=== PATIENT | male | born 2000 | race Two or more races ===

== ENCOUNTER 2023-12-29 04:23 | Emergency (ER) | payer MEDICAID, SELFPAY ==
[2023-12-29 04:23] VITALS: PULSE 98; RESP 16; O2SAT 99
[2023-12-29 04:46] VITALS: BP 151/90; PULSE 72; RESP 18; TEMP 36.9; O2SAT 97
--- NOTE | 2023-12-29 05:13 | EKG_ITS ---
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
--- NOTE | 2023-12-29 05:14 | PD.EDRME ---
Rapid Medical Screening Exam RME Arrival date/time: 12/29/23 04:23 23 year old male present to ED for c/o of arm pain today. I have greeted and performed a focused initial assessment of this patient. A comprehensive ED assessment and evaluation of the patient, analysis of all test results, and completion of the medical decision making process will be conducted by additional ED providers. Chief Complaint: General Adult/Misc Complain Vital signs: Vital Signs Temperature 98.5 F 12/29/23 04:46 Pulse Rate 72 12/29/23 04:46 Respiratory Rate 18 12/29/23 04:46 Blood Pressure 151/90 H 12/29/23 04:46 Pulse Oximetry (%) 97 12/29/23 04:46 Oxygen Delivery Method Room Air 12/29/23 04:46
[2023-12-29 06:17] LABS: Basophils # (Auto) 0.1 Thou/mm3 (0.0-0.2); Basophils % (Auto) 1 % (0-2.5); Eosinophils # (Auto) 0.5 Thou/mm3 (0.0-0.5); Eosinophils % (Auto) 5 % (0-10); Hematocrit 46.7 % (41.0-53.0); Hemoglobin 15.8 g/dL (13.5-16.0); Immature Granulocytes % (Auto) 0 % (0-0); Immature Granulocytes Auto 0.04 Thou/mm3 (0.00-0.00); Lymphocytes # (Auto) 2.3 Thou/mm3 (1.0-4.8); Lymphocytes % (Auto) 24 % (10-50); Mean Corpuscular HGB Conc 33.8 g/dl (31.0-37.0); Mean Corpuscular Volume 95 fL (80-100); Monocytes # (Auto) 0.9 Thou/mm3 (0.0-0.8); Monocytes % (Auto) 9 % (0-12); Neutrophils % (Auto) 61 % (37-80); Nucleated Red Blood Cell % 0 /100 WBC (0); Platelet Count 194 Thou/mm3 (140-440); RDW Standard Deviation 43.8 fL (35.1-43.9); Red Blood Count 4.93 Miln/mm3 (4.50-5.90); White Blood Count 9.8 Thou/mm3 (3.8-10.6)
[2023-12-29 06:32] LABS: Alanine Aminotransferase 34 U/L (10-49); Albumin, Serum 4.7 gm/dL (3.5-5.0); Alkaline Phosphatase 67 U/L (46-116); Anion Gap 5 (7-16); Aspartate Amino Transferase 22 U/L (0-34); BUN/Creatinine Ratio 11 Ratio (12-20); Bilirubin,Total 0.4 mg/dL (0.3-1.2); Blood Urea Nitrogen 10 mg/dL (9-23); Calcium 10.5 mg/dL (8.3-10.6); Calcium (Corrected) 10.5 mg/dL (8.5-10.1); Carbon Dioxide 28.4 mMol/L (20.0-31.0); Chloride 106 mMol/L (98-107); Creatinine (Component) 0.9 mg/dL (0.6-1.3); Globulin 2.4 gm/dL (2.3-3.5); Glucose 93 mg/dL (74-106); Osmolality,Calculated 276 (275-295); Potassium 4.6 mMol/L (3.4-5.1); Sodium 139 mMol/L (136-145); Total Protein 7.1 gm/dL (5.7-8.2); Troponin I < 0.002 ng/mL (0.0-0.045); eGFR > 60 See Note
--- NOTE | 2023-12-29 06:41 | EDNOTE_ITS ---
ED General RME/HPI General Chief complaint: General Adult/Misc Complain Stated complaint: Muscle Spasms Time Seen by Provider: 12/29/23 06:14 Arrival date/time: 12/29/23 04:23 23-year-old male presents to the emergency department complaint of bilateral arm pain patient reports muscle spasms Limitations: no limitations RME / HPI RME / HPI narrative: 12/29/23 04:23 23 year old male present to ED for c/o of arm pain today. I have greeted and performed a focused initial assessment of this patient. A comprehensive ED assessment and evaluation of the patient, analysis of all test results, and completion of the medical decision making process will be conducted by additional ED providers. Related Data Previous Rx's ?Medication ?Instructions ?Recorded lorazepam 0.5 mg tablet (Ativan) 0.5 mg PO BID PRN anxiety #20 tabs 06/13/19 melatonin 5 mg capsule 5 mg PO QHSPRN PRN for sleep #30 07/16/19 caps amoxicillin 875 mg-potassium 1 tab PO BID #20 tabs 08/01/19 clavulanate 125 mg tablet (Augmentin) albuterol sulfate 90 mcg/actuation 2 puff inhalation QID PRN 12/21/19 aerosol inhaler shortness of breath or wheezing #18 grams ibuprofen 800 mg tablet 800 mg PO TID PRN pain #60 tabs 05/06/20 albuterol sulfate 90 mcg/actuation 2 puff inhalation Q6H PRN 10/10/23 aerosol inhaler (Ventolin HFA) shortness of breath or wheezing #8.5 grams fluticasone propionate 50 2 spray intranasal QDAY #16 grams 11/11/23 mcg/actuation nasal spray,suspension (Flonase Allergy Relief) loratadine 10 mg tablet 10 mg PO QDAY #20 tabs 11/11/23 hydroxyzine HCl 50 mg tablet 50 mg PO Q6H PRN anxiety #20 tabs 12/07/23 cyclobenzaprine 10 mg tablet 10 mg PO TID PRN muscle spasm 10 12/29/23 days #30 tab-caps ibuprofen 800 mg tablet 800 mg PO TID PRN pain #30 tabs 12/29/23 Allergies Allergy/AdvReac Type Severity Reaction Status Date / Time dog dander Allergy Verified 10/15/23 17:37 CATS Allergy Mild SNEEZE Uncoded 10/15/23 17:37 Review of Systems Review of Systems Systems Reviewed: All systems reviewed, normal except as documented Constitutional Constitutional: Reports system reviewed and no additional complaints, except as documented, Denies fever(s) and Denies headache(s) Eyes Eyes: Reports system reviewed and no additional complaints, except as documented and Denies blurry vision ENT Ears, Nose, Mouth, and Throat: Reports system reviewed and no additional complaints, except as documented, Denies headache(s), Denies nasal congestion and Denies nasal discharge Cardiovascular Cardiovascular: Reports system reviewed and no additional complaints, except as documented, Denies chest pain and Denies dyspnea Respiratory Respiratory: Reports system reviewed and no additional complaints, except as documented, Denies chest congestion, Denies cough and Denies dyspnea Gastrointestinal Gastrointestinal: Reports system reviewed and no additional complaints, except as documented and Denies abdominal pain Musculoskeletal Musculoskeletal: Reports system reviewed and no additional complaints, except as documented and Reports muscle cramps Integumentary/Breasts Skin/Breast: Reports system reviewed and no additional complaints, except as documented and Denies rash Neurologic Neurologic: Reports system reviewed and no additional complaints, except as documented, Reports as per HPI and Denies headache(s) Past Medical History Past Medical History NEUROLOGIC: Negative Neurological Disorders CARDIAC: Negative Cardiac Disorders RESPIRATORY: Negative Respiratory Disorders ED Exam General Limitations: Present no limitations General appearance: Present alert and in no apparent distress Head Head exam: Present atraumatic Eye Eye exam: Present normal appearance, PERRL and EOMI; Absent conjunctival injection ENT ENT exam: Present normal exam, normal oropharynx and mucous membranes moist Neck Neck exam: Present normal inspection, full ROM and trachea midline Chest Chest inspection: Present normal inspection and symmetric chest wall rise Respiratory Respiratory exam: Present normal lung sounds bilaterally; Absent respiratory distress Cardiovascular Cardiovascular exam: Present regular rate, normal rhythm and normal heart sounds Abdominal Exam Abdominal exam: Present soft and normal bowel sounds Extremities Exam Extremities exam: Present normal inspection and full ROM; Absent joint swelling Back Exam Back exam: Present normal inspection and full ROM Neurological Exam Neurological exam: Present alert, oriented X3 and CN II-XII intact Psychiatric Psychiatric exam: Present normal affect and normal mood Skin Skin exam: Present warm, dry, intact and normal color Course Quality Measures none Orders Category Date Time Status EKG (ED ONLY) *Do not use* NOW Care 12/29/23 05:13 Completed EKG (ED Only) Stat Exams 12/29/23 05:13 Draft CBC Stat Lab 12/29/23 06:01 Completed CMP [Comprehensive Metabolic Panel] Stat Lab 12/29/23 06:01 Completed Drug Screen,Urine Stat Lab 12/29/23 05:14 Ordered Mag [Magnesium] Stat Lab 12/29/23 06:01 Completed Troponin I Stat Lab 12/29/23 06:01 Completed Vital Signs Vital signs: Vital Signs Temperature 98.5 F 12/29/23 04:46 Pulse Rate 72 12/29/23 04:46 Respiratory Rate 18 12/29/23 04:46 Blood Pressure 151/90 H 12/29/23 04:46 Pulse Oximetry (%) 97 12/29/23 04:46 Oxygen Delivery Method Room Air 12/29/23 04:46 O2 saturation 97% room air within normal limits Procedures -ED EKG Interpretation #1: Date of EK12/29/23 Rate: 63 Interpretation: Interpreted by me EKG Impression: Normal sinus rhythm, No acute ST-T changes, No ectopy, No ischemic changes, Normal QRS and Normal intervals MDM Patient data External records reviewed:: [facility] previous records Clinical information provided by:: patient Social determinants that could affect healthcare access:: none Patient has the following chronic illnesses:: None How is presenting disease/condition affected by chronic disease/condition?: no chronic disease Evaluation data The following diagnostics were reviewed and interpreted by me:: lab results and EKG tracing(s) Lab and/or radiology exams considered but not ordered:: Labs and EKG obtained Interpretation Summary: Reviewed by me Medications Medications considered but not ordered:: Given Medication administrations:: Given Rx Consultations Consultation(s) initiated? (list below): No Diagnosis Differential Diagnosis ED Complaint MDM: Muscle spasm, anxiety Most likely diagnosis given after review of the tests above:: Muscle spasm Admission Indicated Admission indicated?: not indicated Explain why admission is indicated or not indicated:: No criteria Admission Request Was there a request for admission?: No Disposition Plan Disposition Plan: Discharge Discharge Attestation Discharge Attestation: The patient and all family members were given an opportunity to ask questions and understood the discharge instructions. Discharge instructions specifically effects, indications for sooner follow up or return to the emergency department, and the expected course of current diagnosis. Patient condition: Stable Medical Decision Making MDM Narrative MDM Narrative: 23-year-old male presents to the emergency department complaint of bilateral arm pain patient reports muscle spasms On exam patient has equal strength bilaterally patient walks with steady gait Lab work and EKG was obtained my colleague no acute emergent findings noted Patient discharged home in no distress to follow-up with primary care doctor in the next 24 to 48 hours and for any worsening symptoms to return to the ER immediately Differential Diagnosis Differential Diagnosis: Muscle spasm, anxiety Medical Records Medical records reviewed: Yes I reviewed the patient's medical records. Lab Data Lab results reviewed: Yes I reviewed the patient's lab results. 12/29/23 06:01 12/29/23 06:01 Labs: Lab Results 12/29/23 Range/Units 06:01 WBC 9.8 (3.8-10.6) Thou/mm3 RBC 4.93 (4.50-5.90) Miln/mm3 Hgb 15.8 (13.5-16.0) g/dL Hct 46.7 (41.0-53.0) % MCV 95 (80-100) fL MCH 32.0 (25.0-35.0) pg MCHC 33.8 (31.0-37.0) g/dl RDW Std Deviation 43.8 (35.1-43.9) fL Plt Count 194 (140-440) Thou/mm3 Neut % (Auto) 61 (37-80) % Lymph % (Auto) 24 (10-50) % [place] % (Auto) 9 (0-12) % Eos % (Auto) 5 (0-10) % Baso % (Auto) 1 (0-2.5) % Neut # (Auto) 6.0 (1.8-7.7) Thou/mm3 Lymph # (Auto) 2.3 (1.0-4.8) Thou/mm3 [place] # (Auto) 0.9 H (0.0-0.8) Thou/mm3 Eos # (Auto) 0.5 (0.0-0.5) Thou/mm3 Baso # (Auto) 0.1 (0.0-0.2) Thou/mm3 Immature Gran # (Auto) 0.04 H (0.00-0.00) Thou/mm3 Absolute Nucleated RBC 0.00 (0.00-0.00) Thou/mm3 Immature Gran % 0 (0-0) % Nucleated RBC % 0 (0) /100 WBC Sodium 139 (136-145) mMol/L Potassium 4.6 (3.4-5.1) mMol/L Chloride 106 (98-107) mMol/L Carbon Dioxide 28.4 (20.0-31.0) mMol/L Anion Gap 5 L (7-16) BUN 10 (9-23) mg/dL Creatinine 0.9 (0.6-1.3) mg/dL Estim Creat Clear Calc Not Performed. eGFR > 60 (60 - ) See Note BUN/Creatinine Ratio 11 L (12-20) Ratio Glucose 93 (74-106) mg/dL Calculated Osmolality 276 (275-295) Calcium 10.5 (8.3-10.6) mg/dL Corrected Calcium 10.5 H (8.5-10.1) mg/dL Magnesium 2.0 (1.6-2.6) mg/dL Total Bilirubin 0.4 (0.3-1.2) mg/dL AST 22 (0-34) U/L ALT 34 (10-49) U/L Alkaline Phosphatase 67 (46-116) U/L Troponin I < 0.002 (0.0-0.045) ng/mL Total Protein 7.1 (5.7-8.2) gm/dL Albumin 4.7 (3.5-5.0) gm/dL Globulin 2.4 (2.3-3.5) gm/dL Albumin/Globulin Ratio 2.0 (1.2-2.2) Discharge Plan Plan Patient Disposition: HOME (Self Care) Disposition Comment: Stable Prescriptions/Referrals Prescriptions/Med Rec: New cyclobenzaprine 10 mg tablet 10 mg PO TID PRN (Reason: muscle spasm) 10 Days Qty: 30 0RF ibuprofen 800 mg tablet 800 mg PO TID PRN (Reason: pain) Qty: 30 0RF No Action lorazepam [Ativan] 0.5 mg tablet 0.5 mg PO BID PRN (Reason: anxiety) Qty: 20 0RF amoxicillin-pot clavulanate [Augmentin] 875-125 mg tablet 1 tab PO BID Qty: 20 0RF albuterol sulfate 90 mcg/actuation HFA aerosol inhaler 2 puff inhalation QID PRN (Reason: shortness of breath or wheezing) Qty: 18 0RF ibuprofen 800 mg tablet 800 mg PO TID PRN (Reason: pain) Qty: 60 0RF melatonin 5 mg capsule 5 mg PO QHSPRN PRN (Reason: for sleep ) Qty: 30 0RF hydroxyzine HCl 50 mg tablet 50 mg PO Q6H PRN (Reason: anxiety) Qty: 20 0RF albuterol sulfate [Ventolin HFA] 90 mcg/actuation HFA aerosol inhaler 2 puff inhalation Q6H PRN (Reason: shortness of breath or wheezing) Qty: 8.5 0RF fluticasone propionate [Flonase Allergy Relief] 50 mcg/actuation spray,suspension 2 spray intranasal QDAY Qty: 16 0RF Rx Instructions: administer into each nostril loratadine 10 mg tablet 10 mg PO QDAY Qty: 20 0RF Referrals: Amira Esqueda FNP [Primary Care Provider] - In 1 week Problem List Clinical Impression: Muscle spasm Patient/Caregiver Discharge Instructions Education Materials: ED Muscle Spasm Additional Instructions: Please follow up with your primary care doctor in the next 24-48hrs for any worsening symptoms return here immediately Print Language: Sami Stand Alone Forms: Rubina Award Info., Patient Portal Info Letter MELISSA/RALPH Supervising Physician MELISSA/RALPH Supervising Physician: Dr. Skelton
[2023-12-29 06:43] VITALS: BP 127/81; PULSE 65; RESP 17; TEMP 36.8; O2SAT 97
== END 2023-12-29 07:02 | disposition home or self-care (01) ==
PROVIDERS: Physician Assistant; Emergency Provider Emergency Medicine; PCP Nurse Practitioner Family
DX: M62.838 Other muscle spasm (principal)
CPT/HCPCS: 36415; 80053; 80307; 83735; 84484; 85025; 93005; 99283

== ENCOUNTER 2023-12-30 22:01 | Emergency (ER) | payer MEDICAID, SELFPAY ==
[2023-12-30 22:02] VITALS: BMI 39.9
[2023-12-30 22:14] VITALS: BP 139/85; PULSE 84; RESP 19; TEMP 37.1; O2SAT 97
--- NOTE | 2023-12-30 22:37 | EKG_ITS ---
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
--- NOTE | 2023-12-30 22:37 | XR_ITS ---
Examination: PA lateral chest 2 views Technique: Upright PA lateral chest 2 views Exam date and time: December 30, 2023 1047 hrs. Indications: Coughing today Findings: Normal heart size Lungs are clear. The osseous structures are intact Impression: No active disease
--- NOTE | 2023-12-30 22:38 | PD.EDSOB ---
ED SOB =RME/HPI General Chief Complaint: Shortness of Breath/Dyspnea Stated Complaint: PAIN WITH BREATHING Time Seen by Provider: 12/30/23 22:38 Source: patient Arrival date/time: 12/30/23 22:01 23-year-old male with past medical history of anxiety presents emergency department complaining of pain on inspiration for 3 days but only happens when going to bed. Patient denies any fever, chills, nausea vomiting, palpitations, dizziness, or any other associated symptom. Mode of arrival: ambulatory Limitations: no limitations Related Data Previous Rx's ?Medication ?Instructions ?Recorded lorazepam 0.5 mg tablet (Ativan) 0.5 mg PO BID PRN anxiety #20 tabs 06/13/19 melatonin 5 mg capsule 5 mg PO QHSPRN PRN for sleep #30 07/16/19 caps amoxicillin 875 mg-potassium 1 tab PO BID #20 tabs 08/01/19 clavulanate 125 mg tablet (Augmentin) albuterol sulfate 90 mcg/actuation 2 puff inhalation QID PRN 12/21/19 aerosol inhaler shortness of breath or wheezing #18 grams ibuprofen 800 mg tablet 800 mg PO TID PRN pain #60 tabs 05/06/20 albuterol sulfate 90 mcg/actuation 2 puff inhalation Q6H PRN 10/10/23 aerosol inhaler (Ventolin HFA) shortness of breath or wheezing #8.5 grams fluticasone propionate 50 2 spray intranasal QDAY #16 grams 11/11/23 mcg/actuation nasal spray,suspension (Flonase Allergy Relief) loratadine 10 mg tablet 10 mg PO QDAY #20 tabs 11/11/23 hydroxyzine HCl 50 mg tablet 50 mg PO Q6H PRN anxiety #20 tabs 12/07/23 cyclobenzaprine 10 mg tablet 10 mg PO TID PRN muscle spasm 10 12/29/23 days #30 tab-caps ibuprofen 800 mg tablet 800 mg PO TID PRN pain #30 tabs 12/29/23 Allergies Allergy/AdvReac Type Severity Reaction Status Date / Time dog dander Allergy Verified 10/15/23 17:37 CATS Allergy Mild SNEEZE Uncoded 10/15/23 17:37 Review of Systems Review of Systems Systems Reviewed: All systems reviewed, normal except as documented Constitutional Constitutional: Reports system reviewed and no additional complaints, except as documented, Denies body ache(s), Denies chills and Denies fever(s) Eyes Eyes: Reports system reviewed and no additional complaints, except as documented and Denies change in vision ENT Ears, Nose, Mouth, and Throat: Reports system reviewed and no additional complaints, except as documented, Denies disequilibrium, Denies dizziness, Denies sore throat and Denies vertigo Cardiovascular Cardiovascular: Reports system reviewed and no additional complaints, except as documented, Denies chest pain and Reports dyspnea Respiratory Respiratory: Reports system reviewed and no additional complaints, except as documented, Denies chest congestion, Denies cough and Reports dyspnea Gastrointestinal Gastrointestinal: Reports system reviewed and no additional complaints, except as documented, Denies abdominal pain, Denies nausea and Denies vomiting Musculoskeletal Musculoskeletal: Reports system reviewed and no additional complaints, except as documented, Denies abnormal gait and Denies arthralgias Integumentary/Breasts Skin/Breast: Reports system reviewed and no additional complaints, except as documented, Denies erythema, Denies rash and Denies wounds Neurologic Neurologic: Reports system reviewed and no additional complaints, except as documented, Denies abnormal gait, Denies disequilibrium, Denies dizziness and Denies vertigo Past Medical History Past Medical History NEUROLOGIC: Negative Neurological Disorders CARDIAC: Negative Cardiac Disorders, Congestive Heart Failure, Hypertension or Hypotension RESPIRATORY: Positive Asthma; Negative Chronic Obstructive Pulmonary Disease (COPD) GENITOURINARY: Negative Renal Disease ENDOCRINE: Negative Diabetes Mellitus Type 1 or Diabetes Mellitus Type 2 PSYCHO/SOCIAL: Positive Anxiety OTHER HISTORY: Negative Cancer Social History SMOKING STATUS: Never smoker SUBSTANCE USE: does not use ED Exam General Limitations: Present no limitations General appearance: Present alert and in no apparent distress Head Head exam: Present atraumatic Eye Eye exam: Present normal appearance, PERRL and EOMI ENT ENT exam: Present normal exam, normal oropharynx and mucous membranes moist Neck Neck exam: Present normal inspection, full ROM and trachea midline Chest Chest inspection: Present normal inspection and symmetric chest wall rise Respiratory Respiratory exam: Present normal lung sounds bilaterally Cardiovascular Cardiovascular exam: Present regular rate, normal rhythm and normal heart sounds Abdominal Exam Abdominal exam: Present soft and normal bowel sounds Extremities Exam Extremities exam: Present normal inspection and full ROM Back Exam Back exam: Present normal inspection and full ROM Neurological Exam Neurological exam: Present alert, oriented X3 and CN II-XII intact Psychiatric Psychiatric exam: Present normal affect and normal mood Skin Skin exam: Present warm, dry, intact and normal color Course Quality Measures none Orders Category Date Time Status Bedside COVID-19 Antigen Test NOW Care 12/30/23 22:37 Completed Bedside Influenza A&B Antigen Test NOW Care 12/30/23 22:37 Completed EKG (ED ONLY) *Do not use* NOW Care 12/30/23 22:37 Completed EKG (ED Only) Stat Exams 12/30/23 22:37 Draft XR chest 2V Stat Exams 12/30/23 22:37 Completed Drug Screen,Urine Stat Lab 12/31/23 00:09 Completed DiphenhydrAMINE [Benadryl] Med 12/31/23 00:43 Discontinued 25 mg PO X1 ONE Vital Signs Vital signs: Vital Signs Temperature 98.7 F 12/30/23 22:14 Pulse Rate 84 12/30/23 22:14 Respiratory Rate 19 12/30/23 22:14 Blood Pressure 139/85 H 12/30/23 22:14 Pulse Oximetry (%) 97 12/30/23 22:14 Oxygen Delivery Method Room Air 12/30/23 22:14 97% room air within normal limits Procedures -ED EKG Interpretation #1: Date of EK12/30/23 Time of EK:45 Rate: 75 Interpretation: Interpreted by me EKG Impression: Normal sinus rhythm, No acute ST-T changes, No ectopy, No ischemic changes and Normal QRS Shortness of Breath / Dyspnea MDM Narrative MDM Narrative:: 23-year-old male with past medical history of anxiety presents emergency department complaining of pain on inspiration for 3 days but only happens when going to bed. Patient denies any fever, chills, nausea vomiting, palpitations, dizziness, or any other associated symptom. Chest x-ray was negative for any acute process. EKG normal sinus rhythm. Patient tested negative for COVID and influenza swabs. Patient appears nontoxic and hemodynamic stable. No adventitious lung sounds on auscultation. Patient does not appear to be in any respiratory distress. Patient discharged home and instructed to follow-up with primary care provider and return to emergency department for any worsening symptoms or as needed. Patient data External records reviewed:: [facility] previous records Clinical information provided by:: patient Social determinants that could affect healthcare access:: none Patient has the following chronic illnesses:: See chart How is presenting disease/condition affected by chronic disease/condition?: exacerbated by Evaluation data The following diagnostics were reviewed and interpreted by me:: lab results and radiology exam(s) Lab and/or radiology exams considered but not ordered:: Ordered Interpretation Summary: Interpreted by me Medications / Prescriptions Medications or Prescriptions considered but not ordered:: Ordered Medication administrations:: Medication Administration History Discontinued Medications Diphenhydramine HCl (Diphenhydramine 25 Mg Capsule) 25 mg PO X1 ONE Stop: 12/31/23 00:44 Last Admin: 12/31/23 00:48 Dose: 25 mg Documented By: DB Given Consultations Consultation(s) initiated? (list below): No Diagnosis Shortness of Breath Differential Diagnosis: community acquired pneumonia and asthma with exacerbation Most likely diagnosis given after review of the tests above:: Viral syndrome Admission Indicated Admission indicated?: not indicated Admission Request Was there a request for admission?: No Disposition Plan Disposition Plan: Discharge Discharge Attestation Discharge Attestation: The patient and all family members were given an opportunity to ask questions and understood the discharge instructions. Discharge instructions specifically effects, indications for sooner follow up or return to the emergency department, and the expected course of current diagnosis. Patient condition: Stable Discharge Plan Plan Patient Disposition: HOME (Self Care) Disposition Comment: Stable Prescriptions/Referrals Prescriptions/Med Rec: No Action lorazepam [Ativan] 0.5 mg tablet 0.5 mg PO BID PRN (Reason: anxiety) Qty: 20 0RF amoxicillin-pot clavulanate [Augmentin] 875-125 mg tablet 1 tab PO BID Qty: 20 0RF albuterol sulfate 90 mcg/actuation HFA aerosol inhaler 2 puff inhalation QID PRN (Reason: shortness of breath or wheezing) Qty: 18 0RF ibuprofen 800 mg tablet 800 mg PO TID PRN (Reason: pain) Qty: 60 0RF melatonin 5 mg capsule 5 mg PO QHSPRN PRN (Reason: for sleep ) Qty: 30 0RF hydroxyzine HCl 50 mg tablet 50 mg PO Q6H PRN (Reason: anxiety) Qty: 20 0RF cyclobenzaprine 10 mg tablet 10 mg PO TID PRN (Reason: muscle spasm) 10 Days Qty: 30 0RF ibuprofen 800 mg tablet 800 mg PO TID PRN (Reason: pain) Qty: 30 0RF albuterol sulfate [Ventolin HFA] 90 mcg/actuation HFA aerosol inhaler 2 puff inhalation Q6H PRN (Reason: shortness of breath or wheezing) Qty: 8.5 0RF fluticasone propionate [Flonase Allergy Relief] 50 mcg/actuation spray,suspension 2 spray intranasal QDAY Qty: 16 0RF Rx Instructions: administer into each nostril loratadine 10 mg tablet 10 mg PO QDAY Qty: 20 0RF Referrals: Amira Esqueda FNP [Primary Care Provider] - In 1 week Problem List Clinical Impression: Viral syndrome Patient/Caregiver Discharge Instructions Discharge Activity: activity as tolerated Education Materials: ED Viral Syndrome (Adult) Additional Instructions: Drink plenty of fluids and stay hydrated. Follow-up with primary care provider in 24 to 48 hours and request sleep study if symptoms persist. Return to the emergency department for any worsening symptoms or as needed. Print Language: Slovenian Stand Alone Forms: Rubina Award Info., Patient Portal Info Letter Attestation Attestation The patient was seen by the midlevel practitioner. I, the co-signing physician, was present during the entire ER visit. While I did not physically examine the patient, I was available for consultation as needed.
[2023-12-31 00:27] LABS: Amphetamine/Methamp Scrn,U Negative (Negative); Barbiturate Screen,Urine Negative (Negative); Benzodiazepines Screen,Urine Negative (Negative); Benzoylecgonine Screen, Ur Negative (Negative); Fentanyl Screen,Urine Negative (Negative); Opiate Screen,Urine Negative (Negative); THC Screen,Urine Negative (Negative)
[2023-12-31] MEDS: DiphenhydrAMINE 25 MG CAPSULE PO (00:48)
[2023-12-31 00:50] VITALS: BP 133/70; PULSE 64; RESP 16; TEMP 37.1; O2SAT 100
== END 2023-12-31 00:51 | disposition home or self-care (01) ==
PROVIDERS: Emergency Provider Emergency Medicine; PCP Nurse Practitioner Family
DX: B34.9 Viral infection, unspecified (principal)
CPT/HCPCS: 71046; 80307; 87400; 87811; 93005; 99283; A9270

== ENCOUNTER 2024-02-03 01:56 | Emergency (ER) | payer MEDICAID, SELFPAY ==
[2024-02-03 01:57] VITALS: BMI 38.7
[2024-02-03 02:25] VITALS: BP 147/92; PULSE 66; RESP 18; TEMP 36.8; O2SAT 97
--- NOTE | 2024-02-03 02:26 | EDNOTE_ITS ---
ED General RME/HPI General Chief complaint: General Adult/Misc Complain Stated complaint: SHAKY AND SOB AFTER TAKING TYLENOL PM Time Seen by Provider: 02/03/24 02:02 Arrival date/time: 02/03/24 01:56 23 year old male present to emergency room with c/o anxiety attack tonight. pt report taking tylenol pm and felt he could not fall asleept. hx of anxiety SEVERITY: Symptoms are described as being severe with limitations on activities of daily living CONTEXT: The patient is unable to identify any inciting events. DURATION/TIMING: The symptoms started approximately 1 day ASSOCIATED SYMPTOMS: The patient is unable to identify any other associated symptoms. MODIFYING FACTORS: The patient is unable to identify any alleviating or aggravating symptoms. PERTINENT ROS: no fevers, no cough, no chest pain no nausea,vomiting, diarrhea, no dizziness/headache no rash no loc/syncope episode no abd/back pain REVIEW OF SYSTEMS: See History of Present Illness - with the exception of those mentioned in the history of present illness, all other systems reviewed and reported as negative GENERAL: In general the patient is awake, interactive, in an emergency department gurney. HEAD/EYES/EARS/NOSE/THROAT: normo-cephalic, atraumatic, mucus membranes are moist, anicteric, palpebral conjunctiva is pink, trachea is midline. CARDIOVASCULAR: regular rate and regular rhythm, no murmurs, heart sounds are not distant, strong pulses in all four extremities that are equal and symmetric bilateral upper and lower extremities, normal capillary refill. CHEST/PULMONARY: normal chest rise and fall, good air movement, clear to auscultation bilaterally, normal inspiratory to expiratory ratios without evidence of respiratory distress. NECK: No midline/Paraspinal tenderness, no step off ROM/Strenght intact No Kernig and bruzinski sign. No trauma ABDOMEN: soft, not tender, no masses appreciated BACK: normal range of motion without pain. NEUROLOGICAL: cranio-facial features are symmetric, moves all four extremities equally without obvious limitations or weakness. EXTREMITY: no tenderness to palpation over the long bones or large joints of the bilateral upper and lower extremities, no joint swelling, no joint erythema, no signs of trauma, no unilateral leg swelling and no peripheral edema. SKIN: warm, dry, well-perfused, no jaundice, no rash, no telangiectasias or petechia. PSYCH: calm, cooperative, no evidence of psychosis or agitation Related Data Previous Rx's ?Medication ?Instructions ?Recorded lorazepam 0.5 mg tablet (Ativan) 0.5 mg PO BID PRN anxiety #20 tabs 06/13/19 melatonin 5 mg capsule 5 mg PO QHSPRN PRN for sleep #30 07/16/19 caps amoxicillin 875 mg-potassium 1 tab PO BID #20 tabs 08/01/19 clavulanate 125 mg tablet (Augmentin) albuterol sulfate 90 mcg/actuation 2 puff inhalation QID PRN 12/21/19 aerosol inhaler shortness of breath or wheezing #18 grams ibuprofen 800 mg tablet 800 mg PO TID PRN pain #60 tabs 05/06/20 albuterol sulfate 90 mcg/actuation 2 puff inhalation Q6H PRN 10/10/23 aerosol inhaler (Ventolin HFA) shortness of breath or wheezing #8.5 grams fluticasone propionate 50 2 spray intranasal QDAY #16 grams 11/11/23 mcg/actuation nasal spray,suspension (Flonase Allergy Relief) loratadine 10 mg tablet 10 mg PO QDAY #20 tabs 11/11/23 hydroxyzine HCl 50 mg tablet 50 mg PO Q6H PRN anxiety #20 tabs 12/07/23 ibuprofen 800 mg tablet 800 mg PO TID PRN pain #30 tabs 12/29/23 Allergies Allergy/AdvReac Type Severity Reaction Status Date / Time dog dander Allergy Verified 10/15/23 17:37 CATS Allergy Mild SNEEZE Uncoded 10/15/23 17:37 Course Course Course Narrative: This patient presents with symptoms consistent with acute anxiety reaction / panic attack. Low suspicion for acute cardiopulmonary process including ACS, PE, or thoracic aortic dissection. Denies any ingestions or any other medical complaints. No evidence of alcohol withdrawal symptoms. Presentation not consistent with overt toxidrome, ingestion given history & physical. Presentation not consistent with organic or medical emergency at this time. No acute indication for psychiatric consultation (without SI/HI, AH/VH). Cautious return precautions discussed with full understanding. Plan: ativan po and observation? Quality Measures none Orders Category Date Time Status LORazepam [Ativan] Med 02/03/24 02:25 Discontinued 0.5 mg PO X1 ONE Reevaluation(s) Reevaluation #1: pt is feeling better Vital Signs Vital signs: Vital Signs Temperature 98.3 F 02/03/24 02:25 Pulse Rate 66 02/03/24 02:25 Respiratory Rate 18 02/03/24 02:25 Blood Pressure 147/92 H 02/03/24 02:25 Pulse Oximetry (%) 97 02/03/24 02:25 Oxygen Delivery Method Room Air 02/03/24 02:25 [facility] Patient data External records reviewed:: [facility] previous records Clinical information provided by:: patient Social determinants that could affect healthcare access:: none Patient has the following chronic illnesses:: anxiety How is presenting disease/condition affected by chronic disease/condition?: exacerbated by Evaluation data The following diagnostics were reviewed and interpreted by me:: other (specify) (none ) Lab and/or radiology exams considered but not ordered:: none Interpretation Summary: none Medications Medications considered but not ordered:: none Medication administrations:: Medication Administration History Discontinued Medications Lorazepam (Lorazepam 0.5 Mg Tablet) 0.5 mg PO X1 ONE Stop: 02/03/24 02:26 as state above Consultations Consultation(s) initiated? (list below): No Diagnosis Differential Diagnosis ED Complaint MDM: anxiety vs panic attack vs drug reaction Most likely diagnosis given after review of the tests above:: anxiety attack Admission Indicated Admission indicated?: not indicated Explain why admission is indicated or not indicated:: not indicated Admission Request Was there a request for admission?: No Disposition Plan Disposition Plan: Discharge Discharge Attestation Discharge Attestation: The patient and all family members were given an opportunity to ask questions and understood the discharge instructions. Discharge instructions specifically effects, indications for sooner follow up or return to the emergency department, and the expected course of current diagnosis. Patient condition: Stable Medical Decision Making Differential Diagnosis Differential Diagnosis: anxiety vs panic attack vs drug reaction Discharge Plan Plan Patient Disposition: HOME (Self Care) Prescriptions/Referrals Prescriptions/Med Rec: No Action lorazepam [Ativan] 0.5 mg tablet 0.5 mg PO BID PRN (Reason: anxiety) Qty: 20 0RF amoxicillin-pot clavulanate [Augmentin] 875-125 mg tablet 1 tab PO BID Qty: 20 0RF albuterol sulfate 90 mcg/actuation HFA aerosol inhaler 2 puff inhalation QID PRN (Reason: shortness of breath or wheezing) Qty: 18 0RF ibuprofen 800 mg tablet 800 mg PO TID PRN (Reason: pain) Qty: 60 0RF melatonin 5 mg capsule 5 mg PO QHSPRN PRN (Reason: for sleep ) Qty: 30 0RF hydroxyzine HCl 50 mg tablet 50 mg PO Q6H PRN (Reason: anxiety) Qty: 20 0RF ibuprofen 800 mg tablet 800 mg PO TID PRN (Reason: pain) Qty: 30 0RF albuterol sulfate [Ventolin HFA] 90 mcg/actuation HFA aerosol inhaler 2 puff inhalation Q6H PRN (Reason: shortness of breath or wheezing) Qty: 8.5 0RF fluticasone propionate [Flonase Allergy Relief] 50 mcg/actuation spray,suspension 2 spray intranasal QDAY Qty: 16 0RF Rx Instructions: administer into each nostril loratadine 10 mg tablet 10 mg PO QDAY Qty: 20 0RF Problem List Clinical Impression: Anxiety Patient/Caregiver Discharge Instructions Education Materials: ED Anxiety Reaction Print Language: Tongan Stand Alone Forms: [employer] Award Info., Patient Portal Info Letter
[2024-02-03] MEDS: LORazepam 0.5 MG TABLET PO (02:45)
[2024-02-03 02:51] VITALS: RESP 18
== END 2024-02-03 02:51 | disposition home or self-care (01) ==
LOC: SERX 03:50
PROVIDERS: Emergency Provider Emergency Medicine; PCP Nurse Practitioner Family
DX: F41.9 Anxiety disorder, unspecified (principal)
CPT/HCPCS: 99282; A9270

== ENCOUNTER 2024-02-06 23:34 | Emergency (ER) | payer MEDICAID, SELFPAY ==
[2024-02-06 23:34] VITALS: BMI 39.9
[2024-02-06 23:40] VITALS: BP 152/91; PULSE 85; RESP 18; TEMP 36.9; O2SAT 98
--- NOTE | 2024-02-06 23:59 | EDNOTE_ITS ---
Upper Respiratory Inf. RME/HPI General Chief Complaint: Dental/Oral/Throat Stated Complaint: SORE THROAT Time Seen by Provider: 02/06/24 23:49 Arrival date/time: 02/06/24 23:34 23M with history of anxiety and asthma presents to ED with 1 day of sore throat. Limitations: no limitations Related Data Previous Rx's ?Medication ?Instructions ?Recorded lorazepam 0.5 mg tablet (Ativan) 0.5 mg PO BID PRN anxiety #20 tabs 06/13/19 melatonin 5 mg capsule 5 mg PO QHSPRN PRN for sleep #30 07/16/19 caps amoxicillin 875 mg-potassium 1 tab PO BID #20 tabs 08/01/19 clavulanate 125 mg tablet (Augmentin) albuterol sulfate 90 mcg/actuation 2 puff inhalation QID PRN 12/21/19 aerosol inhaler shortness of breath or wheezing #18 grams ibuprofen 800 mg tablet 800 mg PO TID PRN pain #60 tabs 05/06/20 albuterol sulfate 90 mcg/actuation 2 puff inhalation Q6H PRN 10/10/23 aerosol inhaler (Ventolin HFA) shortness of breath or wheezing #8.5 grams fluticasone propionate 50 2 spray intranasal QDAY #16 grams 11/11/23 mcg/actuation nasal spray,suspension (Flonase Allergy Relief) loratadine 10 mg tablet 10 mg PO QDAY #20 tabs 11/11/23 hydroxyzine HCl 50 mg tablet 50 mg PO Q6H PRN anxiety #20 tabs 12/07/23 ibuprofen 800 mg tablet 800 mg PO TID PRN pain #30 tabs 12/29/23 Allergies Allergy/AdvReac Type Severity Reaction Status Date / Time dog dander Allergy Verified 10/15/23 17:37 CATS Allergy Mild SNEEZE Uncoded 10/15/23 17:37 Review of Systems Review of Systems Systems Reviewed: All systems reviewed, normal except as documented Constitutional Constitutional: Reports system reviewed and no additional complaints, except as documented, Denies fever(s) and Denies headache(s) ENT Ears, Nose, Mouth, and Throat: Reports as per HPI, Denies disequilibrium, Denies headache(s) and Reports sore throat Cardiovascular Cardiovascular: Reports system reviewed and no additional complaints, except as documented, Denies chest pain and Denies dyspnea Respiratory Respiratory: Reports system reviewed and no additional complaints, except as documented, Denies cough and Denies dyspnea Gastrointestinal Gastrointestinal: Reports system reviewed and no additional complaints, except as documented, Denies abdominal pain, Denies nausea and Denies vomiting Neurologic Neurologic: Reports system reviewed and no additional complaints, except as documented, Denies confusion, Denies disequilibrium and Denies headache(s) Psychiatric Psychiatric: Denies confusion Past Medical History Past Medical History NEUROLOGIC: Negative Neurological Disorders CARDIAC: Negative Cardiac Disorders, Congestive Heart Failure, Hypertension or Hypotension RESPIRATORY: Positive Asthma; Negative Chronic Obstructive Pulmonary Disease (COPD) GENITOURINARY: Negative Renal Disease ENDOCRINE: Negative Diabetes Mellitus Type 1 or Diabetes Mellitus Type 2 PSYCHO/SOCIAL: Positive Anxiety OTHER HISTORY: Negative Cancer Social History SMOKING STATUS: Never smoker SUBSTANCE USE: does not use ED Exam General Limitations: Present no limitations General appearance: Present alert and in no apparent distress Head Head exam: Present atraumatic Eye Eye exam: Present normal appearance, PERRL and EOMI ENT ENT exam: Present normal exam, normal oropharynx and mucous membranes moist Neck Neck exam: Present normal inspection, full ROM and trachea midline Chest Chest inspection: Present normal inspection and symmetric chest wall rise Respiratory Respiratory exam: Present normal lung sounds bilaterally Cardiovascular Cardiovascular exam: Present regular rate, normal rhythm and normal heart sounds Abdominal Exam Abdominal exam: Present soft and normal bowel sounds Extremities Exam Extremities exam: Present normal inspection and full ROM Back Exam Back exam: Present normal inspection and full ROM Neurological Exam Neurological exam: Present alert, oriented X3 and CN II-XII intact Psychiatric Psychiatric exam: Present normal affect and normal mood Skin Skin exam: Present warm, dry, intact and normal color Course Quality Measures none Orders Category Date Time Status Bedside Influenza A&B Antigen Test NOW Care 02/06/24 23:50 Completed Strep A Rapid Stat Lab 02/07/24 00:06 Completed Vital Signs Vital signs: Vital Signs Temperature 98.4 F 02/06/24 23:40 Pulse Rate 85 02/06/24 23:40 Respiratory Rate 18 02/06/24 23:40 Blood Pressure 152/91 H 02/06/24 23:40 Pulse Oximetry (%) 98 02/06/24 23:40 Oxygen Delivery Method Room Air 02/06/24 23:40 O2 at 98% on RA and WNLs Upper Respiratory Infection MDM Narrative MDM Narrative:: 23M with history of anxiety and asthma presents to ED with 1 day of sore throat. Physical exam reveals clear ENT and lungs. Patient is afebrile, calm, and alert. Swabs neg. Likely viral tonsillitis. Patient data External records reviewed:: [facility] previous records Clinical information provided by:: patient Social determinants that could affect healthcare access:: mental health Patient has the following chronic illnesses:: anxiety and asthma How is presenting disease/condition affected by chronic disease/condition?: exacerbated by Evaluation data The following diagnostics were reviewed and interpreted by me:: lab results Lab and/or radiology exams considered but not ordered:: ordered Interpretation Summary: above Medications / Prescriptions Medications or Prescriptions considered but not ordered:: not ordered Medication administrations:: n/a Consultations Consultation(s) initiated? (list below): No Diagnosis Upper Respiratory Differential Diagnosis: upper respiratory infection, croup, otitis media, sinusitis, viral infection, bronchitis, influenza, pharyngitis and other (tonsillitis) Most likely diagnosis given after review of the tests above:: tonsillitis Admission Indicated Admission indicated?: not indicated Admission Request Was there a request for admission?: No Disposition Plan Disposition Plan: Discharge Discharge Attestation Discharge Attestation: The patient and all family members were given an opportunity to ask questions and understood the discharge instructions. Discharge instructions specifically effects, indications for sooner follow up or return to the emergency department, and the expected course of current diagnosis. Patient condition: Stable Discharge Plan Plan Patient Disposition: HOME (Self Care) Disposition Comment: Stable Prescriptions/Referrals Prescriptions/Med Rec: No Action lorazepam [Ativan] 0.5 mg tablet 0.5 mg PO BID PRN (Reason: anxiety) Qty: 20 0RF amoxicillin-pot clavulanate [Augmentin] 875-125 mg tablet 1 tab PO BID Qty: 20 0RF albuterol sulfate 90 mcg/actuation HFA aerosol inhaler 2 puff inhalation QID PRN (Reason: shortness of breath or wheezing) Qty: 18 0RF ibuprofen 800 mg tablet 800 mg PO TID PRN (Reason: pain) Qty: 60 0RF melatonin 5 mg capsule 5 mg PO QHSPRN PRN (Reason: for sleep ) Qty: 30 0RF hydroxyzine HCl 50 mg tablet 50 mg PO Q6H PRN (Reason: anxiety) Qty: 20 0RF ibuprofen 800 mg tablet 800 mg PO TID PRN (Reason: pain) Qty: 30 0RF albuterol sulfate [Ventolin HFA] 90 mcg/actuation HFA aerosol inhaler 2 puff inhalation Q6H PRN (Reason: shortness of breath or wheezing) Qty: 8.5 0RF fluticasone propionate [Flonase Allergy Relief] 50 mcg/actuation spray,suspension 2 spray intranasal QDAY Qty: 16 0RF Rx Instructions: administer into each nostril loratadine 10 mg tablet 10 mg PO QDAY Qty: 20 0RF Problem List Clinical Impression: Acute tonsillitis Patient/Caregiver Discharge Instructions Education Materials: ED Pharyngitis, Viral Additional Instructions: Please follow-up with PCP within 24-48 hours and return immediately if symptoms worsen. Ibuprofen/Tylenol can be used simultaneously for greater fever/pain control. Benadryl is good for cough, congestion, and sleep. Print Language: Turkmen Stand Alone Forms: Patient Portal Info Letter PA/CERTIFIED APPLIANCE SERVICE TECHNICIAN Supervising Physician PA/RALPH Supervising Physician: Dr. Skelton
[2024-02-07 00:48] LABS: Strep A Rapid Negative (Negative)
== END 2024-02-07 01:13 | disposition home or self-care (01) ==
LOC: SERX 02-07 01:21
PROVIDERS: Physician Assistant; Emergency Provider Emergency Medicine; PCP Nurse Practitioner Family
DX: J03.90 Acute tonsillitis, unspecified (principal)
CPT/HCPCS: 87400; 87651; 99283

== ENCOUNTER 2024-02-23 09:14 | Emergency (ER) | payer MEDICAID, SELFPAY ==
[2024-02-23 09:14] VITALS: BMI 38.7
[2024-02-23 09:36] VITALS: BP 147/95; PULSE 75; RESP 19; TEMP 36.8; O2SAT 98
--- NOTE | 2024-02-23 09:41 | XR_ITS ---
Examination: PA lateral chest 2 views TECHNIQUE: Upright PA lateral chest 2 views Exam date and time: February 23, 2024 0948 hours Comparison December 30, 2023 INDICATIONS: Onset wheezing today. FINDINGS: Normal heart size Lungs are clear. The osseous structures are intact IMPRESSION: No active disease
--- NOTE | 2024-02-23 09:42 | EDNOTE_ITS ---
ED SOB =RME/HPI General Chief Complaint: Shortness of Breath/Dyspnea Stated Complaint: DIFF BREATHING TODAY Time Seen by Provider: 02/23/24 09:42 Source: patient Arrival date/time: 02/23/24 09:14 23-year-old male with no known medical history presents emergency room with a chief complaint of difficulty breathing and difficulty taking deep breaths. Patient states this has been going on for the last 3 days. Mode of arrival: ambulatory Limitations: no limitations Related Data Previous Rx's ?Medication ?Instructions ?Recorded lorazepam 0.5 mg tablet (Ativan) 0.5 mg PO BID PRN anxiety #20 tabs 06/13/19 melatonin 5 mg capsule 5 mg PO QHSPRN PRN for sleep #30 07/16/19 caps amoxicillin 875 mg-potassium 1 tab PO BID #20 tabs 08/01/19 clavulanate 125 mg tablet (Augmentin) albuterol sulfate 90 mcg/actuation 2 puff inhalation QID PRN 12/21/19 aerosol inhaler shortness of breath or wheezing #18 grams ibuprofen 800 mg tablet 800 mg PO TID PRN pain #60 tabs 05/06/20 albuterol sulfate 90 mcg/actuation 2 puff inhalation Q6H PRN 10/10/23 aerosol inhaler (Ventolin HFA) shortness of breath or wheezing #8.5 grams fluticasone propionate 50 2 spray intranasal QDAY #16 grams 11/11/23 mcg/actuation nasal spray,suspension (Flonase Allergy Relief) loratadine 10 mg tablet 10 mg PO QDAY #20 tabs 11/11/23 hydroxyzine HCl 50 mg tablet 50 mg PO Q6H PRN anxiety #20 tabs 12/07/23 ibuprofen 800 mg tablet 800 mg PO TID PRN pain #30 tabs 12/29/23 Allergies Allergy/AdvReac Type Severity Reaction Status Date / Time dog dander Allergy Severe Difficulty Verified 02/23/24 09:16 Breathing CATS Allergy Severe SNEEZE Uncoded 02/23/24 09:16 Review of Systems Review of Systems Systems Reviewed: All systems reviewed, normal except as documented Constitutional Constitutional: Reports system reviewed and no additional complaints, except as documented, Denies fatigue, Denies fever(s), Denies headache(s) and Denies weakness Eyes Eyes: Reports system reviewed and no additional complaints, except as documented, Denies blurry vision and Denies change in vision ENT Ears, Nose, Mouth, and Throat: Reports system reviewed and no additional complaints, except as documented, Denies otalgia, Denies headache(s), Denies nasal congestion, Denies throat swelling and Denies vertigo Cardiovascular Cardiovascular: Reports system reviewed and no additional complaints, except as documented, Denies chest pain, Reports dyspnea and Reports dyspnea on exertion Respiratory Respiratory: Reports system reviewed and no additional complaints, except as documented, Denies chest congestion, Denies cough, Reports dyspnea, Reports dyspnea on exertion and Denies wheezing Gastrointestinal Gastrointestinal: Reports system reviewed and no additional complaints, except as documented, Denies abdominal pain, Denies cramping, Denies nausea and Denies vomiting Genitourinary Genitourinary: Reports system reviewed and no additional complaints, except as documented, Denies dysuria and Denies hematuria Musculoskeletal Musculoskeletal: Reports system reviewed and no additional complaints, except as documented and Denies back pain Integumentary/Breasts Skin/Breast: Reports system reviewed and no additional complaints, except as documented and Denies wounds Neurologic Neurologic: Reports system reviewed and no additional complaints, except as documented, Denies confusion, Denies headache(s), Denies lack of coordination, Denies vertigo and Denies weakness Psychiatric Psychiatric: Reports system reviewed and no additional complaints, except as documented, Denies anxiety, Denies confusion, Denies depression, Denies paranoia, Denies suicidal ideation and Denies tactile hallucinations Endocrine Endocrine: Reports system reviewed and no additional complaints, except as documented and Denies fatigue Hematologic/Lymphatic Hematologic/Lymphatic: Reports system reviewed and no additional complaints, except as documented and Denies lymphadenopathy Allergic/Immunologic Allergic/Immunologic: Reports system reviewed and no additional complaints, except as documented, Denies throat swelling, Denies urticaria and Denies wheezing Past Medical History Past Medical History NEUROLOGIC: Negative Neurological Disorders CARDIAC: Negative Cardiac Disorders, Congestive Heart Failure, Hypertension or Hypotension RESPIRATORY: Positive Asthma; Negative Chronic Obstructive Pulmonary Disease (COPD) GENITOURINARY: Negative Renal Disease ENDOCRINE: Negative Diabetes Mellitus Type 1 or Diabetes Mellitus Type 2 PSYCHO/SOCIAL: Positive Anxiety OTHER HISTORY: Negative Cancer Social History SMOKING STATUS: Never smoker SUBSTANCE USE: does not use ED Exam General Limitations: Present no limitations General appearance: Present alert and in no apparent distress Head Head exam: Present atraumatic Eye Eye exam: Present normal appearance, PERRL and EOMI ENT ENT exam: Present normal exam, normal oropharynx and mucous membranes moist Neck Neck exam: Present normal inspection, full ROM and trachea midline Chest Chest inspection: Present normal inspection and symmetric chest wall rise Respiratory Respiratory exam: Present normal lung sounds bilaterally; Absent respiratory distress, wheezes, stridor, accessory muscle use or prolonged expiratory phase Cardiovascular Cardiovascular exam: Present regular rate, normal rhythm and normal heart sounds Abdominal Exam Abdominal exam: Present soft and normal bowel sounds Extremities Exam Extremities exam: Present normal inspection and full ROM Back Exam Back exam: Present normal inspection and full ROM Neurological Exam Neurological exam: Present alert, oriented X3 and CN II-XII intact Psychiatric Psychiatric exam: Present normal affect and normal mood Skin Skin exam: Present warm, dry, intact and normal color Course Quality Measures none Orders Category Date Time Status EKG (ED ONLY) *Do not use* NOW Care 02/23/24 09:48 Completed EKG (ED Only) Stat Exams 02/23/24 09:48 Draft XR chest 2V Stat Exams 02/23/24 09:41 Completed BNP [B-Type Natriuretic Peptide] Stat Lab 02/23/24 10:14 Completed CBC Stat Lab 02/23/24 10:14 Completed CMP [Comprehensive Metabolic Panel] Stat Lab 02/23/24 10:14 Completed Troponin I Stat Lab 02/23/24 10:14 Completed Vital Signs Vital signs: Vital Signs Temperature 98.2 F 02/23/24 09:36 Pulse Rate 75 02/23/24 09:36 Respiratory Rate 19 02/23/24 09:36 Blood Pressure 147/95 H 02/23/24 09:36 Pulse Oximetry (%) 98 02/23/24 09:36 Oxygen Delivery Method Room Air 02/23/24 09:36 O2 saturation 90% within normal limits Shortness of Breath / Dyspnea MDM Narrative MDM Narrative:: 23-year-old male with no known medical history presents emergency room with a chief complaint of difficulty breathing and difficulty taking deep breaths. Patient states this has been going on for the last 3 days. Clinically the patient appears nontoxic and in no apparent distress. Physical examination shows clear bilateral lung sounds with no wheezing stridor or any respiratory distress. The patient began complaining of right-sided chest pain EKG was completed and shows normal sinus rhythm with no ST deviation. CBC CMP and troponin were all negative. Patient was discharged and educated to follow-up with his primary care provider and return to the emergency room for any evidence of worsening signs or symptoms. X-ray was negative Patient data External records reviewed:: [facility] previous records Clinical information provided by:: patient Social determinants that could affect healthcare access:: none Patient has the following chronic illnesses:: Anxiety How is presenting disease/condition affected by chronic disease/condition?: exacerbated by Evaluation data The following diagnostics were reviewed and interpreted by me:: lab results and radiology exam(s) Lab and/or radiology exams considered but not ordered:: Labs and radiology exams considered and ordered Interpretation Summary: Chest x-ray-no acute pneumonic infiltrate Medications / Prescriptions Medications or Prescriptions considered but not ordered:: No medication given Medication administrations:: No medication given Consultations Consultation(s) initiated? (list below): No Diagnosis Shortness of Breath Differential Diagnosis: asthma with exacerbation and other (Anxiety/pneumonia) Most likely diagnosis given after review of the tests above:: Anxiety Admission Indicated Admission indicated?: not indicated Admission Request Was there a request for admission?: No Disposition Plan Disposition Plan: Discharge Discharge Attestation Discharge Attestation: The patient and all family members were given an opportunity to ask questions and understood the discharge instructions. Discharge instructions specifically effects, indications for sooner follow up or return to the emergency department, and the expected course of current diagnosis. Patient condition: Stable Discharge Plan Plan Patient Disposition: HOME (Self Care) Disposition Comment: Stable Prescriptions/Referrals Prescriptions/Med Rec: No Action lorazepam [Ativan] 0.5 mg tablet 0.5 mg PO BID PRN (Reason: anxiety) Qty: 20 0RF amoxicillin-pot clavulanate [Augmentin] 875-125 mg tablet 1 tab PO BID Qty: 20 0RF albuterol sulfate 90 mcg/actuation HFA aerosol inhaler 2 puff inhalation QID PRN (Reason: shortness of breath or wheezing) Qty: 18 0RF ibuprofen 800 mg tablet 800 mg PO TID PRN (Reason: pain) Qty: 60 0RF melatonin 5 mg capsule 5 mg PO QHSPRN PRN (Reason: for sleep ) Qty: 30 0RF hydroxyzine HCl 50 mg tablet 50 mg PO Q6H PRN (Reason: anxiety) Qty: 20 0RF ibuprofen 800 mg tablet 800 mg PO TID PRN (Reason: pain) Qty: 30 0RF albuterol sulfate [Ventolin HFA] 90 mcg/actuation HFA aerosol inhaler 2 puff inhalation Q6H PRN (Reason: shortness of breath or wheezing) Qty: 8.5 0RF fluticasone propionate [Flonase Allergy Relief] 50 mcg/actuation spray,suspension 2 spray intranasal QDAY Qty: 16 0RF Rx Instructions: administer into each nostril loratadine 10 mg tablet 10 mg PO QDAY Qty: 20 0RF Referrals: Roxanna Antony MD [Primary Care Provider] - In 1 week Problem List Clinical Impression: Anxiety Patient/Caregiver Discharge Instructions Education Materials: ED Anxiety Reaction Additional Instructions: Please follow-up with your primary care provider in the next 24 to 48 hours. For any evidence of worsening signs or symptoms please return to the emergency room immediately Print Language: Romanian Stand Alone Forms: Rubina Award Info., Patient Portal Info Letter PA/GALLERY OR MUSEUM ATTENDANT Supervising Physician PA/RALPH Supervising Physician: Dr Miguel
--- NOTE | 2024-02-23 09:48 | EKG_ITS ---
[facility] Test Date: 2024-02-23 Pat Name: ZION PLEITEZ Department: Room: - Gender: Male Brusher Tender: : 2000 Requested By: Isaias Mendez Order Number: [id number] Reading MD: Isaias Mendez Measurements Intervals Terry Rate: 67 P: 13 AK: 144 QRS: 5 QRSD: 99 T: 43 QT: 370 QTc: 393 Interpretive Statements SINUS RHYTHM Compared to ECG 12/30/2023 22:45:00 No significant changes /store/S0/[id number].pdf
[2024-02-23 10:45] LABS: Basophils # (Auto) 0.1 Thou/mm3 (0.0-0.2); Basophils % (Auto) 1 % (0-2.5); Eosinophils # (Auto) 0.5 Thou/mm3 (0.0-0.5); Eosinophils % (Auto) 6 % (0-10); Hematocrit 46.2 % (41.0-53.0); Hemoglobin 16.2 g/dL (13.5-16.0); Immature Granulocytes % (Auto) 0 % (0-0); Immature Granulocytes Auto 0.03 Thou/mm3 (0.00-0.00); Lymphocytes # (Auto) 1.9 Thou/mm3 (1.0-4.8); Lymphocytes % (Auto) 22 % (10-50); Mean Corpuscular HGB Conc 35.1 g/dl (31.0-37.0); Mean Corpuscular Hemoglobin 31.7 pg (25.0-35.0); Mean Corpuscular Volume 90 fL (80-100); Monocytes # (Auto) 0.6 Thou/mm3 (0.0-0.8); Monocytes % (Auto) 7 % (0-12); Neutrophils # (Auto) 5.4 Thou/mm3 (1.8-7.7); Neutrophils % (Auto) 64 % (37-80); Nucleated Red Blood Cell % 0 /100 WBC (0); Platelet Count 205 Thou/mm3 (140-440); RDW Standard Deviation 41.4 fL (35.1-43.9); Red Blood Count 5.11 Miln/mm3 (4.50-5.90); White Blood Count 8.4 Thou/mm3 (3.8-10.6)
[2024-02-23 10:53] LABS: Alanine Aminotransferase 22 U/L (10-49); Albumin, Serum 5.3 gm/dL (3.5-5.0); Albumin/Globulin Ratio 2.2 (1.2-2.2); Alkaline Phosphatase 73 U/L (46-116); Anion Gap 9 (7-16); Aspartate Amino Transferase 22 U/L (0-34); BUN/Creatinine Ratio 16 Ratio (12-20); Bilirubin,Total 0.7 mg/dL (0.3-1.2); Blood Urea Nitrogen 14 mg/dL (9-23); Calcium 9.8 mg/dL (8.3-10.6); Calcium (Corrected) 9.8 mg/dL (8.5-10.1); Carbon Dioxide 25.9 mMol/L (20.0-31.0); Chloride 103 mMol/L (98-107); Creatinine (Component) 0.9 mg/dL (0.6-1.3); Estimated Creatinine Clearance 170.4 mL/min (>60); Globulin 2.4 gm/dL (2.3-3.5); Glucose 98 mg/dL (74-106); Osmolality,Calculated 276 (275-295); Potassium 4.3 mMol/L (3.4-5.1); Sodium 138 mMol/L (136-145); Total Protein 7.7 gm/dL (5.7-8.2); Troponin I < 0.020 ng/mL (0.0-0.045); eGFR > 60 See Note
[2024-02-23 12:43] LABS: B-Type Natriuretic Peptide < 20 pg/mL (0-100)
== END 2024-02-23 11:14 | disposition home or self-care (01) ==
PROVIDERS: Nurse Practitioner Family; Emergency Provider Emergency Medicine; PCP Family Medicine
DX: F41.9 Anxiety disorder, unspecified (principal); R06.2 Wheezing
CPT/HCPCS: 36415; 71046; 80053; 83880; 84484; 85025; 93005; 99283

== ENCOUNTER 2024-03-20 17:34 | Emergency (ER) | payer MEDICAID, SELFPAY ==
[2024-03-20 17:35] VITALS: BMI 40.1
[2024-03-20 18:05] VITALS: BP 138/82; PULSE 71; RESP 18; TEMP 37.3; O2SAT 98
== END 2024-03-20 19:15 | disposition left against medical advice (07) ==
LOC: SERX 18:35
PROVIDERS: Emergency Provider Emergency Medicine; PCP Nurse Practitioner Family
DX: Z53.21 Procedure and treatment not carried out due to patient leaving prior to being seen by health care provider (principal)
CPT/HCPCS: 99281

== ENCOUNTER 2024-03-23 09:32 | Emergency (ER) | payer MEDICAID, SELFPAY ==
[2024-03-23 09:33] VITALS: BMI 41.3
[2024-03-23 10:08] VITALS: BP 164/85; PULSE 67; RESP 18; TEMP 36.8; O2SAT 99
--- NOTE | 2024-03-23 10:13 | XR_ITS ---
Examination: PA lateral chest 2 views TECHNIQUE: Upright PA lateral chest 2 views Exam date and time: March 23, 2024 1029 hours INDICATIONS: Chest pain beginning 5 days ago. FINDINGS: Normal heart size. No pneumonia or pulmonary edema. IMPRESSION: No active disease
--- NOTE | 2024-03-23 10:13 | EKG_ITS ---
[facility] Test Date: 2024-03-23 Pat Name: ZION PLEITEZ Department: Room: - Gender: Male All Around Presser: : 2000 Requested By: Danilo Price (LAILA) Order Number: [id number] Reading MD: Danilo Price (CAM SPECIALIST) Measurements Intervals [place] Rate: 60 P: 8 MS: 136 QRS: -5 QRSD: 102 T: 29 QT: 387 QTc: 387 Interpretive Statements SINUS RHYTHM Compared to ECG 02/23/2024 09:55:12 No significant changes /store/S0/[id number].pdf
--- NOTE | 2024-03-23 12:20 | PD.EDCHEST ---
ED Chest Pain RME/HPI General Chief Complaint: Shortness of Breath/Dyspnea Stated Complaint: MID STERNAL CHEST PAIN WITH BREATHING X 1DAY Time Seen by Provider: 03/23/24 10:13 Arrival date/time: 03/23/24 09:32 23-year-old male presents emergency department today complaints of pain on deep inspiration right-sided chest pain patient reports has history anxiety as well as asthma Limitations: no limitations Related Data Previous Rx's ?Medication ?Instructions ?Recorded lorazepam 0.5 mg tablet (Ativan) 0.5 mg PO BID PRN anxiety #20 tabs 06/13/19 melatonin 5 mg capsule 5 mg PO QHSPRN PRN for sleep #30 07/16/19 caps amoxicillin 875 mg-potassium 1 tab PO BID #20 tabs 08/01/19 clavulanate 125 mg tablet (Augmentin) albuterol sulfate 90 mcg/actuation 2 puff inhalation QID PRN 12/21/19 aerosol inhaler shortness of breath or wheezing #18 grams ibuprofen 800 mg tablet 800 mg PO TID PRN pain #60 tabs 05/06/20 albuterol sulfate 90 mcg/actuation 2 puff inhalation Q6H PRN 10/10/23 aerosol inhaler (Ventolin HFA) shortness of breath or wheezing #8.5 grams fluticasone propionate 50 2 spray intranasal QDAY #16 grams 11/11/23 mcg/actuation nasal spray,suspension (Flonase Allergy Relief) loratadine 10 mg tablet 10 mg PO QDAY #20 tabs 11/11/23 hydroxyzine HCl 50 mg tablet 50 mg PO Q6H PRN anxiety #20 tabs 12/07/23 ibuprofen 800 mg tablet 800 mg PO TID PRN pain #30 tabs 12/29/23 Allergies Allergy/AdvReac Type Severity Reaction Status Date / Time dog dander Allergy Severe Difficulty Verified 03/23/24 09:35 Breathing CATS Allergy Severe SNEEZE Uncoded 03/20/24 17:35 Review of Systems Review of Systems Systems Reviewed: All systems reviewed, normal except as documented Constitutional Constitutional: Reports system reviewed and no additional complaints, except as documented, Denies fever(s) and Denies headache(s) Eyes Eyes: Reports system reviewed and no additional complaints, except as documented and Denies blurry vision ENT Ears, Nose, Mouth, and Throat: Reports system reviewed and no additional complaints, except as documented, Denies headache(s), Denies nasal congestion and Denies nasal discharge Cardiovascular Cardiovascular: Reports system reviewed and no additional complaints, except as documented, Reports chest pain and Denies dyspnea Respiratory Respiratory: Reports system reviewed and no additional complaints, except as documented, Denies chest congestion, Denies cough and Denies dyspnea Gastrointestinal Gastrointestinal: Reports system reviewed and no additional complaints, except as documented and Denies abdominal pain Integumentary/Breasts Skin/Breast: Reports system reviewed and no additional complaints, except as documented and Denies rash Neurologic Neurologic: Reports system reviewed and no additional complaints, except as documented, Reports as per HPI and Denies headache(s) Past Medical History Past Medical History NEUROLOGIC: Negative Neurological Disorders CARDIAC: Negative Cardiac Disorders, Congestive Heart Failure, Hypertension or Hypotension RESPIRATORY: Positive Asthma; Negative Chronic Obstructive Pulmonary Disease (COPD) GENITOURINARY: Negative Renal Disease ENDOCRINE: Negative Diabetes Mellitus Type 1 or Diabetes Mellitus Type 2 PSYCHO/SOCIAL: Positive Anxiety OTHER HISTORY: Negative Cancer Social History SMOKING STATUS: Never smoker SUBSTANCE USE: does not use ED Exam General Limitations: Present no limitations General appearance: Present alert and in no apparent distress Head Head exam: Present atraumatic Eye Eye exam: Present normal appearance, PERRL and EOMI ENT ENT exam: Present normal exam, normal oropharynx and mucous membranes moist Neck Neck exam: Present normal inspection, full ROM and trachea midline Chest Chest inspection: Present normal inspection and symmetric chest wall rise Respiratory Respiratory exam: Present normal lung sounds bilaterally; Absent respiratory distress, wheezes, stridor, accessory muscle use or prolonged expiratory phase Cardiovascular Cardiovascular exam: Present regular rate, normal rhythm and normal heart sounds Abdominal Exam Abdominal exam: Present soft and normal bowel sounds; Absent distention, tenderness, guarding, rebound or rigidity Extremities Exam Extremities exam: Present normal inspection and full ROM Back Exam Back exam: Present normal inspection and full ROM Neurological Exam Neurological exam: Present alert, oriented X3 and CN II-XII intact Psychiatric Psychiatric exam: Present normal affect and normal mood Skin Skin exam: Present warm, dry, intact and normal color Course Quality Measures none Orders Category Date Time Status EKG (ED ONLY) *Do not use* NOW Care 03/23/24 10:15 Completed EKG (ED Only) Stat Exams 03/23/24 10:13 Draft XR chest 2V Stat Exams 03/23/24 10:13 Completed Vital Signs Vital signs: Vital Signs Temperature 98.3 F 03/23/24 10:08 Pulse Rate 67 03/23/24 10:08 Respiratory Rate 18 03/23/24 10:08 Blood Pressure 164/85 H 03/23/24 10:08 Pulse Oximetry (%) 99 03/23/24 10:08 Oxygen Delivery Method Room Air 03/23/24 10:08 O2 saturation 99% room air within normal limits Procedures -ED EKG Interpretation #1: Date of EK03/23/24 Time of EK: Rate: 60 Interpretation: Interpreted by me EKG Impression: Normal sinus rhythm, No acute ST-T changes, No ectopy, No ischemic changes, Normal QRS and Normal intervals Chest Pain MDM Narrative MDM Narrative:: 23-year-old male presents emergency department today complaints of pain on deep inspiration right-sided chest pain patient reports has history anxiety as well as asthma On exam patient well-appearing patient does not appear ill or toxic and in no acute distress Chest x-ray and EKG obtained no acute emergent findings noted Symptoms are not consistent with cardiac pain Patient discharged home in no distress to follow-up with primary care doctor in the next 24 to 48 hours and for any worsening symptoms to return to the ER immediately Patient data External records reviewed:: [facility] previous records Clinical information provided by:: patient Social determinants that could affect healthcare access:: none Patient has the following chronic illnesses:: None How is presenting disease/condition affected by chronic disease/condition?: no chronic disease Evaluation data The following diagnostics were reviewed and interpreted by me:: radiology exam(s) and EKG tracing(s) Lab and/or radiology exams considered but not ordered:: Radiology and EKG obtained Interpretation Summary: Reviewed by me Medications / Prescriptions Medications or Prescriptions considered but not ordered:: No meds Medication administrations:: No meds Consultations Consultation(s) initiated? (list below): No Diagnosis Chest Pain Differential Diagnosis: fracture of rib, pneumothorax, costochondritis and chest pain Most likely diagnosis given after review of the tests above:: Chest pain noncardiac Admission Indicated Admission indicated?: not indicated Admission Request Was there a request for admission?: No Disposition Plan Disposition Plan: Discharge Discharge Attestation Discharge Attestation: The patient and all family members were given an opportunity to ask questions and understood the discharge instructions. Discharge instructions specifically effects, indications for sooner follow up or return to the emergency department, and the expected course of current diagnosis. Patient condition: Stable Discharge Plan Plan Patient Disposition: HOME (Self Care) Disposition Comment: Stable Prescriptions/Referrals Prescriptions/Med Rec: No Action lorazepam [Ativan] 0.5 mg tablet 0.5 mg PO BID PRN (Reason: anxiety) Qty: 20 0RF amoxicillin-pot clavulanate [Augmentin] 875-125 mg tablet 1 tab PO BID Qty: 20 0RF albuterol sulfate 90 mcg/actuation HFA aerosol inhaler 2 puff inhalation QID PRN (Reason: shortness of breath or wheezing) Qty: 18 0RF ibuprofen 800 mg tablet 800 mg PO TID PRN (Reason: pain) Qty: 60 0RF melatonin 5 mg capsule 5 mg PO QHSPRN PRN (Reason: for sleep ) Qty: 30 0RF hydroxyzine HCl 50 mg tablet 50 mg PO Q6H PRN (Reason: anxiety) Qty: 20 0RF ibuprofen 800 mg tablet 800 mg PO TID PRN (Reason: pain) Qty: 30 0RF albuterol sulfate [Ventolin HFA] 90 mcg/actuation HFA aerosol inhaler 2 puff inhalation Q6H PRN (Reason: shortness of breath or wheezing) Qty: 8.5 0RF fluticasone propionate [Flonase Allergy Relief] 50 mcg/actuation spray,suspension 2 spray intranasal QDAY Qty: 16 0RF Rx Instructions: administer into each nostril loratadine 10 mg tablet 10 mg PO QDAY Qty: 20 0RF Referrals: Amira Esqueda FNP [Primary Care Provider] - In 1 week Problem List Clinical Impression: Chest pain, non-cardiac Patient/Caregiver Discharge Instructions Additional Instructions: Please follow up with your primary care doctor in the next 24-48hrs for any worsening symptoms return here immediately Print Language: Kiswahili Stand Alone Forms: Rubina Award Info., Patient Portal Info Letter MELISSA/RALPH Supervising Physician MELISSA/RALPH Supervising Physician: Dr Pham
[2024-03-23 12:41] VITALS: BP 128/80; PULSE 70; RESP 16; TEMP 37.1; O2SAT 97
== END 2024-03-23 12:41 | disposition home or self-care (01) ==
PROVIDERS: Emergency Provider Emergency Medicine; PCP Nurse Practitioner Family
DX: R07.89 Other chest pain (principal); J45.909 Unspecified asthma, uncomplicated; F41.9 Anxiety disorder, unspecified
CPT/HCPCS: 71046; 93005; 99283

== ENCOUNTER 2024-03-25 03:33 | Emergency (ER) | payer MEDICAID, SELFPAY ==
[2024-03-25 03:39] VITALS: BMI 42.8
[2024-03-25 03:41] VITALS: BP 133/78; PULSE 117; RESP 21; TEMP 37.1; O2SAT 95
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
== END 2024-03-25 04:56 ==
LOC: SERX 04:50
PROVIDERS: Emergency Provider Emergency Medicine
DX: Z02.89 Encounter for other administrative examinations (principal); R45.851 Suicidal ideations; F10.129 Alcohol abuse with intoxication, unspecified; Z04.1 Encounter for examination and observation following transport accident; Z56.0 Unemployment, unspecified; Z65.3 Problems related to other legal circumstances; Z63.4 Disappearance and death of family member; F41.9 Anxiety disorder, unspecified; J45.909 Unspecified asthma, uncomplicated
CPT/HCPCS: 96127; 99281

== ENCOUNTER 2024-03-25 13:15 | Emergency (ER) | payer MEDICAID, SELFPAY ==
[2024-03-25 13:17] VITALS: BP 127/83; PULSE 100; RESP 16; TEMP 36.3; O2SAT 97
[2024-03-25 13:18] VITALS: BMI 40.1
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
== END 2024-03-25 14:04 | disposition home or self-care (01) ==
PROVIDERS: Emergency Provider Emergency Medicine
DX: J45.901 Unspecified asthma with (acute) exacerbation (principal); F41.9 Anxiety disorder, unspecified
CPT/HCPCS: 99281

== ENCOUNTER 2024-03-25 17:06 | Emergency (ER) | payer MEDICAID, SELFPAY ==
[2024-03-25 17:07] VITALS: PULSE 78; RESP 20; O2SAT 99
[2024-03-25 17:42] VITALS: BP 139/88; PULSE 99; RESP 20; TEMP 36.9; O2SAT 96; BMI 38.5
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
--- NOTE | 2024-03-25 17:44 | EKG_ITS ---
[facility] Test Date: 2024-03-25 Pat Name: ZION PLEITEZ Department: Room: - Gender: Male Marketing Automation Manager: : 2000 Requested By: Isaias Mendez Order Number: [id number] Reading MD: Isaias Mendez Measurements Intervals [place] Rate: 95 P: 27 WV: 120 QRS: -13 QRSD: 101 T: 42 QT: 339 QTc: 427 Interpretive Statements SINUS RHYTHM Compared to ECG 03/23/2024 10:21:43 No significant changes /store/S0/[id number].pdf
--- NOTE | 2024-03-25 17:45 | EDRME_ITS ---
Rapid Medical Screening Exam [facility] Arrival date/time: 03/25/24 17:06 23-year-old male with a history of anxiety presents to the emergency room with a chief complaint of dizziness, lightheadedness, shortness of breath, visual disturbances and an intermittent headache x 1 hour. Patient was seen here this morning for an asthma exacerbation states he felt better, went home and then began to have worsening symptoms an hour ago. I have greeted and performed a focused initial assessment of this patient. A comprehensive ED assessment and evaluation of the patient, analysis of all test results, and completion of the medical decision making process will be conducted by additional ED providers. Chief Complaint: Anxiety Vital signs reviewed by provider: Yes
[2024-03-25] MEDS: MECLIZINE HCL 25 MG TABLET PO (18:02)
[2024-03-25 18:41] LABS: Alanine Aminotransferase 25 U/L (10-49); Albumin, Serum 5.1 gm/dL (3.5-5.0); Albumin/Globulin Ratio 1.9 (1.2-2.2); Alkaline Phosphatase 91 U/L (46-116); Anion Gap 10 (7-16); Aspartate Amino Transferase 20 U/L (0-34); BUN/Creatinine Ratio 9 Ratio (12-20); Bilirubin,Total 0.5 mg/dL (0.3-1.2); Blood Urea Nitrogen 9 mg/dL (9-23); Calcium 9.6 mg/dL (8.3-10.6); Calcium (Corrected) 9.6 mg/dL (8.5-10.1); Chloride 104 mMol/L (98-107); Estimated Creatinine Clearance 152.9 mL/min (>60); Globulin 2.7 gm/dL (2.3-3.5); Glucose 90 mg/dL (74-106); Osmolality,Calculated 278 (275-295); Potassium 3.9 mMol/L (3.4-5.1); Sodium 140 mMol/L (136-145); Total Protein 7.8 gm/dL (5.7-8.2); Troponin I < 0.002 ng/mL (0.0-0.045); eGFR > 60 See Note
[2024-03-25 18:48] LABS: Basophils # (Auto) 0.1 Thou/mm3 (0.0-0.2); Basophils % (Auto) 1 % (0-2.5); Eosinophils # (Auto) 0.3 Thou/mm3 (0.0-0.5); Eosinophils % (Auto) 2 % (0-10); Hematocrit 47.1 % (41.0-53.0); Hemoglobin 16.3 g/dL (13.5-16.0); Immature Granulocytes % (Auto) 1 % (0-0); Immature Granulocytes Auto 0.08 Thou/mm3 (0.00-0.00); Lymphocytes # (Auto) 2.3 Thou/mm3 (1.0-4.8); Lymphocytes % (Auto) 18 % (10-50); Mean Corpuscular HGB Conc 34.6 g/dl (31.0-37.0); Mean Corpuscular Hemoglobin 31.5 pg (25.0-35.0); Mean Corpuscular Volume 91 fL (80-100); Monocytes # (Auto) 1.1 Thou/mm3 (0.0-0.8); Monocytes % (Auto) 9 % (0-12); Neutrophils # (Auto) 9.1 Thou/mm3 (1.8-7.7); Neutrophils % (Auto) 70 % (37-80); Nucleated Red Blood Cell % 0 /100 WBC (0); Platelet Count 267 Thou/mm3 (140-440); Red Blood Count 5.18 Miln/mm3 (4.50-5.90)
[2024-03-25 19:40] VITALS: BP 155/91; PULSE 92; RESP 19; TEMP 36.8; O2SAT 97
[2024-03-25 20:05] LABS: Collection Type, Urine Clean Catch
[2024-03-25 20:19] LABS: Bilirubin,Urine Negative (Negative); Blood,Urine Trace (Negative); Clarity,Urine Clear (Clear/Hazy); Color,Urine Yellow (Lt Yel-Yel); Glucose, Urine Negative (Negative); Ketones,Urine 1+ (Negative); Leukocyte Esterase,Urine Positive (Negative); Nitrite,Urine Negative (Negative); Protein,Urine 2+ (Neg - Trace); RBC,Urine 8 /hpf (0-3); Specific Gravity,Urine 1.037 (1.001-1.035); Squamous Epithelial Cell,Urine 1 /hpf (0-5); Urobilinogen,Urine Negative mg/dL (0.0-1.0); WBC,Urine 2 /hpf (0-5)
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
[2024-03-25] MEDS: LORazepam 0.5 MG TABLET PO (23:19)
== END 2024-03-26 00:17 | disposition home or self-care (01) ==
PROVIDERS: Nurse Practitioner Family; Emergency Provider Emergency Medicine; PCP Nurse Practitioner Family
DX: F41.0 Panic disorder [episodic paroxysmal anxiety] (principal); R51.9 Headache, unspecified; J45.909 Unspecified asthma, uncomplicated
CPT/HCPCS: 36415; 70450; 80053; 81001; 84484; 85025; 87086; 93005; 99283; A9270

== ENCOUNTER 2024-04-15 20:50 | Emergency (ER) | payer MEDICAID, SELFPAY ==
[2024-04-15 20:51] VITALS: PULSE 86; RESP 19; O2SAT 98
[2024-04-15 21:14] VITALS: BP 146/80; PULSE 102; RESP 19; TEMP 36.8; O2SAT 98
[2024-04-15 21:15] VITALS: BMI 40.1
[2024-04-15] MEDS: ALBUTEROL/IPRATROPIUM (Duoneb) RT SOL 3 ML NEBU 6 ML INH (22:16)
[2024-04-15 22:19] VITALS: PULSE 96; RESP 18; O2SAT 100
[2024-04-15] MEDS: DEXAMETHASONE SOD PHOS INJ 10 MG/ML VIAL PO (22:43)
[2024-04-15] MEDS: predniSONE 20 MG TABLET 60 MG PO (22:43)
--- NOTE | 2024-04-16 02:36 | EDNOTE_ITS ---
ED Asthma RME/HPI General Chief Complaint: Flu Like Symptoms Stated Complaint: COUGH, SORE THROAT, AND DIFFICULTY BREATHING Time Seen by Provider: 04/15/24 22:01 Arrival date/time: 04/15/24 20:50 23M with history of anxiety and asthma presents to ED with 3 days of cough, sore throat, and SOB. Limitations: no limitations Related Data Previous Rx's ?Medication ?Instructions ?Recorded lorazepam 0.5 mg tablet (Ativan) 0.5 mg PO BID PRN anx iety #20 tabs 06/13/19 melatonin 5 mg capsule 5 mg PO QHSPRN PRN for sleep #30 07/16/19 caps amoxicillin 875 mg-potassium 1 tab PO BID #20 tabs clavulanate 125 mg tablet (Augmentin) albuterol sulfate 90 mcg/actuation 2 puff inhalation Q ID PRN 12/21/19 aerosol inhaler shortness of breath or wheez ing #18 grams ibuprofen 800 mg tablet 800 mg PO TID PRN pain #60 t abs 05/06/20 albuterol sulfate 90 mcg/actuation 2 puff inhalation Q 6H PRN 10/10/23 aerosol inhaler (Ventolin HFA) shortness of breath or wheezing #8.5 grams fluticasone propionate 50 2 spray intranasal QDAY #16 grams 11/11/23 mcg/actuation nasal spray,suspension (Flonase Allergy Relief) loratadine 10 mg tablet 10 mg PO QDAY #20 tabs 11/10 hydroxyzine HCl 50 mg tablet 50 mg PO Q6H PRN anxiety #20 tabs 12/07/23 ibuprofen 800 mg tablet 800 mg PO TID PRN pain #30 t abs 12/29/23 prednisone 50 mg tablet 50 mg PO QDAY 5 days #5 tabs 04/15/24 Allergies Allergy/AdvReac Type Severity Reaction Status Date / Time dog dander Allergy Severe Difficulty Verified 04/15/24 20:55 Breathing CATS Allergy Severe SNEEZE Uncoded 04/15/24 20:55 Review of Systems Review of Systems Systems Reviewed: All systems reviewed, normal except as documented Constitutional Constitutional: Reports system reviewed and no additional complaints, except as documented, Denies fever(s) and Denies headache(s) ENT Ears, Nose, Mouth, and Throat: Reports as per HPI, Denies disequilibrium, Denies headache(s) and Reports sore throat Cardiovascular Cardiovascular: Reports system reviewed and no additional complaints, except as documented, Denies chest pain and Reports dyspnea Respiratory Respiratory: Reports system reviewed and no additional complaints, except as documented, Reports as per HPI, Reports cough and Reports dyspnea Gastrointestinal Gastrointestinal: Reports system reviewed and no additional complaints, except as documented, Denies abdominal pain, Denies nausea and Denies vomiting Neurologic Neurologic: Reports system reviewed and no additional complaints, except as documented, Denies confusion, Denies disequilibrium and Denies headache(s) Psychiatric Psychiatric: Denies confusion Past Medical History Past Medical History NEUROLOGIC: Negative Neurological Disorders CARDIAC: Negative Cardiac Disorders, Congestive Heart Failure, Hypertension or Hypotension RESPIRATORY: Positive Asthma; Negative Chronic Obstructive Pulmonary Disease (COPD) GENITOURINARY: Negative Renal Disease ENDOCRINE: Negative Diabetes Mellitus Type 1 or Diabetes Mellitus Type 2 PSYCHO/SOCIAL: Positive Anxiety OTHER HISTORY: Negative Cancer Social History SMOKING STATUS: Never smoker SUBSTANCE USE: does not use ED Exam General Limitations: Present no limitations General appearance: Present alert and in no apparent distress Head Head exam: Present atraumatic Eye Eye exam: Present normal appearance, PERRL and EOMI ENT ENT exam: Present normal exam, normal oropharynx and mucous membranes moist Neck Neck exam: Present normal inspection, full ROM and trachea midline Chest Chest inspection: Present normal inspection and symmetric chest wall rise Respiratory Respiratory exam: Present wheezes Cardiovascular Cardiovascular exam: Present regular rate, normal rhythm and normal heart sounds Abdominal Exam Abdominal exam: Present soft and normal bowel sounds Extremities Exam Extremities exam: Present normal inspection and full ROM Back Exam Back exam: Present normal inspection and full ROM Neurological Exam Neurological exam: Present alert, oriented X3 and CN II-XII intact Psychiatric Psychiatric exam: Present normal affect and normal mood Skin Skin exam: Present warm, dry, intact and normal color Course Quality Measures none Orders Category Date Time Status Bedside Influenza A&B Antigen Test NOW Care 04/15/24 20:58 Completed Albuterol/Ipratr Rt Jenae [Duoneb Rt Jenae] Med 04/15/24 22:02 Discontinued 6 ml INH X1 ONE Dexamethasone Inj [Decadron Inj] Med 04/15/24 22:02 Discontinued 10 mg PO X1 ONE predniSONE Med 04/15/24 22:02 Discontinued 60 mg PO X1 ONE Vital Signs Vital signs: Vital Signs Temperature 98.3 F 04/15/24 21:14 Pulse Rate 102 H 04/15/24 21:14 Respiratory Rate 19 04/15/24 21:14 Blood Pressure 146/80 H 04/15/24 21:14 Pulse Oximetry (%) 98 04/15/24 21:14 Oxygen Delivery Method Room Air 04/15/24 21:14 Asthma MDM Narrative MDM Narrative:: 23M with history of anxiety and asthma presents to ED with 3 days of cough, sore throat, and SOB. Physical exam reveals wheezing in lungs. Patient is afebrile, calm, and alert. Swabs neg. Likely viral URI causing asthma exacerbation. Meds relived symptoms. Patient data External records reviewed:: [facility] previous records Clinical information provided by:: patient Social determinants that could affect healthcare access:: mental health Patient has the following chronic illnesses:: asthma and anxiety How is presenting disease/condition affected by chronic disease/condition?: exacerbated by Evaluation data The following diagnostics were reviewed and interpreted by me:: lab results Lab and/or radiology exams considered but not ordered:: ordered Interpretation Summary: above Medications / Prescriptions Medications or Prescriptions considered but not ordered:: ordered Medication administrations:: Medication Administration History Discontinued Medications Albuterol/Ipratropium (Albuterol/Ipratropium (Duoneb) Rt Jenae 3 Ml Nebu) 6 ml INH X1 ONE Stop: 04/15/24 22:03 Last Admin: 04/15/24 22:16 Dose: 6 ml Documented By: ORESTES Dexamethasone Sodium Phosphate (Dexamethasone Sod Phos Inj 10 Mg/Ml Vial) 10 mg PO X1 ONE Stop: 04/15/24 22:03 Last Admin: 04/15/24 22:43 Dose: 10 mg Documented By: Prednisone (Prednisone 20 Mg Tablet) 60 mg PO X1 ONE Stop: 04/15/24 22:03 Last Admin: 04/15/24 22:43 Dose: 60 mg Documented By: Consultations Consultation(s) initiated? (list below): No Diagnosis Differential diagnosis asthma: Acute exacerbation, Status asthmaticus, Acute asthmatic bronchitis, PE, Pneumonia, COPD exacerbation, Pulmonary edema systolic, Pulmonary edema dystolic, ARDS, Pneumothorax, Foreign body in trachea and other (URI) Most likely diagnosis given after review of the tests above:: URI and astham exacerbation Admission Indicated Admission indicated?: not indicated Admission Request Was there a request for admission?: No Disposition Plan Disposition Plan: Discharge Discharge Attestation Discharge Attestation: The patient and all family members were given an opportunity to ask questions and understood the discharge instructions. Discharge instructions specifically effects, indications for sooner follow up or return to the emergency department, and the expected course of current diagnosis. Patient condition: Stable Discharge Plan Plan Patient Disposition: HOME (Self Care) Disposition Comment: Stable Prescriptions/Referrals Prescriptions/Med Rec: New prednisone 50 mg tablet 50 mg PO QDAY 5 Days Qty: 5 0RF No Action lorazepam [Ativan] 0.5 mg tablet 0.5 mg PO BID PRN (Reason: anxiety) Qty: 20 0RF amoxicillin-pot clavulanate [Augmentin] 875-125 mg tablet 1 tab PO BID Qty: 20 0RF albuterol sulfate 90 mcg/actuation HFA aerosol inhaler 2 puff inhalation QID PRN (Reason: shortness of breath or wheezing) Qty: 18 0RF ibuprofen 800 mg tablet 800 mg PO TID PRN (Reason: pain) Qty: 60 0RF melatonin 5 mg capsule 5 mg PO QHSPRN PRN (Reason: for sleep ) Qty: 30 0RF hydroxyzine HCl 50 mg tablet 50 mg PO Q6H PRN (Reason: anxiety) Qty: 20 0RF ibuprofen 800 mg tablet 800 mg PO TID PRN (Reason: pain) Qty: 30 0RF albuterol sulfate [Ventolin HFA] 90 mcg/actuation HFA aerosol inhaler 2 puff inhalation Q6H PRN (Reason: shortness of breath or wheezing) Qty: 8.5 0RF fluticasone propionate [Flonase Allergy Relief] 50 mcg/actuation spray,suspe nsion 2 spray intranasal QDAY Qty: 16 0RF Rx Instructions: administer into each nostril loratadine 10 mg tablet 10 mg PO QDAY Qty: 20 0RF Referrals: No Primary/Family,Physician [Primary Care Provider] - In 1 week Problem List Clinical Impression: Upper respiratory infection, Asthma exacerbation Patient/Caregiver Discharge Instructions Education Materials: ED URI, Viral, No Abx (Adult) Additional Instructions: Please follow-up with PCP within 24-48 hours and return immediately if symptoms worsen. Print Language: Beninese Stand Alone Forms: Patient Portal Info Letter PA/AMBULANCE OFFICER Supervising Physician PA/AMBULANCE OFFICER Supervising Physician: Dr. Skelton
== END 2024-04-15 23:38 | disposition home or self-care (01) ==
PROVIDERS: Emergency Provider Emergency Medicine
DX: J06.9 Acute upper respiratory infection, unspecified (principal); J45.901 Unspecified asthma with (acute) exacerbation; F41.9 Anxiety disorder, unspecified
CPT/HCPCS: 87400; 94640; 99283; A9270; J1100; J7512

== ENCOUNTER 2024-04-16 07:01 | Emergency (ER) | payer MEDICAID, SELFPAY ==
[2024-04-16 07:02] VITALS: BP 163/91; PULSE 123; RESP 19; TEMP 37.1; O2SAT 98
[2024-04-16 07:03] VITALS: BMI 40.8
[2024-04-16 07:22] VITALS: BP 173/76; PULSE 120; PULSE 140; RESP 15; RESP 18; TEMP 36.8; O2SAT 97; O2SAT 98; BMI 40.8
--- NOTE | 2024-04-16 07:36 | EKG_ITS ---
[facility] Test Date: 2024-04-16 Pat Name: ZION PLEITEZ Department: Room: - Gender: Male Valuation Consultant: : 2000 Requested By: Duy Salinas Order Number: [id number] Reading MD: Duy Salinas Measurements Intervals [place] Rate: 120 P: 47 NV: 166 QRS: 65 QRSD: 99 T: 19 QT: 310 QTc: 439 Interpretive Statements SINUS TACHYCARDIA ABNORMAL RHYTHM ECG Compared to ECG 03/25/2024 17:57:05 Sinus rhythm no longer present /store/[id number]
--- NOTE | 2024-04-16 07:36 | PD.EDARRY ---
ED Arrhythmia Palp. RME/HPI General Chief Complaint: Suicidal Stated Complaint: RAPID HEART RATE, COLD SWEATS, RIGHT LUNG PAIN HEATHER Time Seen by Provider: 04/16/24 07:15 Arrival date/time: 04/16/24 07:01 RME / HPI RME / HPI narrative: Patient is a 23-year-old who was seen last night for what he describes as a cold with a sore throat for 4 days upper respiratory congestion who came to the emergency room last night was found to be wheezing given breathing treatment and some steroids and sent home. Does have a history of asthma. Patient states he went home and tried to lay down but he frequently when he goes to sleep he starts having anxiety or panic attacks and states he has 2 of them a week. He is seeing mental health he is on hydroxyzine for the anxiety attacks and on Zoloft for his depression. He is followed by the clinic and mental health. Patient called EMS because his heart was going fast this morning he comes in he had a heart rate of 150s when EMS first saw him and the rhythm strip appears to be a sinus tach. On arrival he is feeling better. Related Data Previous Rx's ?Medication ?Instructions ?Recorded lorazepam 0.5 mg tablet (Ativan) 0.5 mg PO BID PRN anxiety #20 tabs 06/13/19 melatonin 5 mg capsule 5 mg PO QHSPRN PRN for sleep #30 07/16/19 caps amoxicillin 875 mg-potassium 1 tab PO BID #20 tabs 08/01/19 clavulanate 125 mg tablet (Augmentin) albuterol sulfate 90 mcg/actuation 2 puff inhalation QID PRN 12/21/19 aerosol inhaler shortness of breath or wheezing #18 grams ibuprofen 800 mg tablet 800 mg PO TID PRN pain #60 tabs 05/06/20 albuterol sulfate 90 mcg/actuation 2 puff inhalation Q6H PRN 10/10/23 aerosol inhaler (Ventolin HFA) shortness of breath or wheezing #8.5 grams fluticasone propionate 50 2 spray intranasal QDAY #16 grams 11/11/23 mcg/actuation nasal spray,suspension (Flonase Allergy Relief) loratadine 10 mg tablet 10 mg PO QDAY #20 tabs 11/11/23 hydroxyzine HCl 50 mg tablet 50 mg PO Q6H PRN anxiety #20 tabs 12/07/23 ibuprofen 800 mg tablet 800 mg PO TID PRN pain #30 tabs 12/29/23 prednisone 50 mg tablet 50 mg PO QDAY 5 days #5 tabs 04/15/24 Allergies Allergy/AdvReac Type Severity Reaction Status Date / Time dog dander Allergy Severe Difficulty Verified 04/15/24 20:55 Breathing CATS Allergy Severe SNEEZE Uncoded 04/15/24 20:55 Review of Systems Review of Systems Narrative Review of Systems: Constitutional: DENIES; Fevers Eyes: DENIES; Loss of vision Head/Ear/Nose: DENIES; Loss of hearing Throat: DENIES; Dysphagia Cardiovascular: SEE HPI +palpitations DENIES; Chest pain, dyspnea or syncope Respiratory: DENIES; Shortness of breath Gastrointestinal: DENIES; Rectal bleeding or melena. Genitourinary: DENIES; Dysuria (painful or difficult urination) Musculoskeletal: DENIES; Arthralgia (pain in a joint),; Skin: DENIES; Rash Neurological: DENIES; Loss of function or movement Psychiatric: SEE HPI +anxiety DENIES; illicit drug use or abuse Endocrinology: DENIES; Weight change Hematologic/Lymphatic: DENIES; Abnormal bruising Allergic/Immunologic: DENIES; Urticaria (hives) Past Medical History Past Medical History RESPIRATORY: Positive Asthma PSYCHO/SOCIAL: Positive Anxiety Social History SMOKING STATUS: Never smoker SUBSTANCE USE: does not use ED Exam Narrative Physical exam: Physical Exam: General: The vital signs were reviewed. He is alert awake cooperative does not appear to be tremulous. Heart rates 120 sinus tach on the EMS monitor on the [facility] in the ambulance bay. The patient is non-toxic, in no apparent distress and appears healthy with a patent airway, no respiratory distress and has no apparent circulatory problems. Head & Scalp: Normocephalic, atraumatic. Face: Appears normal and is without lesions, deformity. Ears: Left external pinna appears normal. Right external pinna appears normal. Eyes: The sclera is anicteric. No obvious photophobia. The Left and Right Orbit/Lid/Conjunctiva appears normal without swelling, discoloration or injection. Nose: The nose is without deformity, discharge or tenderness; Throat: Appears normal. The mucous membranes are pink and moist without exudates, redness or mass seen. The tongue appears normal. Neck: The neck is supple and no apparent mass or adenopathy. Chest: The chest wall is normal in size and symmetry and has no chest wall tenderness or crepitus. The patient displays normal ventilator effort without retractions, accessory muscle use and has adequate air movement bilaterally with very mild scattered wheezing. Rales. Cardiovascular: Regular rate and rhythm; No murmurs, rubs, or gallops; Gastrointestinal: The abdomen appears normal. No obvious hernias or mass. The abdomen is soft and benign, non-distended, with no pain, no guarding and no rebound tenderness. Bowel sounds are present and normal sounding. No CVA tenderness. Genitourinary: Back/Spine: Nontender Extremities/Musculoskeletal/lymphatic: The bilateral upper and lower extremities are warm. There is no evidence of arterial insufficiency. There is no evidence of venous insufficiency/edema. The patient spontaneously moves bilateral upper and lower extremities with no pain and no limitation of movement. There is no apparent, injury or trauma. Skin: The skin is warm, dry and intact. No rashes. No petechia. No purpura. No abnormal bruising. The color is appropriate with no cyanosis. Mental status/Psychiatric: Mental status is appropriate for age. Slightly thought flat affect. The patient has no apparent delusions, visual hallucinations, no apparent audible hallucinations. The patient has no apparent suicidal thoughts/ideation and no apparent homicidal thoughts/ideation. But once he was put into the room and the nurse was asking questions the patient admitted that he feels unsafe at home because he feels or has suicidal thoughts Neurological: The patient is awake, alert, interactive, cordial, cooperative and is oriented to name and situation. The patient follows commands and answers historical question with no impairment. There is no visual disturbance apparent. The pupils are equal and reactive bilaterally with normal eye movements and no diplopia The bilateral upper and lower extremities have normal strength, normal range of motion and normal functioning. The gait, station and balance were not tested due to acuity Course Quality Measures none Orders Category Date Time Status EKG (ED ONLY) *Do not use* NOW Care 04/16/24 07:36 Active EKG (ED Only) Stat Exams 04/16/24 07:36 Ordered Alcohol, Blood Medical Stat Lab 04/16/24 07:35 Ordered BNP [B-Type Natriuretic Peptide] Stat Lab 04/16/24 07:35 Ordered CBC Stat Lab 04/16/24 07:35 Ordered CMP [Comprehensive Metabolic Panel] Stat Lab 04/16/24 07:35 Ordered Drug Screen,Urine Stat Lab 04/16/24 07:35 Ordered Troponin I Stat Lab 04/16/24 07:35 Ordered Urinalysis Stat Lab 04/16/24 07:35 Ordered Vital Signs Vital signs: Vital Signs Temperature 98.8 F 04/16/24 07:02 Pulse Rate 123 H 04/16/24 07:02 Respiratory Rate 19 04/16/24 07:02 Blood Pressure 163/91 H 04/16/24 07:02 Pulse Oximetry (%) 98 04/16/24 07:02 Oxygen Delivery Method Room Air 04/16/24 07:02 Arrhythmia/Palpitations MDM Narrative MDM Narrative:: Patient is brought in by EMS for rapid heart rate palpitations with her chief complaint of the patient. States he has anxiety attacks twice a week followed by mental health there is no known history of tachyarrhythmia diagnosed in the past on the monitor with EMS at a heart rate of 150 which was sinus tach and then on arrival here his monitor reveals sinus tach around 120. Twelve-lead EKG was done soon after arrival reveals sinus tach rate [address] elevation [place] is seen. This is read by myself Patient also stated he was having suicidal thoughts and feels unsafe because of his thoughts medical workup reveals white count 11.5 hemoglobin of 15.6 sodium 141 potassium 4.5 chloride 107 CO2 23.4 BUN 7 creatinine 0.9. Sugars 176. Transaminases and troponin and BNP are all negative. Urine drug screen and alcohol are both negative. Patient will be medically cleared for nursing home social worker to evaluate. 1020: ASW has met and evlauated patient in the ED. [facility] patient has been referred to mental health clinic and provided resources. Patient cleared for mental health follow-up evidently patient has had these referrals in the past has been recalcitrant to following up. He was encouraged otherwise to do the same. Patient data External records reviewed:: [facility] previous records (I reviewed ED visit from earlier today ) and EMS form Clinical information provided by:: patient and EMS Social determinants that could affect healthcare access:: substance use Patient has the following chronic illnesses:: Anxiety How is presenting disease/condition affected by chronic disease/condition?: exacerbated by Evaluation data The following diagnostics were reviewed and interpreted by me:: lab results and EKG tracing(s) (Sinus tachycardia, rate 120, no STEMI ) Lab and/or radiology exams considered but not ordered:: None Interpretation Summary: As noted above Medications / Prescriptions Medications or Prescriptions considered but not ordered:: None Medication administrations:: None Consultations Consultation(s) initiated? (list below): No Diagnosis Differential diagnosis arrhythmia/palpitations: palpitations, anxiety, sinus tachycardia, artial fibrillation, supraventricular tachycardia and ventricular tachycardia Most likely diagnosis given after review of the tests above:: Anxiety attack suicidal thoughts sinus tachycardia Admission Indicated Admission indicated?: not indicated Admission Request Was there a request for admission?: No Disposition Plan Disposition Plan: Discharge Discharge Attestation Discharge Attestation: The patient and all family members were given an opportunity to ask questions and understood the discharge instructions. Discharge instructions specifically effects, indications for sooner follow up or return to the emergency department, and the expected course of current diagnosis. Patient condition: Stable Discharge Plan Plan Patient Disposition: HOME (Self Care) Patient condition on transfer: Stable Prescriptions/Referrals Prescriptions/Med Rec: No Action lorazepam [Ativan] 0.5 mg tablet 0.5 mg PO BID PRN (Reason: anxiety) Qty: 20 0RF amoxicillin-pot clavulanate [Augmentin] 875-125 mg tablet 1 tab PO BID Qty: 20 0RF albuterol sulfate 90 mcg/actuation HFA aerosol inhaler 2 puff inhalation QID PRN (Reason: shortness of breath or wheezing) Qty: 18 0RF ibuprofen 800 mg tablet 800 mg PO TID PRN (Reason: pain) Qty: 60 0RF melatonin 5 mg capsule 5 mg PO QHSPRN PRN (Reason: for sleep ) Qty: 30 0RF hydroxyzine HCl 50 mg tablet 50 mg PO Q6H PRN (Reason: anxiety) Qty: 20 0RF ibuprofen 800 mg tablet 800 mg PO TID PRN (Reason: pain) Qty: 30 0RF prednisone 50 mg tablet 50 mg PO QDAY 5 Days Qty: 5 0RF albuterol sulfate [Ventolin HFA] 90 mcg/actuation HFA aerosol inhaler 2 puff inhalation Q6H PRN (Reason: shortness of breath or wheezing) Qty: 8.5 0RF fluticasone propionate [Flonase Allergy Relief] 50 mcg/actuation spray,suspension 2 spray intranasal QDAY Qty: 16 0RF Rx Instructions: administer into each nostril loratadine 10 mg tablet 10 mg PO QDAY Qty: 20 0RF Referrals: Haleigh Calero PA-C [Primary Care Provider] - In 1 week Problem List Clinical Impression: Anxiety attack, Suicidal thoughts, Sinus tachycardia Patient/Caregiver Discharge Instructions Additional Instructions: It is really important to follow-up with mental health since you suffer from frequent anxiety and panic attacks. Your heart rate came down to the 100s and your laboratory studies are unremarkable. Keep a diary of your palpitations and rapid heart rate and see if your doctor wants to refer you for a Holter monitor just to make sure you do not have a tacky arrhythmia or rapid heart rate problem. Print Language: Kyrgyz
[2024-04-16 08:00] VITALS: BP 151/87; PULSE 118; RESP 16; TEMP 36.7; O2SAT 98
[2024-04-16 08:17] LABS: Collection Type, Urine Clean Catch; Squamous Epithelial Cell,Urine 0 /hpf (0-5)
[2024-04-16 08:31] LABS: Amphetamine/Methamp Scrn,U Negative (Negative); Barbiturate Screen,Urine Negative (Negative); Benzodiazepines Screen,Urine Negative (Negative); Benzoylecgonine Screen, Ur Negative (Negative); Fentanyl Screen,Urine Negative (Negative); Opiate Screen,Urine Negative (Negative); THC Screen,Urine Negative (Negative)
[2024-04-16 08:31] LABS: Basophils # (Auto) 0.1 Thou/mm3 (0.0-0.2); Basophils % (Auto) 0 % (0-2.5); Eosinophils % (Auto) 0 % (0-10); Hematocrit 45.3 % (41.0-53.0); Hemoglobin 15.6 g/dL (13.5-16.0); Immature Granulocytes % (Auto) 2 % (0-0); Immature Granulocytes Auto 0.18 Thou/mm3 (0.00-0.00); Lymphocytes # (Auto) 0.8 Thou/mm3 (1.0-4.8); Lymphocytes % (Auto) 7 % (10-50); Mean Corpuscular HGB Conc 34.4 g/dl (31.0-37.0); Mean Corpuscular Hemoglobin 31.6 pg (25.0-35.0); Mean Corpuscular Volume 92 fL (80-100); Monocytes # (Auto) 0.3 Thou/mm3 (0.0-0.8); Monocytes % (Auto) 2 % (0-12); Neutrophils # (Auto) 10.3 Thou/mm3 (1.8-7.7); Neutrophils % (Auto) 89 % (37-80); Nucleated Red Blood Cell % 0 /100 WBC (0); Platelet Count 270 Thou/mm3 (140-440); RDW Standard Deviation 42.2 fL (35.1-43.9); Red Blood Count 4.94 Miln/mm3 (4.50-5.90); White Blood Count 11.5 Thou/mm3 (3.8-10.6)
--- NOTE | 2024-04-16 08:36 | PC.NURSE ---
Patient BIBA from home for heart racing due to ongoing anxiety issues. Upon initial Triage assessment, patient stated that he felt unsafe at home and admitted to having suicidal thoughts since last night prior to coming to ER the previous visit. Patient stated that these thoughts of suicide have been going on for over a month but intermittently. Patient also stated that he would use a knife to end his life but had no intentions of actually killing himself. [place] score wa 13 and patients belongings placed in locker 6 at this time. Patient is currently not on hold due to patient stating he would not physically kill himself. Will continue to monitor and awaiting further orders.
[2024-04-16 08:39] LABS: Alanine Aminotransferase 36 U/L (10-49); Albumin, Serum 5.1 gm/dL (3.5-5.0); Alcohol, Blood Medical < 3.0 mg/dL (0-10.0); Alkaline Phosphatase 99 U/L (46-116); Anion Gap 11 (7-16); Aspartate Amino Transferase 19 U/L (0-34); BUN/Creatinine Ratio 8 Ratio (12-20); Bilirubin,Total 0.3 mg/dL (0.3-1.2); Blood Urea Nitrogen 7 mg/dL (9-23); Carbon Dioxide 23.4 mMol/L (20.0-31.0); Chloride 107 mMol/L (98-107); Creatinine (Component) 0.9 mg/dL (0.6-1.3); Estimated Creatinine Clearance 175.4 mL/min (>60); Globulin 2.6 gm/dL (2.3-3.5); Glucose 176 mg/dL (74-106); Osmolality,Calculated 283 (275-295); Potassium 4.5 mMol/L (3.4-5.1); Sodium 141 mMol/L (136-145); Total Protein 7.7 gm/dL (5.7-8.2); Troponin I < 0.002 ng/mL (0.0-0.045); eGFR > 60 See Note
[2024-04-16 08:44] LABS: Bilirubin,Urine Negative (Negative); Blood,Urine Trace (Negative); Clarity,Urine Clear (Clear/Hazy); Color,Urine Colorless (Lt Yel-Yel); Glucose, Urine 4+ (Negative); Ketones,Urine Trace (Negative); Leukocyte Esterase,Urine Negative (Negative); Nitrite,Urine Negative (Negative); Protein,Urine Trace (Neg - Trace); RBC,Urine 4 /hpf (0-3); Specific Gravity,Urine 1.022 (1.001-1.035); Urobilinogen,Urine Negative mg/dL (0.0-1.0); WBC,Urine < 1 /hpf (0-5)
[2024-04-16 09:13] LABS: B-Type Natriuretic Peptide < 20 pg/mL (0-100)
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
[2024-04-16 10:25] VITALS: BP 131/80; PULSE 100; RESP 17; TEMP 36.7; O2SAT 94
== END 2024-04-16 11:38 | disposition home or self-care (01) ==
PROVIDERS: Emergency Provider Emergency Medicine; PCP Physician Assistant
DX: F41.0 Panic disorder [episodic paroxysmal anxiety] (principal); R00.0 Tachycardia, unspecified; R45.851 Suicidal ideations; F32.A Depression, unspecified; J45.909 Unspecified asthma, uncomplicated
CPT/HCPCS: 36415; 80053; 80307; 80320; 81001; 83880; 84484; 85025; 90839; 96127; 99284; G0480

== ENCOUNTER 2024-04-17 22:23 | Emergency (ER) | payer MEDICAID, SELFPAY ==
[2024-04-17 22:24] VITALS: PULSE 96; O2SAT 97; BMI 40.1
[2024-04-17 23:08] VITALS: BP 138/74; PULSE 68; RESP 18; TEMP 36.8; O2SAT 97
--- NOTE | 2024-04-18 01:39 | PD.EDGIBLD ---
ED GI Bleed RME/HPI General Chief complaint: GI Bleed Stated complaint: NAUSEA, LEFT ARM PAIN, BLOOD IN STOOL Time Seen by Provider: 04/17/24 22:34 Arrival date/time: 04/17/24 22:23 23-year-old male reports with complaints of blood in stool. Patient states that after eating a large quantity of spicy shrimp he started to notice what appears to be blood when he has a bowel movement. Patient states he has had about 3-4 bowel movements a day the toilet water is completely red and it appears to have red streaks in his stool. Patient has no previous history of GI bleed he denies fever chills nausea vomiting abdominal pain or any urinary symptoms. Related Data Previous Rx's ?Medication ?Instructions ?Recorded lorazepam 0.5 mg tablet (Ativan) 0.5 mg PO BID PRN anxiety #20 tabs 06/13/19 melatonin 5 mg capsule 5 mg PO QHSPRN PRN for sleep #30 07/16/19 caps amoxicillin 875 mg-potassium 1 tab PO BID #20 tabs 08/01/19 clavulanate 125 mg tablet (Augmentin) albuterol sulfate 90 mcg/actuation 2 puff inhalation QID PRN 12/21/19 aerosol inhaler shortness of breath or wheezing #18 grams ibuprofen 800 mg tablet 800 mg PO TID PRN pain #60 tabs 05/06/20 albuterol sulfate 90 mcg/actuation 2 puff inhalation Q6H PRN 10/10/23 aerosol inhaler (Ventolin HFA) shortness of breath or wheezing #8.5 grams fluticasone propionate 50 2 spray intranasal QDAY #16 grams 11/11/23 mcg/actuation nasal spray,suspension (Flonase Allergy Relief) loratadine 10 mg tablet 10 mg PO QDAY #20 tabs 11/11/23 hydroxyzine HCl 50 mg tablet 50 mg PO Q6H PRN anxiety #20 tabs 12/07/23 ibuprofen 800 mg tablet 800 mg PO TID PRN pain #30 tabs 12/29/23 prednisone 50 mg tablet 50 mg PO QDAY 5 days #5 tabs 04/15/24 Allergies Allergy/AdvReac Type Severity Reaction Status Date / Time dog dander Allergy Severe Difficulty Verified 04/15/24 20:55 Breathing CATS Allergy Severe SNEEZE Uncoded 04/15/24 20:55 Review of Systems Constitutional Constitutional: Denies chills and Denies fever(s) ENT Ears, Nose, Mouth, and Throat: Denies dizziness Cardiovascular Cardiovascular: Denies chest pain and Denies dyspnea Respiratory Respiratory: Denies cough and Denies dyspnea Gastrointestinal Gastrointestinal: Denies abdominal pain, Reports hematochezia, Denies nausea and Denies vomiting Genitourinary Genitourinary: Denies dysuria and Denies hematuria Musculoskeletal Musculoskeletal: Denies back pain and Denies joint swelling Integumentary/Breasts Skin/Breast: Denies furuncle and Denies lesions Neurologic Neurologic: Denies convulsions and Denies dizziness Hematologic/Lymphatic Hematologic/Lymphatic: Denies easy bleeding and Denies easy bruising ED Exam Narrative Physical exam: PT REFUSED EXAM Course Course Course Narrative: 23-year-old male reports with complaints of bright red blood per her rectum. Discussion with the patient advised him of the need for a rectal exam patient states that he would like to decline the exam though I advised the patient that if there is true bleeding this could be an emergency I made him aware of all the things that could happen including up to patient still adamantly refused the exam stating that he was fine and that he would follow-up with his doctor. Patient is stable nontoxic-appearing with stable vital signs he was discharged Quality Measures none Orders Category Date Time Status Occult Blood,Stool (Nursing) NOW Care 04/18/24 01:11 Active Vital Signs Vital signs: Vital Signs Temperature 98.3 F 04/17/24 23:08 Pulse Rate 68 04/17/24 23:08 Respiratory Rate 18 04/17/24 23:08 Blood Pressure 138/74 H 04/17/24 23:08 Pulse Oximetry (%) 97 04/17/24 23:08 Oxygen Delivery Method Room Air 04/17/24 23:08 GI Bleed Patient data External records reviewed:: None Clinical information provided by:: patient Social determinants that could affect healthcare access:: none Patient has the following chronic illnesses:: NONE How is presenting disease/condition affected by chronic disease/condition?: no chronic disease Evaluation data The following diagnostics were reviewed and interpreted by me:: other (specify) (NONE PT REFUSED ) Lab and/or radiology exams considered but not ordered:: NONE Interpretation Summary: NONE Medications / Prescriptions Medications or Prescriptions considered but not ordered:: NONE Medication administrations:: NONE Consultations Consultation(s) initiated? (list below): No Diagnosis GI bleed differential diagnosis: hemorrhoids, Upper gastrointestinal hemorrhage and melena Most likely diagnosis given after review of the tests above:: UNKNOWN PT REFUSED EXAM Admission Indicated Admission indicated?: not indicated Admission Request Was there a request for admission?: No Disposition Plan Disposition Plan: other (specify) (AMA) Discharge Plan Plan Patient Disposition: Left Against Medical Advice Prescriptions/Referrals Prescriptions/Med Rec: No Action lorazepam [Ativan] 0.5 mg tablet 0.5 mg PO BID PRN (Reason: anxiety) Qty: 20 0RF amoxicillin-pot clavulanate [Augmentin] 875-125 mg tablet 1 tab PO BID Qty: 20 0RF albuterol sulfate 90 mcg/actuation HFA aerosol inhaler 2 puff inhalation QID PRN (Reason: shortness of breath or wheezing) Qty: 18 0RF ibuprofen 800 mg tablet 800 mg PO TID PRN (Reason: pain) Qty: 60 0RF melatonin 5 mg capsule 5 mg PO QHSPRN PRN (Reason: for sleep ) Qty: 30 0RF hydroxyzine HCl 50 mg tablet 50 mg PO Q6H PRN (Reason: anxiety) Qty: 20 0RF ibuprofen 800 mg tablet 800 mg PO TID PRN (Reason: pain) Qty: 30 0RF prednisone 50 mg tablet 50 mg PO QDAY 5 Days Qty: 5 0RF albuterol sulfate [Ventolin HFA] 90 mcg/actuation HFA aerosol inhaler 2 puff inhalation Q6H PRN (Reason: shortness of breath or wheezing) Qty: 8.5 0RF fluticasone propionate [Flonase Allergy Relief] 50 mcg/actuation spray,suspension 2 spray intranasal QDAY Qty: 16 0RF Rx Instructions: administer into each nostril loratadine 10 mg tablet 10 mg PO QDAY Qty: 20 0RF Problem List Clinical Impression: Painless rectal bleeding Patient/Caregiver Discharge Instructions Additional Instructions: It is important to get a full exam if you are experiencing bleeding from the rectum if symptoms worsen return to the emergency department otherwise follow-up with your primary care provider Print Language: Nepali
== END 2024-04-18 01:53 | disposition left against medical advice (07) ==
PROVIDERS: Emergency Provider Emergency Medicine
DX: K92.1 Melena (principal); Z53.29 Procedure and treatment not carried out because of patient's decision for other reasons
CPT/HCPCS: 99283

== ENCOUNTER 2024-04-18 06:57 | Emergency (ER) | payer MEDICAID, SELFPAY ==
[2024-04-18 06:58] VITALS: BMI 40.1
--- NOTE | 2024-04-18 07:08 | EKG_ITS ---
[facility] (Former[facility]) Test Date: 2024-04-18 Pat Name: ZION PLEITEZ Department: Room: - Gender: Male Claims Manager: : [id number] Requested By: Uzair Ruiz Order Number: [id number] Reading MD: Uzair Ruiz Measurements Intervals [place] Rate: 62 P: 7 [place]: 137 QRS: 27 QRSD: 100 T: 13 QT: 375 QTc: 383 Interpretive Statements SINUS RHYTHM Compared to ECG 04/16/2024 07:38:54 Sinus tachycardia no longer present /store/S0/[id number].pdf
--- NOTE | 2024-04-18 07:08 | PD.EDRME ---
Rapid Medical Screening Exam RME Arrival date/time: 04/18/24 06:57 23 yo m with c/o of dizziness, recent red stool I have greeted and performed a focused initial assessment of this patient. A comprehensive ED assessment and evaluation of the patient, analysis of all test results, and completion of the medical decision making process will be conducted by additional ED providers. Chief Complaint: Dizziness Time Seen by Provider: 04/18/24 07:05
[2024-04-18 07:21] VITALS: BP 133/82; PULSE 66; RESP 16; TEMP 37; O2SAT 98
[2024-04-18 07:38] LABS: Basophils # (Auto) 0.1 Thou/mm3 (0.0-0.2); Basophils % (Auto) 1 % (0-2.5); Eosinophils # (Auto) 0.4 Thou/mm3 (0.0-0.5); Eosinophils % (Auto) 3 % (0-10); Hematocrit 42.5 % (41.0-53.0); Hemoglobin 14.5 g/dL (13.5-16.0); Immature Granulocytes % (Auto) 1 % (0-0); Immature Granulocytes Auto 0.15 Thou/mm3 (0.00-0.00); Lymphocytes # (Auto) 3.4 Thou/mm3 (1.0-4.8); Lymphocytes % (Auto) 26 % (10-50); Mean Corpuscular HGB Conc 34.1 g/dl (31.0-37.0); Mean Corpuscular Hemoglobin 31.6 pg (25.0-35.0); Mean Corpuscular Volume 93 fL (80-100); Monocytes # (Auto) 1.1 Thou/mm3 (0.0-0.8); Monocytes % (Auto) 8 % (0-12); Neutrophils # (Auto) 8.2 Thou/mm3 (1.8-7.7); Neutrophils % (Auto) 62 % (37-80); Nucleated Red Blood Cell % 0 /100 WBC (0); Platelet Count 245 Thou/mm3 (140-440); RDW Standard Deviation 43.7 fL (35.1-43.9); Red Blood Count 4.59 Miln/mm3 (4.50-5.90); White Blood Count 13.3 Thou/mm3 (3.8-10.6)
[2024-04-18 07:47] LABS: Prothrombin Time 11.2 Seconds (9.0-12.2)
[2024-04-18 07:53] LABS: Alanine Aminotransferase 25 U/L (10-49); Albumin, Serum 4.5 gm/dL (3.5-5.0); Alkaline Phosphatase 83 U/L (46-116); Anion Gap 7 (7-16); Aspartate Amino Transferase 15 U/L (0-34); BUN/Creatinine Ratio 13 Ratio (12-20); Bilirubin,Total 0.4 mg/dL (0.3-1.2); Blood Urea Nitrogen 12 mg/dL (9-23); Carbon Dioxide 28.4 mMol/L (20.0-31.0); Chloride 107 mMol/L (98-107); Creatinine (Component) 0.9 mg/dL (0.6-1.3); Estimated Creatinine Clearance 173.7 mL/min (>60); Globulin 2.3 gm/dL (2.3-3.5); Glucose 88 mg/dL (74-106); Osmolality,Calculated 281 (275-295); Potassium 3.9 mMol/L (3.4-5.1); Sodium 142 mMol/L (136-145); Total Protein 6.8 gm/dL (5.7-8.2); Troponin I < 0.002 ng/mL (0.0-0.045); eGFR > 60 See Note
[2024-04-18] MEDS: MECLIZINE HCL 25 MG TABLET PO (08:27)
--- NOTE | 2024-04-18 08:53 | PD.EDDIZZY ---
ED Dizzyness RME/HPI General Chief Complaint: Dizziness Stated Complaint: DIZZINESS Time Seen by Provider: 04/18/24 07:05 Arrival date/time: 04/18/24 06:57 23 year old male present to emergency room with c/o of dizziness, congestion, sore throat, cough for a few days SEVERITY: Symptoms are described as being severe with limitations on activities of daily living CONTEXT: The patient is unable to identify any inciting events. DURATION/TIMING: The symptoms started approximately 1 day ASSOCIATED SYMPTOMS: The patient is unable to identify any other associated symptoms. MODIFYING FACTORS: cough, congestion, headache, dizziness, sore throat PERTINENT ROS: no fevers, no pleuritic pain, no ripping or tearing sensations, denies any lower extremity edema and no unilateral swelling, no chest pain/shortness of breath no nausea,vomiting, diarrhea, no rash no loc/syncope episode no abd/back pain no dsyuria,urgency,frequency REVIEW OF SYSTEMS: See History of Present Illness - with the exception of those mentioned in the history of present illness, all other systems reviewed and reported as negative GENERAL: In general the patient is awake, interactive, in an emergency department gurney. HEAD/EYES/EARS/NOSE/THROAT: normo-cephalic, atraumatic, mucus membranes are moist, anicteric, palpebral conjunctiva is pink, trachea is midline. CARDIOVASCULAR: regular rate and regular rhythm, no murmurs, heart sounds are not distant, strong pulses in all four extremities that are equal and symmetric bilateral upper and lower extremities, normal capillary refill. CHEST/PULMONARY: normal chest rise and fall, good air movement, clear to auscultation bilaterally, normal inspiratory to expiratory ratios without evidence of respiratory distress. NECK: No midline/Paraspinal tenderness, no step off ROM/Strenght intact No Kernig and bruzinski sign. No trauma ABDOMEN: soft, not tender, no masses appreciated BACK: normal range of motion without pain. NEUROLOGICAL: cranio-facial features are symmetric, moves all four extremities equally without obvious limitations or weakness. EXTREMITY: no tenderness to palpation over the long bones or large joints of the bilateral upper and lower extremities, no joint swelling, no joint erythema, no signs of trauma, no unilateral leg swelling and no peripheral edema. SKIN: warm, dry, well-perfused, no jaundice, no rash, no telangiectasias or petechia. PSYCH: calm, cooperative, no evidence of psychosis or agitation RME / HPI RME / HPI Narrative: 04/18/24 06:57 23 yo m with c/o of dizziness, recent red stool I have greeted and performed a focused initial assessment of this patient. A comprehensive ED assessment and evaluation of the patient, analysis of all test results, and completion of the medical decision making process will be conducted by additional ED providers. Related Data Previous Rx's ?Medication ?Instructions ?Recorded lorazepam 0.5 mg tablet (Ativan) 0.5 mg PO BID PRN anxiety #20 tabs 06/13/19 melatonin 5 mg capsule 5 mg PO QHSPRN PRN for sleep #30 07/16/19 caps amoxicillin 875 mg-potassium 1 tab PO BID #20 tabs 08/01/19 clavulanate 125 mg tablet (Augmentin) albuterol sulfate 90 mcg/actuation 2 puff inhalation QID PRN 12/21/19 aerosol inhaler shortness of breath or wheezing #18 grams ibuprofen 800 mg tablet 800 mg PO TID PRN pain #60 tabs 05/06/20 albuterol sulfate 90 mcg/actuation 2 puff inhalation Q6H PRN 10/10/23 aerosol inhaler (Ventolin HFA) shortness of breath or wheezing #8.5 grams fluticasone propionate 50 2 spray intranasal QDAY #16 grams 11/11/23 mcg/actuation nasal spray,suspension (Flonase Allergy Relief) loratadine 10 mg tablet 10 mg PO QDAY #20 tabs 11/11/23 hydroxyzine HCl 50 mg tablet 50 mg PO Q6H PRN anxiety #20 tabs 12/07/23 ibuprofen 800 mg tablet 800 mg PO TID PRN pain #30 tabs 12/29/23 prednisone 50 mg tablet 50 mg PO QDAY 5 days #5 tabs 04/15/24 pseudoephedrine-guaifenesin ER 60 1 tab PO BID PRN cold symptoms #30 04/18/24 mg-600 mg tablet,extend release tabs 12hr (Mucinex D) Allergies Allergy/AdvReac Type Severity Reaction Status Date / Time dog dander Allergy Severe Difficulty Verified 04/15/24 20:55 Breathing CATS Allergy Severe SNEEZE Uncoded 04/15/24 20:55 Course Quality Measures none Orders Category Date Time Status EKG (ED ONLY) *Do not use* NOW Care 04/18/24 07:08 Completed EKG (ED Only) Stat Exams 04/18/24 07:08 Draft CBC Stat Lab 04/18/24 07:22 Completed CMP [Comprehensive Metabolic Panel] Stat Lab 04/18/24 07:22 Completed INR [Prothrombin Time with INR] Stat Lab 04/18/24 07:22 Completed Strep A Rapid Stat Lab 04/18/24 09:37 Completed Troponin I Stat Lab 04/18/24 07:22 Completed Meclizine HCl [Antivert] Med 04/18/24 08:21 Discontinued 25 mg PO X1 ONE Reevaluation(s) Reevaluation #1: pt is feeling better and comfortable to go home Vital Signs Vital signs: Vital Signs Temperature 98.6 F 04/18/24 07:21 Pulse Rate 66 04/18/24 07:21 Respiratory Rate 16 04/18/24 07:21 Blood Pressure 133/82 H 04/18/24 07:21 Pulse Oximetry (%) 98 04/18/24 07:21 Oxygen Delivery Method Room Air 04/18/24 07:21 Procedures -ED EKG Interpretation #1: Date of EK04/18/24 Rate: 62 Interpretation: Reviewed by me EKG Impression: Normal sinus rhythm, No acute ST-T changes, No ectopy, No ischemic changes, Normal QRS, Normal intervals and Normal axis Dizziness Patient data External records reviewed:: [facility] previous records Clinical information provided by:: patient Social determinants that could affect healthcare access:: none Patient has the following chronic illnesses:: none How is presenting disease/condition affected by chronic disease/condition?: no chronic disease Evaluation data The following diagnostics were reviewed and interpreted by me:: lab results, radiology exam(s) and EKG tracing(s) Lab and/or radiology exams considered but not ordered:: none Interpretation Summary: cbc/cmp/trop wnl ekg nsr strep review CT 2.08.11 no acute findings Medications / Prescriptions Medications or Prescriptions considered but not ordered:: none Medication administrations:: Medication Administration History Discontinued Medications Meclizine HCl (Meclizine Hcl 25 Mg Tablet) 25 mg PO X1 ONE Stop: 04/18/24 08:22 Last Admin: 04/18/24 08:27 Dose: 25 mg Documented By: SUSAN as stated above Consultations Consultation(s) initiated? (list below): No Diagnosis Dizziness Differential Diagnosis: benign paroxysmal positional vertigo and other (strep, uri, mi/nstemi, dehydration, anemia ) Most likely diagnosis given after review of the tests above:: URI Admission Indicated Admission indicated?: not indicated Admission Request Was there a request for admission?: No Disposition Plan Disposition Plan: Discharge Discharge Attestation Discharge Attestation: The patient and all family members were given an opportunity to ask questions and understood the discharge instructions. Discharge instructions specifically effects, indications for sooner follow up or return to the emergency department, and the expected course of current diagnosis. Patient condition: Stable Discharge Plan Plan Patient Disposition: HOME (Self Care) Prescriptions/Referrals Prescriptions/Med Rec: New pseudoephedrine-guaifenesin [Mucinex D] 60-600 mg tablet extended release 12 hr 1 tab PO BID PRN (Reason: cold symptoms) Qty: 30 0RF No Action lorazepam [Ativan] 0.5 mg tablet 0.5 mg PO BID PRN (Reason: anxiety) Qty: 20 0RF amoxicillin-pot clavulanate [Augmentin] 875-125 mg tablet 1 tab PO BID Qty: 20 0RF albuterol sulfate 90 mcg/actuation HFA aerosol inhaler 2 puff inhalation QID PRN (Reason: shortness of breath or wheezing) Qty: 18 0RF ibuprofen 800 mg tablet 800 mg PO TID PRN (Reason: pain) Qty: 60 0RF melatonin 5 mg capsule 5 mg PO QHSPRN PRN (Reason: for sleep ) Qty: 30 0RF hydroxyzine HCl 50 mg tablet 50 mg PO Q6H PRN (Reason: anxiety) Qty: 20 0RF ibuprofen 800 mg tablet 800 mg PO TID PRN (Reason: pain) Qty: 30 0RF prednisone 50 mg tablet 50 mg PO QDAY 5 Days Qty: 5 0RF albuterol sulfate [Ventolin HFA] 90 mcg/actuation HFA aerosol inhaler 2 puff inhalation Q6H PRN (Reason: shortness of breath or wheezing) Qty: 8.5 0RF fluticasone propionate [Flonase Allergy Relief] 50 mcg/actuation spray,suspension 2 spray intranasal QDAY Qty: 16 0RF Rx Instructions: administer into each nostril loratadine 10 mg tablet 10 mg PO QDAY Qty: 20 0RF Referrals: Haleigh Calero PA-C [Primary Care Provider] - In 1 week Problem List Clinical Impression: Upper respiratory infection Patient/Caregiver Discharge Instructions Education Materials: ED URI, Viral, No Abx (Adult) Print Language: Khmer Stand Alone Forms: Rubina Award Info., Patient Portal Info Letter
[2024-04-18 09:35] VITALS: BP 141/85; PULSE 61; RESP 16; TEMP 36.7; O2SAT 97
[2024-04-18 10:17] LABS: Strep A Rapid Negative (Negative)
== END 2024-04-18 10:33 | disposition home or self-care (01) ==
PROVIDERS: Physician Assistant; Emergency Provider Emergency Medicine; PCP Physician Assistant
DX: J06.9 Acute upper respiratory infection, unspecified (principal); R42 Dizziness and giddiness
CPT/HCPCS: 36415; 80053; 84484; 85025; 85610; 87651; 93005; 99283; A9270

== ENCOUNTER 2024-04-18 17:44 | Emergency (ER) | payer MEDICAID, SELFPAY ==
[2024-04-18 17:45] VITALS: BMI 40.7
[2024-04-18 18:20] VITALS: BP 134/80; PULSE 77; RESP 16; TEMP 37; O2SAT 97
--- NOTE | 2024-04-18 18:31 | XR_ITS ---
Examination: PA lateral chest 2 views Technique: Upright PA lateral chest 2 views Exam date and time: April 18, 2024 1908 hrs. Indications: Coughing beginning 3 days ago. Findings: Normal heart size Lungs are clear. The osseous structures are intact Impression: No active disease
--- NOTE | 2024-04-18 18:32 | EDNOTE_ITS ---
Upper Respiratory Inf. RME/HPI General Chief Complaint: Shortness of Breath/Dyspnea Stated Complaint: DYSPNEA, DIZZY, EYE PRESSURE, BURNING IN CHEST Time Seen by Provider: 04/18/24 18:00 Source: patient Arrival date/time: 04/18/24 17:44 23-year-old male presents emergency department complaining of cough, shortness of breath, sinus congestion, and burning sensation in chest after eating chicken taco. Patient denies any fever, chills, vomiting, or any other associated symptom. Mode of arrival: ambulatory Limitations: no limitations Related Data Previous Rx's ?Medication ?Instructions ?Recorded lorazepam 0.5 mg tablet (Ativan) 0.5 mg PO BID PRN anx iety #20 tabs 06/13/19 melatonin 5 mg capsule 5 mg PO QHSPRN PRN for sleep #30 07/16/19 caps amoxicillin 875 mg-potassium 1 tab PO BID #20 tabs clavulanate 125 mg tablet (Augmentin) albuterol sulfate 90 mcg/actuation 2 puff inhalation Q ID PRN 12/21/19 aerosol inhaler shortness of breath or wheez ing #18 grams ibuprofen 800 mg tablet 800 mg PO TID PRN pain #60 t abs 05/06/20 albuterol sulfate 90 mcg/actuation 2 puff inhalation Q 6H PRN 10/10/23 aerosol inhaler (Ventolin HFA) shortness of breath or wheezing #8.5 grams fluticasone propionate 50 2 spray intranasal QDAY #16 grams 11/11/23 mcg/actuation nasal spray,suspension (Flonase Allergy Relief) loratadine 10 mg tablet 10 mg PO QDAY #20 tabs 11/10 hydroxyzine HCl 50 mg tablet 50 mg PO Q6H PRN anxiety #20 tabs 12/07/23 ibuprofen 800 mg tablet 800 mg PO TID PRN pain #30 t abs 12/29/23 prednisone 50 mg tablet 50 mg PO QDAY 5 days #5 tabs 04/15/24 acetaminophen 500 mg capsule 500 mg PO Q6H PRN pain #3 0 caps 04/18/24 ibuprofen 600 mg tablet 600 mg PO Q8H PRN pain #20 t abs 04/18/24 ondansetron 4 mg disintegrating 4 mg PO Q8H PRN nausea and 04/18/24 tablet vomiting #7 tabs pseudoephedrine-guaifenesin ER 60 1 tab PO BID PRN col d symptoms #30 04/18/24 mg-600 mg tablet,extend release tabs 12hr (Mucinex D) Allergies Allergy/AdvReac Type Severity Reaction Status Date / Time dog dander Allergy Severe Difficulty Verified 04/18/24 17:48 Breathing CATS Allergy Severe SNEEZE Uncoded 04/18/24 17:48 Review of Systems Review of Systems Systems Reviewed: All systems reviewed, normal except as documented Constitutional Constitutional: Reports system reviewed and no additional complaints, except as documented, Denies body ache(s), Denies chills and Denies fever(s) Eyes Eyes: Reports system reviewed and no additional complaints, except as documented and Denies change in vision ENT Ears, Nose, Mouth, and Throat: Reports system reviewed and no additional complaints, except as documented, Denies disequilibrium, Denies dizziness, Reports nasal congestion, Denies sore throat and Denies vertigo Cardiovascular Cardiovascular: Reports system reviewed and no additional complaints, except as documented, Denies chest pain and Reports dyspnea Respiratory Respiratory: Reports system reviewed and no additional complaints, except as documented, Denies chest congestion, Reports cough and Reports dyspnea Gastrointestinal Gastrointestinal: Reports system reviewed and no additional complaints, except as documented, Denies abdominal pain, Reports heartburn, Denies nausea and Denies vomiting Musculoskeletal Musculoskeletal: Reports system reviewed and no additional complaints, except as documented, Denies abnormal gait and Denies arthralgias Integumentary/Breasts Skin/Breast: Reports system reviewed and no additional complaints, except as documented, Denies erythema, Denies rash and Denies wounds Neurologic Neurologic: Reports system reviewed and no additional complaints, except as documented, Denies abnormal gait, Denies disequilibrium, Denies dizziness and Denies vertigo Past Medical History Past Medical History NEUROLOGIC: Negative Neurological Disorders CARDIAC: Negative Cardiac Disorders, Congestive Heart Failure, Hypertension or Hypotension RESPIRATORY: Positive Asthma; Negative Chronic Obstructive Pulmonary Disease (COPD) GENITOURINARY: Negative Renal Disease ENDOCRINE: Negative Diabetes Mellitus Type 1 or Diabetes Mellitus Type 2 PSYCHO/SOCIAL: Positive Anxiety OTHER HISTORY: Negative Cancer Social History SMOKING STATUS: Former smoker SUBSTANCE USE: does not use ED Exam General Limitations: Present no limitations General appearance: Present alert and in no apparent distress Head Head exam: Present atraumatic Eye Eye exam: Present normal appearance, PERRL and EOMI ENT ENT exam: Present normal exam, normal oropharynx and mucous membranes moist Neck Neck exam: Present normal inspection, full ROM and trachea midline Chest Chest inspection: Present normal inspection and symmetric chest wall rise Respiratory Respiratory exam: Present normal lung sounds bilaterally Cardiovascular Cardiovascular exam: Present regular rate, normal rhythm and normal heart sounds Abdominal Exam Abdominal exam: Present soft and normal bowel sounds; Absent Stubbs's sign or tenderness at McBurney's Point Extremities Exam Extremities exam: Present normal inspection and full ROM Back Exam Back exam: Present normal inspection and full ROM Neurological Exam Neurological exam: Present alert, oriented X3 and CN II-XII intact Psychiatric Psychiatric exam: Present normal affect and normal mood Skin Skin exam: Present warm, dry, intact and normal color Course Quality Measures none Orders Category Date Time Status XR chest 2V Stat Exams 04/18/24 18:31 Completed Famotidine [Pepcid] Med 04/18/24 18:32 Discontinued 40 mg PO X1 ONE Lidocaine 2% Viscous [Xylocaine 2% Viscous] Med 04/18/24 18:32 Discontinued 15 ml PO X1 ONE Ondansetron Odt [Zofran Odt] Med 04/18/24 18:32 Discontinued 4 mg PO X1 ONE mg Hyd/Al Hyd/Ava Susp [Maalox Susp] Med 04/18/24 18:32 Discontinued 30 ml PO X1 ONE Vital Signs Vital signs: Vital Signs Temperature 98.6 F 04/18/24 18:20 Pulse Rate 77 04/18/24 18:20 Respiratory Rate 16 04/18/24 18:20 Blood Pressure 134/80 H 04/18/24 18:20 Pulse Oximetry (%) 97 04/18/24 18:20 Oxygen Delivery Method Room Air 04/18/24 18:20 97% room air within normal limits Upper Respiratory Infection MDM Narrative MDM Narrative:: 23-year-old male presents emergency department complaining of cough, shortness of breath, sinus congestion, and burning sensation in chest after eating chicken taco. Patient denies any fever, chills, vomiting, or any other associated symptom. Chest x-ray was unremarkable. No adventitious lung sounds on auscultation and patient speaking in full sentences does not appear to be in any respiratory distress. Abdomen is soft and nontender. ENT exam was also unremarkable other than nasal rhinorrhea. Patient appears nontoxic and is hemodynamically stable. Patient was given GI cocktail due to reported heartburn and reported significant improvement in symptoms. Patient likely has viral infection. Patient data External records reviewed:: [facility] previous records Clinical information provided by:: patient Social determinants that could affect healthcare access:: none Patient has the following chronic illnesses:: See chart How is presenting disease/condition affected by chronic disease/condition?: uneffected by Evaluation data The following diagnostics were reviewed and interpreted by me:: radiology exam(s) Lab and/or radiology exams considered but not ordered:: Ordered Interpretation Summary: Interpreted by me Medications / Prescriptions Medications or Prescriptions considered but not ordered:: Ordered Medication administrations:: Medication Administration History Discontinued Medications Al Hydrox/Mg Hydrox/Simethicone (Mg Hyd/Al Hyd/Ava (Maalox Reg) Susp 30 Ml Udc) 30 ml PO X1 ONE Stop: 04/18/24 18:33 Last Admin: 04/18/24 18:39 Dose: 30 ml Documented By: ALEX Famotidine (Famotidine 20 Mg Tablet) 40 mg PO X1 ONE Stop: 04/18/24 18:33 Last Admin: 04/18/24 18:39 Dose: 40 mg Documented By: ALEX Lidocaine HCl (Lidocaine Viscous 2% 15 Ml Udc) 15 ml PO X1 ONE Stop: 04/18/24 18:33 Last Admin: 04/18/24 18:39 Dose: 15 ml Documented By: ALEX Ondansetron HCl (Ondansetron Odt 4 Mg Tabrap) 4 mg PO X1 ONE; Protocol Stop: 04/18/24 18:33 Last Admin: 04/18/24 18:39 Dose: 4 mg Documented By: DB Given Consultations Consultation(s) initiated? (list below): No Diagnosis Upper Respiratory Differential Diagnosis: upper respiratory infection, croup, otitis media, sinusitis, viral infection, bronchitis, influenza and pharyngitis Most likely diagnosis given after review of the tests above:: Viral infection Admission Indicated Admission indicated?: not indicated Admission Request Was there a request for admission?: No Disposition Plan Disposition Plan: Discharge Discharge Attestation Discharge Attestation: The patient and all family members were given an opportunity to ask questions and understood the discharge instructions. Discharge instructions specifically effects, indications for sooner follow up or return to the emergency department, and the expected course of current diagnosis. Patient condition: Stable Discharge Plan Plan Patient Disposition: HOME (Self Care) Disposition Comment: Stable Prescriptions/Referrals Prescriptions/Med Rec: New ibuprofen 600 mg tablet 600 mg PO Q8H PRN (Reason: pain) Qty: 20 0RF ondansetron 4 mg tablet,disintegrating 4 mg PO Q8H PRN (Reason: nausea and vomiting) Qty: 7 0RF acetaminophen 500 mg capsule 500 mg PO Q6H PRN (Reason: pain) Qty: 30 0RF No Action lorazepam [Ativan] 0.5 mg tablet 0.5 mg PO BID PRN (Reason: anxiety) Qty: 20 0RF amoxicillin-pot clavulanate [Augmentin] 875-125 mg tablet 1 tab PO BID Qty: 20 0RF albuterol sulfate 90 mcg/actuation HFA aerosol inhaler 2 puff inhalation QID PRN (Reason: shortness of breath or wheezing) Qty: 18 0RF ibuprofen 800 mg tablet 800 mg PO TID PRN (Reason: pain) Qty: 60 0RF melatonin 5 mg capsule 5 mg PO QHSPRN PRN (Reason: for sleep ) Qty: 30 0RF hydroxyzine HCl 50 mg tablet 50 mg PO Q6H PRN (Reason: anxiety) Qty: 20 0RF ibuprofen 800 mg tablet 800 mg PO TID PRN (Reason: pain) Qty: 30 0RF prednisone 50 mg tablet 50 mg PO QDAY 5 Days Qty: 5 0RF pseudoephedrine-guaifenesin [Mucinex D] 60-600 mg tablet extended release 12 hr 1 tab PO BID PRN (Reason: cold symptoms) Qty: 30 0RF albuterol sulfate [Ventolin HFA] 90 mcg/actuation HFA aerosol inhaler 2 puff inhalation Q6H PRN (Reason: shortness of breath or wheezing) Qty: 8.5 0RF fluticasone propionate [Flonase Allergy Relief] 50 mcg/actuation spray,suspension 2 spray intranasal QDAY Qty: 16 0RF Rx Instructions: administer into each nostril loratadine 10 mg tablet 10 mg PO QDAY Qty: 20 0RF Referrals: No Primary/Family,Physician [Primary Care Provider] - In 1 week Problem List Clinical Impression: Viral infection Patient/Caregiver Discharge Instructions Discharge Activity: activity as tolerated Education Materials: ED Viral Syndrome (Adult) Additional Instructions: Drink plenty of fluids and get plenty of rest. Avoid eating fatty greasy spicy foods for the next 2 to 3 days. Take Tylenol or ibuprofen as needed for pain with food. Take Zofran as needed for any episodes of nausea. Follow-up with primary care provider in 2 to 3 days. Return to emergency department for any worsening symptoms or as needed. Print Language: Tamazight Stand Alone Forms: Rubina Award Info., Patient Portal Info Letter PA/RALPH Supervising Physician PA/TILE HELPER Supervising Physician: Dr. Hunter
[2024-04-18] MEDS: LIDOCAINE VISCOUS 2% 15 ML UDC PO (18:39)
[2024-04-18] MEDS: FAMOTIDINE 20 MG TABLET 40 MG PO (18:39)
[2024-04-18] MEDS: MG HYD/AL HYD/SIME (Maalox Reg) SUSP 30 ML UDC PO (18:39)
[2024-04-18] MEDS: ONDANSETRON ODT 4 MG TABRAP PO (18:39)
[2024-04-18 20:31] VITALS: BP 147/96; PULSE 94; RESP 20; TEMP 36.8; O2SAT 97
== END 2024-04-18 21:14 | disposition home or self-care (01) ==
PROVIDERS: Emergency Provider Emergency Medicine
DX: B34.9 Viral infection, unspecified (principal)
CPT/HCPCS: 71046; 99283; J3490; Q0162; A9270

== ENCOUNTER 2024-05-15 22:00 | Emergency (ER) | payer MEDICAID, SELFPAY ==
[2024-05-15 22:00] VITALS: BMI 42.8
[2024-05-15 22:15] VITALS: BP 147/99; PULSE 97; RESP 20; TEMP 36.8; O2SAT 96
--- NOTE | 2024-05-15 22:21 | EDNOTE_ITS ---
ED Epistaxis RME/HPI General Chief complaint: Epistaxis/Nasal Foreign Body Stated complaint: NOSEBLEED X3 DAYS OFF AND ON Time Seen by Provider: 05/15/24 22:19 Arrival date/time: 05/15/24 22:00 23 year old male present to emergency room with c/o of intermittent nose bleed for 3 days. denies any trauma, injury or blood thinner uses. denies illicit drug/alcohol abuse. LOCATION: Nose SEVERITY: Symptoms are described as being severe with limitations on activities of daily living CONTEXT: The patient is unable to identify any inciting events. DURATION/TIMING: The symptoms started approximately 3 days ASSOCIATED SYMPTOMS: The patient is unable to identify any other associated symptoms. MODIFYING FACTORS: The patient is unable to identify any alleviating or aggravating symptoms. PERTINENT ROS: no fevers, no cough, no chest pain/shortness of breath no nausea,vomiting, diarrhea, no dizziness/headache no rash no loc/syncope episode REVIEW OF SYSTEMS: See History of Present Illness - with the exception of those mentioned in the history of present illness, all other systems reviewed and reported as negative GENERAL: In general the patient is awake, interactive, in an emergency department gurney. HEAD/EYES/EARS/NOSE/THROAT: + bilateral nares dry blood no septal hematoma normo-cephalic, atraumatic, mucus membranes are moist, anicteric, palpebral conjunctiva is pink, trachea is midline. CARDIOVASCULAR: regular rate and regular rhythm, no murmurs, heart sounds are not distant, strong pulses in all four extremities that are equal and symmetric bilateral upper and lower extremities, normal capillary refill. EXTREMITY: no tenderness to palpation over the long bones or large joints of the bilateral upper and lower extremities, no joint swelling, no joint erythema, no signs of trauma, no unilateral leg swelling and no peripheral edema. SKIN: warm, dry, well-perfused, no jaundice, no rash, no telangiectasias or petechia. PSYCH: calm, cooperative, no evidence of psychosis or agitation Related Data Previous Rx's ?Medication ?Instructions ?Recorded lorazepam 0.5 mg tablet (Ativan) 0.5 mg PO BID PRN anx iety #20 tabs 06/13/19 melatonin 5 mg capsule 5 mg PO QHSPRN PRN for sleep #30 07/16/19 caps amoxicillin 875 mg-potassium 1 tab PO BID #20 tabs clavulanate 125 mg tablet (Augmentin) albuterol sulfate 90 mcg/actuation 2 puff inhalation Q ID PRN 12/21/19 aerosol inhaler shortness of breath or wheez ing #18 grams ibuprofen 800 mg tablet 800 mg PO TID PRN pain #60 t abs 05/06/20 albuterol sulfate 90 mcg/actuation 2 puff inhalation Q 6H PRN 10/10/23 aerosol inhaler (Ventolin HFA) shortness of breath or wheezing #8.5 grams fluticasone propionate 50 2 spray intranasal QDAY #16 grams 11/11/23 mcg/actuation nasal spray,suspension (Flonase Allergy Relief) loratadine 10 mg tablet 10 mg PO QDAY #20 tabs 11/10 hydroxyzine HCl 50 mg tablet 50 mg PO Q6H PRN anxiety #20 tabs 12/07/23 ibuprofen 800 mg tablet 800 mg PO TID PRN pain #30 t abs 12/29/23 acetaminophen 500 mg capsule 500 mg PO Q6H PRN pain #3 0 caps 04/18/24 ibuprofen 600 mg tablet 600 mg PO Q8H PRN pain #20 t abs 04/18/24 ondansetron 4 mg disintegrating 4 mg PO Q8H PRN nausea and 04/18/24 tablet vomiting #7 tabs pseudoephedrine-guaifenesin ER 60 1 tab PO BID PRN col d symptoms #30 04/18/24 mg-600 mg tablet,extend release tabs 12hr (Mucinex D) Allergies Allergy/AdvReac Type Severity Reaction Status Date / Time dog dander Allergy Severe Difficulty Verified 04/18/24 17:48 Breathing CATS Allergy Severe SNEEZE Uncoded 04/18/24 17:48 Course Course Course Narrative: This patient presents with epistaxis, which appears to have minimal bleeding resolved. There are no risk factors for bleeding disorders and the patient is hemodynamically stable. No evidence of anemia. Will treat supportively. Plan:cbc/inr direct pressure, oxymetazoline IN,? Quality Measures none Orders Category Date Time Status CBC Stat Lab 05/15/24 22:38 Completed INR [Prothrombin Time with INR] Stat Lab 05/15/24 22:38 Completed Oxymetazoline [place] 0.05% [Afrin Nasal [place]] Med 05/15/24 22:19 Discontinued See Dose Instructions NASAL X1 ONE Silver Nitrate Applicators Med 05/15/24 22:44 Discontinued 1 appl TOP X1 ONE Reevaluation(s) Reevaluation #1: bleeding stopped Vital Signs Vital signs: Vital Signs Temperature 98.3 F 05/15/24 22:15 Pulse Rate 97 05/15/24 22:15 Respiratory Rate 20 05/15/24 22:15 Blood Pressure 147/99 H 05/15/24 22:15 Pulse Oximetry (%) 96 05/15/24 22:15 Oxygen Delivery Method Room Air 05/15/24 22:15 Epistaxis Patient data External records reviewed:: [facility] previous records Clinical information provided by:: patient Social determinants that could affect healthcare access:: none Patient has the following chronic illnesses:: as stated in chart How is presenting disease/condition affected by chronic disease/condition?: uneffected by Evaluation data The following diagnostics were reviewed and interpreted by me:: lab results Lab and/or radiology exams considered but not ordered:: n/a Interpretation Summary: cbc/inr wnl Medications / Prescriptions Medications or Prescriptions considered but not ordered:: n/a Medication administrations:: Medication Administration History Discontinued Medications Oxymetazoline HCl (Oxymetazoline [place] 0.05% 15 Ml Btl) 0 spray NASAL X1 ONE Stop: 05/15/24 22:20 Last Admin: 05/15/24 22:38 Dose: 2 sprays Documented By: Silver Nitrate (Silver Nitrate 1 Appl Ea) 1 appl TOP X1 ONE Stop: 05/15/24 22:45 Last Admin: 05/15/24 23:17 Dose: 1 appl Documented By: as stated above Consultations Consultation(s) initiated? (list below): No Diagnosis Epistaxis Differential Diagnosis: anterior epistaxis and posterior epistaxis Most likely diagnosis given after review of the tests above:: nose bleed Admission Indicated Admission indicated?: not indicated Admission Request Was there a request for admission?: No Disposition Plan Disposition Plan: Discharge Discharge Attestation Discharge Attestation: The patient and all family members were given an opportunity to ask questions and understood the discharge instructions. Discharge instructions specifically effects, indications for sooner follow up or return to the emergency department, and the expected course of current diagnosis. Patient condition: Stable Discharge Plan Plan Patient Disposition: HOME (Self Care) Health Concerns: Follow with PMD as directed Return to ED if sx worsen Prescriptions/Referrals Prescriptions/Med Rec: No Action lorazepam [Ativan] 0.5 mg tablet 0.5 mg PO BID PRN (Reason: anxiety) Qty: 20 0RF amoxicillin-pot clavulanate [Augmentin] 875-125 mg tablet 1 tab PO BID Qty: 20 0RF albuterol sulfate 90 mcg/actuation HFA aerosol inhaler 2 puff inhalation QID PRN (Reason: shortness of breath or wheezing) Qty: 18 0RF ibuprofen 800 mg tablet 800 mg PO TID PRN (Reason: pain) Qty: 60 0RF melatonin 5 mg capsule 5 mg PO QHSPRN PRN (Reason: for sleep ) Qty: 30 0RF hydroxyzine HCl 50 mg tablet 50 mg PO Q6H PRN (Reason: anxiety) Qty: 20 0RF ibuprofen 800 mg tablet 800 mg PO TID PRN (Reason: pain) Qty: 30 0RF pseudoephedrine-guaifenesin [Mucinex D] 60-600 mg tablet extended release 12 hr 1 tab PO BID PRN (Reason: cold symptoms) Qty: 30 0RF albuterol sulfate [Ventolin HFA] 90 mcg/actuation HFA aerosol inhaler 2 puff inhalation Q6H PRN (Reason: shortness of breath or wheezing) Qty: 8.5 0RF fluticasone propionate [Flonase Allergy Relief] 50 mcg/actuation spray,suspension 2 spray intranasal QDAY Qty: 16 0RF Rx Instructions: administer into each nostril loratadine 10 mg tablet 10 mg PO QDAY Qty: 20 0RF ibuprofen 600 mg tablet 600 mg PO Q8H PRN (Reason: pain) Qty: 20 0RF ondansetron 4 mg tablet,disintegrating 4 mg PO Q8H PRN (Reason: nausea and vomiting) Qty: 7 0RF acetaminophen 500 mg capsule 500 mg PO Q6H PRN (Reason: pain) Qty: 30 0RF Referrals: Maritza Sandy NP [Primary Care Provider] - In 1 week Problem List Clinical Impression: Epistaxis Patient/Caregiver Discharge Instructions Education Materials: ED Epistaxis (Adult) Print Language: [place]an Stand Alone Forms: Rubina Award Info., Patient Portal Info Letter
[2024-05-15] MEDS: OXYMETAZOLINE NAS SPRY 0.05% 15 ML BTL NASAL (22:38)
[2024-05-15 23:02] LABS: Basophils # (Auto) 0.1 Thou/mm3 (0.0-0.2); Basophils % (Auto) 1 % (0-2.5); Eosinophils # (Auto) 0.7 Thou/mm3 (0.0-0.5); Eosinophils % (Auto) 6 % (0-10); Hematocrit 43.5 % (41.0-53.0); Hemoglobin 14.9 g/dL (13.5-16.0); Immature Granulocytes % (Auto) 1 % (0-0); Immature Granulocytes Auto 0.08 Thou/mm3 (0.00-0.00); Lymphocytes % (Auto) 26 % (10-50); Mean Corpuscular HGB Conc 34.3 g/dl (31.0-37.0); Mean Corpuscular Hemoglobin 31.8 pg (25.0-35.0); Mean Corpuscular Volume 93 fL (80-100); Monocytes # (Auto) 0.9 Thou/mm3 (0.0-0.8); Monocytes % (Auto) 8 % (0-12); Neutrophils # (Auto) 6.6 Thou/mm3 (1.8-7.7); Neutrophils % (Auto) 58 % (37-80); Nucleated Red Blood Cell % 0 /100 WBC (0); Platelet Count 239 Thou/mm3 (140-440); RDW Standard Deviation 43.9 fL (35.1-43.9); Red Blood Count 4.68 Miln/mm3 (4.50-5.90); White Blood Count 11.3 Thou/mm3 (3.8-10.6)
[2024-05-15 23:17] LABS: INR 1.1 (0.9-1.3); Prothrombin Time 11.7 Seconds (9.0-12.2)
[2024-05-15] MEDS: SILVER NITRATE 1 APPL EA TOP (23:17)
== END 2024-05-16 00:15 | disposition home or self-care (01) ==
PROVIDERS: Physician Assistant; Emergency Provider Emergency Medicine; PCP Nurse Practitioner Family
DX: R04.0 Epistaxis (principal)
CPT/HCPCS: 36415; 85025; 85610; 99283; A9270

== ENCOUNTER 2024-05-22 03:49 | Emergency (ER) | payer MEDICAID, SELFPAY ==
[2024-05-22 03:50] VITALS: PULSE 102; RESP 18; O2SAT 99; BMI 41.5
[2024-05-22 03:58] VITALS: BP 136/78; PULSE 110; RESP 18; TEMP 36.9; O2SAT 96
== END 2024-05-22 06:30 | disposition left against medical advice (07) ==
LOC: SERX 04:45
PROVIDERS: Emergency Provider Emergency Medicine
DX: Z53.21 Procedure and treatment not carried out due to patient leaving prior to being seen by health care provider (principal)
CPT/HCPCS: 99281

== ENCOUNTER 2024-05-23 21:39 | Emergency (ER) | payer MEDICAID, SELFPAY ==
[2024-05-23 21:40] VITALS: BMI 28.7
[2024-05-23 22:45] VITALS: BP 129/72; PULSE 77; RESP 17; TEMP 36.7; O2SAT 96
--- NOTE | 2024-05-23 22:55 | EDNOTE_ITS ---
ED SOB =RME/HPI General Chief Complaint: Shortness of Breath/Dyspnea Stated Complaint: SOB, dry throat, nose bleeds Time Seen by Provider: 05/23/24 22:09 Arrival date/time: 05/23/24 21:39 RME / HPI RME / HPI Narrative: 23-year-old male with asthma presents for evaluation of intermittent shortness of breath. Patient rep reports being woken up from sleep with episode of dyspnea that lasted few seconds . Patient denies substernal chest pain, cough, leg swelling, wheezing, arm pain, numbness, tingling. Patient notes that he has had similar symptoms in the past she attributes to anxiety but states he is not feeling anxious today. Patient was recently seen in the ED for nosebleed which he reports has not recurred. Patient reports he has an appointment with primary care in the morning for further treatment of his anxiety. Related Data Previous Rx's ?Medication ?Instructions ?Recorded lorazepam 0.5 mg tablet (Ativan) 0.5 mg PO BID PRN anx iety #20 tabs 06/13/19 melatonin 5 mg capsule 5 mg PO QHSPRN PRN for sleep #30 07/16/19 caps amoxicillin 875 mg-potassium 1 tab PO BID #20 tabs clavulanate 125 mg tablet (Augmentin) albuterol sulfate 90 mcg/actuation 2 puff inhalation Q ID PRN 12/21/19 aerosol inhaler shortness of breath or wheez ing #18 grams ibuprofen 800 mg tablet 800 mg PO TID PRN pain #60 t abs 05/06/20 albuterol sulfate 90 mcg/actuation 2 puff inhalation Q 6H PRN 10/10/23 aerosol inhaler (Ventolin HFA) shortness of breath or wheezing #8.5 grams fluticasone propionate 50 2 spray intranasal QDAY #16 grams 11/11/23 mcg/actuation nasal spray,suspension (Flonase Allergy Relief) loratadine 10 mg tablet 10 mg PO QDAY #20 tabs 11/10 hydroxyzine HCl 50 mg tablet 50 mg PO Q6H PRN anxiety #20 tabs 12/07/23 ibuprofen 800 mg tablet 800 mg PO TID PRN pain #30 t abs 12/29/23 acetaminophen 500 mg capsule 500 mg PO Q6H PRN pain #3 0 caps 04/18/24 ibuprofen 600 mg tablet 600 mg PO Q8H PRN pain #20 t abs 04/18/24 ondansetron 4 mg disintegrating 4 mg PO Q8H PRN nausea and 04/18/24 tablet vomiting #7 tabs pseudoephedrine-guaifenesin ER 60 1 tab PO BID PRN col d symptoms #30 04/18/24 mg-600 mg tablet,extend release tabs 12hr (Mucinex D) Allergies Allergy/AdvReac Type Severity Reaction Status Date / Time dog dander Allergy Severe Difficulty Verified 04/18/24 17:48 Breathing CATS Allergy Severe SNEEZE Uncoded 04/18/24 17:48 Course Orders Category Date Time Status DiphenhydrAMINE [Benadryl] Med 05/23/24 22:55 Once 50 mg PO X1 ONE Vital Signs Vital signs: Vital Signs Temperature 98.0 F 05/23/24 22:45 Pulse Rate 77 05/23/24 22:45 Respiratory Rate 17 05/23/24 22:45 Blood Pressure 129/72 05/23/24 22:45 Pulse Oximetry (%) 96 05/23/24 22:45 Oxygen Delivery Method Room Air 05/23/24 22:45 Shortness of Breath / Dyspnea Medications / Prescriptions Medication administrations:: Medication Administration History Diphenhydramine HCl (Diphenhydramine 25 Mg Capsule) 50 mg PO X1 ONE Stop: 05/23/24 22:56 Discharge Plan Plan Patient Disposition: HOME (Self Care) Disposition Comment: stable Prescriptions/Referrals Prescriptions/Med Rec: No Action lorazepam [Ativan] 0.5 mg tablet 0.5 mg PO BID PRN (Reason: anxiety) Qty: 20 0RF amoxicillin-pot clavulanate [Augmentin] 875-125 mg tablet 1 tab PO BID Qty: 20 0RF albuterol sulfate 90 mcg/actuation HFA aerosol inhaler 2 puff inhalation QID PRN (Reason: shortness of breath or wheezing) Qty: 18 0RF ibuprofen 800 mg tablet 800 mg PO TID PRN (Reason: pain) Qty: 60 0RF melatonin 5 mg capsule 5 mg PO QHSPRN PRN (Reason: for sleep ) Qty: 30 0RF hydroxyzine HCl 50 mg tablet 50 mg PO Q6H PRN (Reason: anxiety) Qty: 20 0RF ibuprofen 800 mg tablet 800 mg PO TID PRN (Reason: pain) Qty: 30 0RF pseudoephedrine-guaifenesin [Mucinex D] 60-600 mg tablet extended release 12 hr 1 tab PO BID PRN (Reason: cold symptoms) Qty: 30 0RF albuterol sulfate [Ventolin HFA] 90 mcg/actuation HFA aerosol inhaler 2 puff inhalation Q6H PRN (Reason: shortness of breath or wheezing) Qty: 8.5 0RF fluticasone propionate [Flonase Allergy Relief] 50 mcg/actuation spray,suspension 2 spray intranasal QDAY Qty: 16 0RF Rx Instructions: administer into each nostril loratadine 10 mg tablet 10 mg PO QDAY Qty: 20 0RF ibuprofen 600 mg tablet 600 mg PO Q8H PRN (Reason: pain) Qty: 20 0RF ondansetron 4 mg tablet,disintegrating 4 mg PO Q8H PRN (Reason: nausea and vomiting) Qty: 7 0RF acetaminophen 500 mg capsule 500 mg PO Q6H PRN (Reason: pain) Qty: 30 0RF Referrals: Maritza Sandy SHEET METAL SUPERVISOR [Primary Care Provider] - In 1 week Problem List Clinical Impression: Dyspnea Impression comment: Follow-up with primary care tomorrow as planned. Continue to take hydroxyzine as prescribed. Use albuterol inhaler as needed for wheezing. Return to the ED if your symptoms worsen or change. Patient/Caregiver Discharge Instructions Education Materials: ED Shortness of Breath (Dyspnea) Print Language: Citizen Of [place] Stand Alone Forms: Rubina Award Info., Patient Portal Info Letter PA/SENIOR PHYSICIAN Supervising Physician PA/RALPH Supervising Physician: Dr. Denis
[2024-05-23] MEDS: DiphenhydrAMINE 25 MG CAPSULE 50 MG PO (23:11)
== END 2024-05-23 23:15 | disposition home or self-care (01) ==
PROVIDERS: Emergency Provider Emergency Medicine; PCP Nurse Practitioner Family
DX: R06.00 Dyspnea, unspecified (principal)
CPT/HCPCS: 99282; A9270

== ENCOUNTER 2024-06-04 20:25 | Emergency (ER) | payer MEDICAID, SELFPAY ==
[2024-06-04 20:26] VITALS: BMI 42.8
[2024-06-04 20:43] VITALS: BP 146/80; PULSE 76; RESP 20; TEMP 37; O2SAT 96
[2024-06-04] MEDS: DIAZEPAM 5 MG TABLET 10 MG PO (21:01)
--- NOTE | 2024-06-04 21:04 | PD.EDANX ---
ED Anxiety RME/HPI General Chief Complaint: Shortness of Breath/Dyspnea Stated Complaint: SOB, EYE PROBLEMS Time Seen by Provider: 06/04/24 20:55 Arrival date/time: 06/04/24 20:25 23M with history of anxiety and asthma presents to ED with an episode about 1 hour ago of sudden SOB and blurry vision. Patient states symptoms are improving, but would like some meds. Patient was recently officially diagnosed with panic disorder and is working with getting counseling and psych meds. Patient denies SI/HI. Limitations: no limitations Related Data Previous Rx's ?Medication ?Instructions ?Recorded lorazepam 0.5 mg tablet (Ativan) 0.5 mg PO BID PRN anxiety #20 tabs 06/13/19 melatonin 5 mg capsule 5 mg PO QHSPRN PRN for sleep #30 07/16/19 caps amoxicillin 875 mg-potassium 1 tab PO BID #20 tabs 08/01/19 clavulanate 125 mg tablet (Augmentin) albuterol sulfate 90 mcg/actuation 2 puff inhalation QID PRN 12/21/19 aerosol inhaler shortness of breath or wheezing #18 grams ibuprofen 800 mg tablet 800 mg PO TID PRN pain #60 tabs 05/06/20 albuterol sulfate 90 mcg/actuation 2 puff inhalation Q6H PRN 10/10/23 aerosol inhaler (Ventolin HFA) shortness of breath or wheezing #8.5 grams fluticasone propionate 50 2 spray intranasal QDAY #16 grams 11/11/23 mcg/actuation nasal spray,suspension (Flonase Allergy Relief) loratadine 10 mg tablet 10 mg PO QDAY #20 tabs 11/11/23 hydroxyzine HCl 50 mg tablet 50 mg PO Q6H PRN anxiety #20 tabs 12/07/23 ibuprofen 800 mg tablet 800 mg PO TID PRN pain #30 tabs 12/29/23 acetaminophen 500 mg capsule 500 mg PO Q6H PRN pain #30 caps 04/18/24 ibuprofen 600 mg tablet 600 mg PO Q8H PRN pain #20 tabs 04/18/24 ondansetron 4 mg disintegrating 4 mg PO Q8H PRN nausea and 04/18/24 tablet vomiting #7 tabs pseudoephedrine-guaifenesin ER 60 1 tab PO BID PRN cold symptoms #30 04/18/24 mg-600 mg tablet,extend release tabs 12hr (Mucinex D) Allergies Allergy/AdvReac Type Severity Reaction Status Date / Time dog dander Allergy Severe Difficulty Verified 04/18/24 17:48 Breathing CATS Allergy Severe SNEEZE Uncoded 04/18/24 17:48 Review of Systems Review of Systems Systems Reviewed: All systems reviewed, normal except as documented Constitutional Constitutional: Reports system reviewed and no additional complaints, except as documented, Denies fever(s) and Denies headache(s) Eyes Eyes: Reports as per HPI and Reports blurry vision ENT Ears, Nose, Mouth, and Throat: Denies disequilibrium and Denies headache(s) Cardiovascular Cardiovascular: Reports system reviewed and no additional complaints, except as documented, Denies chest pain and Reports dyspnea Respiratory Respiratory: Reports system reviewed and no additional complaints, except as documented, Reports as per HPI, Denies cough and Reports dyspnea Gastrointestinal Gastrointestinal: Reports system reviewed and no additional complaints, except as documented, Denies abdominal pain, Denies nausea and Denies vomiting Neurologic Neurologic: Reports system reviewed and no additional complaints, except as documented, Denies confusion, Denies disequilibrium and Denies headache(s) Psychiatric Psychiatric: Denies confusion Past Medical History Past Medical History NEUROLOGIC: Negative Neurological Disorders CARDIAC: Negative Cardiac Disorders, Congestive Heart Failure, Hypertension or Hypotension RESPIRATORY: Positive Asthma; Negative Chronic Obstructive Pulmonary Disease (COPD) GENITOURINARY: Negative Renal Disease ENDOCRINE: Negative Diabetes Mellitus Type 1 or Diabetes Mellitus Type 2 PSYCHO/SOCIAL: Positive Anxiety OTHER HISTORY: Negative Cancer Social History SMOKING STATUS: Never smoker SUBSTANCE USE: does not use ED Exam General Limitations: Present no limitations General appearance: Present alert, in no apparent distress and anxious Head Head exam: Present atraumatic Eye Eye exam: Present normal appearance, PERRL and EOMI ENT ENT exam: Present normal exam, normal oropharynx and mucous membranes moist Neck Neck exam: Present normal inspection, full ROM and trachea midline Chest Chest inspection: Present normal inspection and symmetric chest wall rise Respiratory Respiratory exam: Present normal lung sounds bilaterally Cardiovascular Cardiovascular exam: Present regular rate, normal rhythm and normal heart sounds Abdominal Exam Abdominal exam: Present soft and normal bowel sounds Extremities Exam Extremities exam: Present normal inspection and full ROM Back Exam Back exam: Present normal inspection and full ROM Neurological Exam Neurological exam: Present alert, oriented X3 and CN II-XII intact Psychiatric Psychiatric exam: Present normal affect and normal mood Skin Skin exam: Present warm, dry, intact and normal color Course Quality Measures none Orders Category Date Time Status Diazepam [Valium] Med 06/04/24 20:56 Discontinued 10 mg PO X1 ONE Vital Signs Vital signs: Vital Signs Temperature 98.6 F 06/04/24 20:43 Pulse Rate 76 06/04/24 20:43 Respiratory Rate 20 06/04/24 20:43 Blood Pressure 146/80 H 06/04/24 20:43 Pulse Oximetry (%) 96 06/04/24 20:43 Oxygen Delivery Method Room Air 06/04/24 20:43 Anxiety MDM Narrative MDM Narrative: 23M with history of anxiety and asthma presents to ED with an episode about 1 hour ago of sudden SOB and blurry vision. Patient states symptoms are improving, but would like some meds. Patient was recently officially diagnosed with panic disorder and is working with getting counseling and psych meds. Patient denies SI/HI. Physical exam reveals clear lungs. Normal WOB. Normal pupil response and EOM. CN II-XII intact. Gait normal. Patient is afebrile, alert, but anxious. Valium improved symptoms. Patient data External records reviewed:: [facility] previous records Clinical information provided by:: patient Social determinants that could affect healthcare access:: mental health Patient has the following chronic illnesses:: panic disorder and asthma How is presenting disease/condition affected by chronic disease/condition?: caused by Evaluation data The following diagnostics were reviewed and interpreted by me:: other (specify) (none) Lab and/or radiology exams considered but not ordered:: not ordered Interpretation Summary: n/a Medications / Prescriptions Medications or Prescriptions considered but not ordered:: ordered Medication administrations:: Medication Administration History Discontinued Medications Diazepam (Diazepam 5 Mg Tablet) 10 mg PO X1 ONE Stop: 06/04/24 20:57 Last Admin: 06/04/24 21:01 Dose: 10 mg Documented By: PINOR Consultations Consultation(s) initiated? (list below): No Diagnosis Differential diagnosis anxiety: hyperventilation, panic disorder (attack) and acute anxiety Most likely diagnosis given after review of the tests above:: panic attack Admission Indicated Admission indicated?: not indicated Admission Request Was there a request for admission?: No Disposition Plan Disposition Plan: Discharge Discharge Attestation Discharge Attestation: The patient and all family members were given an opportunity to ask questions and understood the discharge instructions. Discharge instructions specifically effects, indications for sooner follow up or return to the emergency department, and the expected course of current diagnosis. Patient condition: Stable Discharge Plan Plan Patient Disposition: HOME (Self Care) Disposition Comment: Stable Prescriptions/Referrals Prescriptions/Med Rec: No Action lorazepam [Ativan] 0.5 mg tablet 0.5 mg PO BID PRN (Reason: anxiety) Qty: 20 0RF amoxicillin-pot clavulanate [Augmentin] 875-125 mg tablet 1 tab PO BID Qty: 20 0RF albuterol sulfate 90 mcg/actuation HFA aerosol inhaler 2 puff inhalation QID PRN (Reason: shortness of breath or wheezing) Qty: 18 0RF ibuprofen 800 mg tablet 800 mg PO TID PRN (Reason: pain) Qty: 60 0RF melatonin 5 mg capsule 5 mg PO QHSPRN PRN (Reason: for sleep ) Qty: 30 0RF hydroxyzine HCl 50 mg tablet 50 mg PO Q6H PRN (Reason: anxiety) Qty: 20 0RF ibuprofen 800 mg tablet 800 mg PO TID PRN (Reason: pain) Qty: 30 0RF pseudoephedrine-guaifenesin [Mucinex D] 60-600 mg tablet extended release 12 hr 1 tab PO BID PRN (Reason: cold symptoms) Qty: 30 0RF albuterol sulfate [Ventolin HFA] 90 mcg/actuation HFA aerosol inhaler 2 puff inhalation Q6H PRN (Reason: shortness of breath or wheezing) Qty: 8.5 0RF fluticasone propionate [Flonase Allergy Relief] 50 mcg/actuation spray,suspension 2 spray intranasal QDAY Qty: 16 0RF Rx Instructions: administer into each nostril loratadine 10 mg tablet 10 mg PO QDAY Qty: 20 0RF ibuprofen 600 mg tablet 600 mg PO Q8H PRN (Reason: pain) Qty: 20 0RF ondansetron 4 mg tablet,disintegrating 4 mg PO Q8H PRN (Reason: nausea and vomiting) Qty: 7 0RF acetaminophen 500 mg capsule 500 mg PO Q6H PRN (Reason: pain) Qty: 30 0RF Problem List Clinical Impression: Panic attack Patient/Caregiver Discharge Instructions Education Materials: Panic Disorder Tx Additional Instructions: Please follow-up with PCP within 24-48 hours and return immediately if symptoms worsen. Print Language: Greenlandic Stand Alone Forms: Patient Portal Info Letter PA/DESIZING MACHINE OPERATOR HEAD END Supervising Physician PA/DESIZING MACHINE OPERATOR HEAD END Supervising Physician: Dr. Denis
== END 2024-06-04 21:52 | disposition home or self-care (01) ==
LOC: SERX 21:19
PROVIDERS: Emergency Provider Emergency Medicine
DX: F41.0 Panic disorder [episodic paroxysmal anxiety] (principal); J45.909 Unspecified asthma, uncomplicated
CPT/HCPCS: 99282; A9270

== ENCOUNTER 2024-06-17 16:09 | Emergency (ER) | payer MEDICAID, SELFPAY ==
[2024-06-17 16:09] VITALS: BMI 42.8
[2024-06-17 16:42] VITALS: BP 141/79; PULSE 100; RESP 18; TEMP 37.1; O2SAT 99
--- NOTE | 2024-06-17 16:47 | XR_ITS ---
Examination: PA lateral chest 2 views. TECHNIQUE: Upright PA and lateral chest 2 views. Exam date and time: June 17, 2024 1802 hours Comparison April 18, 2024 INDICATIONS: Panic attacks beginning 2019, panic attacks beginning one week ago FINDINGS: Normal heart size. The lungs are clear. The osseous structures are intact. IMPRESSION: No active disease.
--- NOTE | 2024-06-17 16:47 | PD.EDRME ---
Rapid Medical Screening Exam RME Arrival date/time: 06/17/24 16:09 23-year-old male with no known medical history presents to the emergency room with a chief complaint of shortness of breath x 10 minutes I have greeted and performed a focused initial assessment of this patient. A comprehensive ED assessment and evaluation of the patient, analysis of all test results, and completion of the medical decision making process will be conducted by additional ED providers. Chief Complaint: Shortness of Breath/Dyspnea Time Seen by Provider: 06/17/24 16:34 Vital signs: Vital Signs Temperature 98.8 F 06/17/24 16:42 Pulse Rate 100 06/17/24 16:42 Respiratory Rate 18 06/17/24 16:42 Blood Pressure 141/79 H 06/17/24 16:42 Pulse Oximetry (%) 99 06/17/24 16:42 Oxygen Delivery Method Room Air 06/17/24 16:42 Vital signs reviewed by provider: Yes
[2024-06-17] MEDS: ALPRazoLAM 0.25 MG TABLET PO (18:11)
--- NOTE | 2024-06-17 21:37 | EDNOTE_ITS ---
<Statement entered by Seda Bautista MD - 06/18/24 05:23> As co-signing physician, I was present and available for consult prn. I concur with the plan and care as documented by the midlevel provider. ED SOB =RME/HPI General Chief Complaint: Shortness of Breath/Dyspnea Stated Complaint: SOB X10 MIN Time Seen by Provider: 06/17/24 16:34 Arrival date/time: 06/17/24 16:09 RME / HPI RME / HPI Narrative: 23-year-old male patient came in for evaluation regarding worsening shortness of breath, palpitation jittery worsening anxiety like symptoms for the last few days. Patient is currently taking hydroxyzine with no relief. Patient admitted he is scheduled to see psychiatrist in 1 to 2 weeks. Denies any homicidal or suicidal ideation. Related Data Previous Rx's ?Medication ?Instructions ?Recorded lorazepam 0.5 mg tablet (Ativan) 0.5 mg PO BID PRN anx iety #20 tabs 06/13/19 melatonin 5 mg capsule 5 mg PO QHSPRN PRN for sleep #30 07/16/19 caps amoxicillin 875 mg-potassium 1 tab PO BID #20 tabs clavulanate 125 mg tablet (Augmentin) albuterol sulfate 90 mcg/actuation 2 puff inhalation Q ID PRN 12/21/19 aerosol inhaler shortness of breath or wheez ing #18 grams ibuprofen 800 mg tablet 800 mg PO TID PRN pain #60 t abs 05/06/20 albuterol sulfate 90 mcg/actuation 2 puff inhalation Q 6H PRN 10/10/23 aerosol inhaler (Ventolin HFA) shortness of breath or wheezing #8.5 grams fluticasone propionate 50 2 spray intranasal QDAY #16 grams 11/11/23 mcg/actuation nasal spray,suspension (Flonase Allergy Relief) loratadine 10 mg tablet 10 mg PO QDAY #20 tabs 11/10 hydroxyzine HCl 50 mg tablet 50 mg PO Q6H PRN anxiety #20 tabs 12/07/23 ibuprofen 800 mg tablet 800 mg PO TID PRN pain #30 t abs 12/29/23 acetaminophen 500 mg capsule 500 mg PO Q6H PRN pain #3 0 caps 04/18/24 ibuprofen 600 mg tablet 600 mg PO Q8H PRN pain #20 t abs 04/18/24 ondansetron 4 mg disintegrating 4 mg PO Q8H PRN nausea and 04/18/24 tablet vomiting #7 tabs pseudoephedrine-guaifenesin ER 60 1 tab PO BID PRN col d symptoms #30 04/18/24 mg-600 mg tablet,extend release tabs 12hr (Mucinex D) alprazolam 0.5 mg tablet (Xanax) 0.5 mg PO BID PRN anx iety #14 tabs 06/17/24 alprazolam 0.5 mg tablet (Xanax) 0.5 mg PO TID PRN anx iety #14 tabs 06/17/24 Allergies Allergy/AdvReac Type Severity Reaction Status Date / Time dog dander Allergy Severe Difficulty Verified 06/17/24 16:11 Breathing CATS Allergy Severe SNEEZE Uncoded 06/17/24 16:11 Review of Systems Review of Systems Narrative Review of Systems: Review of system reviewed and within normal limits except mentioned in HPI ED Exam Narrative Physical exam: VITAL SIGNS: Reviewed. GENERAL APPEARANCE: Alert and interactive, follows commands, no acute distress, HEAD AND FACE: Non-traumatic. ENT: PERRL, pink conjunctivitis, eyelid no trauma, Mucous membrane moist. NECK: Supple, nontender, no nuchal rigidity. CHEST: No tenderness, no crepitus, no paradoxical movement, no retractions. LUNGS: Clear, well ventilated, symmetric, no rales, no wheezing, no ronchi, no stridor, good breath sounds bilaterally. HEART: Regular rate, regular rhythm, no murmur, no gallops. ABDOMEN: Soft, positive bowel sounds, nondistended, no guarding, nontender, no rebound, no masses, RECTAL: Deferred. GENITAL: Deferred. NEUROLOGICAL: Gross motor function intact sensory function intact, Appropriate for age. MUSCULOSKELETAL: low back nontender, full range of motion. EXTREMITIES: Nontender, full range of motion. SKIN: Color pink, dry, no rash, no lacerations, no abrasions, no contusions. LYMPHATICS: Deferred. Course Quality Measures none Orders Category Date Time Status XR chest 2V Stat Exams 06/17/24 16:47 Completed ALPRazoLAM [Xanax] Med 06/17/24 16:47 Discontinued 0.25 mg PO X1 ONE Vital Signs Vital signs: Vital Signs Temperature 98.8 F 06/17/24 16:42 Pulse Rate 100 06/17/24 16:42 Respiratory Rate 18 06/17/24 16:42 Blood Pressure 141/79 H 06/17/24 16:42 Pulse Oximetry (%) 99 06/17/24 16:42 Oxygen Delivery Method Room Air 06/17/24 16:42 Shortness of Breath / Dyspnea [facility] Narrative [facility] Narrative:: 23-year-old male patient came in for evaluation regarding worsening shortness of breath, palpitation jittery worsening anxiety like symptoms for the last few days. Patient is currently taking hydroxyzine with no relief. Patient admitted he is scheduled to see psychiatrist in 1 to 2 weeks. Denies any homicidal or suicidal ideation. I personally reviewed and interpreted the x-ray of this patient. There is no a cute abnormalities found, no infiltrates no pneumothorax no hemothorax normal chest x-ray. Review of other structures was without significant abnormal findings also. I additionally reviewed the radiologist report and agree with the interpretation. Was given Xanax with significant improvement of symptoms. Patient will be sent home on Xanax since he told me that the hydroxyzine is not working. Patient appears nontoxic and hemodynamically stable. Patient discharged home and instructed to follow-up with primary care provider in 24 to 48 hours. Instructed to return to the emergency department immediately if worsening of symptoms Patient data External records reviewed:: None Clinical information provided by:: patient Social determinants that could affect healthcare access:: none Patient has the following chronic illnesses:: anxiety How is presenting disease/condition affected by chronic disease/condition?: exacerbated by Evaluation data The following diagnostics were reviewed and interpreted by me:: radiology exam(s) Lab and/or radiology exams considered but not ordered:: None Interpretation Summary: See results in the MDM Medications / Prescriptions Medications or Prescriptions considered but not ordered:: None Medication administrations:: Medication Administration History Discontinued Medications Alprazolam (Alprazolam 0.25 Mg Tablet) 0.25 mg PO X1 ONE Stop: 06/17/24 16:48 Last Admin: 06/17/24 18:11 Dose: 0.25 mg Documented By: ALEX Xanax Xanax Consultations Consultation(s) initiated? (list below): No Diagnosis Shortness of Breath Differential Diagnosis: acute exacerbation of chronic obstructive airways disease and other (anxiety) Most likely diagnosis given after review of the tests above:: anxiety Admission Indicated Admission indicated?: not indicated Admission Request Was there a request for admission?: No Disposition Plan Disposition Plan: Discharge Discharge Attestation Discharge Attestation: The patient was given an opportunity to ask questions and understood the discharge instructions. Discharge instructions specifically effects, indications for sooner follow up or return to the emergency department, and the expected course of current diagnosis. Patient condition: Stable Discharge Plan Plan Patient Disposition: HOME (Self Care) Discharge Disposition comment: Stable Prescriptions/Referrals Prescriptions/Med Rec: New alprazolam [Xanax] 0.5 mg tablet 0.5 mg PO BID PRN (Reason: anxiety) Qty: 14 0RF alprazolam [Xanax] 0.5 mg tablet 0.5 mg PO TID PRN (Reason: anxiety) Qty: 14 0RF No Action lorazepam [Ativan] 0.5 mg tablet 0.5 mg PO BID PRN (Reason: anxiety) Qty: 20 0RF amoxicillin-pot clavulanate [Augmentin] 875-125 mg tablet 1 tab PO BID Qty: 20 0RF albuterol sulfate 90 mcg/actuation HFA aerosol inhaler 2 puff inhalation QID PRN (Reason: shortness of breath or wheezing) Qty: 18 0RF ibuprofen 800 mg tablet 800 mg PO TID PRN (Reason: pain) Qty: 60 0RF melatonin 5 mg capsule 5 mg PO QHSPRN PRN (Reason: for sleep ) Qty: 30 0RF hydroxyzine HCl 50 mg tablet 50 mg PO Q6H PRN (Reason: anxiety) Qty: 20 0RF ibuprofen 800 mg tablet 800 mg PO TID PRN (Reason: pain) Qty: 30 0RF pseudoephedrine-guaifenesin [Mucinex D] 60-600 mg tablet extended release 12 hr 1 tab PO BID PRN (Reason: cold symptoms) Qty: 30 0RF albuterol sulfate [Ventolin HFA] 90 mcg/actuation HFA aerosol inhaler 2 puff inhalation Q6H PRN (Reason: shortness of breath or wheezing) Qty: 8.5 0RF fluticasone propionate [Flonase Allergy Relief] 50 mcg/actuation spray,suspension 2 spray intranasal QDAY Qty: 16 0RF Rx Instructions: administer into each nostril loratadine 10 mg tablet 10 mg PO QDAY Qty: 20 0RF ibuprofen 600 mg tablet 600 mg PO Q8H PRN (Reason: pain) Qty: 20 0RF ondansetron 4 mg tablet,disintegrating 4 mg PO Q8H PRN (Reason: nausea and vomiting) Qty: 7 0RF acetaminophen 500 mg capsule 500 mg PO Q6H PRN (Reason: pain) Qty: 30 0RF Referrals: No Primary/Family,Physician [Primary Care Provider] - In 1 week Problem List Clinical Impression: Anxiety Patient/Caregiver Discharge Instructions Education Materials: ED Anxiety Reaction Additional Instructions: Thank you for the opportunity for serving you today. You are stable for discharged . You are advised to: Follow-up with your mental health specialist next week Return to ED for worsening of symptoms Increase oral fluids Take medication as prescribed Print Language: Mexican Stand Alone Forms: Rubina Award Info., Patient Portal Info Letter PA/RALPH Supervising Physician PA/RALPH Supervising Physician: MD Lily
[2024-06-17 21:47] VITALS: BP 132/72; PULSE 76; RESP 18; TEMP 36.7; O2SAT 98
== END 2024-06-17 21:49 | disposition home or self-care (01) ==
PROVIDERS: Emergency Provider Emergency Medicine
DX: F41.9 Anxiety disorder, unspecified (principal)
CPT/HCPCS: 71046; 99283; A9270

== ENCOUNTER 2024-07-09 10:00 | Emergency (ER) | payer MEDICAID, SELFPAY ==
[2024-07-09 10:03] VITALS: BMI 40.1
[2024-07-09 10:19] VITALS: BP 153/88; PULSE 85; RESP 20; TEMP 36.6; O2SAT 95
--- NOTE | 2024-07-09 10:32 | XR_ITS ---
Examination: PA lateral chest 2 views TECHNIQUE: Upright PA lateral chest 2 views Date and time: July 09, 2024 1038 hours INDICATIONS: Fever coughing chest pressure several days. FINDINGS: Normal heart size. Lungs are clear. Osseous structures are intact IMPRESSION: No active disease
--- NOTE | 2024-07-09 10:32 | PD.EDSOB ---
ED SOB =RME/HPI General Chief Complaint: Flu Like Symptoms Stated Complaint: COUGH X3 DAYS WITH SOB; HX ASTHMA Time Seen by Provider: 07/09/24 10:19 Source: patient Arrival date/time: 07/09/24 10:00 23-year-old male with a history of asthma presents to the emergency room with a chief complaint of cough and shortness of breath x 3 days Mode of arrival: ambulatory Limitations: no limitations Related Data Previous Rx's ?Medication ?Instructions ?Recorded lorazepam 0.5 mg tablet (Ativan) 0.5 mg PO BID PRN anxiety #20 tabs 06/13/19 melatonin 5 mg capsule 5 mg PO QHSPRN PRN for sleep #30 07/16/19 caps amoxicillin 875 mg-potassium 1 tab PO BID #20 tabs 08/01/19 clavulanate 125 mg tablet (Augmentin) albuterol sulfate 90 mcg/actuation 2 puff inhalation QID PRN 12/21/19 aerosol inhaler shortness of breath or wheezing #18 grams ibuprofen 800 mg tablet 800 mg PO TID PRN pain #60 tabs 05/06/20 albuterol sulfate 90 mcg/actuation 2 puff inhalation Q6H PRN 10/10/23 aerosol inhaler (Ventolin HFA) shortness of breath or wheezing #8.5 grams fluticasone propionate 50 2 spray intranasal QDAY #16 grams 11/11/23 mcg/actuation nasal spray,suspension (Flonase Allergy Relief) loratadine 10 mg tablet 10 mg PO QDAY #20 tabs 11/11/23 hydroxyzine HCl 50 mg tablet 50 mg PO Q6H PRN anxiety #20 tabs 12/07/23 ibuprofen 800 mg tablet 800 mg PO TID PRN pain #30 tabs 12/29/23 acetaminophen 500 mg capsule 500 mg PO Q6H PRN pain #30 caps 04/18/24 ibuprofen 600 mg tablet 600 mg PO Q8H PRN pain #20 tabs 04/18/24 ondansetron 4 mg disintegrating 4 mg PO Q8H PRN nausea and 04/18/24 tablet vomiting #7 tabs pseudoephedrine-guaifenesin ER 60 1 tab PO BID PRN cold symptoms #30 04/18/24 mg-600 mg tablet,extend release tabs 12hr (Mucinex D) alprazolam 0.5 mg tablet (Xanax) 0.5 mg PO BID PRN anxiety #14 tabs 06/17/24 alprazolam 0.5 mg tablet (Xanax) 0.5 mg PO TID PRN anxiety #14 tabs 06/17/24 Allergies Allergy/AdvReac Type Severity Reaction Status Date / Time dog dander Allergy Severe Difficulty Verified 07/09/24 10:05 Breathing CATS Allergy Severe SNEEZE Uncoded 07/09/24 10:05 Review of Systems Review of Systems Systems Reviewed: All systems reviewed, normal except as documented Constitutional Constitutional: Reports system reviewed and no additional complaints, except as documented, Denies fatigue, Denies fever(s), Denies headache(s) and Denies weakness Eyes Eyes: Reports system reviewed and no additional complaints, except as documented, Denies blurry vision and Denies change in vision ENT Ears, Nose, Mouth, and Throat: Reports system reviewed and no additional complaints, except as documented, Denies otalgia, Denies headache(s), Denies nasal congestion, Denies throat swelling and Denies vertigo Cardiovascular Cardiovascular: Reports system reviewed and no additional complaints, except as documented, Denies chest pain, Reports dyspnea and Denies dyspnea on exertion Respiratory Respiratory: Reports system reviewed and no additional complaints, except as documented, Reports chest congestion, Reports cough, Reports dyspnea, Denies dyspnea on exertion and Denies wheezing Gastrointestinal Gastrointestinal: Reports system reviewed and no additional complaints, except as documented, Denies abdominal pain, Denies cramping, Denies nausea and Denies vomiting Genitourinary Genitourinary: Reports system reviewed and no additional complaints, except as documented, Denies dysuria and Denies hematuria Musculoskeletal Musculoskeletal: Reports system reviewed and no additional complaints, except as documented and Denies back pain Integumentary/Breasts Skin/Breast: Reports system reviewed and no additional complaints, except as documented and Denies wounds Neurologic Neurologic: Reports system reviewed and no additional complaints, except as documented, Denies confusion, Denies headache(s), Denies lack of coordination, Denies vertigo and Denies weakness Psychiatric Psychiatric: Reports system reviewed and no additional complaints, except as documented, Denies anxiety, Denies confusion, Denies depression, Denies paranoia, Denies suicidal ideation and Denies tactile hallucinations Endocrine Endocrine: Reports system reviewed and no additional complaints, except as documented and Denies fatigue Hematologic/Lymphatic Hematologic/Lymphatic: Reports system reviewed and no additional complaints, except as documented and Denies lymphadenopathy Allergic/Immunologic Allergic/Immunologic: Reports system reviewed and no additional complaints, except as documented, Denies throat swelling, Denies urticaria and Denies wheezing Past Medical History Past Medical History NEUROLOGIC: Negative Neurological Disorders CARDIAC: Negative Cardiac Disorders, Congestive Heart Failure, Hypertension or Hypotension RESPIRATORY: Positive Asthma; Negative Chronic Obstructive Pulmonary Disease (COPD) GENITOURINARY: Negative Renal Disease ENDOCRINE: Negative Diabetes Mellitus Type 1 or Diabetes Mellitus Type 2 PSYCHO/SOCIAL: Positive Anxiety OTHER HISTORY: Negative Cancer Social History SMOKING STATUS: Never smoker SUBSTANCE USE: does not use ED Exam General Limitations: Present no limitations General appearance: Present alert and in no apparent distress Head Head exam: Present atraumatic Eye Eye exam: Present normal appearance, PERRL and EOMI ENT ENT exam: Present normal exam, normal oropharynx and mucous membranes moist Neck Neck exam: Present normal inspection, full ROM and trachea midline Chest Chest inspection: Present normal inspection and symmetric chest wall rise Respiratory Respiratory exam: Present normal lung sounds bilaterally Cardiovascular Cardiovascular exam: Present regular rate, normal rhythm and normal heart sounds Abdominal Exam Abdominal exam: Present soft and normal bowel sounds Extremities Exam Extremities exam: Present normal inspection and full ROM Back Exam Back exam: Present normal inspection and full ROM Neurological Exam Neurological exam: Present alert, oriented X3 and CN II-XII intact Psychiatric Psychiatric exam: Present normal affect and normal mood Skin Skin exam: Present warm, dry, intact and normal color Course Quality Measures none Orders Category Date Time Status Bedside COVID-19 Antigen Test NOW Care 07/09/24 10:32 Completed Bedside Influenza A&B Antigen Test NOW Care 07/09/24 10:32 Completed XR chest 2V Stat Exams 07/09/24 10:32 Completed Albuterol/Ipratr Rt Jenae [Duoneb Rt Jenae] Med 07/09/24 10:32 Discontinued 3 ml INH X1 ONE Dexamethasone Inj [Decadron Inj] Med 07/09/24 10:32 Discontinued 10 mg PO X1 ONE Vital Signs Vital signs: Vital Signs Temperature 97.8 F 07/09/24 10:19 Pulse Rate 85 07/09/24 10:19 Respiratory Rate 20 07/09/24 10:19 Blood Pressure 153/88 H 07/09/24 10:19 Pulse Oximetry (%) 95 07/09/24 10:19 Oxygen Delivery Method Room Air 07/09/24 10:19 Shortness of Breath / Dyspnea MDM Narrative MDM Narrative:: 23-year-old male with a history of asthma presents to the emergency room with a chief complaint of cough and shortness of breath x 3 days Patient is hemodynamically stable and in no apparent distress Physical examination shows clear bilateral lung sounds there is no wheezing there is no abnormal breath sounds. Patient states he has a history of asthma and would like a breathing treatment A breathing treatment was given patient was reevaluated 1 hour with significant improvement X-ray was completed and was negative for any pneumonia Patient was discharged and educated to follow-up with primary care provider in the next 24 to 48 hours and return to the emergency room for any evidence of worsening signs or symptoms Patient data External records reviewed:: [facility] previous records Clinical information provided by:: patient Social determinants that could affect healthcare access:: none Patient has the following chronic illnesses:: Asthma How is presenting disease/condition affected by chronic disease/condition?: exacerbated by Evaluation data The following diagnostics were reviewed and interpreted by me:: lab results and radiology exam(s) Lab and/or radiology exams considered but not ordered:: Labs and radiology exams considered in order Interpretation Summary: Chest [id number]: Normal heart size. Lungs are clear. Osseous structures are intact IMPRESSION: No active disease Medications / Prescriptions Medications or Prescriptions considered but not ordered:: Medication given Medication administrations:: Medication Administration History Discontinued Medications Albuterol/Ipratropium (Albuterol/Ipratropium (Duoneb) Rt Jenae 3 Ml Nebu) 3 ml INH X1 ONE Stop: 07/09/24 10:33 Last Admin: 07/09/24 10:45 Dose: 3 ml Documented By: JV Dexamethasone Sodium Phosphate (Dexamethasone Sod Phos Inj 10 Mg/Ml Vial) 10 mg PO X1 ONE Stop: 07/09/24 10:33 Last Admin: 07/09/24 10:45 Dose: 10 mg Documented By: OA Medication given Consultations Consultation(s) initiated? (list below): No Diagnosis Shortness of Breath Differential Diagnosis: acute exacerbation of chronic obstructive airways disease, community acquired pneumonia and asthma with exacerbation Most likely diagnosis given after review of the tests above:: Asthma exacerbation Admission Indicated Admission indicated?: not indicated Admission Request Was there a request for admission?: No Disposition Plan Disposition Plan: Discharge Discharge Attestation Discharge Attestation: The patient and all family members were given an opportunity to ask questions and understood the discharge instructions. Discharge instructions specifically effects, indications for sooner follow up or return to the emergency department, and the expected course of current diagnosis. Patient condition: Stable Discharge Plan Plan Patient Disposition: HOME (Self Care) Discharge Disposition comment: Stable Prescriptions/Referrals Prescriptions/Med Rec: No Action lorazepam [Ativan] 0.5 mg tablet 0.5 mg PO BID PRN (Reason: anxiety) Qty: 20 0RF amoxicillin-pot clavulanate [Augmentin] 875-125 mg tablet 1 tab PO BID Qty: 20 0RF albuterol sulfate 90 mcg/actuation HFA aerosol inhaler 2 puff inhalation QID PRN (Reason: shortness of breath or wheezing) Qty: 18 0RF ibuprofen 800 mg tablet 800 mg PO TID PRN (Reason: pain) Qty: 60 0RF melatonin 5 mg capsule 5 mg PO QHSPRN PRN (Reason: for sleep ) Qty: 30 0RF hydroxyzine HCl 50 mg tablet 50 mg PO Q6H PRN (Reason: anxiety) Qty: 20 0RF ibuprofen 800 mg tablet 800 mg PO TID PRN (Reason: pain) Qty: 30 0RF pseudoephedrine-guaifenesin [Mucinex D] 60-600 mg tablet extended release 12 hr 1 tab PO BID PRN (Reason: cold symptoms) Qty: 30 0RF alprazolam [Xanax] 0.5 mg tablet 0.5 mg PO BID PRN (Reason: anxiety) Qty: 14 0RF alprazolam [Xanax] 0.5 mg tablet 0.5 mg PO TID PRN (Reason: anxiety) Qty: 14 0RF albuterol sulfate [Ventolin HFA] 90 mcg/actuation HFA aerosol inhaler 2 puff inhalation Q6H PRN (Reason: shortness of breath or wheezing) Qty: 8.5 0RF fluticasone propionate [Flonase Allergy Relief] 50 mcg/actuation spray,suspension 2 spray intranasal QDAY Qty: 16 0RF Rx Instructions: administer into each nostril loratadine 10 mg tablet 10 mg PO QDAY Qty: 20 0RF ibuprofen 600 mg tablet 600 mg PO Q8H PRN (Reason: pain) Qty: 20 0RF ondansetron 4 mg tablet,disintegrating 4 mg PO Q8H PRN (Reason: nausea and vomiting) Qty: 7 0RF acetaminophen 500 mg capsule 500 mg PO Q6H PRN (Reason: pain) Qty: 30 0RF Referrals: Susan Boss FNP-C [Primary Care Provider] - In 1 week Problem List Clinical Impression: Asthma with exacerbation Patient/Caregiver Discharge Instructions Education Materials: Asthma Additional Instructions: Please follow-up with your primary care provider in the next 24 to 48 hours. Your chest x-ray was negative for pneumonia For any evidence of worsening signs or symptoms return to the emergency room immediately Print Language: Welsh Stand Alone Forms: Rubina Award Info., Patient Portal Info Letter PA/FUNERAL ASSISTANT Supervising Physician MELISSA/RALPH Supervising Physician: Dr. Coulter
[2024-07-09] MEDS: ALBUTEROL/IPRATROPIUM (Duoneb) RT SOL 3 ML NEBU INH (10:45)
[2024-07-09] MEDS: DEXAMETHASONE SOD PHOS INJ 10 MG/ML VIAL PO (10:45)
[2024-07-09 10:46] VITALS: PULSE 83; RESP 18; O2SAT 99
== END 2024-07-09 11:46 | disposition home or self-care (01) ==
PROVIDERS: Emergency Provider Family Medicine
DX: J45.901 Unspecified asthma with (acute) exacerbation (principal)
CPT/HCPCS: 71046; 87400; 87811; 94640; 99283; A9270; J1100

== ENCOUNTER 2024-07-09 15:45 | Emergency (ER) | payer MEDICAID, SELFPAY ==
[2024-07-09 15:59] VITALS: PULSE 82; RESP 18; O2SAT 98
[2024-07-09 16:00] VITALS: BP 155/78; PULSE 88; RESP 20; TEMP 36.7; O2SAT 98
--- NOTE | 2024-07-09 16:31 | EKG_ITS ---
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
--- NOTE | 2024-07-09 16:31 | EDNOTE_ITS ---
ED Anxiety RME/HPI General Chief Complaint: Anxiety Stated Complaint: ANXIETY Arrival date/time: 07/09/24 15:45 RME / HPI RME / HPI narrative: The patient is a 23-year-old male with significant past medical history of anxiety disorder presented to ED with chief complaint of palpitation and asthma presented to ED with chief complaint of palpitations and SOB. The patient had presented to ED earlier this morning with similar symptoms, and was given breathing treatment x 1, after which he reported sick improvement in symptoms and was discharged home. He denied any headache, lightheadedness, chest pain, abdominal pain, any changes in bowel or bladder habit, fever, nausea or vomiting, or leg swelling. Related Data Previous Rx's ?Medication ?Instructions ?Recorded lorazepam 0.5 mg tablet (Ativan) 0.5 mg PO BID PRN anx iety #20 tabs 06/13/19 melatonin 5 mg capsule 5 mg PO QHSPRN PRN for sleep #30 07/16/19 caps amoxicillin 875 mg-potassium 1 tab PO BID #20 tabs clavulanate 125 mg tablet (Augmentin) albuterol sulfate 90 mcg/actuation 2 puff inhalation Q ID PRN 12/21/19 aerosol inhaler shortness of breath or wheez ing #18 grams ibuprofen 800 mg tablet 800 mg PO TID PRN pain #60 t abs 05/06/20 albuterol sulfate 90 mcg/actuation 2 puff inhalation Q 6H PRN 10/10/23 aerosol inhaler (Ventolin HFA) shortness of breath or wheezing #8.5 grams fluticasone propionate 50 2 spray intranasal QDAY #16 grams 11/11/23 mcg/actuation nasal spray,suspension (Flonase Allergy Relief) loratadine 10 mg tablet 10 mg PO QDAY #20 tabs 11/10 hydroxyzine HCl 50 mg tablet 50 mg PO Q6H PRN anxiety #20 tabs 12/07/23 ibuprofen 800 mg tablet 800 mg PO TID PRN pain #30 t abs 12/29/23 acetaminophen 500 mg capsule 500 mg PO Q6H PRN pain #3 0 caps 04/18/24 ibuprofen 600 mg tablet 600 mg PO Q8H PRN pain #20 t abs 04/18/24 ondansetron 4 mg disintegrating 4 mg PO Q8H PRN nausea and 04/18/24 tablet vomiting #7 tabs pseudoephedrine-guaifenesin ER 60 1 tab PO BID PRN col d symptoms #30 04/18/24 mg-600 mg tablet,extend release tabs 12hr (Mucinex D) alprazolam 0.5 mg tablet (Xanax) 0.5 mg PO BID PRN anx iety #14 tabs 06/17/24 alprazolam 0.5 mg tablet (Xanax) 0.5 mg PO TID PRN anx iety #14 tabs 06/17/24 Allergies Allergy/AdvReac Type Severity Reaction Status Date / Time dog dander Allergy Severe Difficulty Verified 07/09/24 10:05 Breathing CATS Allergy Severe SNEEZE Uncoded 07/09/24 10:05 Review of Systems Review of Systems Systems Reviewed: All systems reviewed, normal except as documented (Above) Past Medical History Past Medical History RESPIRATORY: Positive Asthma PSYCHO/SOCIAL: Positive Anxiety OTHER HISTORY: Negative Cancer Social History SMOKING STATUS: Never smoker SUBSTANCE USE: does not use ED Exam Narrative Physical exam: General: Obese, young gentleman, no acute distress, Alert and Oriented x 3, resting comfortably on bed HEENT: Moist mucous membranes, oropharynx clear Neck: Supple, No masses, No JVD CVS: S1S2 Regular rate and rhythm, No murmurs, rubs or gallops Lungs: Clear to auscultation with no accessory use, no wheeze no rhonchi, saturating 99% on room air Abd: Soft, NT/ND, +BS, no organomegaly Ext: No edema, warm and well perfused Skin: No rash Psych: Appropriate mood and affect Course Quality Measures none Orders Category Date Time Status EKG (ED ONLY) *Do not use* NOW Care 07/09/24 16:31 Active EKG (ED Only) Stat Exams 07/09/24 16:31 Ordered clonazePAM [KlonoPIN] Med 07/09/24 16:27 Discontinued 0.5 mg PO X1 ONE Vital Signs Vital signs: Vital Signs Temperature 98.1 F 07/09/24 16:00 Pulse Rate 88 07/09/24 16:00 Respiratory Rate 20 07/09/24 16:00 Blood Pressure 155/78 H 07/09/24 16:00 Pulse Oximetry (%) 98 07/09/24 16:00 Oxygen Delivery Method Room Air 07/09/24 16:00 Anxiety MDM Narrative MDM Narrative: The patient is a 23-year-old male with significant past medical history of a nxiety disorder presented to ED with chief complaint of palpitation and asthma presented to ED with chief complaint of palpitations and SOB. The patient had presented to ED earlier this morning with similar symptoms, and was given breathing treatment x 1, after which he reported sick improvement in symptoms and was discharged home. He denied any headache, lightheadedness, chest pain, abdominal pain, any changes in bowel or bladder habit, fever, nausea or vomiting, or leg swelling. Vitals were stable with BP 155/78, saturating 98% on RA, with RR 20. EKG revealed sinus rhythm with HR77 and QTC 368ms. Patient data External records reviewed:: [facility] previous records Clinical information provided by:: patient Social determinants that could affect healthcare access:: none Patient has the following chronic illnesses:: See above How is presenting disease/condition affected by chronic disease/condition?: caused by Evaluation data The following diagnostics were reviewed and interpreted by me:: EKG tracing(s) Lab and/or radiology exams considered but not ordered:: None Interpretation Summary: See above Medications / Prescriptions Medications or Prescriptions considered but not ordered:: None Medication administrations:: Medication Administration History Discontinued Medications Clonazepam (Clonazepam 0.5 Mg Tablet) 0.5 mg PO X1 ONE Stop: 07/09/24 16:28 Consultations Consultation(s) initiated? (list below): No Diagnosis Differential diagnosis anxiety: hyperventilation, panic disorder, acute anxiety and other (Acute asthma exacerbation) Most likely diagnosis given after review of the tests above:: Acute on chronic anxiety Admission Indicated Admission indicated?: not indicated Admission Request Was there a request for admission?: No Disposition Plan Disposition Plan: Discharge Discharge Attestation Discharge Attestation: The patient and all family members were given an opportunity to ask questions and understood the discharge instructions. Discharge instructions specifically effects, indications for sooner follow up or return to the emergency department, and the expected course of current diagnosis. Patient condition: Stable Discharge Plan Plan Patient Disposition: HOME (Self Care) Prescriptions/Referrals Prescriptions/Med Rec: No Action lorazepam [Ativan] 0.5 mg tablet 0.5 mg PO BID PRN (Reason: anxiety) Qty: 20 0RF amoxicillin-pot clavulanate [Augmentin] 875-125 mg tablet 1 tab PO BID Qty: 20 0RF albuterol sulfate 90 mcg/actuation HFA aerosol inhaler 2 puff inhalation QID PRN (Reason: shortness of breath or wheezing) Qty: 18 0RF ibuprofen 800 mg tablet 800 mg PO TID PRN (Reason: pain) Qty: 60 0RF melatonin 5 mg capsule 5 mg PO QHSPRN PRN (Reason: for sleep ) Qty: 30 0RF hydroxyzine HCl 50 mg tablet 50 mg PO Q6H PRN (Reason: anxiety) Qty: 20 0RF ibuprofen 800 mg tablet 800 mg PO TID PRN (Reason: pain) Qty: 30 0RF pseudoephedrine-guaifenesin [Mucinex D] 60-600 mg tablet extended release 12 hr 1 tab PO BID PRN (Reason: cold symptoms) Qty: 30 0RF alprazolam [Xanax] 0.5 mg tablet 0.5 mg PO BID PRN (Reason: anxiety) Qty: 14 0RF alprazolam [Xanax] 0.5 mg tablet 0.5 mg PO TID PRN (Reason: anxiety) Qty: 14 0RF albuterol sulfate [Ventolin HFA] 90 mcg/actuation HFA aerosol inhaler 2 puff inhalation Q6H PRN (Reason: shortness of breath or wheezing) Qty: 8.5 0RF fluticasone propionate [Flonase Allergy Relief] 50 mcg/actuation spray,suspension 2 spray intranasal QDAY Qty: 16 0RF Rx Instructions: administer into each nostril loratadine 10 mg tablet 10 mg PO QDAY Qty: 20 0RF ibuprofen 600 mg tablet 600 mg PO Q8H PRN (Reason: pain) Qty: 20 0RF ondansetron 4 mg tablet,disintegrating 4 mg PO Q8H PRN (Reason: nausea and vomiting) Qty: 7 0RF acetaminophen 500 mg capsule 500 mg PO Q6H PRN (Reason: pain) Qty: 30 0RF Referrals: No Primary/Family,Physician [Primary Care Provider] - In 1 week Problem List Clinical Impression: Acute anxiety, Hyperventilation Patient/Caregiver Discharge Instructions Education Materials: Anxiety Disorders Tx Therapy, ED Anxiety Reaction Additional Instructions: You have been discharged by Dr. Aburto with the following recommendations: Please follow-up with your PCP within 1 week of discharge Please follow-up with your psychiatrist within 1 week of discharge as scheduled earlier. You have been started on: -Escitalopram oxylate 10 mg daily Continue taking all other medicines as prescribed -Recommended to return back to emergency department if your symptoms persists or worsens Print Language: Hebrew Stand Alone Forms: Rubina Award Info., Patient Portal Info Letter
[2024-07-09 16:37] VITALS: BMI 30.1
[2024-07-09] MEDS: clonazePAM 0.5 MG TABLET PO (16:40)
== END 2024-07-09 17:08 | disposition home or self-care (01) ==
PROVIDERS: Emergency Provider Family Medicine
DX: F41.9 Anxiety disorder, unspecified (principal); R06.4 Hyperventilation; R00.2 Palpitations
CPT/HCPCS: 93005; 99283; A9270

== ENCOUNTER 2024-07-11 17:42 | Emergency (ER) | payer MEDICAID, SELFPAY ==
[2024-07-11 17:43] VITALS: BMI 40.1
[2024-07-11 18:04] VITALS: BP 119/79; PULSE 70; RESP 18; TEMP 36.7; O2SAT 96
--- NOTE | 2024-07-11 18:14 | XR_ITS ---
Examination: Upright PA chest single view TECHNIQUE: Upright PA chest single view Date and time: July 11, 2024, 1831 hours Comparison July 09, 2024 INDICATIONS: Shortness of breath today. FINDINGS: Normal heart size. Lungs are clear. Osseous structures are intact. IMPRESSION: No active disease
[2024-07-11] MEDS: ALBUTEROL/IPRATROPIUM (Duoneb) RT SOL 3 ML NEBU INH (18:20)
--- NOTE | 2024-07-11 18:22 | PD.EDSOB ---
ED SOB =RME/HPI General Chief Complaint: Shortness of Breath/Dyspnea Stated Complaint: SOB X30 J[place] Time Seen by Provider: 07/11/24 17:46 Arrival date/time: 07/11/24 17:42 This is a case of a 65-[id number]-[id number]-year-old with history of asthma came in the emergency room due to shortness of breath wheezing and cough for 4 days patient trying this medication for asthma but no relief no chest pain Limitations: no limitations Related Data Previous Rx's ?Medication ?Instructions ?Recorded lorazepam 0.5 mg tablet (Ativan) 0.5 mg PO BID PRN anxiety #20 tabs 06/13/19 melatonin 5 mg capsule 5 mg PO QHSPRN PRN for sleep #30 07/16/19 caps amoxicillin 875 mg-potassium 1 tab PO BID #20 tabs 08/01/19 clavulanate 125 mg tablet (Augmentin) albuterol sulfate 90 mcg/actuation 2 puff inhalation QID PRN 12/21/19 aerosol inhaler shortness of breath or wheezing #18 grams ibuprofen 800 mg tablet 800 mg PO TID PRN pain #60 tabs 05/06/20 albuterol sulfate 90 mcg/actuation 2 puff inhalation Q6H PRN 10/10/23 aerosol inhaler (Ventolin HFA) shortness of breath or wheezing #8.5 grams fluticasone propionate 50 2 spray intranasal QDAY #16 grams 11/11/23 mcg/actuation nasal spray,suspension (Flonase Allergy Relief) loratadine 10 mg tablet 10 mg PO QDAY #20 tabs 11/11/23 hydroxyzine HCl 50 mg tablet 50 mg PO Q6H PRN anxiety #20 tabs 12/07/23 ibuprofen 800 mg tablet 800 mg PO TID PRN pain #30 tabs 12/29/23 acetaminophen 500 mg capsule 500 mg PO Q6H PRN pain #30 caps 04/18/24 ibuprofen 600 mg tablet 600 mg PO Q8H PRN pain #20 tabs 04/18/24 ondansetron 4 mg disintegrating 4 mg PO Q8H PRN nausea and 04/18/24 tablet vomiting #7 tabs pseudoephedrine-guaifenesin ER 60 1 tab PO BID PRN cold symptoms #30 04/18/24 mg-600 mg tablet,extend release tabs 12hr (Mucinex D) alprazolam 0.5 mg tablet (Xanax) 0.5 mg PO BID PRN anxiety #14 tabs 06/17/24 alprazolam 0.5 mg tablet (Xanax) 0.5 mg PO TID PRN anxiety #14 tabs 06/17/24 escitalopram oxalate 10 mg tablet 10 mg PO QDAY #7 tabs 07/09/24 albuterol sulfate 90 mcg/actuation 2 puff inhalation QID PRN 07/11/24 aerosol inhaler (Ventolin HFA) shortness of breath or wheezing #8.5 grams azithromycin 250 mg tablet See Rx Instructions PO .COMPLEX #6 07/11/24 tabs codeine 10 mg-guaifenesin 100 mg/5 5 ml PO Q6H PRN cough #120 mL 07/11/24 mL oral liquid (Guaifenesin AC) prednisone 20 mg tablet 20 mg PO BID #10 tabs 07/11/24 Allergies Allergy/AdvReac Type Severity Reaction Status Date / Time dog dander Allergy Severe Difficulty Verified 07/09/24 10:05 Breathing CATS Allergy Severe SNEEZE Uncoded 07/09/24 10:05 Review of Systems Review of Systems Systems Reviewed: All systems reviewed, normal except as documented Constitutional Constitutional: Reports system reviewed and no additional complaints, except as documented ENT Ears, Nose, Mouth, and Throat: Reports system reviewed and no additional complaints, except as documented Cardiovascular Cardiovascular: Reports system reviewed and no additional complaints, except as documented, Reports as per HPI, Denies chest pain, Denies chest pain at rest, Denies chest pain with activity and Reports dyspnea Respiratory Respiratory: Reports system reviewed and no additional complaints, except as documented, Reports as per HPI, Denies chest congestion, Reports cough, Reports dyspnea and Reports wheezing Musculoskeletal Musculoskeletal: Reports system reviewed and no additional complaints, except as documented and Reports as per HPI Neurologic Neurologic: Reports system reviewed and no additional complaints, except as documented and Reports as per HPI Allergic/Immunologic Allergic/Immunologic: Reports wheezing Past Medical History Past Medical History NEUROLOGIC: Negative Neurological Disorders CARDIAC: Negative Cardiac Disorders, Congestive Heart Failure, Hypertension or Hypotension RESPIRATORY: Positive Asthma; Negative Chronic Obstructive Pulmonary Disease (COPD) GENITOURINARY: Negative Renal Disease ENDOCRINE: Negative Diabetes Mellitus Type 1 or Diabetes Mellitus Type 2 PSYCHO/SOCIAL: Positive Anxiety OTHER HISTORY: Negative Cancer Social History SMOKING STATUS: Never smoker SUBSTANCE USE: does not use ED Exam General Limitations: Present no limitations General appearance: Present alert and in no apparent distress; Absent appears intoxicated, anxious, lethargic or in distress Head Head exam: Present atraumatic, normocephalic and normal inspection Eye Eye exam: Present normal appearance, PERRL and EOMI ENT ENT exam: Present normal exam, normal oropharynx, mucous membranes moist, TM's normal bilaterally and normal external ear exam Neck Neck exam: Present normal inspection, full ROM and trachea midline; Absent tenderness, meningismus or lymphadenopathy Chest Chest inspection: Present normal inspection and symmetric chest wall rise; Absent tenderness Respiratory Respiratory exam: Present normal lung sounds bilaterally and wheezes (Wheezing both lower lung hardy); Absent respiratory distress, stridor, accessory muscle use or prolonged expiratory phase Cardiovascular Cardiovascular exam: Present regular rate, normal rhythm and normal heart sounds; Absent irregular rhythm, systolic murmur or diastolic murmur Abdominal Exam Abdominal exam: Present soft and normal bowel sounds Extremities Exam Extremities exam: Present normal inspection and full ROM Back Exam Back exam: Present normal inspection and full ROM Neurological Exam Neurological exam: Present alert, oriented X3, CN II-XII intact and normal gait; Absent motor sensory deficit or reflexes normal Psychiatric Psychiatric exam: Present normal affect and normal mood Skin Skin exam: Present warm, dry, intact and normal color Course Quality Measures none Orders Category Date Time Status Bedside COVID-19 Antigen Test NOW Care 07/11/24 18:14 Active XR chest 1V portable Stat Exams 07/11/24 18:14 Completed Albuterol/Ipratr Rt Jenae [Duoneb Rt Jenae] Med 07/11/24 18:14 Discontinued 3 ml INH X1 ONE MethylPREDNISolone.* [SoluMEDROL Inj] Med 07/11/24 18:14 Discontinued 125 mg IM X1 ONE Vital Signs Vital signs: Vital Signs Temperature 98.1 F 07/11/24 18:04 Pulse Rate 70 07/11/24 18:04 Respiratory Rate 18 07/11/24 18:04 Blood Pressure 119/79 07/11/24 18:04 Pulse Oximetry (%) 96 07/11/24 18:04 Oxygen Delivery Method Room Air 07/11/24 18:04 Oxygen saturation 96% in room air WNL Shortness of Breath / Dyspnea MDM Narrative MDM Narrative:: This is a case of a 52-mjch[age]-year-old with history of asthma came in the emergency room due to shortness of breath wheezing and cough for 4 days patient trying this medication for asthma but no relief no chest pain Physical examination patient is awake alert oriented x 4 not in distress nontoxic looking afebrile not tachycardic not tachypneic and not hypoxic No signs and symptoms of sepsis no signs and symptoms of dehydration no signs and symptoms of hypoxia HEENT exam is normal heart sounds normal rate regular rhythm no murmur lung sounds wheezing both lower lung provide no crackles no rales no retraction no stridor Chest x-ray normal no infiltrates no pneumonia rapid COVID negative Patient was given a breathing treatment of DuoNeb and Solu-Medrol IM patient was reassessed after 30 minutes patient verbalized the improvement of the symptoms patient is not in distress wheezing resolved not hypoxic not in distress At this point patient will will be discharged as asthmatic bronchitis patient was prescribed with azithromycin for bronchitis prednisone to be started tomorrow Robitussin with codeine for cough Ventolin inhaler patient was advised to follow-up with primary care physician to be 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 Patient verbalized no further complains explained diagnosis and answered patient question. Patient is comfortable with the proposed management plan including the need to follow up with his/her primary care physician and any specialist if applicable Discussed patient for any urgent condition or worsening sx, He/She needed to go to emergency room immediately or call 911. Patient acknowledge the responsibility to follow up as instructed and to monitor her/his symptoms. For any persistence of the symptoms for more than 3-5 days return precaution advised. Discussed the result of the test and was given printed discharge instruction Patient data External records reviewed:: [facility] previous records Clinical information provided by:: family Social determinants that could affect healthcare access:: none Patient has the following chronic illnesses:: None How is presenting disease/condition affected by chronic disease/condition?: no chronic disease Evaluation data The following diagnostics were reviewed and interpreted by me:: lab results and radiology exam(s) Lab and/or radiology exams considered but not ordered:: Reviewed Interpretation Summary: Reviewed Medications / Prescriptions Medications or Prescriptions considered but not ordered:: Given Medication administrations:: Medication Administration History Discontinued Medications Albuterol/Ipratropium (Albuterol/Ipratropium (Duoneb) Rt Jenae 3 Ml Nebu) 3 ml INH X1 ONE Stop: 07/11/24 18:15 Last Admin: 07/11/24 18:20 Dose: 3 ml Documented By: ORESTES Methylprednisolone Sodium Succinate (Methylprednisolone Sod Succ 62.5 Mg/Ml 2ml Vial) 125 mg IM X1 ONE Stop: 07/11/24 18:15 Given Consultations Consultation(s) initiated? (list below): No Diagnosis Shortness of Breath Differential Diagnosis: congestive heart failure and asthma with exacerbation Most likely diagnosis given after review of the tests above:: Asthmatic bronchitis Admission Indicated Admission indicated?: not indicated Explain why admission is indicated or not indicated:: Not indicated for this Admission Request Was there a request for admission?: No Admission Attestation Admission request attestation: Not indicated Disposition Plan Disposition Plan: Discharge Discharge Attestation Discharge Attestation: The patient and all family members were given an opportunity to ask questions and understood the discharge instructions. Discharge instructions specifically effects, indications for sooner follow up or return to the emergency department, and the expected course of current diagnosis. Patient condition: Stable Discharge Plan Plan Patient Disposition: HOME (Self Care) Patient condition on transfer: Stable Prescriptions/Referrals Prescriptions/Med Rec: New azithromycin 250 mg tablet See Rx Instructions .ROUTE .COMPLEX Qty: 6 0RF Rx Instructions: For 250 mg dose pack: take 500 mg today (day 1), then 250 mg for 4 days (days 2-5) codeine-guaifenesin [Guaifenesin AC] 10-100 mg/5 mL liquid 5 ml PO Q6H PRN (Reason: cough) Qty: 120 0RF prednisone 20 mg tablet 20 mg PO BID Qty: 10 0RF Rx Instructions: start tomorrow albuterol sulfate [Ventolin HFA] 90 mcg/actuation HFA aerosol inhaler 2 puff inhalation QID PRN (Reason: shortness of breath or wheezing) Qty: 8.5 0RF No Action lorazepam [Ativan] 0.5 mg tablet 0.5 mg PO BID PRN (Reason: anxiety) Qty: 20 0RF amoxicillin-pot clavulanate [Augmentin] 875-125 mg tablet 1 tab PO BID Qty: 20 0RF albuterol sulfate 90 mcg/actuation HFA aerosol inhaler 2 puff inhalation QID PRN (Reason: shortness of breath or wheezing) Qty: 18 0RF ibuprofen 800 mg tablet 800 mg PO TID PRN (Reason: pain) Qty: 60 0RF melatonin 5 mg capsule 5 mg PO QHSPRN PRN (Reason: for sleep ) Qty: 30 0RF hydroxyzine HCl 50 mg tablet 50 mg PO Q6H PRN (Reason: anxiety) Qty: 20 0RF ibuprofen 800 mg tablet 800 mg PO TID PRN (Reason: pain) Qty: 30 0RF pseudoephedrine-guaifenesin [Mucinex D] 60-600 mg tablet extended release 12 hr 1 tab PO BID PRN (Reason: cold symptoms) Qty: 30 0RF alprazolam [Xanax] 0.5 mg tablet 0.5 mg PO BID PRN (Reason: anxiety) Qty: 14 0RF alprazolam [Xanax] 0.5 mg tablet 0.5 mg PO TID PRN (Reason: anxiety) Qty: 14 0RF albuterol sulfate [Ventolin HFA] 90 mcg/actuation HFA aerosol inhaler 2 puff inhalation Q6H PRN (Reason: shortness of breath or wheezing) Qty: 8.5 0RF fluticasone propionate [Flonase Allergy Relief] 50 mcg/actuation spray,suspension 2 spray intranasal QDAY Qty: 16 0RF Rx Instructions: administer into each nostril loratadine 10 mg tablet 10 mg PO QDAY Qty: 20 0RF ibuprofen 600 mg tablet 600 mg PO Q8H PRN (Reason: pain) Qty: 20 0RF ondansetron 4 mg tablet,disintegrating 4 mg PO Q8H PRN (Reason: nausea and vomiting) Qty: 7 0RF acetaminophen 500 mg capsule 500 mg PO Q6H PRN (Reason: pain) Qty: 30 0RF escitalopram oxalate 10 mg tablet 10 mg PO QDAY Qty: 7 0RF Referrals: No Primary/Family,Physician [Primary Care Provider] - In 1 week Problem List Clinical Impression: AB (asthmatic bronchitis) Patient/Caregiver Discharge Instructions Education Materials: Asthma Action Plan, Asthma Medicine, Asthma Additional Instructions: Follow-up with your primary care physician in 2 days for reevaluation and to be referred to oil well service unit operator for recurrent asthma exacerbation or any recurrence persistence of the symptoms to the emergency room Print Language: Tristanian Stand Alone Forms: Rubina Award Info., Patient Portal Info Letter PA/[employer] Supervising Physician PA/[employer] Supervising Physician: dr [email or web address]
[2024-07-11 18:24] VITALS: PULSE 81; RESP 19; O2SAT 99
[2024-07-11] MEDS: MethylPREDNISolone SOD SUCC 62.5 MG/ML 2ML VIAL 125 MG IM (19:32)
== END 2024-07-11 19:42 | disposition home or self-care (01) ==
PROVIDERS: Emergency Provider Family Medicine
DX: J45.909 Unspecified asthma, uncomplicated (principal)
CPT/HCPCS: 71045; 87811; 94640; 96372; 99283; A9270; J2919

== ENCOUNTER 2024-07-12 02:41 | Emergency (ER) | payer MEDICAID, SELFPAY ==
[2024-07-12 02:49] VITALS: BP 160/79; PULSE 70; PULSE 90; RESP 20; TEMP 36.6; O2SAT 96; O2SAT 98
--- NOTE | 2024-07-12 03:57 | PD.EDSOB ---
ED SOB =RME/HPI General Chief Complaint: Shortness of Breath/Dyspnea Stated Complaint: SHORTNESS OF BREATH Time Seen by Provider: 07/12/24 03:03 Arrival date/time: 07/12/24 02:41 RME / HPI RME / HPI Narrative: 23-year-old male presents via ambulance for shortness of breath. He was seen here approximately 8 hours ago and diagnosed with asthmatic bronchitis. He was given nebulizer treatment as well as Solu-Medrol 125 mg IM. He states he was unable to slate picker his antibiotics at the pharmacy so he presented to the ED. Vital signs are stable with a pulse of 70, respiratory rate of 20, temperature of 97.8, O2 sat of 96% on room air. Related Data Previous Rx's ?Medication ?Instructions ?Recorded lorazepam 0.5 mg tablet (Ativan) 0.5 mg PO BID PRN anxiety #20 tabs 06/13/19 melatonin 5 mg capsule 5 mg PO QHSPRN PRN for sleep #30 07/16/19 caps amoxicillin 875 mg-potassium 1 tab PO BID #20 tabs 08/01/19 clavulanate 125 mg tablet (Augmentin) albuterol sulfate 90 mcg/actuation 2 puff inhalation QID PRN 12/21/19 aerosol inhaler shortness of breath or wheezing #18 grams ibuprofen 800 mg tablet 800 mg PO TID PRN pain #60 tabs 05/06/20 albuterol sulfate 90 mcg/actuation 2 puff inhalation Q6H PRN 10/10/23 aerosol inhaler (Ventolin HFA) shortness of breath or wheezing #8.5 grams fluticasone propionate 50 2 spray intranasal QDAY #16 grams 11/11/23 mcg/actuation nasal spray,suspension (Flonase Allergy Relief) loratadine 10 mg tablet 10 mg PO QDAY #20 tabs 11/11/23 hydroxyzine HCl 50 mg tablet 50 mg PO Q6H PRN anxiety #20 tabs 12/07/23 ibuprofen 800 mg tablet 800 mg PO TID PRN pain #30 tabs 12/29/23 acetaminophen 500 mg capsule 500 mg PO Q6H PRN pain #30 caps 04/18/24 ibuprofen 600 mg tablet 600 mg PO Q8H PRN pain #20 tabs 04/18/24 ondansetron 4 mg disintegrating 4 mg PO Q8H PRN nausea and 04/18/24 tablet vomiting #7 tabs pseudoephedrine-guaifenesin ER 60 1 tab PO BID PRN cold symptoms #30 04/18/24 mg-600 mg tablet,extend release tabs 12hr (Mucinex D) alprazolam 0.5 mg tablet (Xanax) 0.5 mg PO BID PRN anxiety #14 tabs 06/17/24 alprazolam 0.5 mg tablet (Xanax) 0.5 mg PO TID PRN anxiety #14 tabs 06/17/24 escitalopram oxalate 10 mg tablet 10 mg PO QDAY #7 tabs 07/09/24 albuterol sulfate 90 mcg/actuation 2 puff inhalation QID PRN 07/11/24 aerosol inhaler (Ventolin HFA) shortness of breath or wheezing #8.5 grams azithromycin 250 mg tablet See Rx Instructions PO .COMPLEX #6 07/11/24 tabs codeine 10 mg-guaifenesin 100 mg/5 5 ml PO Q6H PRN cough #120 mL 07/11/24 mL oral liquid (Guaifenesin AC) prednisone 20 mg tablet 20 mg PO BID #10 tabs 07/11/24 Allergies Allergy/AdvReac Type Severity Reaction Status Date / Time dog dander Allergy Severe Difficulty Verified 07/09/24 10:05 Breathing CATS Allergy Severe SNEEZE Uncoded 07/09/24 10:05 Course Vital Signs Vital signs: Vital Signs Temperature 97.8 F 07/12/24 02:49 Pulse Rate 70 07/12/24 02:49 Respiratory Rate 20 07/12/24 02:49 Blood Pressure 160/79 H 07/12/24 02:49 Pulse Oximetry (%) 96 07/12/24 02:49 Oxygen Delivery Method Room Air 07/12/24 02:49 Discharge Plan Plan Patient Disposition: HOME (Self Care) Discharge Disposition comment: Stable Prescriptions/Referrals Prescriptions/Med Rec: No Action lorazepam [Ativan] 0.5 mg tablet 0.5 mg PO BID PRN (Reason: anxiety) Qty: 20 0RF amoxicillin-pot clavulanate [Augmentin] 875-125 mg tablet 1 tab PO BID Qty: 20 0RF albuterol sulfate 90 mcg/actuation HFA aerosol inhaler 2 puff inhalation QID PRN (Reason: shortness of breath or wheezing) Qty: 18 0RF ibuprofen 800 mg tablet 800 mg PO TID PRN (Reason: pain) Qty: 60 0RF melatonin 5 mg capsule 5 mg PO QHSPRN PRN (Reason: for sleep ) Qty: 30 0RF hydroxyzine HCl 50 mg tablet 50 mg PO Q6H PRN (Reason: anxiety) Qty: 20 0RF ibuprofen 800 mg tablet 800 mg PO TID PRN (Reason: pain) Qty: 30 0RF pseudoephedrine-guaifenesin [Mucinex D] 60-600 mg tablet extended release 12 hr 1 tab PO BID PRN (Reason: cold symptoms) Qty: 30 0RF alprazolam [Xanax] 0.5 mg tablet 0.5 mg PO BID PRN (Reason: anxiety) Qty: 14 0RF alprazolam [Xanax] 0.5 mg tablet 0.5 mg PO TID PRN (Reason: anxiety) Qty: 14 0RF azithromycin 250 mg tablet See Rx Instructions .ROUTE .COMPLEX Qty: 6 0RF Rx Instructions: For 250 mg dose pack: take 500 mg today (day 1), then 250 mg for 4 days (days 2-5) codeine-guaifenesin [Guaifenesin AC] 10-100 mg/5 mL liquid 5 ml PO Q6H PRN (Reason: cough) Qty: 120 0RF prednisone 20 mg tablet 20 mg PO BID Qty: 10 0RF Rx Instructions: start tomorrow albuterol sulfate [Ventolin HFA] 90 mcg/actuation HFA aerosol inhaler 2 puff inhalation QID PRN (Reason: shortness of breath or wheezing) Qty: 8.5 0RF albuterol sulfate [Ventolin HFA] 90 mcg/actuation HFA aerosol inhaler 2 puff inhalation Q6H PRN (Reason: shortness of breath or wheezing) Qty: 8.5 0RF fluticasone propionate [Flonase Allergy Relief] 50 mcg/actuation spray,suspension 2 spray intranasal QDAY Qty: 16 0RF Rx Instructions: administer into each nostril loratadine 10 mg tablet 10 mg PO QDAY Qty: 20 0RF ibuprofen 600 mg tablet 600 mg PO Q8H PRN (Reason: pain) Qty: 20 0RF ondansetron 4 mg tablet,disintegrating 4 mg PO Q8H PRN (Reason: nausea and vomiting) Qty: 7 0RF acetaminophen 500 mg capsule 500 mg PO Q6H PRN (Reason: pain) Qty: 30 0RF escitalopram oxalate 10 mg tablet 10 mg PO QDAY Qty: 7 0RF Problem List Clinical Impression: AB (asthmatic bronchitis) Patient/Caregiver Discharge Instructions Education Materials: Acute Bronchitis Additional Instructions: Follow-up with your primary care physician in 24 to 48 hours. Return to the ED for any new or worsening symptoms. Print Language: Setswana Stand Alone Forms: Rubina Award Info., Patient Portal Info Letter PA/SALES ESTIMATOR Supervising Physician PA/SALES ESTIMATOR Supervising Physician: Dr. Denis
[2024-07-12] MEDS: AZITHROMYCIN 250 MG TABLET 500 MG PO (04:12)
== END 2024-07-12 05:18 | disposition home or self-care (01) ==
LOC: SERX 04:18
PROVIDERS: Emergency Provider Emergency Medicine
DX: J45.909 Unspecified asthma, uncomplicated (principal)
CPT/HCPCS: 99283; A9270

== ENCOUNTER 2024-07-14 00:37 | Emergency (ER) | payer MEDICAID, SELFPAY ==
[2024-07-14 00:39] VITALS: BMI 39.9
[2024-07-14 00:53] VITALS: BP 142/89; PULSE 69; RESP 18; TEMP 37.2; O2SAT 97
--- NOTE | 2024-07-14 00:59 | PD.EDSOB ---
ED SOB =RME/HPI General Chief Complaint: Shortness of Breath/Dyspnea Stated Complaint: SOB Time Seen by Provider: 07/14/24 00:57 Arrival date/time: 07/14/24 00:37 RME / HPI RME / HPI Narrative: This section includes all my notes and documentations, including HPI, PE, and ED course. Edgar Denis MD HPI: 23-year-old male with Hx of Anxiety here with sudden shortness of breath just prior to arrival. Other symptoms include intense fear, pounding and racing heart, sweating, chills, shaking, nausea, numbness and tingling in the hands and feet and face, hot flashes, and feeling faint. Has asthma. Currently being treated for bronchitis with ABX and prednisone. No other complaints. ROS: All negative except as documented in HPI. Physical Exam: General: Alert and oriented. Appears anxious. Eyes: Conjunctivae and lids clear. ENT: No nasal congestion. Pharynx normal. TM normal bilaterally. Neck: Supple. Heart: RRR. Lungs: No respiratory distress. Good air movement. No rhonchi, wheezing, rales. Skin: Warm and dry. Neuro: Alert and oriented X 3. At this point, diagnoses include Acute Anxiety. Treatment here included Xanax. Significant improvement noted. Recommended more outpatient care. Based on my best medical judgment, made decision no further evaluation or treatment indicated at this time. Patient understands and agrees to the discharge instructions customized and printed, see below. Discharge instructions from Dr. Denis: 1. After evaluation, your symptoms may be due to underlying stress or anxiety or nerves.? This is fairly common. 2. Take Xanax as needed.? Whether this helps or not will be valuable information to your private doctors. 3. See a private doctor on 07/15/2024 for recheck and further care. Ask for help with more care not available here in the ER. Such as referrals to see specialists, including mental health specialists. 4. Seek immediate medical care with worsening or with any concerns.?? Edgar Denis MD Related Data Previous Rx's ?Medication ?Instructions ?Recorded lorazepam 0.5 mg tablet (Ativan) 0.5 mg PO BID PRN anxiety #20 tabs 06/13/19 melatonin 5 mg capsule 5 mg PO QHSPRN PRN for sleep #30 07/16/19 caps amoxicillin 875 mg-potassium 1 tab PO BID #20 tabs 08/01/19 clavulanate 125 mg tablet (Augmentin) albuterol sulfate 90 mcg/actuation 2 puff inhalation QID PRN 12/21/19 aerosol inhaler shortness of breath or wheezing #18 grams ibuprofen 800 mg tablet 800 mg PO TID PRN pain #60 tabs 05/06/20 albuterol sulfate 90 mcg/actuation 2 puff inhalation Q6H PRN 10/10/23 aerosol inhaler (Ventolin HFA) shortness of breath or wheezing #8.5 grams fluticasone propionate 50 2 spray intranasal QDAY #16 grams 11/11/23 mcg/actuation nasal spray,suspension (Flonase Allergy Relief) loratadine 10 mg tablet 10 mg PO QDAY #20 tabs 11/11/23 hydroxyzine HCl 50 mg tablet 50 mg PO Q6H PRN anxiety #20 tabs 12/07/23 ibuprofen 800 mg tablet 800 mg PO TID PRN pain #30 tabs 12/29/23 acetaminophen 500 mg capsule 500 mg PO Q6H PRN pain #30 caps 04/18/24 ibuprofen 600 mg tablet 600 mg PO Q8H PRN pain #20 tabs 04/18/24 ondansetron 4 mg disintegrating 4 mg PO Q8H PRN nausea and 04/18/24 tablet vomiting #7 tabs pseudoephedrine-guaifenesin ER 60 1 tab PO BID PRN cold symptoms #30 04/18/24 mg-600 mg tablet,extend release tabs 12hr (Mucinex D) alprazolam 0.5 mg tablet (Xanax) 0.5 mg PO BID PRN anxiety #14 tabs 06/17/24 alprazolam 0.5 mg tablet (Xanax) 0.5 mg PO TID PRN anxiety #14 tabs 06/17/24 escitalopram oxalate 10 mg tablet 10 mg PO QDAY #7 tabs 07/09/24 albuterol sulfate 90 mcg/actuation 2 puff inhalation QID PRN 07/11/24 aerosol inhaler (Ventolin HFA) shortness of breath or wheezing #8.5 grams azithromycin 250 mg tablet See Rx Instructions PO .COMPLEX #6 07/11/24 tabs codeine 10 mg-guaifenesin 100 mg/5 5 ml PO Q6H PRN cough #120 mL 07/11/24 mL oral liquid (Guaifenesin AC) prednisone 20 mg tablet 20 mg PO BID #10 tabs 07/11/24 alprazolam 0.5 mg tablet (Xanax) 0.5 mg PO BID PRN anxiety #6 tabs 07/14/24 Allergies Allergy/AdvReac Type Severity Reaction Status Date / Time dog dander Allergy Severe Difficulty Verified 07/14/24 00:44 Breathing CATS Allergy Severe SNEEZE Uncoded 07/14/24 00:44 Review of Systems Review of Systems Systems Reviewed: All systems reviewed, normal except as documented Past Medical History Past Medical History RESPIRATORY: Positive Asthma PSYCHO/SOCIAL: Positive Anxiety ED Exam Narrative Physical exam: Refer to HPI above Course Quality Measures none Orders Category Date Time Status ALPRazoLAM [Xanax] Med 07/14/24 00:57 Discontinued 0.5 mg PO X1 ONE Vital Signs Vital signs: Vital Signs Temperature 99 F 07/14/24 00:53 Pulse Rate 69 07/14/24 00:53 Respiratory Rate 18 07/14/24 00:53 Blood Pressure 142/89 H 07/14/24 00:53 Pulse Oximetry (%) 97 07/14/24 00:53 Oxygen Delivery Method Room Air 07/14/24 00:53 Shortness of Breath / Dyspnea MDM Narrative MDM Narrative:: Scribe Attestation: IOndina am scribing for and in the presence of Dr. Denis. Provider Notation: Although this document has been carefully reviewed, there may still be some phonetic and other typographical errors.? These errors are purely grammatical due to imperfections in the software program and should not be construed in any way to? compromise the substance of the patient's medical care during this visit. 23-year-old male with Hx of Anxiety here with sudden shortness of breath just prior to arrival. Other symptoms include intense fear, pounding and racing heart, sweating, chills, shaking, nausea, numbness and tingling in the hands and feet and face, hot flashes, and feeling faint. Has asthma. Currently being treated for bronchitis with ABX and prednisone. No other complaints. Patient data External records reviewed:: [facility] previous records (Reviewed prior ED records from 07/12/24. Patient was seen for AB (asthmatic bronchitis).) Clinical information provided by:: patient Social determinants that could affect healthcare access:: none Patient has the following chronic illnesses:: Asthma, Anxiety How is presenting disease/condition affected by chronic disease/condition?: exacerbated by Evaluation data The following diagnostics were reviewed and interpreted by me:: other (specify) (N/A) Lab and/or radiology exams considered but not ordered:: None Interpretation Summary: N/A Medications / Prescriptions Medications or Prescriptions considered but not ordered:: None Medication administrations:: Medication Administration History Discontinued Medications Alprazolam (Alprazolam 0.25 Mg Tablet) 0.5 mg PO X1 ONE Stop: 07/14/24 00:58 Xanax Consultations Consultation(s) initiated? (list below): No Diagnosis Shortness of Breath Differential Diagnosis: acute exacerbation of chronic obstructive airways disease, congestive heart failure, community acquired pneumonia, asthma with exacerbation, pulmonary embolism and other (Anxiety Disorder, Panic Disorder) Most likely diagnosis given after review of the tests above:: Acute Anxiety Admission Indicated Admission indicated?: not indicated Explain why admission is indicated or not indicated:: With significant improvement, there was no indication for admission. Admission Request Was there a request for admission?: No Disposition Plan Disposition Plan: Discharge Discharge Attestation Discharge Attestation: The patient and all family members were given an opportunity to ask questions and understood the discharge instructions. Discharge instructions specifically effects, indications for sooner follow up or return to the emergency department, and the expected course of current diagnosis. Patient condition: Stable Discharge Plan Plan Patient Disposition: HOME (Self Care) Prescriptions/Referrals Prescriptions/Med Rec: New alprazolam [Xanax] 0.5 mg tablet 0.5 mg PO BID PRN (Reason: anxiety) Qty: 6 0RF No Action lorazepam [Ativan] 0.5 mg tablet 0.5 mg PO BID PRN (Reason: anxiety) Qty: 20 0RF amoxicillin-pot clavulanate [Augmentin] 875-125 mg tablet 1 tab PO BID Qty: 20 0RF albuterol sulfate 90 mcg/actuation HFA aerosol inhaler 2 puff inhalation QID PRN (Reason: shortness of breath or wheezing) Qty: 18 0RF ibuprofen 800 mg tablet 800 mg PO TID PRN (Reason: pain) Qty: 60 0RF melatonin 5 mg capsule 5 mg PO QHSPRN PRN (Reason: for sleep ) Qty: 30 0RF hydroxyzine HCl 50 mg tablet 50 mg PO Q6H PRN (Reason: anxiety) Qty: 20 0RF ibuprofen 800 mg tablet 800 mg PO TID PRN (Reason: pain) Qty: 30 0RF pseudoephedrine-guaifenesin [Mucinex D] 60-600 mg tablet extended release 12 hr 1 tab PO BID PRN (Reason: cold symptoms) Qty: 30 0RF alprazolam [Xanax] 0.5 mg tablet 0.5 mg PO BID PRN (Reason: anxiety) Qty: 14 0RF alprazolam [Xanax] 0.5 mg tablet 0.5 mg PO TID PRN (Reason: anxiety) Qty: 14 0RF azithromycin 250 mg tablet See Rx Instructions .ROUTE .COMPLEX Qty: 6 0RF Rx Instructions: For 250 mg dose pack: take 500 mg today (day 1), then 250 mg for 4 days (days 2-5) codeine-guaifenesin [Guaifenesin AC] 10-100 mg/5 mL liquid 5 ml PO Q6H PRN (Reason: cough) Qty: 120 0RF prednisone 20 mg tablet 20 mg PO BID Qty: 10 0RF Rx Instructions: start tomorrow albuterol sulfate [Ventolin HFA] 90 mcg/actuation HFA aerosol inhaler 2 puff inhalation QID PRN (Reason: shortness of breath or wheezing) Qty: 8.5 0RF albuterol sulfate [Ventolin HFA] 90 mcg/actuation HFA aerosol inhaler 2 puff inhalation Q6H PRN (Reason: shortness of breath or wheezing) Qty: 8.5 0RF fluticasone propionate [Flonase Allergy Relief] 50 mcg/actuation spray,suspension 2 spray intranasal QDAY Qty: 16 0RF Rx Instructions: administer into each nostril loratadine 10 mg tablet 10 mg PO QDAY Qty: 20 0RF ibuprofen 600 mg tablet 600 mg PO Q8H PRN (Reason: pain) Qty: 20 0RF ondansetron 4 mg tablet,disintegrating 4 mg PO Q8H PRN (Reason: nausea and vomiting) Qty: 7 0RF acetaminophen 500 mg capsule 500 mg PO Q6H PRN (Reason: pain) Qty: 30 0RF escitalopram oxalate 10 mg tablet 10 mg PO QDAY Qty: 7 0RF Problem List Clinical Impression: Acute anxiety Patient/Caregiver Discharge Instructions Discharge Activity: activity as tolerated Education Materials: ED Anxiety Reaction, ED Panic Attack Additional Instructions: Discharge instructions from Dr. Denis: 1. After evaluation, your symptoms may be due to underlying stress or anxiety or nerves.? This is fairly common. 2. Take Xanax as needed.? Whether this helps or not will be valuable information to your private doctors. 3. See a private doctor on 07/15/2024 for recheck and further care. Ask for help with more care not available here in the ER. Such as referrals to see specialists, including mental health specialists. 4. Seek immediate medical care with worsening or with any concerns.?? Print Language: Moldovan Stand Alone Forms: Rubina Award Info., Patient Portal Info Letter
[2024-07-14] MEDS: ALPRazoLAM 0.25 MG TABLET 0.5 MG PO (01:13)
== END 2024-07-14 01:15 | disposition home or self-care (01) ==
LOC: SERX 01:21
PROVIDERS: Emergency Provider Emergency Medicine
DX: F41.9 Anxiety disorder, unspecified (principal)
CPT/HCPCS: 99282; A9270

== ENCOUNTER 2024-07-21 02:52 | Emergency (ER) | payer MEDICAID, SELFPAY ==
[2024-07-21 03:17] VITALS: BP 126/84; PULSE 97; RESP 14; TEMP 37; O2SAT 95; BMI 41.3
--- NOTE | 2024-07-21 03:30 | PC.NURSE ---
pt awake and alert brought into er by ambulance from home for suicidal ideation. pt states he took a total of 8 tablets of his own xanax with intent to harm himself. pt states he ingested 6 tablets by mouth and snorted 2 of the tablets. pt reports attempted overdose d/t having panic attacks, anxiety and recent in family. pt calm and cooperative. pt placed in gown and belongings placed in locker. sitter outside of room.
--- NOTE | 2024-07-21 03:37 | EDNOTE_ITS ---
ED Psych RME/HPI General Chief Complaint: Overdose Stated Complaint: MENTAL EVALUATION Time Seen by Provider: 07/21/24 03:02 Arrival date/time: 07/21/24 02:52 RME / HPI RME / HPI Narrative: Dr. Hunter?s Main ED Evaluation:?23 y/o male with Hx of Anxiety [facility] from home c/o suicidal ideation x 2 months. Patient took 6 Xanax PO, snorted 2 more, and consumed a large amount of alcohol while at his friend's home in [place]. Patient then changed his mind and called the crisis hotline, who then contacted EMS. Denies any HI or hallucinations. Related Data Previous Rx's ?Medication ?Instructions ?Recorded lorazepam 0.5 mg tablet (Ativan) 0.5 mg PO BID PRN anx iety #20 tabs 06/13/19 melatonin 5 mg capsule 5 mg PO QHSPRN PRN for sleep #30 07/16/19 caps amoxicillin 875 mg-potassium 1 tab PO BID #20 tabs clavulanate 125 mg tablet (Augmentin) albuterol sulfate 90 mcg/actuation 2 puff inhalation Q ID PRN 12/21/19 aerosol inhaler shortness of breath or wheez ing #18 grams ibuprofen 800 mg tablet 800 mg PO TID PRN pain #60 t abs 05/06/20 albuterol sulfate 90 mcg/actuation 2 puff inhalation Q 6H PRN 10/10/23 aerosol inhaler (Ventolin HFA) shortness of breath or wheezing #8.5 grams fluticasone propionate 50 2 spray intranasal QDAY #16 grams 11/11/23 mcg/actuation nasal spray,suspension (Flonase Allergy Relief) loratadine 10 mg tablet 10 mg PO QDAY #20 tabs 11/10 hydroxyzine HCl 50 mg tablet 50 mg PO Q6H PRN anxiety #20 tabs 12/07/23 ibuprofen 800 mg tablet 800 mg PO TID PRN pain #30 t abs 12/29/23 acetaminophen 500 mg capsule 500 mg PO Q6H PRN pain #3 0 caps 04/18/24 ibuprofen 600 mg tablet 600 mg PO Q8H PRN pain #20 t abs 04/18/24 ondansetron 4 mg disintegrating 4 mg PO Q8H PRN nausea and 04/18/24 tablet vomiting #7 tabs pseudoephedrine-guaifenesin ER 60 1 tab PO BID PRN col d symptoms #30 04/18/24 mg-600 mg tablet,extend release tabs 12hr (Mucinex D) alprazolam 0.5 mg tablet (Xanax) 0.5 mg PO BID PRN anx iety #14 tabs 06/17/24 alprazolam 0.5 mg tablet (Xanax) 0.5 mg PO TID PRN anx iety #14 tabs 06/17/24 escitalopram oxalate 10 mg tablet 10 mg PO QDAY #7 tab s 07/09/24 albuterol sulfate 90 mcg/actuation 2 puff inhalation Q ID PRN 07/11/24 aerosol inhaler (Ventolin HFA) shortness of breath or wheezing #8.5 grams azithromycin 250 mg tablet See Rx Instructions PO .COM PLEX #6 07/11/24 tabs codeine 10 mg-guaifenesin 100 mg/5 5 ml PO Q6H PRN cou gh #120 mL 07/11/24 mL oral liquid (Guaifenesin AC) prednisone 20 mg tablet 20 mg PO BID #10 tabs alprazolam 0.5 mg tablet (Xanax) 0.5 mg PO BID PRN anx iety #6 tabs 07/14/24 Allergies Allergy/AdvReac Type Severity Reaction Status Date / Time dog dander Allergy Severe Difficulty Verified 07/14/24 00:44 Breathing CATS Allergy Severe SNEEZE Uncoded 07/14/24 00:44 Review of Systems Review of Systems Systems Reviewed: All systems reviewed, normal except as documented Past Medical History Past Medical History NEUROLOGIC: Negative Neurological Disorders CARDIAC: Negative Cardiac Disorders, Congestive Heart Failure, Hypertension or Hypotension RESPIRATORY: Positive Asthma GENITOURINARY: Negative Renal Disease ENDOCRINE: Negative Diabetes Mellitus Type 1 or Diabetes Mellitus Type 2 PSYCHO/SOCIAL: Positive Anxiety OTHER HISTORY: Negative Cancer Social History SMOKING STATUS: Never smoker SUBSTANCE USE: does not use ED Exam Narrative Physical exam: GENERAL APPEARANCE: alert and oriented x 4, well-developed, well-nourished, no acute distress, somnolenty VITALS: All vitals were reviewed and the pulse ox is 96% on room air, which is normal according to my interpretation. HEENT: Normocephalic, atraumatic; pupils equal, round, reactive to light; EOMI; mucous membranes pink, moist; oropharynx clear NECK: Supple LUNGS: CTABL; no wheezes, no rales, no rhonchi HEART: Regular rate, regular rhythm; normal S1, S2; no murmurs ABDOMEN: non distended; normal BS; soft, no tenderness, no guarding, no rebound; no masses, no organomegaly, no hernia BACK: no CVA tenderness EXTREMITIES: atraumatic; no edema NEUROLOGIC: awake; alert and oriented x4; cranial nerves II-XII grossly intact; no focal sensory or motor deficits PSYCHIATRIC: appropriate mood and affect SKIN: warm, dry, normal color; no rashes Course Course Course Narrative: 0600. The patient turned over to at 6 AM pending evaluation by crisis. Urine drug screen pending Quality Measures none Orders Category Date Time Status 1799 Psychiatric Hold NOW Care 07/21/24 04:15 Ordered Asbestos Cloth Inspector NOW Care 07/21/24 03:16 Completed Continuous Pulse Oximetry NOW Care 07/21/24 03:17 Completed Diet Regular Diet 07/21/24 Dinner Active Acetaminophen Stat Lab 07/21/24 03:40 Completed Alcohol, Blood Medical Stat Lab 07/21/24 03:40 Completed Basic Metabolic Panel Stat Lab 07/21/24 03:40 Completed CBC Stat Lab 07/21/24 03:40 Completed Drug Screen,Urine Stat Lab 07/21/24 08:15 Completed Salicylate Stat Lab 07/21/24 03:40 Completed Late Tray Request Routine Oth 07/21/24 08:40 Active Late Tray Request Routine Oth 07/21/24 13:02 Active Vital Signs Vital signs: Vital Signs Temperature 98.6 F 07/21/24 03:17 Pulse Rate 97 07/21/24 03:17 Respiratory Rate 14 07/21/24 03:17 Blood Pressure 126/84 07/21/24 03:17 Pulse Oximetry (%) 95 07/21/24 03:17 Oxygen Delivery Method Room Air 07/21/24 03:17 Psych MDM Narrative MDM Narrative:: Scribe Attestation: Ondina Hollis, ashwini scribing for and in the presence of Dr. Hunter. Provider Notation: Although this document has been carefully reviewed, there may still be some phonetic and other typographical errors.? These errors are purely grammatical due to imperfections in the software program and should not be construed in any way to? compromise the substance of the patient's medical care during this visit. Patient data External records reviewed:: [facility] previous records (Reviewed prior ED records from 07/14/24. Patient was seen for Acute anxiety.) and EMS form Clinical information provided by:: patient and EMS Social determinants that could affect healthcare access:: mental health Patient has the following chronic illnesses:: Asthma, Anxiety How is presenting disease/condition affected by chronic disease/condition?: exacerbated by Evaluation data The following diagnostics were reviewed and interpreted by me:: lab results Lab and/or radiology exams considered but not ordered:: None Interpretation Summary: LABS CBC normal, CMP normal, Salicylates negative, UDS positive for benzodiazepines, Acetaminophen negative, Blood Alcohol 131.8. Medications / Prescriptions Medications or Prescriptions considered but not ordered:: None Medication administrations:: none Consultations Consultation(s) initiated? (list below): No Diagnosis Psych Differential Diagnosis: acute psychosis, suicidal ideation, bipolar disorder, depression, drug-induced psychotic disorder and acute anxiety Most likely diagnosis given after review of the tests above:: Refer to clinical impression below Admission Indicated Admission indicated?: not indicated Explain why admission is indicated or not indicated:: Pending medical clearance, psych evaluation and final disposition from oncoming ED provider. Admission Request Was there a request for admission?: No Disposition Plan Disposition Plan: other (specify) (Patient signed out to Dr. Pham pending medical clearance for crisis evaluation.) Discharge Plan Plan Patient Disposition: [facility] Discharge Disposition comment: Brenden Estes Prescriptions/Referrals Prescriptions/Med Rec: No Action lorazepam [Ativan] 0.5 mg tablet 0.5 mg PO BID PRN (Reason: anxiety) Qty: 20 0RF amoxicillin-pot clavulanate [Augmentin] 875-125 mg tablet 1 tab PO BID Qty: 20 0RF albuterol sulfate 90 mcg/actuation HFA aerosol inhaler 2 puff inhalation QID PRN (Reason: shortness of breath or wheezing) Qty: 18 0RF ibuprofen 800 mg tablet 800 mg PO TID PRN (Reason: pain) Qty: 60 0RF melatonin 5 mg capsule 5 mg PO QHSPRN PRN (Reason: for sleep ) Qty: 30 0RF hydroxyzine HCl 50 mg tablet 50 mg PO Q6H PRN (Reason: anxiety) Qty: 20 0RF ibuprofen 800 mg tablet 800 mg PO TID PRN (Reason: pain) Qty: 30 0RF pseudoephedrine-guaifenesin [Mucinex D] 60-600 mg tablet extended release 12 hr 1 tab PO BID PRN (Reason: cold symptoms) Qty: 30 0RF alprazolam [Xanax] 0.5 mg tablet 0.5 mg PO BID PRN (Reason: anxiety) Qty: 14 0RF alprazolam [Xanax] 0.5 mg tablet 0.5 mg PO TID PRN (Reason: anxiety) Qty: 14 0RF azithromycin 250 mg tablet See Rx Instructions .ROUTE .COMPLEX Qty: 6 0RF Rx Instructions: For 250 mg dose pack: take 500 mg today (day 1), then 250 mg for 4 days (days 2-5) codeine-guaifenesin [Guaifenesin AC] 10-100 mg/5 mL liquid 5 ml PO Q6H PRN (Reason: cough) Qty: 120 0RF prednisone 20 mg tablet 20 mg PO BID Qty: 10 0RF Rx Instructions: start tomorrow albuterol sulfate [Ventolin HFA] 90 mcg/actuation HFA aerosol inhaler 2 puff inhalation QID PRN (Reason: shortness of breath or wheezing) Qty: 8.5 0RF albuterol sulfate [Ventolin HFA] 90 mcg/actuation HFA aerosol inhaler 2 puff inhalation Q6H PRN (Reason: shortness of breath or wheezing) Qty: 8.5 0RF fluticasone propionate [Flonase Allergy Relief] 50 mcg/actuation spray,suspension 2 spray intranasal QDAY Qty: 16 0RF Rx Instructions: administer into each nostril loratadine 10 mg tablet 10 mg PO QDAY Qty: 20 0RF ibuprofen 600 mg tablet 600 mg PO Q8H PRN (Reason: pain) Qty: 20 0RF ondansetron 4 mg tablet,disintegrating 4 mg PO Q8H PRN (Reason: nausea and vomiting) Qty: 7 0RF acetaminophen 500 mg capsule 500 mg PO Q6H PRN (Reason: pain) Qty: 30 0RF escitalopram oxalate 10 mg tablet 10 mg PO QDAY Qty: 7 0RF alprazolam [Xanax] 0.5 mg tablet 0.5 mg PO BID PRN (Reason: anxiety) Qty: 6 0RF Problem List Clinical Impression: Suicide attempt by drug overdose Patient/Caregiver Discharge Instructions Print Language: Bengali Stand Alone Forms: Rubina Award Info., Patient Portal Info Letter
[2024-07-21 04:06] LABS: Basophils # (Auto) 0.1 Thou/mm3 (0.0-0.2); Basophils % (Auto) 1 % (0-2.5); Eosinophils # (Auto) 0.3 Thou/mm3 (0.0-0.5); Eosinophils % (Auto) 3 % (0-10); Hematocrit 44.9 % (41.0-53.0); Hemoglobin 15.3 g/dL (13.5-16.0); Immature Granulocytes % (Auto) 1 % (0-0); Immature Granulocytes Auto 0.11 Thou/mm3 (0.00-0.00); Lymphocytes # (Auto) 4.1 Thou/mm3 (1.0-4.8); Lymphocytes % (Auto) 42 % (10-50); Mean Corpuscular HGB Conc 34.1 g/dl (31.0-37.0); Mean Corpuscular Hemoglobin 32.1 pg (25.0-35.0); Mean Corpuscular Volume 94 fL (80-100); Monocytes # (Auto) 0.7 Thou/mm3 (0.0-0.8); Monocytes % (Auto) 7 % (0-12); Neutrophils # (Auto) 4.6 Thou/mm3 (1.8-7.7); Neutrophils % (Auto) 46 % (37-80); Nucleated Red Blood Cell % 0 /100 WBC (0); Platelet Count 220 Thou/mm3 (140-440); RDW Standard Deviation 44.5 fL (35.1-43.9); Red Blood Count 4.76 Miln/mm3 (4.50-5.90); White Blood Count 9.9 Thou/mm3 (3.8-10.6)
[2024-07-21 04:22] LABS: Acetaminophen < 2.0 mcg/mL (10.0-20.0); Alcohol, Blood Medical 131.8 mg/dL (0-10.0); Anion Gap 12 (7-16); BUN/Creatinine Ratio 7 Ratio (12-20); Blood Urea Nitrogen 7 mg/dL (9-23); Calcium 8.2 mg/dL (8.3-10.6); Carbon Dioxide 25.6 mMol/L (20.0-31.0); Chloride 109 mMol/L (98-107); Estimated Creatinine Clearance 154.1 mL/min (>60); Glucose 95 mg/dL (74-106); Osmolality,Calculated 290 (275-295); Potassium 4.1 mMol/L (3.4-5.1); Salicylate < 3.0 mg/dL; Sodium 147 mMol/L (136-145); eGFR > 60 See Note
--- NOTE | 2024-07-21 04:39 | PC.NURSE ---
contacted poison control, spoke with lisa. recommends cbc,cmp, tylenol, aspirin, alcohol and drug screen. monitor for lieutenant governor depression, respiratory depression. do not give antidote d/t may cause withdrawal effect. airway management, supportive care and iv fluids if needed. observe for 6 hours.
[2024-07-21 06:13] VITALS: PULSE 97
[2024-07-21 06:16] VITALS: BP 114/59; PULSE 74; RESP 16; TEMP 36.8; O2SAT 96
--- NOTE | 2024-07-21 06:45 | PD.EDADDENDU ---
Emergency Room Addendum Addendum Narrative: 0600: Care assumed from Dr. Hunter, the previous shift emergency physician. Past medical, surgical, social and family history reviewed. Vitals and home medications reviewed. I will assume the care of the patient at this time, pending medical clearance for mental health evaluation. Please refer to the emergency department record for history and examination from initial visit.?The following addendum documentation note is intended to reflect any pending information, findings, or radiology results not included in the patient?s initial chart. Patient is medically cleared for mental health evaluation. 1330: ASW has evaluated patient and has placed on a 5150 hold, at this time pending LPS facility placement. Patient has been accepted at [facility]. 1715: EMS here to transfer patient who has remained stable through ED course.
[2024-07-21 08:43] LABS: Amphetamine/Methamp Scrn,U Negative (Negative); Barbiturate Screen,Urine Negative (Negative); Benzodiazepines Screen,Urine Positive (Negative); Benzoylecgonine Screen, Ur Negative (Negative); Fentanyl Screen,Urine Negative (Negative); Opiate Screen,Urine Negative (Negative); THC Screen,Urine Negative (Negative)
[2024-07-21 10:04] VITALS: BP 146/94; PULSE 70; RESP 22; TEMP 36.7; O2SAT 95
[2024-07-21 11:59] VITALS: BP 123/77; PULSE 71; RESP 18; O2SAT 98
--- NOTE | 2024-07-21 12:02 | PC.NURSE ---
RN spoke with poison control, noted patient is awake and alert, vss and per poison control will close out case.
--- NOTE | 2024-07-21 13:20 | PC.CC ---
Patient is a 23 year-old male who presents to the hospital for a mental health evaluation for an intentional overdose of Xanax and alcohol. Patient was placed on a 1799 on 07/21/2024 at 0415. ASWCandida and OPTICAL MECHANIC Student, Rosenda made face to face contact with patient introduced selves, roles, and reason for visit. Patient provided consent for OPTICAL MECHANIC Student to remain in the room during assessment. Patient presents as alert and oriented to self, location, and situation. ASW disclosed limits of confidentiality as well. Patient made appropriate eye contact with this creative writer. Patient?s mood appeared to be depressed as he had a flat affect and was disinhibited; patient had good insight and judgement. Patient?s thought process was linear and organized. No signs of delusions, paranoid or V/h. Patient reports he has had an increase in suicidal ideations. Patient reports yesterday he was unable to control the suicidal ideations and took 6 Xanax pills and snorted 2 of the Xanax pills and drank multiple tall ?very strong.? Patient reports he wanted to go to sleep and never wake up. ASW attempted to explore with patient if there is something going on or traumatic event. Patient reported he has had multiple deaths in the family but nothing specific he can think of. Patient disclosed this is his first suicide attempt and has never been on a 5150-hold. At the time of encounter patient denied suicidal and homicidal ideations; visual and auditory hallucinations. Patient reports he was recently connected to outpatient mental health services with [facility] but is being transferred to [facility]. Patient had an intake assessment with [facility] 2 weeks ago but does not have another appointment scheduled until September 12, 2024. Patient reports he has a mental health diagnosis of Depression and Panic Attacks and is not compliant with medication. ASW attempted to explore with patient what are some positives in his life. Patient was unable to provide positives in his life and shrugged his shoulders. ASW inquired if this creative writer can make contact with his mother, Shy Gautam who is listed on his demographics or anyone else for collateral information to which the patient responded ?no.? ASW made contact with [facility] to see if patient attended his appointment that was scheduled for him in April 20, 2024 to which he did not attend, per staff Iesha Kaiser. After clinical consultation with DIGITAL MUSIC INSTRUCTOR, Elizabeth Sales, it was determined that the patient meets criteria to be placed on a 5150 hold due to DTS. This creative writer provided advisement of 5150-hold to the patient and process. Patient was provided with patient rights handbook. ASW provided update of 5150-hold and discharge plan to [facility] facility to Dr. Pham, child development consultant Gena, and bedside RN Patt. ASW to send referral via [facility] to [facility] facilities.
--- NOTE | 2024-07-21 14:38 | PC.CC ---
MAIK Coats contacted [facility] [phone] and arranged p/u ETA for [address] [facility]. [facility] is aware of the p/u ETA.
[2024-07-21 16:34] VITALS: BP 132/65; PULSE 81; RESP 17; TEMP 36.8; O2SAT 96
--- NOTE | 2024-07-21 17:13 | PC.NURSE ---
Patient up to bathroom, went over belongings list signed and will be transported to [facility] via ambulance.
== END 2024-07-21 17:20 ==
PROVIDERS: Emergency Medicine; Emergency Provider Emergency Medicine
DX: T42.4X2A Poisoning by benzodiazepines, intentional self-harm, initial encounter (principal); F41.9 Anxiety disorder, unspecified
CPT/HCPCS: 36415; 80048; 80307; 80320; 80329; 85025; 96127; 99285; G0480

== ENCOUNTER 2024-07-26 01:15 | Emergency (ER) | payer MEDICAID, SELFPAY ==
[2024-07-26 01:18] VITALS: BMI 41.1
[2024-07-26 01:32] VITALS: BP 158/87; PULSE 79; RESP 20; TEMP 36.9; O2SAT 98
--- NOTE | 2024-07-26 03:00 | PD.EDADDENDU ---
Emergency Room Addendum Addendum Narrative: Before I saw the patient, patient eloped. Edgar Denis MD
== END 2024-07-26 02:56 | disposition left against medical advice (07) ==
PROVIDERS: Emergency Provider Emergency Medicine
DX: Z53.21 Procedure and treatment not carried out due to patient leaving prior to being seen by health care provider (principal)
CPT/HCPCS: 99281

== ENCOUNTER 2024-07-31 02:43 | Emergency (ER) | payer MEDICAID, SELFPAY ==
[2024-07-31 02:44] VITALS: BMI 40.8
[2024-07-31 02:50] VITALS: BP 158/75; PULSE 82; RESP 19; TEMP 37.2; O2SAT 96
[2024-07-31] MEDS: DIAZEPAM 5 MG TABLET 10 MG PO (03:24)
[2024-07-31 03:30] VITALS: RESP 18
--- NOTE | 2024-07-31 04:42 | EDNOTE_ITS ---
<Statement entered by Seda Bautista MD - 08/11/24 21:08> As co-signing physician, I was present and available for consult prn. I concur with the plan and care as documented by the midlevel provider. ED Anxiety RME/HPI General Chief Complaint: Shortness of Breath/Dyspnea Stated Complaint: TROUBLE BREATHING, SOB, LIGHT HEADED Time Seen by Provider: 07/31/24 03:03 Arrival date/time: 07/31/24 02:43 24M with history of asthma and anxiety presents to ED with 2 days of insomnia, SOB, and dizziness. Limitations: no limitations Related Data Previous Rx's ?Medication ?Instructions ?Recorded lorazepam 0.5 mg tablet (Ativan) 0.5 mg PO BID PRN anx iety #20 tabs 06/13/19 melatonin 5 mg capsule 5 mg PO QHSPRN PRN for sleep #30 07/16/19 caps amoxicillin 875 mg-potassium 1 tab PO BID #20 tabs clavulanate 125 mg tablet (Augmentin) albuterol sulfate 90 mcg/actuation 2 puff inhalation Q ID PRN 12/21/19 aerosol inhaler shortness of breath or wheez ing #18 grams ibuprofen 800 mg tablet 800 mg PO TID PRN pain #60 t abs 05/06/20 albuterol sulfate 90 mcg/actuation 2 puff inhalation Q 6H PRN 10/10/23 aerosol inhaler (Ventolin HFA) shortness of breath or wheezing #8.5 grams fluticasone propionate 50 2 spray intranasal QDAY #16 grams 11/11/23 mcg/actuation nasal spray,suspension (Flonase Allergy Relief) loratadine 10 mg tablet 10 mg PO QDAY #20 tabs 11/10 hydroxyzine HCl 50 mg tablet 50 mg PO Q6H PRN anxiety #20 tabs 12/07/23 ibuprofen 800 mg tablet 800 mg PO TID PRN pain #30 t abs 12/29/23 acetaminophen 500 mg capsule 500 mg PO Q6H PRN pain #3 0 caps 04/18/24 ibuprofen 600 mg tablet 600 mg PO Q8H PRN pain #20 t abs 04/18/24 ondansetron 4 mg disintegrating 4 mg PO Q8H PRN nausea and 04/18/24 tablet vomiting #7 tabs pseudoephedrine-guaifenesin ER 60 1 tab PO BID PRN col d symptoms #30 04/18/24 mg-600 mg tablet,extend release tabs 12hr (Mucinex D) alprazolam 0.5 mg tablet (Xanax) 0.5 mg PO BID PRN anx iety #14 tabs 06/17/24 alprazolam 0.5 mg tablet (Xanax) 0.5 mg PO TID PRN anx iety #14 tabs 06/17/24 escitalopram oxalate 10 mg tablet 10 mg PO QDAY #7 tab s 07/09/24 albuterol sulfate 90 mcg/actuation 2 puff inhalation Q ID PRN 07/11/24 aerosol inhaler (Ventolin HFA) shortness of breath or wheezing #8.5 grams azithromycin 250 mg tablet See Rx Instructions PO .COM PLEX #6 07/11/24 tabs codeine 10 mg-guaifenesin 100 mg/5 5 ml PO Q6H PRN cou gh #120 mL 07/11/24 mL oral liquid (Guaifenesin AC) prednisone 20 mg tablet 20 mg PO BID #10 tabs alprazolam 0.5 mg tablet (Xanax) 0.5 mg PO BID PRN anx iety #6 tabs 07/14/24 Allergies Allergy/AdvReac Type Severity Reaction Status Date / Time dog dander Allergy Severe Difficulty Verified 07/31/24 02:44 Breathing CATS Allergy Severe SNEEZE Uncoded 07/31/24 02:44 Review of Systems Review of Systems Systems Reviewed: All systems reviewed, normal except as documented Constitutional Constitutional: Reports system reviewed and no additional complaints, except as documented, Denies fever(s) and Denies headache(s) ENT Ears, Nose, Mouth, and Throat: Reports as per HPI, Denies disequilibrium, Denies headache(s) and Reports vertigo Cardiovascular Cardiovascular: Reports system reviewed and no additional complaints, except as documented, Denies chest pain and Reports dyspnea Respiratory Respiratory: Reports system reviewed and no additional complaints, except as documented, Reports as per HPI, Denies cough and Reports dyspnea Gastrointestinal Gastrointestinal: Reports system reviewed and no additional complaints, except as documented, Denies abdominal pain, Denies nausea and Denies vomiting Neurologic Neurologic: Reports system reviewed and no additional complaints, except as documented, Denies confusion, Denies disequilibrium, Denies headache(s) and Reports vertigo Psychiatric Psychiatric: Reports as per HPI, Reports anxiety, Denies confusion and Reports other (insomnia) Past Medical History Past Medical History NEUROLOGIC: Negative Neurological Disorders CARDIAC: Negative Cardiac Disorders, Congestive Heart Failure, Hypertension or Hypotension RESPIRATORY: Positive Asthma; Negative Chronic Obstructive Pulmonary Disease (COPD) GENITOURINARY: Negative Renal Disease ENDOCRINE: Negative Diabetes Mellitus Type 1 or Diabetes Mellitus Type 2 PSYCHO/SOCIAL: Positive Anxiety OTHER HISTORY: Negative Cancer Social History SMOKING STATUS: Never smoker SUBSTANCE USE: does not use ED Exam General Limitations: Present no limitations General appearance: Present alert, in no apparent distress and anxious Head Head exam: Present atraumatic Eye Eye exam: Present normal appearance, PERRL and EOMI ENT ENT exam: Present normal exam, normal oropharynx and mucous membranes moist Neck Neck exam: Present normal inspection, full ROM and trachea midline Chest Chest inspection: Present normal inspection and symmetric chest wall rise Respiratory Respiratory exam: Present normal lung sounds bilaterally Cardiovascular Cardiovascular exam: Present regular rate, normal rhythm and normal heart sounds Abdominal Exam Abdominal exam: Present soft and normal bowel sounds Extremities Exam Extremities exam: Present normal inspection and full ROM Back Exam Back exam: Present normal inspection and full ROM Neurological Exam Neurological exam: Present alert, oriented X3 and CN II-XII intact Psychiatric Psychiatric exam: Present normal affect and normal mood Skin Skin exam: Present warm, dry, intact and normal color Course Quality Measures none Orders Category Date Time Status Diazepam [Valium] Med 07/31/24 03:04 Discontinued 10 mg PO X1 ONE Vital Signs Vital signs: Vital Signs Temperature 98.9 F 07/31/24 02:50 Pulse Rate 82 07/31/24 02:50 Respiratory Rate 19 07/31/24 02:50 Blood Pressure 158/75 H 07/31/24 02:50 Pulse Oximetry (%) 96 07/31/24 02:50 Oxygen Delivery Method Room Air 07/31/24 02:50 Anxiety MDM Narrative MDM Narrative: 24M with history of asthma and anxiety presents to ED with 2 days of insomnia, SOB, and dizziness. Physical exam reveals clear lungs and normal WOB. RRR. Patient is afebrile, alert, but anxious. Patient is listening to something through his headphones. Likely anxiety. Patient does not want to wait for Valium to improve symptoms. He will return if not improving. Patient data External records reviewed:: [facility] previous records Clinical information provided by:: patient Social determinants that could affect healthcare access:: mental health Patient has the following chronic illnesses:: anxiety and asthma How is presenting disease/condition affected by chronic disease/condition?: caused by Evaluation data The following diagnostics were reviewed and interpreted by me:: other (specify) (none) Lab and/or radiology exams considered but not ordered:: not ordered Interpretation Summary: n/a Medications / Prescriptions Medications or Prescriptions considered but not ordered:: ordered Medication administrations:: Medication Administration History Discontinued Medications Diazepam (Diazepam 5 Mg Tablet) 10 mg PO X1 ONE Stop: 07/31/24 03:05 Last Admin: 07/31/24 03:24 Dose: 10 mg Documented By: CVL Consultations Consultation(s) initiated? (list below): No Diagnosis Differential diagnosis anxiety: hyperventilation, panic disorder and acute anxiety Most likely diagnosis given after review of the tests above:: anxiety Admission Indicated Admission indicated?: not indicated Admission Request Was there a request for admission?: No Disposition Plan Disposition Plan: Discharge Discharge Attestation Discharge Attestation: The patient and all family members were given an opportunity to ask questions and understood the discharge instructions. Discharge instructions specifically effects, indications for sooner follow up or return to the emergency department, and the expected course of current diagnosis. Patient condition: Stable Discharge Plan Plan Patient Disposition: HOME (Self Care) Discharge Disposition comment: Stable Prescriptions/Referrals Prescriptions/Med Rec: No Action lorazepam [Ativan] 0.5 mg tablet 0.5 mg PO BID PRN (Reason: anxiety) Qty: 20 0RF amoxicillin-pot clavulanate [Augmentin] 875-125 mg tablet 1 tab PO BID Qty: 20 0RF albuterol sulfate 90 mcg/actuation HFA aerosol inhaler 2 puff inhalation QID PRN (Reason: shortness of breath or wheezing) Qty: 18 0RF ibuprofen 800 mg tablet 800 mg PO TID PRN (Reason: pain) Qty: 60 0RF melatonin 5 mg capsule 5 mg PO QHSPRN PRN (Reason: for sleep ) Qty: 30 0RF hydroxyzine HCl 50 mg tablet 50 mg PO Q6H PRN (Reason: anxiety) Qty: 20 0RF ibuprofen 800 mg tablet 800 mg PO TID PRN (Reason: pain) Qty: 30 0RF pseudoephedrine-guaifenesin [Mucinex D] 60-600 mg tablet extended release 12 hr 1 tab PO BID PRN (Reason: cold symptoms) Qty: 30 0RF alprazolam [Xanax] 0.5 mg tablet 0.5 mg PO BID PRN (Reason: anxiety) Qty: 14 0RF alprazolam [Xanax] 0.5 mg tablet 0.5 mg PO TID PRN (Reason: anxiety) Qty: 14 0RF azithromycin 250 mg tablet See Rx Instructions .ROUTE .COMPLEX Qty: 6 0RF Rx Instructions: For 250 mg dose pack: take 500 mg today (day 1), then 250 mg for 4 days (days 2-5) codeine-guaifenesin [Guaifenesin AC] 10-100 mg/5 mL liquid 5 ml PO Q6H PRN (Reason: cough) Qty: 120 0RF prednisone 20 mg tablet 20 mg PO BID Qty: 10 0RF Rx Instructions: start tomorrow albuterol sulfate [Ventolin HFA] 90 mcg/actuation HFA aerosol inhaler 2 puff inhalation QID PRN (Reason: shortness of breath or wheezing) Qty: 8.5 0RF albuterol sulfate [Ventolin HFA] 90 mcg/actuation HFA aerosol inhaler 2 puff inhalation Q6H PRN (Reason: shortness of breath or wheezing) Qty: 8.5 0RF fluticasone propionate [Flonase Allergy Relief] 50 mcg/actuation spray,suspension 2 spray intranasal QDAY Qty: 16 0RF Rx Instructions: administer into each nostril loratadine 10 mg tablet 10 mg PO QDAY Qty: 20 0RF ibuprofen 600 mg tablet 600 mg PO Q8H PRN (Reason: pain) Qty: 20 0RF ondansetron 4 mg tablet,disintegrating 4 mg PO Q8H PRN (Reason: nausea and vomiting) Qty: 7 0RF acetaminophen 500 mg capsule 500 mg PO Q6H PRN (Reason: pain) Qty: 30 0RF escitalopram oxalate 10 mg tablet 10 mg PO QDAY Qty: 7 0RF alprazolam [Xanax] 0.5 mg tablet 0.5 mg PO BID PRN (Reason: anxiety) Qty: 6 0RF Problem List Clinical Impression: Anxiety Patient/Caregiver Discharge Instructions Education Materials: Your Body's Response to Anxiety Additional Instructions: Please follow-up with PCP within 24-48 hours and return immediately if symptoms worsen. Continue taking Lexapro as instructed. Can ask PCP for testing for sleep apnea. Print Language: [place] Stand Alone Forms: Patient Portal Info Letter PA/COMMUNICATIONS DESIGNER Supervising Physician PA/COMMUNICATIONS DESIGNER Supervising Physician: Dr. Bautista
== END 2024-07-31 03:31 | disposition home or self-care (01) ==
LOC: SERX 03:08
PROVIDERS: Emergency Provider Emergency Medicine
DX: F41.9 Anxiety disorder, unspecified (principal)
CPT/HCPCS: 99282; A9270

== ENCOUNTER 2024-08-01 17:16 | Emergency (ER) | payer MEDICAID, SELFPAY ==
[2024-08-01 17:17] VITALS: BMI 40.8
[2024-08-01 17:24] VITALS: BP 145/81; PULSE 65; RESP 20; TEMP 37.3; O2SAT 97
--- NOTE | 2024-08-01 18:03 | EDNOTE_ITS ---
ED SOB =RME/HPI General Chief Complaint: Shortness of Breath/Dyspnea Stated Complaint: DIFFICULTY BREATHING X 3 DAYS Time Seen by Provider: 08/01/24 17:30 Arrival date/time: 08/01/24 17:16 RME / HPI RME / HPI Narrative: 24-year-old male presents to the ED with a complaint of difficulty breathing and shortness of breath while sleeping for the past 30 nights. He wakes up frequently with choking and gasping spells and is not refreshed in the mornings. He has frequent headaches. He has not discussed this with his primary care physician. He denies any fever or chills, cough, runny nose or nasal congestion, ear pain or sore throat. Related Data Previous Rx's ?Medication ?Instructions ?Recorded lorazepam 0.5 mg tablet (Ativan) 0.5 mg PO BID PRN anx iety #20 tabs 06/13/19 melatonin 5 mg capsule 5 mg PO QHSPRN PRN for sleep #30 07/16/19 caps amoxicillin 875 mg-potassium 1 tab PO BID #20 tabs clavulanate 125 mg tablet (Augmentin) albuterol sulfate 90 mcg/actuation 2 puff inhalation Q ID PRN 12/21/19 aerosol inhaler shortness of breath or wheez ing #18 grams ibuprofen 800 mg tablet 800 mg PO TID PRN pain #60 t abs 05/06/20 albuterol sulfate 90 mcg/actuation 2 puff inhalation Q 6H PRN 10/10/23 aerosol inhaler (Ventolin HFA) shortness of breath or wheezing #8.5 grams fluticasone propionate 50 2 spray intranasal QDAY #16 grams 11/11/23 mcg/actuation nasal spray,suspension (Flonase Allergy Relief) loratadine 10 mg tablet 10 mg PO QDAY #20 tabs 11/10 hydroxyzine HCl 50 mg tablet 50 mg PO Q6H PRN anxiety #20 tabs 12/07/23 ibuprofen 800 mg tablet 800 mg PO TID PRN pain #30 t abs 12/29/23 acetaminophen 500 mg capsule 500 mg PO Q6H PRN pain #3 0 caps 04/18/24 ibuprofen 600 mg tablet 600 mg PO Q8H PRN pain #20 t abs 04/18/24 ondansetron 4 mg disintegrating 4 mg PO Q8H PRN nausea and 04/18/24 tablet vomiting #7 tabs pseudoephedrine-guaifenesin ER 60 1 tab PO BID PRN col d symptoms #30 04/18/24 mg-600 mg tablet,extend release tabs 12hr (Mucinex D) alprazolam 0.5 mg tablet (Xanax) 0.5 mg PO BID PRN anx iety #14 tabs 06/17/24 alprazolam 0.5 mg tablet (Xanax) 0.5 mg PO TID PRN anx iety #14 tabs 06/17/24 escitalopram oxalate 10 mg tablet 10 mg PO QDAY #7 tab s 07/09/24 albuterol sulfate 90 mcg/actuation 2 puff inhalation Q ID PRN 07/11/24 aerosol inhaler (Ventolin HFA) shortness of breath or wheezing #8.5 grams azithromycin 250 mg tablet See Rx Instructions PO .COM PLEX #6 07/11/24 tabs codeine 10 mg-guaifenesin 100 mg/5 5 ml PO Q6H PRN cou gh #120 mL 07/11/24 mL oral liquid (Guaifenesin AC) prednisone 20 mg tablet 20 mg PO BID #10 tabs alprazolam 0.5 mg tablet (Xanax) 0.5 mg PO BID PRN anx iety #6 tabs 07/14/24 Allergies Allergy/AdvReac Type Severity Reaction Status Date / Time dog dander Allergy Severe Difficulty Verified 08/01/24 17:19 Breathing CATS Allergy Severe SNEEZE Uncoded 08/01/24 17:19 Review of Systems Review of Systems Systems Reviewed: All systems reviewed, normal except as documented Past Medical History Past Medical History NEUROLOGIC: Negative Neurological Disorders CARDIAC: Negative Cardiac Disorders, Congestive Heart Failure, Hypertension or Hypotension RESPIRATORY: Positive Asthma; Negative Chronic Obstructive Pulmonary Disease (COPD) GENITOURINARY: Negative Renal Disease ENDOCRINE: Negative Diabetes Mellitus Type 1 or Diabetes Mellitus Type 2 PSYCHO/SOCIAL: Positive Anxiety OTHER HISTORY: Negative Cancer Social History SMOKING STATUS: Never smoker SUBSTANCE USE: does not use ED Exam Narrative Physical exam: Alert and oriented 24-year-old male, no acute distress. Vital signs blood pressure 145/81, pulse 65, respirations 20 and nonlabored, temp 99.2, O2 sat 97% on room air. Cardiovascular regular rate and rhythm without murmurs, lungs are clear, no wheezing is noted. TMs are without erythema, nares are pale and boggy, pharynx is without erythema or exudate. No edema noted to bilateral lower extremities. Course Quality Measures none Vital Signs Vital signs: Vital Signs Temperature 99.2 F 08/01/24 17:24 Pulse Rate 65 08/01/24 17:24 Respiratory Rate 20 08/01/24 17:24 Blood Pressure 145/81 H 08/01/24 17:24 Pulse Oximetry (%) 97 08/01/24 17:24 Oxygen Delivery Method Room Air 08/01/24 17:24 Shortness of Breath / Dyspnea Patient data External records reviewed:: [facility] previous records Clinical information provided by:: patient Social determinants that could affect healthcare access:: none Patient has the following chronic illnesses:: Asthma, anxiety How is presenting disease/condition affected by chronic disease/condition?: exacerbated by Evaluation data The following diagnostics were reviewed and interpreted by me:: other (specify) (N/A) Lab and/or radiology exams considered but not ordered:: N/A Interpretation Summary: N/A Medications / Prescriptions Medications or Prescriptions considered but not ordered:: N/A Medication administrations:: N/A Consultations Consultation(s) initiated? (list below): No Diagnosis Shortness of Breath Differential Diagnosis: acute exacerbation of chronic obstr uctive airways disease, congestive heart failure, community acquired pneumonia, asthma with exacerbation and other (Anxiety versus sleep apnea) Most likely diagnosis given after review of the tests above:: Probable sleep apnea Admission Indicated Admission indicated?: not indicated Explain why admission is indicated or not indicated:: Patient is stable for discharge Admission Request Was there a request for admission?: No Disposition Plan Disposition Plan: Discharge Discharge Attestation Discharge Attestation: The patient and all family members were given an opportunity to ask questions and understood the discharge instructions. Discharge instructions specifically effects, indications for sooner follow up or return to the emergency department, and the expected course of current diagnosis. Patient condition: Stable Discharge Plan Plan Patient Disposition: HOME (Self Care) Discharge Disposition comment: Stable Prescriptions/Referrals Prescriptions/Med Rec: No Action lorazepam [Ativan] 0.5 mg tablet 0.5 mg PO BID PRN (Reason: anxiety) Qty: 20 0RF amoxicillin-pot clavulanate [Augmentin] 875-125 mg tablet 1 tab PO BID Qty: 20 0RF albuterol sulfate 90 mcg/actuation HFA aerosol inhaler 2 puff inhalation QID PRN (Reason: shortness of breath or wheezing) Qty: 18 0RF ibuprofen 800 mg tablet 800 mg PO TID PRN (Reason: pain) Qty: 60 0RF melatonin 5 mg capsule 5 mg PO QHSPRN PRN (Reason: for sleep ) Qty: 30 0RF hydroxyzine HCl 50 mg tablet 50 mg PO Q6H PRN (Reason: anxiety) Qty: 20 0RF ibuprofen 800 mg tablet 800 mg PO TID PRN (Reason: pain) Qty: 30 0RF pseudoephedrine-guaifenesin [Mucinex D] 60-600 mg tablet extended release 12 hr 1 tab PO BID PRN (Reason: cold symptoms) Qty: 30 0RF alprazolam [Xanax] 0.5 mg tablet 0.5 mg PO BID PRN (Reason: anxiety) Qty: 14 0RF alprazolam [Xanax] 0.5 mg tablet 0.5 mg PO TID PRN (Reason: anxiety) Qty: 14 0RF azithromycin 250 mg tablet See Rx Instructions .ROUTE .COMPLEX Qty: 6 0RF Rx Instructions: For 250 mg dose pack: take 500 mg today (day 1), then 250 mg for 4 days (days 2-5) codeine-guaifenesin [Guaifenesin AC] 10-100 mg/5 mL liquid 5 ml PO Q6H PRN (Reason: cough) Qty: 120 0RF prednisone 20 mg tablet 20 mg PO BID Qty: 10 0RF Rx Instructions: start tomorrow albuterol sulfate [Ventolin HFA] 90 mcg/actuation HFA aerosol inhaler 2 puff inhalation QID PRN (Reason: shortness of breath or wheezing) Qty: 8.5 0RF albuterol sulfate [Ventolin HFA] 90 mcg/actuation HFA aerosol inhaler 2 puff inhalation Q6H PRN (Reason: shortness of breath or wheezing) Qty: 8.5 0RF fluticasone propionate [Flonase Allergy Relief] 50 mcg/actuation spray,suspension 2 spray intranasal QDAY Qty: 16 0RF Rx Instructions: administer into each nostril loratadine 10 mg tablet 10 mg PO QDAY Qty: 20 0RF ibuprofen 600 mg tablet 600 mg PO Q8H PRN (Reason: pain) Qty: 20 0RF ondansetron 4 mg tablet,disintegrating 4 mg PO Q8H PRN (Reason: nausea and vomiting) Qty: 7 0RF acetaminophen 500 mg capsule 500 mg PO Q6H PRN (Reason: pain) Qty: 30 0RF escitalopram oxalate 10 mg tablet 10 mg PO QDAY Qty: 7 0RF alprazolam [Xanax] 0.5 mg tablet 0.5 mg PO BID PRN (Reason: anxiety) Qty: 6 0RF Problem List Clinical Impression: Sleep apnea syndrome, Anxiety Patient/Caregiver Discharge Instructions Education Materials: What Are Snoring and Sleep Apnea?, Overview of Sleep Problems Additional Instructions: Follow-up with your primary care physician for further workup and evaluation. You will need a sleep study for evaluation of probable sleep apnea. Sleep studies can be performed at home or in a sleep lab. Follow-up with your primary care physician in 24 to 48 hours. Return to the ED for any new or worsening symptoms. Print Language: [place]ralt[place] Stand Alone Forms: [employer] Award Info., Patient Portal Info Letter PA/CORRECTIVE AND MANUAL ARTS THERAPIST Supervising Physician PA/CORRECTIVE AND MANUAL ARTS THERAPIST Supervising Physician: Dr. Coulter
== END 2024-08-01 18:27 | disposition home or self-care (01) ==
PROVIDERS: Emergency Provider Family Medicine
DX: G47.30 Sleep apnea, unspecified (principal); F41.9 Anxiety disorder, unspecified
CPT/HCPCS: 99281

== ENCOUNTER 2024-08-01 22:26 | Emergency (ER) | payer MEDICAID, SELFPAY ==
[2024-08-01 22:35] VITALS: PULSE 90; O2SAT 98; BMI 40.8
[2024-08-01 22:49] VITALS: BP 121/70; PULSE 70; RESP 18; TEMP 37.5; O2SAT 95
--- NOTE | 2024-08-01 23:10 | XR_ITS ---
Examination: PA lateral chest 2 views TECHNIQUE: Upright PA and lateral chest 2 views Date and time: 2024 11:26 PM Comparison June 21, 2024 INDICATIONS: Shortness of breath beginning 3 days ago. FINDINGS: Normal heart size. The lungs are clear. The osseous structures are intact IMPRESSION: No active disease
--- NOTE | 2024-08-01 23:42 | PD.EDADULT ---
ED General RME/HPI General Chief complaint: General Adult/Misc Complain Stated complaint: PAINFUL RESPIRATIONS Time Seen by Provider: 08/01/24 22:55 Arrival date/time: 08/01/24 22:26 RME / HPI RME / HPI narrative: 24 year old male here for his 2nd visit this evening via Ambulance, and 3rd visit since yesterday for shortness of breath. He sways he couldn't sleep so he went out for a run and started to develop SOB. Has not used his inhaler, anxiety medications, etc. Related Data Previous Rx's ?Medication ?Instructions ?Recorded lorazepam 0.5 mg tablet (Ativan) 0.5 mg PO BID PRN anxiety #20 tabs 06/13/19 melatonin 5 mg capsule 5 mg PO QHSPRN PRN for sleep #30 07/16/19 caps amoxicillin 875 mg-potassium 1 tab PO BID #20 tabs 08/01/19 clavulanate 125 mg tablet (Augmentin) albuterol sulfate 90 mcg/actuation 2 puff inhalation QID PRN 12/21/19 aerosol inhaler shortness of breath or wheezing #18 grams ibuprofen 800 mg tablet 800 mg PO TID PRN pain #60 tabs 05/06/20 albuterol sulfate 90 mcg/actuation 2 puff inhalation Q6H PRN 10/10/23 aerosol inhaler (Ventolin HFA) shortness of breath or wheezing #8.5 grams fluticasone propionate 50 2 spray intranasal QDAY #16 grams 11/11/23 mcg/actuation nasal spray,suspension (Flonase Allergy Relief) loratadine 10 mg tablet 10 mg PO QDAY #20 tabs 11/11/23 hydroxyzine HCl 50 mg tablet 50 mg PO Q6H PRN anxiety #20 tabs 12/07/23 ibuprofen 800 mg tablet 800 mg PO TID PRN pain #30 tabs 12/29/23 acetaminophen 500 mg capsule 500 mg PO Q6H PRN pain #30 caps 04/18/24 ibuprofen 600 mg tablet 600 mg PO Q8H PRN pain #20 tabs 04/18/24 ondansetron 4 mg disintegrating 4 mg PO Q8H PRN nausea and 04/18/24 tablet vomiting #7 tabs pseudoephedrine-guaifenesin ER 60 1 tab PO BID PRN cold symptoms #30 04/18/24 mg-600 mg tablet,extend release tabs 12hr (Mucinex D) alprazolam 0.5 mg tablet (Xanax) 0.5 mg PO BID PRN anxiety #14 tabs 06/17/24 alprazolam 0.5 mg tablet (Xanax) 0.5 mg PO TID PRN anxiety #14 tabs 06/17/24 escitalopram oxalate 10 mg tablet 10 mg PO QDAY #7 tabs 07/09/24 albuterol sulfate 90 mcg/actuation 2 puff inhalation QID PRN 07/11/24 aerosol inhaler (Ventolin HFA) shortness of breath or wheezing #8.5 grams azithromycin 250 mg tablet See Rx Instructions PO .COMPLEX #6 07/11/24 tabs codeine 10 mg-guaifenesin 100 mg/5 5 ml PO Q6H PRN cough #120 mL 07/11/24 mL oral liquid (Guaifenesin AC) prednisone 20 mg tablet 20 mg PO BID #10 tabs 07/11/24 alprazolam 0.5 mg tablet (Xanax) 0.5 mg PO BID PRN anxiety #6 tabs 07/14/24 Allergies Allergy/AdvReac Type Severity Reaction Status Date / Time dog dander Allergy Severe Difficulty Verified 08/01/24 22:40 Breathing CATS Allergy Severe SNEEZE Uncoded 08/01/24 22:40 Review of Systems Review of Systems Systems Reviewed: All systems reviewed, normal except as documented Past Medical History Past Medical History NEUROLOGIC: Negative Neurological Disorders CARDIAC: Negative Cardiac Disorders, Congestive Heart Failure, Hypertension or Hypotension RESPIRATORY: Positive Asthma; Negative Chronic Obstructive Pulmonary Disease (COPD) GENITOURINARY: Negative Renal Disease ENDOCRINE: Negative Diabetes Mellitus Type 1 or Diabetes Mellitus Type 2 PSYCHO/SOCIAL: Positive Anxiety OTHER HISTORY: Negative Cancer Social History SMOKING STATUS: Never smoker SUBSTANCE USE: does not use ED Exam Narrative Physical exam: Alert and oriented, no respiratory distress. Lungs are clear, RRR without murmurs. BP 121/70, pulse 70, respiratory rate 18 non-labored, temp 99.5, O2 Sat 95% on room air. Course Course Course Narrative: Chest x-ray reveals no acute process. Quality Measures none Orders Category Date Time Status XR chest 2V Stat Exams 08/01/24 23:10 Completed Vital Signs Vital signs: Vital Signs Temperature 99.5 F 06/15/25 22:49 Pulse Rate 70 08/01/24 22:49 Respiratory Rate 18 08/01/24 22:49 Blood Pressure 121/70 08/01/24 22:49 Pulse Oximetry (%) 95 08/01/24 22:49 Oxygen Delivery Method Room Air 08/01/24 22:49 Discharge Plan Plan Patient Disposition: HOME (Self Care) Discharge Disposition comment: Stable Prescriptions/Referrals Prescriptions/Med Rec: No Action lorazepam [Ativan] 0.5 mg tablet 0.5 mg PO BID PRN (Reason: anxiety) Qty: 20 0RF amoxicillin-pot clavulanate [Augmentin] 875-125 mg tablet 1 tab PO BID Qty: 20 0RF albuterol sulfate 90 mcg/actuation HFA aerosol inhaler 2 puff inhalation QID PRN (Reason: shortness of breath or wheezing) Qty: 18 0RF ibuprofen 800 mg tablet 800 mg PO TID PRN (Reason: pain) Qty: 60 0RF melatonin 5 mg capsule 5 mg PO QHSPRN PRN (Reason: for sleep ) Qty: 30 0RF hydroxyzine HCl 50 mg tablet 50 mg PO Q6H PRN (Reason: anxiety) Qty: 20 0RF ibuprofen 800 mg tablet 800 mg PO TID PRN (Reason: pain) Qty: 30 0RF pseudoephedrine-guaifenesin [Mucinex D] 60-600 mg tablet extended release 12 hr 1 tab PO BID PRN (Reason: cold symptoms) Qty: 30 0RF alprazolam [Xanax] 0.5 mg tablet 0.5 mg PO BID PRN (Reason: anxiety) Qty: 14 0RF alprazolam [Xanax] 0.5 mg tablet 0.5 mg PO TID PRN (Reason: anxiety) Qty: 14 0RF azithromycin 250 mg tablet See Rx Instructions .ROUTE .COMPLEX Qty: 6 0RF Rx Instructions: For 250 mg dose pack: take 500 mg today (day 1), then 250 mg for 4 days (days 2-5) codeine-guaifenesin [Guaifenesin AC] 10-100 mg/5 mL liquid 5 ml PO Q6H PRN (Reason: cough) Qty: 120 0RF prednisone 20 mg tablet 20 mg PO BID Qty: 10 0RF Rx Instructions: start tomorrow albuterol sulfate [Ventolin HFA] 90 mcg/actuation HFA aerosol inhaler 2 puff inhalation QID PRN (Reason: shortness of breath or wheezing) Qty: 8.5 0RF albuterol sulfate [Ventolin HFA] 90 mcg/actuation HFA aerosol inhaler 2 puff inhalation Q6H PRN (Reason: shortness of breath or wheezing) Qty: 8.5 0RF fluticasone propionate [Flonase Allergy Relief] 50 mcg/actuation spray,suspension 2 spray intranasal QDAY Qty: 16 0RF Rx Instructions: administer into each nostril loratadine 10 mg tablet 10 mg PO QDAY Qty: 20 0RF ibuprofen 600 mg tablet 600 mg PO Q8H PRN (Reason: pain) Qty: 20 0RF ondansetron 4 mg tablet,disintegrating 4 mg PO Q8H PRN (Reason: nausea and vomiting) Qty: 7 0RF acetaminophen 500 mg capsule 500 mg PO Q6H PRN (Reason: pain) Qty: 30 0RF escitalopram oxalate 10 mg tablet 10 mg PO QDAY Qty: 7 0RF alprazolam [Xanax] 0.5 mg tablet 0.5 mg PO BID PRN (Reason: anxiety) Qty: 6 0RF Referrals: No Primary/Family,Physician [Primary Care Provider] - In 1 week Problem List Clinical Impression: Anxiety Patient/Caregiver Discharge Instructions Education Materials: ED Anxiety Reaction Additional Instructions: Use your albuterol inhaler if you have shortness of breath. Use your Xanax or lorazepam for anxiety symptoms. Follow-up with your primary care physician in 24 to 48 hours. Print Language: [place]an Stand Alone Forms: [email or web address] Info., Patient Portal Info Letter PA/EXTERNAL GRINDER TOOL Supervising Physician PA/EXTERNAL GRINDER TOOL Supervising Physician: Dr. Cira OKEEFE Narrative MDM hospital course: 24 year old male here for his 2nd visit this evening via Ambulance, and 3rd visit since yesterday for shortness of breath. He sways he couldn't sleep so he went out for a run and started to develop SOB. Has not used his inhaler, anxiety medications, etc. Alert and oriented, no respiratory distress. Lungs are clear, RRR without murmurs. BP 121/70, pulse 70, respiratory rate 18 non-labored, temp 99.5, O2 Sat 95% on room air. Chest x-ray reveals no acute process. Patient was discharged home in stable condition and advised to follow-up with his primary care physician. Clinical Information Provided by patient Medical Records Reviewed [facility] Meds/Rx Considered, not Ordered None Labs/Rad/Tests considered, not Ordered None Chronic Illness/Social Conditions which may negatively complicate care or outcome(s)-explain: Mental health and other (Anxiety) EKG EKG not done Lab Interpretation Labs: none Lab(s) interpretation(s): N/A Imaging Imaging interpretation: see narrative above Radiology reports / interpretation(s): Chest x-ray: No acute process per radiologist. Medication Administration(s) none Diagnosis Differential diagnosis: Asthma, pneumonia, anxiety Most likely dx, and/or detailed dx discussion: Anxiety reaction Dispositon Disposition: Discharge Home
[2024-08-02 00:51] VITALS: BP 140/87; PULSE 71; RESP 18; TEMP 36.7; O2SAT 96
== END 2024-08-02 00:53 | disposition home or self-care (01) ==
PROVIDERS: Emergency Provider Emergency Medicine
DX: F41.9 Anxiety disorder, unspecified (principal); R06.02 Shortness of breath
CPT/HCPCS: 71046; 99283

== ENCOUNTER 2024-08-06 06:21 | Emergency (ER) | payer MEDICAID, SELFPAY ==
[2024-08-06 06:36] VITALS: BP 141/68; PULSE 62; RESP 17; TEMP 36.8; O2SAT 96
[2024-08-06 06:37] VITALS: PULSE 71; O2SAT 97
[2024-08-06 06:38] VITALS: BMI 41.5
--- NOTE | 2024-08-06 06:47 | PD.EDADULT ---
ED General RME/HPI General Chief complaint: General Adult/Misc Complain Stated complaint: SOB Time Seen by Provider: 08/06/24 06:24 Arrival date/time: 08/06/24 06:21 24-year-old male presents to the emergency department today for complaints of anxiety. Patient reports anxiety sometimes makes him feel short of breath. Patient denies any chest pain. Patient reports he has an appointment today at 8:00 with psychiatrist. Patient reports no suicidal or homicidal nation Limitations: no limitations Related Data Previous Rx's ?Medication ?Instructions ?Recorded lorazepam 0.5 mg tablet (Ativan) 0.5 mg PO BID PRN anxiety #20 tabs 06/13/19 melatonin 5 mg capsule 5 mg PO QHSPRN PRN for sleep #30 07/16/19 caps amoxicillin 875 mg-potassium 1 tab PO BID #20 tabs 08/01/19 clavulanate 125 mg tablet (Augmentin) albuterol sulfate 90 mcg/actuation 2 puff inhalation QID PRN 12/21/19 aerosol inhaler shortness of breath or wheezing #18 grams ibuprofen 800 mg tablet 800 mg PO TID PRN pain #60 tabs 05/06/20 albuterol sulfate 90 mcg/actuation 2 puff inhalation Q6H PRN 10/10/23 aerosol inhaler (Ventolin HFA) shortness of breath or wheezing #8.5 grams fluticasone propionate 50 2 spray intranasal QDAY #16 grams 11/11/23 mcg/actuation nasal spray,suspension (Flonase Allergy Relief) loratadine 10 mg tablet 10 mg PO QDAY #20 tabs 11/11/23 hydroxyzine HCl 50 mg tablet 50 mg PO Q6H PRN anxiety #20 tabs 12/07/23 ibuprofen 800 mg tablet 800 mg PO TID PRN pain #30 tabs 12/29/23 acetaminophen 500 mg capsule 500 mg PO Q6H PRN pain #30 caps 04/18/24 ibuprofen 600 mg tablet 600 mg PO Q8H PRN pain #20 tabs 04/18/24 ondansetron 4 mg disintegrating 4 mg PO Q8H PRN nausea and 04/18/24 tablet vomiting #7 tabs pseudoephedrine-guaifenesin ER 60 1 tab PO BID PRN cold symptoms #30 04/18/24 mg-600 mg tablet,extend release tabs 12hr (Mucinex D) alprazolam 0.5 mg tablet (Xanax) 0.5 mg PO BID PRN anxiety #14 tabs 06/17/24 alprazolam 0.5 mg tablet (Xanax) 0.5 mg PO TID PRN anxiety #14 tabs 06/17/24 escitalopram oxalate 10 mg tablet 10 mg PO QDAY #7 tabs 07/09/24 albuterol sulfate 90 mcg/actuation 2 puff inhalation QID PRN 07/11/24 aerosol inhaler (Ventolin HFA) shortness of breath or wheezing #8.5 grams azithromycin 250 mg tablet See Rx Instructions PO .COMPLEX #6 07/11/24 tabs codeine 10 mg-guaifenesin 100 mg/5 5 ml PO Q6H PRN cough #120 mL 07/11/24 mL oral liquid (Guaifenesin AC) prednisone 20 mg tablet 20 mg PO BID #10 tabs 07/11/24 alprazolam 0.5 mg tablet (Xanax) 0.5 mg PO BID PRN anxiety #6 tabs 07/14/24 Allergies Allergy/AdvReac Type Severity Reaction Status Date / Time dog dander Allergy Severe Difficulty Verified 08/01/24 22:40 Breathing CATS Allergy Severe SNEEZE Uncoded 08/01/24 22:40 Review of Systems Review of Systems Systems Reviewed: All systems reviewed, normal except as documented Constitutional Constitutional: Reports system reviewed and no additional complaints, except as documented, Denies fever(s) and Denies headache(s) Eyes Eyes: Reports system reviewed and no additional complaints, except as documented and Denies blurry vision ENT Ears, Nose, Mouth, and Throat: Reports system reviewed and no additional complaints, except as documented, Denies headache(s), Denies nasal congestion and Denies nasal discharge Cardiovascular Cardiovascular: Reports system reviewed and no additional complaints, except as documented, Denies chest pain and Denies dyspnea Respiratory Respiratory: Reports system reviewed and no additional complaints, except as documented, Denies chest congestion, Denies cough and Denies dyspnea Gastrointestinal Gastrointestinal: Reports system reviewed and no additional complaints, except as documented and Denies abdominal pain Integumentary/Breasts Skin/Breast: Reports system reviewed and no additional complaints, except as documented and Denies rash Neurologic Neurologic: Reports system reviewed and no additional complaints, except as documented, Reports as per HPI and Denies headache(s) Psychiatric Psychiatric: Reports system reviewed and no additional complaints, except as documented, Reports anxiety, Denies suicidal ideation, Denies tactile hallucinations and Denies visual hallucinations Past Medical History Past Medical History NEUROLOGIC: Negative Neurological Disorders CARDIAC: Negative Cardiac Disorders, Congestive Heart Failure, Hypertension or Hypotension RESPIRATORY: Positive Asthma; Negative Chronic Obstructive Pulmonary Disease (COPD) GENITOURINARY: Negative Renal Disease ENDOCRINE: Negative Diabetes Mellitus Type 1 or Diabetes Mellitus Type 2 PSYCHO/SOCIAL: Positive Anxiety OTHER HISTORY: Negative Cancer Social History SMOKING STATUS: Never smoker SUBSTANCE USE: does not use ED Exam General Limitations: Present no limitations General appearance: Present alert and in no apparent distress Head Head exam: Present atraumatic, normocephalic and normal inspection Eye Eye exam: Present normal appearance, PERRL and EOMI; Absent conjunctival injection ENT ENT exam: Present normal exam, normal oropharynx and mucous membranes moist Neck Neck exam: Present normal inspection, full ROM and trachea midline Chest Chest inspection: Present normal inspection and symmetric chest wall rise Respiratory Respiratory exam: Present normal lung sounds bilaterally; Absent respiratory distress, wheezes, stridor, accessory muscle use or prolonged expiratory phase Cardiovascular Cardiovascular exam: Present regular rate, normal rhythm and normal heart sounds Abdominal Exam Abdominal exam: Present soft and normal bowel sounds Extremities Exam Extremities exam: Present normal inspection and full ROM Back Exam Back exam: Present normal inspection and full ROM Neurological Exam Neurological exam: Present alert, oriented X3, CN II-XII intact, normal gait and reflexes normal; Absent motor sensory deficit Psychiatric Psychiatric exam: Present normal affect and normal mood Skin Skin exam: Present warm, dry, intact and normal color Course Quality Measures none Orders Category Date Time Status ALPRazoLAM [Xanax] Med 08/06/24 06:42 Once 0.25 mg PO X1 ONE Vital Signs Vital signs: Vital Signs Temperature 98.3 F 08/06/24 06:36 Pulse Rate 62 08/06/24 06:36 Respiratory Rate 17 08/06/24 06:36 Blood Pressure 141/68 H 08/06/24 06:36 Pulse Oximetry (%) 96 08/06/24 06:36 Oxygen Delivery Method Room Air 08/06/24 06:36 O2 saturation 96% room air within normal limits Discharge Plan Plan Patient Disposition: HOME (Self Care) Discharge Disposition comment: stable Prescriptions/Referrals Prescriptions/Med Rec: No Action lorazepam [Ativan] 0.5 mg tablet 0.5 mg PO BID PRN (Reason: anxiety) Qty: 20 0RF amoxicillin-pot clavulanate [Augmentin] 875-125 mg tablet 1 tab PO BID Qty: 20 0RF albuterol sulfate 90 mcg/actuation HFA aerosol inhaler 2 puff inhalation QID PRN (Reason: shortness of breath or wheezing) Qty: 18 0RF ibuprofen 800 mg tablet 800 mg PO TID PRN (Reason: pain) Qty: 60 0RF melatonin 5 mg capsule 5 mg PO QHSPRN PRN (Reason: for sleep ) Qty: 30 0RF hydroxyzine HCl 50 mg tablet 50 mg PO Q6H PRN (Reason: anxiety) Qty: 20 0RF ibuprofen 800 mg tablet 800 mg PO TID PRN (Reason: pain) Qty: 30 0RF pseudoephedrine-guaifenesin [Mucinex D] 60-600 mg tablet extended release 12 hr 1 tab PO BID PRN (Reason: cold symptoms) Qty: 30 0RF alprazolam [Xanax] 0.5 mg tablet 0.5 mg PO BID PRN (Reason: anxiety) Qty: 14 0RF alprazolam [Xanax] 0.5 mg tablet 0.5 mg PO TID PRN (Reason: anxiety) Qty: 14 0RF azithromycin 250 mg tablet See Rx Instructions .ROUTE .COMPLEX Qty: 6 0RF Rx Instructions: For 250 mg dose pack: take 500 mg today (day 1), then 250 mg for 4 days (days 2-5) codeine-guaifenesin [Guaifenesin AC] 10-100 mg/5 mL liquid 5 ml PO Q6H PRN (Reason: cough) Qty: 120 0RF prednisone 20 mg tablet 20 mg PO BID Qty: 10 0RF Rx Instructions: start tomorrow albuterol sulfate [Ventolin HFA] 90 mcg/actuation HFA aerosol inhaler 2 puff inhalation QID PRN (Reason: shortness of breath or wheezing) Qty: 8.5 0RF albuterol sulfate [Ventolin HFA] 90 mcg/actuation HFA aerosol inhaler 2 puff inhalation Q6H PRN (Reason: shortness of breath or wheezing) Qty: 8.5 0RF fluticasone propionate [Flonase Allergy Relief] 50 mcg/actuation spray,suspension 2 spray intranasal QDAY Qty: 16 0RF Rx Instructions: administer into each nostril loratadine 10 mg tablet 10 mg PO QDAY Qty: 20 0RF ibuprofen 600 mg tablet 600 mg PO Q8H PRN (Reason: pain) Qty: 20 0RF ondansetron 4 mg tablet,disintegrating 4 mg PO Q8H PRN (Reason: nausea and vomiting) Qty: 7 0RF acetaminophen 500 mg capsule 500 mg PO Q6H PRN (Reason: pain) Qty: 30 0RF escitalopram oxalate 10 mg tablet 10 mg PO QDAY Qty: 7 0RF alprazolam [Xanax] 0.5 mg tablet 0.5 mg PO BID PRN (Reason: anxiety) Qty: 6 0RF Problem List Clinical Impression: Anxiety Patient/Caregiver Discharge Instructions Education Materials: ED Anxiety Reaction Additional Instructions: Please follow-up with your therapist as discussed for worsening symptoms return immediately Print Language: Indian Stand Alone Forms: [employer] Info., Patient Portal Info Letter PA/ROLLED OATS MILL OPERATOR Supervising Physician PA/ROLLED OATS MILL OPERATOR Supervising Physician: Dr bell [facility] Narrative MDM hospital course: 24-year-old male presents to the emergency department today for complaints of anxiety. Patient reports anxiety sometimes makes him feel short of breath. Patient denies any chest pain. Patient reports he has an appointment today at 8:00 with psychiatrist. Patient reports no suicidal or homicidal nation On exam patient well-appearing patient does not appear ill or toxic in no acute distress Symptoms are highly consistent with anxiety patient given 1 dose of Xanax Patient instructed to follow-up with his therapist today for worsening symptoms return immediately Clinical Information Provided by patient Medical Records Reviewed [facility] Meds/Rx Considered, not Ordered Describe details: Given Labs/Rad/Tests considered, not Ordered None Chronic Illness/Social Conditions which may negatively complicate care or outcome(s)-explain: None or not applicable EKG EKG not done Lab Interpretation Labs: none Imaging Imaging interpretation: none Medication Administration(s) Medication Administration History Alprazolam (Alprazolam 0.25 Mg Tablet) 0.25 mg PO X1 ONE Stop: 08/06/24 06:43 Given Diagnosis Differential diagnosis: Anxiety, stress reaction Differential dx and/or dx ruled out: Anxiety Most likely dx, and/or detailed dx discussion: Anxiety Dispositon Disposition: Discharge Home
[2024-08-06] MEDS: ALPRazoLAM 0.25 MG TABLET PO (07:13)
[2024-08-06 07:17] VITALS: BP 127/74; PULSE 68; RESP 17; TEMP 36.7; O2SAT 96
== END 2024-08-06 07:17 | disposition home or self-care (01) ==
LOC: SERX 06:49
PROVIDERS: Emergency Provider Emergency Medicine
DX: F41.9 Anxiety disorder, unspecified (principal)
CPT/HCPCS: 99282; A9270

== ENCOUNTER 2024-08-20 16:06 | Emergency (ER) | payer MEDICAID, SELFPAY ==
[2024-08-20 16:07] VITALS: PULSE 100; RESP 18; O2SAT 96
--- NOTE | 2024-08-20 17:00 | PC.NURSE ---
PT CALLED INSIDE OF LOBBY AND OUTSIDE; NO RESPONSE AT THIS TIME
--- NOTE | 2024-08-20 18:12 | PD.EDADDENDU ---
Emergency Room Addendum Addendum Narrative: When I looked for the patient to start my evaluation, I was told the patient eloped. Edgar Denis MD
== END 2024-08-20 18:18 | disposition left against medical advice (07) ==
LOC: SERX 18:15
PROVIDERS: Emergency Provider Emergency Medicine
DX: Z53.21 Procedure and treatment not carried out due to patient leaving prior to being seen by health care provider (principal)

== ENCOUNTER 2024-08-29 04:01 | Emergency (ER) | payer MEDICAID, SELFPAY ==
[2024-08-29 04:08] VITALS: PULSE 101; RESP 16; O2SAT 94
--- NOTE | 2024-08-29 04:11 | PD.EDSUICD ---
ED Psych RME/HPI General Chief Complaint: Suicidal Stated Complaint: SUICIDAL IDEATIONS Time Seen by Provider: 08/29/24 04:09 Arrival date/time: 08/29/24 04:01 RME / HPI RME / HPI Narrative: DR. BAUTISTA MAIN ED EVALUATION: 24 y/o male with Hx of psychiatric disorderd presents to ED BIBA c/o suicidal ideation x 1 day. Patient states he does not plan to act on his thoughts. Patient is on psych medication. He has been seen in ED for similar incidents in the past. Related Data Previous Rx's ?Medication ?Instructions ?Recorded lorazepam 0.5 mg tablet (Ativan) 0.5 mg PO BID PRN anxiety #20 tabs 06/13/19 melatonin 5 mg capsule 5 mg PO QHSPRN PRN for sleep #30 07/16/19 caps amoxicillin 875 mg-potassium 1 tab PO BID #20 tabs 08/01/19 clavulanate 125 mg tablet (Augmentin) albuterol sulfate 90 mcg/actuation 2 puff inhalation QID PRN 12/21/19 aerosol inhaler shortness of breath or wheezing #18 grams ibuprofen 800 mg tablet 800 mg PO TID PRN pain #60 tabs 05/06/20 albuterol sulfate 90 mcg/actuation 2 puff inhalation Q6H PRN 10/10/23 aerosol inhaler (Ventolin HFA) shortness of breath or wheezing #8.5 grams fluticasone propionate 50 2 spray intranasal QDAY #16 grams 11/11/23 mcg/actuation nasal spray,suspension (Flonase Allergy Relief) loratadine 10 mg tablet 10 mg PO QDAY #20 tabs 11/11/23 hydroxyzine HCl 50 mg tablet 50 mg PO Q6H PRN anxiety #20 tabs 12/07/23 ibuprofen 800 mg tablet 800 mg PO TID PRN pain #30 tabs 12/29/23 acetaminophen 500 mg capsule 500 mg PO Q6H PRN pain #30 caps 04/18/24 ibuprofen 600 mg tablet 600 mg PO Q8H PRN pain #20 tabs 04/18/24 ondansetron 4 mg disintegrating 4 mg PO Q8H PRN nausea and 04/18/24 tablet vomiting #7 tabs pseudoephedrine-guaifenesin ER 60 1 tab PO BID PRN cold symptoms #30 04/18/24 mg-600 mg tablet,extend release tabs 12hr (Mucinex D) alprazolam 0.5 mg tablet (Xanax) 0.5 mg PO BID PRN anxiety #14 tabs 06/17/24 alprazolam 0.5 mg tablet (Xanax) 0.5 mg PO TID PRN anxiety #14 tabs 06/17/24 escitalopram oxalate 10 mg tablet 10 mg PO QDAY #7 tabs 07/09/24 albuterol sulfate 90 mcg/actuation 2 puff inhalation QID PRN 07/11/24 aerosol inhaler (Ventolin HFA) shortness of breath or wheezing #8.5 grams azithromycin 250 mg tablet See Rx Instructions PO .COMPLEX #6 07/11/24 tabs codeine 10 mg-guaifenesin 100 mg/5 5 ml PO Q6H PRN cough #120 mL 07/11/24 mL oral liquid (Guaifenesin AC) prednisone 20 mg tablet 20 mg PO BID #10 tabs 07/11/24 alprazolam 0.5 mg tablet (Xanax) 0.5 mg PO BID PRN anxiety #6 tabs 07/14/24 Allergies Allergy/AdvReac Type Severity Reaction Status Date / Time dog dander Allergy Severe Difficulty Verified 08/29/24 04:07 Breathing CATS Allergy Severe SNEEZE Uncoded 08/29/24 04:07 Review of Systems Review of Systems Systems Reviewed: All systems reviewed, normal except as documented Past Medical History Past Medical History RESPIRATORY: Positive Asthma PSYCHO/SOCIAL: Positive Psychiatric Problems ED Exam Narrative Physical exam: GENERAL APPEARANCE: alert and oriented x 4, well-developed, well-nourished, no acute distress VITALS: All vitals were reviewed and the pulse ox is % on room air, which is normal according to my interpretation. HEENT: Normocephalic, atraumatic; pupils equal, round, reactive to light; EOMI; mucous membranes pink, moist; oropharynx clear NECK: Supple LUNGS: CTABL; no wheezes, no rales, no rhonchi HEART: Regular rate, regular rhythm; normal S1, S2; no murmurs ABDOMEN: non distended; normal BS; soft, no tenderness, no guarding, no rebound; no masses, no organomegaly, no hernia BACK: no CVA tenderness EXTREMITIES: atraumatic; no edema NEUROLOGIC: awake; alert and oriented x4; cranial nerves II-XII grossly intact; no focal sensory or motor deficits PSYCHIATRIC: appropriate mood and affect SKIN: warm, dry, normal color; no rashes Course Orders Category Date Time Status Drug Screen,Urine Stat Lab 08/29/24 04:11 Ordered Psych MDM Narrative MDM Narrative:: Scribe Attestation: I, Ondina Blevins, am scribing for and in the presence of Dr. Bautista. Provider Notation: Although this document has been carefully reviewed, there may still be some phonetic and other typographical errors.? These errors are purely grammatical due to imperfections in the software program and should not be construed in any way to? compromise the substance of the patient's medical care during this visit. Patient data External records reviewed:: [facility] previous records (Reviewed prior ED record from 08/20/24. Patient was seen for SOB, anxiety today.) and EMS form Clinical information provided by:: patient and EMS Social determinants that could affect healthcare access:: mental health How is presenting disease/condition affected by chronic disease/condition?: exacerbated by Evaluation data The following diagnostics were reviewed and interpreted by me:: other (specify) (N/A) Lab and/or radiology exams considered but not ordered:: None Interpretation Summary: N/A Medications / Prescriptions Medications or Prescriptions considered but not ordered:: None Medication administrations:: See above Consultations Consultation(s) initiated? (list below): No Diagnosis Psych Differential Diagnosis: acute psychosis, chronic schizophrenia, suicidal ideation, bipolar disorder, depression, drug-induced psychotic disorder and acute anxiety Admission Indicated Admission indicated?: not indicated Explain why admission is indicated or not indicated:: Patient eloped before MSE. Admission Request Was there a request for admission?: No Disposition Plan Disposition Plan: other (specify) (Patient eloped.) Discharge Plan Plan Patient Disposition: Elopement Prescriptions/Referrals Prescriptions/Med Rec: No Action lorazepam [Ativan] 0.5 mg tablet 0.5 mg PO BID PRN (Reason: anxiety) Qty: 20 0RF amoxicillin-pot clavulanate [Augmentin] 875-125 mg tablet 1 tab PO BID Qty: 20 0RF albuterol sulfate 90 mcg/actuation HFA aerosol inhaler 2 puff inhalation QID PRN (Reason: shortness of breath or wheezing) Qty: 18 0RF ibuprofen 800 mg tablet 800 mg PO TID PRN (Reason: pain) Qty: 60 0RF melatonin 5 mg capsule 5 mg PO QHSPRN PRN (Reason: for sleep ) Qty: 30 0RF hydroxyzine HCl 50 mg tablet 50 mg PO Q6H PRN (Reason: anxiety) Qty: 20 0RF ibuprofen 800 mg tablet 800 mg PO TID PRN (Reason: pain) Qty: 30 0RF pseudoephedrine-guaifenesin [Mucinex D] 60-600 mg tablet extended release 12 hr 1 tab PO BID PRN (Reason: cold symptoms) Qty: 30 0RF alprazolam [Xanax] 0.5 mg tablet 0.5 mg PO BID PRN (Reason: anxiety) Qty: 14 0RF alprazolam [Xanax] 0.5 mg tablet 0.5 mg PO TID PRN (Reason: anxiety) Qty: 14 0RF azithromycin 250 mg tablet See Rx Instructions .ROUTE .COMPLEX Qty: 6 0RF Rx Instructions: For 250 mg dose pack: take 500 mg today (day 1), then 250 mg for 4 days (days 2-5) codeine-guaifenesin [Guaifenesin AC] 10-100 mg/5 mL liquid 5 ml PO Q6H PRN (Reason: cough) Qty: 120 0RF prednisone 20 mg tablet 20 mg PO BID Qty: 10 0RF Rx Instructions: start tomorrow albuterol sulfate [Ventolin HFA] 90 mcg/actuation HFA aerosol inhaler 2 puff inhalation QID PRN (Reason: shortness of breath or wheezing) Qty: 8.5 0RF albuterol sulfate [Ventolin HFA] 90 mcg/actuation HFA aerosol inhaler 2 puff inhalation Q6H PRN (Reason: shortness of breath or wheezing) Qty: 8.5 0RF fluticasone propionate [Flonase Allergy Relief] 50 mcg/actuation spray,suspension 2 spray intranasal QDAY Qty: 16 0RF Rx Instructions: administer into each nostril loratadine 10 mg tablet 10 mg PO QDAY Qty: 20 0RF ibuprofen 600 mg tablet 600 mg PO Q8H PRN (Reason: pain) Qty: 20 0RF ondansetron 4 mg tablet,disintegrating 4 mg PO Q8H PRN (Reason: nausea and vomiting) Qty: 7 0RF acetaminophen 500 mg capsule 500 mg PO Q6H PRN (Reason: pain) Qty: 30 0RF escitalopram oxalate 10 mg tablet 10 mg PO QDAY Qty: 7 0RF alprazolam [Xanax] 0.5 mg tablet 0.5 mg PO BID PRN (Reason: anxiety) Qty: 6 0RF Patient/Caregiver Discharge Instructions Print Language: Polish
[2024-08-29 04:12] VITALS: BP 121/74; PULSE 116; RESP 19; TEMP 36.6; O2SAT 95
--- NOTE | 2024-08-29 04:14 | PC.NURSE ---
PT ASKED FOR PROGRAM EVALUATION CONSULTANT AND EMT TO GO OUT SO HE CAN TALK HE STATES THAT HE IS FINE THAT HE IS NOT HAVING ANY SI AND IS FINE AND WANTS TO GO HE HAD A MENTAL BREAK DOWN AND HAPPENS FREQUENTLY. PT WAS NOT SEEN BY PROVIDER AND DID NOT WANT TO WAIT TO BE SEEN. PT LEFT WITHOUR SEEING PROVIDER. DENIED ALL SI AND STATES IM READY TO GO.
== END 2024-08-29 04:20 | disposition left against medical advice (07) ==
PROVIDERS: Emergency Provider Emergency Medicine
DX: Z53.21 Procedure and treatment not carried out due to patient leaving prior to being seen by health care provider (principal)
CPT/HCPCS: 80307; 99282

== ENCOUNTER 2024-09-04 05:35 | Emergency (ER) | payer MEDICAID, SELFPAY ==
[2024-09-04 05:37] VITALS: BP 130/82; PULSE 90; PULSE 98; RESP 20; TEMP 37.1; O2SAT 95; O2SAT 96; BMI 42.8
--- NOTE | 2024-09-04 06:25 | XR_ITS ---
Examination: PA lateral chest 2 views. TECHNIQUE: Upright PA and lateral chest 2 views Date and time: September 04, 2024, 0632 hours. INDICATIONS: Shortness of breath chest pain beginning 2 days ago. FINDINGS: Normal heart size. Lungs are clear. The osseous structures are intact. IMPRESSION: No active disease.
--- NOTE | 2024-09-04 06:48 | PD.EDSOB ---
ED SOB =RME/HPI General Chief Complaint: Anxiety Stated Complaint: ANXIETY REACTION (SOB) Time Seen by Provider: 09/04/24 06:14 Source: patient Arrival date/time: 09/04/24 05:35 This is a 24-year-old male presenting to the emergency department with palpitations and shortness of breath. The patient has a known history of severe anxiety and was recently started on venlafaxine (Effexor) and mirtazapine approximately one week ago. Since initiation of these medications, he reports worsening of symptoms, including increased restlessness, chest discomfort, and difficulty breathing, though he denies chest pain, syncope, or other neurological symptoms. He is requesting anxiolytic medication to help control his current symptoms. Mode of arrival: ambulatory Limitations: no limitations Related Data Previous Rx's ?Medication ?Instructions ?Recorded lorazepam 0.5 mg tablet (Ativan) 0.5 mg PO BID PRN anxiety #20 tabs 06/13/19 melatonin 5 mg capsule 5 mg PO QHSPRN PRN for sleep #30 07/16/19 caps amoxicillin 875 mg-potassium 1 tab PO BID #20 tabs 08/01/19 clavulanate 125 mg tablet (Augmentin) albuterol sulfate 90 mcg/actuation 2 puff inhalation QID PRN 12/21/19 aerosol inhaler shortness of breath or wheezing #18 grams ibuprofen 800 mg tablet 800 mg PO TID PRN pain #60 tabs 05/06/20 albuterol sulfate 90 mcg/actuation 2 puff inhalation Q6H PRN 10/10/23 aerosol inhaler (Ventolin HFA) shortness of breath or wheezing #8.5 grams fluticasone propionate 50 2 spray intranasal QDAY #16 grams 11/11/23 mcg/actuation nasal spray,suspension (Flonase Allergy Relief) loratadine 10 mg tablet 10 mg PO QDAY #20 tabs 11/11/23 hydroxyzine HCl 50 mg tablet 50 mg PO Q6H PRN anxiety #20 tabs 12/07/23 ibuprofen 800 mg tablet 800 mg PO TID PRN pain #30 tabs 12/29/23 acetaminophen 500 mg capsule 500 mg PO Q6H PRN pain #30 caps 04/18/24 ibuprofen 600 mg tablet 600 mg PO Q8H PRN pain #20 tabs 04/18/24 ondansetron 4 mg disintegrating 4 mg PO Q8H PRN nausea and 04/18/24 tablet vomiting #7 tabs pseudoephedrine-guaifenesin ER 60 1 tab PO BID PRN cold symptoms #30 04/18/24 mg-600 mg tablet,extend release tabs 12hr (Mucinex D) alprazolam 0.5 mg tablet (Xanax) 0.5 mg PO BID PRN anxiety #14 tabs 06/17/24 alprazolam 0.5 mg tablet (Xanax) 0.5 mg PO TID PRN anxiety #14 tabs 06/17/24 escitalopram oxalate 10 mg tablet 10 mg PO QDAY #7 tabs 07/09/24 albuterol sulfate 90 mcg/actuation 2 puff inhalation QID PRN 07/11/24 aerosol inhaler (Ventolin HFA) shortness of breath or wheezing #8.5 grams azithromycin 250 mg tablet See Rx Instructions PO .COMPLEX #6 07/11/24 tabs codeine 10 mg-guaifenesin 100 mg/5 5 ml PO Q6H PRN cough #120 mL 07/11/24 mL oral liquid (Guaifenesin AC) prednisone 20 mg tablet 20 mg PO BID #10 tabs 07/11/24 alprazolam 0.5 mg tablet (Xanax) 0.5 mg PO BID PRN anxiety #6 tabs 07/14/24 hydroxyzine HCl 50 mg tablet 50 mg PO BID #30 tabs 09/04/24 Allergies Allergy/AdvReac Type Severity Reaction Status Date / Time dog dander Allergy Severe Difficulty Verified 09/04/24 05:42 Breathing CATS Allergy Severe SNEEZE Uncoded 09/04/24 05:42 Review of Systems Review of Systems Systems Reviewed: All systems reviewed, normal except as documented Narrative Review of Systems: Gen: No fever, no chills, no weight loss, + increased anxiety EYES: No discharge, no visual changes, no pain HEENT: No ear pain, no congestion, no sore throat PULM: No shortness of breath, no cough, no congestion CV: No chest pain, no dyspnea on exertion, no palpitations GI: No nausea, no vomiting, no diarrhea, no pain, no constipation : No frequency, no urgency, no dysuria Musc/skel: No joint pain, no back pain Skin: No rash Psyc: No hallucinations, no depression Heme/Lymph: No easy bleeding or bruising tendencies Neuro: No weakness, no headache ED Exam General Limitations: Present no limitations General appearance: Present alert and anxious Head Head exam: Present atraumatic Eye Eye exam: Present normal appearance, PERRL and EOMI ENT ENT exam: Present normal exam, normal oropharynx and mucous membranes moist Neck Neck exam: Present normal inspection, full ROM and trachea midline Chest Chest inspection: Present normal inspection and symmetric chest wall rise Respiratory Respiratory exam: Present normal lung sounds bilaterally Cardiovascular Cardiovascular exam: Present regular rate, normal rhythm and normal heart sounds Abdominal Exam Abdominal exam: Present soft and normal bowel sounds Extremities Exam Extremities exam: Present normal inspection and full ROM Back Exam Back exam: Present normal inspection and full ROM Neurological Exam Neurological exam: Present alert, oriented X3 and CN II-XII intact Psychiatric Psychiatric exam: Present normal affect and normal mood Skin Skin exam: Present warm, dry, intact and normal color Course Quality Measures none Orders Category Date Time Status XR chest 2V Stat Exams 09/04/24 06:25 Completed hydrOXYzine HCL [Atarax] Med 09/04/24 06:25 Discontinued 50 mg PO X1 ONE Vital Signs Vital signs: Vital Signs Temperature 98.8 F 09/04/24 05:37 Pulse Rate 90 09/04/24 05:37 Respiratory Rate 20 09/04/24 05:37 Blood Pressure 130/82 09/04/24 05:37 Pulse Oximetry (%) 95 09/04/24 05:37 Oxygen Delivery Method Room Air 09/04/24 05:37 Shortness of Breath / Dyspnea MDM Narrative MDM Narrative:: The patient is alert, oriented, and in no acute distress. Physical exam does not suggest cardiopulmonary or neurologic emergencies. He may benefit from temporary short-acting anxiolytic support while awaiting follow-up with his psychiatric provider. Patient data External records reviewed:: [facility] previous records Clinical information provided by:: none Social determinants that could affect healthcare access:: none Patient has the following chronic illnesses:: Chronic anxiety How is presenting disease/condition affected by chronic disease/condition?: no chronic disease Evaluation data The following diagnostics were reviewed and interpreted by me:: radiology exam(s) Lab and/or radiology exams considered but not ordered:: Pt consents to labs drawn. Labs ordered and drawn today Interpretation Summary: Examination: PA lateral chest 2 views. TECHNIQUE: Upright PA and lateral chest 2 views Date and time: September 04, 2024, 0632 hours. INDICATIONS: Shortness of breath chest pain beginning 2 days ago. FINDINGS: Normal heart size. Lungs are clear. The osseous structures are intact. IMPRESSION: No active disease. Medications / Prescriptions Medications or Prescriptions considered but not ordered:: No Medication administrations:: Medication Administration History Discontinued Medications Hydroxyzine HCl (Hydroxyzine Hcl 25 Mg Tablet) 50 mg PO X1 ONE Stop: 09/04/24 06:26 Last Admin: 09/04/24 06:46 Dose: 50 mg Documented By: SUSAN All medications administered and effective Consultations Consultation(s) initiated? (list below): No Diagnosis Shortness of Breath Differential Diagnosis: community acquired pneumonia, asthma with exacerbation and other (Pneumonia, bronchitis anxiety exacerbation stress reaction) Most likely diagnosis given after review of the tests above:: Medication adverse effects, Anxiety Admission Indicated Admission indicated?: not indicated Admission Request Was there a request for admission?: No Disposition Plan Disposition Plan: Discharge Discharge Attestation Discharge Attestation: The patient and all family members were given an opportunity to ask questions and understood the discharge instructions. Discharge instructions specifically effects, indications for sooner follow up or return to the emergency department, and the expected course of current diagnosis. Patient condition: Stable Discharge Plan Plan Patient Disposition: HOME (Self Care) Patient condition on transfer: Stable Prescriptions/Referrals Prescriptions/Med Rec: New hydroxyzine HCl 50 mg tablet 50 mg PO BID Qty: 30 0RF No Action lorazepam [Ativan] 0.5 mg tablet 0.5 mg PO BID PRN (Reason: anxiety) Qty: 20 0RF amoxicillin-pot clavulanate [Augmentin] 875-125 mg tablet 1 tab PO BID Qty: 20 0RF albuterol sulfate 90 mcg/actuation HFA aerosol inhaler 2 puff inhalation QID PRN (Reason: shortness of breath or wheezing) Qty: 18 0RF ibuprofen 800 mg tablet 800 mg PO TID PRN (Reason: pain) Qty: 60 0RF melatonin 5 mg capsule 5 mg PO QHSPRN PRN (Reason: for sleep ) Qty: 30 0RF hydroxyzine HCl 50 mg tablet 50 mg PO Q6H PRN (Reason: anxiety) Qty: 20 0RF ibuprofen 800 mg tablet 800 mg PO TID PRN (Reason: pain) Qty: 30 0RF pseudoephedrine-guaifenesin [Mucinex D] 60-600 mg tablet extended release 12 hr 1 tab PO BID PRN (Reason: cold symptoms) Qty: 30 0RF alprazolam [Xanax] 0.5 mg tablet 0.5 mg PO BID PRN (Reason: anxiety) Qty: 14 0RF alprazolam [Xanax] 0.5 mg tablet 0.5 mg PO TID PRN (Reason: anxiety) Qty: 14 0RF azithromycin 250 mg tablet See Rx Instructions .ROUTE .COMPLEX Qty: 6 0RF Rx Instructions: For 250 mg dose pack: take 500 mg today (day 1), then 250 mg for 4 days (days 2-5) codeine-guaifenesin [Guaifenesin AC] 10-100 mg/5 mL liquid 5 ml PO Q6H PRN (Reason: cough) Qty: 120 0RF prednisone 20 mg tablet 20 mg PO BID Qty: 10 0RF Rx Instructions: start tomorrow albuterol sulfate [Ventolin HFA] 90 mcg/actuation HFA aerosol inhaler 2 puff inhalation QID PRN (Reason: shortness of breath or wheezing) Qty: 8.5 0RF albuterol sulfate [Ventolin HFA] 90 mcg/actuation HFA aerosol inhaler 2 puff inhalation Q6H PRN (Reason: shortness of breath or wheezing) Qty: 8.5 0RF fluticasone propionate [Flonase Allergy Relief] 50 mcg/actuation spray,suspension 2 spray intranasal QDAY Qty: 16 0RF Rx Instructions: administer into each nostril loratadine 10 mg tablet 10 mg PO QDAY Qty: 20 0RF ibuprofen 600 mg tablet 600 mg PO Q8H PRN (Reason: pain) Qty: 20 0RF ondansetron 4 mg tablet,disintegrating 4 mg PO Q8H PRN (Reason: nausea and vomiting) Qty: 7 0RF acetaminophen 500 mg capsule 500 mg PO Q6H PRN (Reason: pain) Qty: 30 0RF escitalopram oxalate 10 mg tablet 10 mg PO QDAY Qty: 7 0RF alprazolam [Xanax] 0.5 mg tablet 0.5 mg PO BID PRN (Reason: anxiety) Qty: 6 0RF Referrals: Susan Boss FNP-C [Primary Care Provider] - In 1 week Problem List Clinical Impression: Acute anxiety, Panic disorder Patient/Caregiver Discharge Instructions Education Materials: ED Anxiety Reaction, ED Panic Attack Additional Instructions: It is very important that you follow-up with your psychiatrist you might need an alteration or change in your medication. I did send you a couple of hydroxyzine tablets that you can take for anxiety or panic attack. Please do not hesitate to return to the emergency department there is any worsening symptoms or change in condition. Print Language: Azeri Stand Alone Forms: Rubina Award Info., Patient Portal Info Letter MELISSA/RALPH Supervising Physician MELISSA/RALPH Supervising Physician: [id number]
[2024-09-04 07:35] VITALS: BP 136/95; PULSE 82; RESP 19; TEMP 37; O2SAT 95
== END 2024-09-04 08:31 | disposition home or self-care (01) ==
PROVIDERS: Emergency Provider Family Medicine
DX: F41.0 Panic disorder [episodic paroxysmal anxiety] (principal); R06.02 Shortness of breath; R07.9 Chest pain, unspecified
CPT/HCPCS: 71046; 99283; A9270

== ENCOUNTER 2024-09-15 20:29 | Emergency (ER) | payer MEDICAID, SELFPAY ==
[2024-09-15 20:32] VITALS: BP 141/86; PULSE 130; PULSE 96; RESP 18; TEMP 37; O2SAT 95; BMI 42.8
--- NOTE | 2024-09-15 21:33 | PC.NURSE ---
Pt did not answer when name was called and was not found outside.
== END 2024-09-15 22:09 | disposition left against medical advice (07) ==
LOC: SERX 22:07
PROVIDERS: Emergency Provider Emergency Medicine
DX: Z53.21 Procedure and treatment not carried out due to patient leaving prior to being seen by health care provider (principal)
CPT/HCPCS: 99282

== ENCOUNTER 2024-10-24 08:26 | Emergency (ER) | payer MEDICAID, SELFPAY ==
[2024-10-24 08:29] VITALS: BP 146/70; PULSE 73; RESP 16; TEMP 36.6; O2SAT 100
[2024-10-24 08:32] VITALS: PULSE 80; RESP 16; O2SAT 99
--- NOTE | 2024-10-24 08:37 | PC.NURSE ---
PATIENT ARRIVED ED VIA EMS FOR SHORTNESS OF BREATH, PATIENT STATES HE WAS HAVING DIFFICULTY BREATHING YESTERDAY AND HAS USED HIS INHALER MULTIPLE TIMES YESTERDAY. PATIENT STATES HE WOKE UP THIS MORNING FEELING HIS LUNGS WERE TIGHT. INHALER USED, NO RELIEF. DR. SOTO IN ROOM TO ASSESS PATIENT AT THIS TIME. BREATHING TREATMENT FROM EMS COMPLETED. CALL LIGHT WITHIN REACH.
--- NOTE | 2024-10-24 08:51 | XR_ITS ---
Examination: AP lateral chest 2 views Technique: Upright AP lateral chest 2 views Date and time: October 24, 2024, 0934 hrs. Indications: Onset of bleeding beginning today. Findings: Normal heart size. Lungs are clear. The osseous structures are intact. Impression: No active disease.
--- NOTE | 2024-10-24 08:57 | EDNOTE_ITS ---
ED SOB =RME/HPI General Chief Complaint: Shortness of Breath/Dyspnea Stated Complaint: SOB Time Seen by Provider: 10/24/24 08:27 Arrival date/time: 10/24/24 08:26 Mode of arrival: EMS RME / HPI RME / HPI Narrative: Mr Gautam is a 24 year old male with PMH of Asthma, Anxiety and insomnia who was BIBA to [facility] ED with the chief complaint of Shortness of Breath. Patient complains of SOB progressive since yesterday, he has a history of asthma and reports using his inhaler 7-8 times yesterday and progressively his SOB continued to worsen hence he decided to call EMS. He also complains of feeling of lung pain yesterday and heightened anxiety attributes it to his inability to breathe. He denies any fevers, chills, myalgias, headaches, sick contacts, chest pain, dizziness, falls and leg swelling. Patient follows up with psychiatrist outpatient reports he was recently prescribed clonidine for management of anxiety. Reports using inhalers as needed, was on a daily steroid inhaler in the past and has not used it recently. [place] to the beach, otherwise no air travel. 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 He also complained of some nausea on and off since last 4-5 days however has good apetite and no vomiting. Patient seen after a breathing treatment by EMS and currently stable on room air. Related Data Home oxygen amount: none Home Medications ?Medication ?Instructions ?Recorded ?Confirmed clonidine HCl 0.1 mg tablet 0.1 mg PO BID 10/24/2409/10 Previous Rx's ?Medication ?Instructions ?Recorded albuterol sulfate 90 mcg/actuation 2 puff inhalation Q 6H PRN 10/10/23 aerosol inhaler (Ventolin HFA) shortness of breath or wheezing #8.5 grams budesonide 180 mcg/actuation 1 inh inhalation QDAY Ast hma #1 ea 10/24/24 breath activated powder inhaler (Pulmicort Flexhaler) hydroxyzine HCl 25 mg tablet 25 mg PO BID PRN anxiety #14 tabs 10/24/24 prednisone 50 mg tablet 50 mg PO QDAY Asthma Exacerb ation 10/24/24 #5 tabs Allergies Allergy/AdvReac Type Severity Reaction Status Date / Time dog dander Allergy Severe Difficulty Verified 09/04/24 05:42 Breathing CATS Allergy Severe SNEEZE Uncoded 09/04/24 05:42 Review of Systems Review of Systems Narrative Review of Systems: ROS: -CONSTITUTIONAL: Denies weight loss, fever and chills. -HEENT: Denies changes in vision and hearing. -RESPIRATORY: Positive for SOB and denies cough. -CV: Denies palpitations and Chest Pain. -GI: Denies abdominal pain, nausea, vomiting,constipation and diarrhea. -: Denies dysuria and urinary frequency. -MSK: Denies myalgia and joint pain. -SKIN: Denies rash and pruritus. -NEUROLOGICAL: Denies headache and syncope. -PSYCHIATRIC: Denies recent changes in mood. Denies depression. Positive for anxiety. Past Medical History Past Medical History Comments PMH COMMENT: PMH: Positive for Asthma, Insomnia and Anxiety PSHx: Denies Allergies: Dog and Cat dander Social history: -Smoking: Denies, positive for minimal smoking in past. -Alcohol Use: Occasional Family History: No pertinent family history ED Exam Narrative Physical exam: Physical Exam General: Awake and in no acute distress. Conversational and non-toxic appearing. HEENT: Normocephalic, atraumatic, mucous membranes moist. Heart: Regular rate and rhythm, no murmurs. Lungs: Clear to auscultation with no wheezing or crackles, post breathing treatment. Abdomen: Soft, obese, nondistended, nontender, positive bowel sounds. ?No guarding or rebound tenderness. Neurologic: Alert and oriented x3, no gross neurological deficit, and patient able to move all 4 extremities. Extremities: No edema. Skin: No rash or ecchymoses. Course Quality Measures none Orders Category Date Time Status Bedside COVID-19 Antigen Test NOW Care 10/24/24 08:43 Completed Bedside Influenza A&B Antigen Test NOW Care 10/24/24 09:36 Completed CXR2 [XR chest 2V] Stat Exams 10/24/24 08:51 Taken CBC Stat Lab 10/24/24 09:03 Completed CMP [Comprehensive Metabolic Panel] Stat Lab 10/24/24 09:03 Completed Lactate (Lactic Acid) Stat Lab 10/24/24 09:03 Completed Procalcitonin Stat Lab 10/24/24 09:03 Completed Albuterol/Ipratr Rt Jenae [Duoneb Rt Jenae] Med 10/24/24 08:51 Discontinued 3 ml INH Q2HR PRN MethylPREDNISolone.* [SoluMEDROL Inj] Med 10/24/24 08:51 Discontinued 125 mg IVP X1 ONE hydrOXYzine HCL [Atarax] Med 10/24/24 08:56 Discontinued 25 mg PO X1 ONE Vital Signs Vital signs: Vital Signs Temperature 97.9 F 10/24/24 08:29 Pulse Rate 73 10/24/24 08:29 Respiratory Rate 16 10/24/24 08:29 Blood Pressure 146/70 H 10/24/24 08:29 Pulse Oximetry (%) 100 10/24/24 08:29 Oxygen Delivery Method Room Air 10/24/24 08:29 Shortness of Breath / Dyspnea MDM Narrative MDM Narrative:: #Asthma Exacerbation #Anxiety #Shortness of Breath Patient presented with wheezing and SOB brought by EMS Was giving breathing treatment complained of anxiety Treated with IV Solumedrol and was given hydroxyzine for anxiety Bedside COVID Flu negative CXR negative for PNA -Will discharge on Prednisone 50mg x 5days -Start Pulmicort Daily -Take Hydroxyzine as needed for anxiety -Follow up with PCP, psychaitry and pulmonology Case discussed with Attending Physician Dr. Dale Mejia MD Internal Medicine PGY-2 Disclaimer: This note was dictated by speech recognition. Minor errors in supervisor color making may be present due to voice recognition software. Patient data External records reviewed:: [facility] previous records and EMS form Clinical information provided by:: patient and EMS Social determinants that could affect healthcare access:: none Patient has the following chronic illnesses:: Asthma, Insomnia and Anxiety How is presenting disease/condition affected by chronic disease/condition?: exacerbated by Evaluation data The following diagnostics were reviewed and interpreted by me:: lab results and radiology exam(s) Lab and/or radiology exams considered but not ordered:: N/A Interpretation Summary: CBC: WBC 10.9, Eos 06 thou/mm3, CMP ALT 67 CXR negative for PNA Medications / Prescriptions Medications or Prescriptions considered but not ordered:: N/A Medication administrations:: Medication Administration History Discontinued Medications Albuterol/Ipratropium (Albuterol/Ipratropium (Duoneb) Rt Jenae 3 Ml Nebu) 3 ml INH Q2HR PRN PRN Reason: SHORTNESS OF BREATH OR WHEEZE Stop: 11/23/24 08:50 Hydroxyzine HCl (Hydroxyzine Hcl 25 Mg Tablet) 25 mg PO X1 ONE Stop: 10/24/24 08:57 Last Admin: 10/24/24 09:24 Dose: 25 mg Documented By: SUSAN Methylprednisolone Sodium Succinate (Methylprednisolone Sod Succ 62.5 Mg/Ml 2ml Vial) 125 mg IVP X1 ONE Stop: 10/24/24 08:52 Last Admin: 10/24/24 09:33 Dose: 125 mg Documented By: SUSAN As Above Consultations Consultation(s) initiated? (list below): No Diagnosis Shortness of Breath Differential Diagnosis: asthma with exacerbation and other (Anxiety) Most likely diagnosis given after review of the tests above:: Asthma Exacerbation and Anxiety Admission Indicated Admission indicated?: not indicated Admission Request Was there a request for admission?: No Disposition Plan Disposition Plan: Discharge Discharge Attestation Discharge Attestation: The patient and all family members were given an opportunity to ask questions and understood the discharge instructions. Discharge instructions specifically effects, indications for sooner follow up or return to the emergency department, and the expected course of current diagnosis. Patient condition: Stable Discharge Plan Plan Patient Disposition: HOME (Self Care) Patient condition on transfer: Stable Health Concerns: -Start Pulmicort Inhaler daily for Asthma Management -Take Prednisone 50mg daily for 5 days to complete treatment -Take Hydroxyzine as needed for anxiety -Follow up with PCP for optimization of COPD and Anxiety Management -Obtain PFTs outpatient and obtain referral to pulmonology -Follow up with Psychiatrist outpatient -Return to ED if symptoms worsen Prescriptions/Referrals Prescriptions/Med Rec: New Pulmicort Flexhaler 180 mcg/actuation aerosol powdr breath activated 1 inh inhalation QDAY Qty: 1 3RF hydroxyzine HCl 25 mg tablet 25 mg PO BID PRN (Reason: anxiety) Qty: 14 0RF prednisone 50 mg tablet 50 mg PO QDAY Qty: 5 0RF Continued clonidine HCl 0.1 mg tablet 0.1 mg PO BID Patient Comments: TAKE 1 TABLET BY MOUTH TWICE DAILY albuterol sulfate [Ventolin HFA] 90 mcg/actuation HFA aerosol inhaler 2 puff inhalation Q6H PRN (Reason: shortness of breath or wheezing) Qty: 8.5 0RF Discontinued albuterol sulfate 90 mcg/actuation HFA aerosol inhaler 2 puff inhalation QID PRN (Reason: shortness of breath or wheezing) Qty: 18 0RF albuterol sulfate [Ventolin HFA] 90 mcg/actuation HFA aerosol inhaler 2 puff inhalation QID PRN (Reason: shortness of breath or wheezing) Qty: 8.5 0RF Referrals: Susan Boss, [facility] [Primary Care Provider] - In 1 week Problem List Clinical Impression: Asthma with exacerbation Patient/Caregiver Discharge Instructions Education Materials: Asthma Print Language: [place] Stand Alone Forms: Rubina Award Info., Patient Portal Info Letter MD Attestation MD Attestation I, Dr. Hunter, have reviewed the history, exam, and assessment of the patient. I have evaluated the patient independently and agree with the plan of care documented by the resident Dr. Mejia. All diagnostic studies were reviewed and discussed. I confirm the diagnosis as documented by the resident. I was present during the Medical Decision Making for this patient. The patient?s plan of care was created between myself and the resident and consistent with our discussion of the patient?s case.
[2024-10-24 09:10] LABS: Lactate (Lactic Acid) 1.5 mMol/L (0.4-2.0)
[2024-10-24 09:17] LABS: Basophils # (Auto) 0.1 Thou/mm3 (0.0-0.2); Basophils % (Auto) 1 % (0-2.5); Eosinophils # (Auto) 0.6 Thou/mm3 (0.0-0.5); Eosinophils % (Auto) 6 % (0-10); Hematocrit 41.4 % (41.0-53.0); Hemoglobin 14.3 g/dL (13.5-16.0); Immature Granulocytes Auto 0.05 Thou/mm3 (0.00-0.00); Lymphocytes # (Auto) 3.3 Thou/mm3 (1.0-4.8); Lymphocytes % (Auto) 31 % (10-50); Mean Corpuscular HGB Conc 34.5 g/dl (31.0-37.0); Mean Corpuscular Hemoglobin 32.1 pg (25.0-35.0); Mean Corpuscular Volume 93 fL (80-100); Monocytes # (Auto) 1.0 Thou/mm3 (0.0-0.8); Monocytes % (Auto) 9 % (0-12); Neutrophils # (Auto) 5.8 Thou/mm3 (1.8-7.7); Neutrophils % (Auto) 53 % (37-80); Nucleated Red Blood Cell # 0.00 Thou/mm3 (0.00-0.00); Nucleated Red Blood Cell % 0 /100 WBC (0); Platelet Count 224 Thou/mm3 (140-440); RDW Standard Deviation 45.4 fL (35.1-43.9); Red Blood Count 4.45 Miln/mm3 (4.50-5.90); White Blood Count 10.9 Thou/mm3 (3.8-10.6)
[2024-10-24] MEDS: MethylPREDNISolone SOD SUCC 62.5 MG/ML 2ML VIAL 125 MG IVP (09:33)
[2024-10-24 09:38] LABS: Alanine Aminotransferase 67 U/L (10-49); Albumin, Serum 4.5 gm/dL (3.5-5.0); Albumin/Globulin Ratio 2.0 (1.2-2.2); Alkaline Phosphatase 80 U/L (46-116); Anion Gap 11 (7-16); Aspartate Amino Transferase 31 U/L (0-34); BUN/Creatinine Ratio 13 Ratio (12-20); Bilirubin,Total 0.5 mg/dL (0.3-1.2); Blood Urea Nitrogen 12 mg/dL (9-23); Calcium 9.3 mg/dL (8.3-10.6); Calcium (Corrected) 9.3 mg/dL (8.5-10.1); Carbon Dioxide 26.1 mMol/L (20.0-31.0); Chloride 105 mMol/L (98-107); Creatinine (Component) 0.9 mg/dL (0.6-1.3); Globulin 2.2 gm/dL (2.3-3.5); Glucose 101 mg/dL (74-106); Osmolality,Calculated 282 (275-295); Potassium 3.4 mMol/L (3.4-5.1); Procalcitonin 0.06 ng/ml (0.0-0.49); Sodium 142 mMol/L (136-145); Total Protein 6.7 gm/dL (5.7-8.2); eGFR > 60 See Note
[2024-10-24 09:39] VITALS: BMI 33.0
--- NOTE | 2024-10-24 10:14 | PRELIM_ITS ---
Radiographs of the chest (2 views). October 24, 2024 0932 hours Clinical history: Asthma Exacerbation Findings: The heart, mediastinum and pulmonary patience are unremarkable. The lungs are clear. There is no pleural effusion. The bony thorax is unremarkable. Impression: No focal consolidation or pleural effusion. Report Electronically Signed By: Earl Encarnacion 10/24/2024 10:13:43 AM [EST]
[2024-10-24 10:29] VITALS: BP 148/68; PULSE 62; RESP 16; TEMP 36.8; O2SAT 100
== END 2024-10-24 10:32 | disposition home or self-care (01) ==
PROVIDERS: Emergency Provider Emergency Medicine
DX: J45.901 Unspecified asthma with (acute) exacerbation (principal); R06.02 Shortness of breath
CPT/HCPCS: 36415; 71046; 80053; 83605; 84145; 85025; 87400; 87502; 87811; 96374; 99283; J2919; A9270

== ENCOUNTER 2024-10-27 15:52 | Emergency (ER) | payer MEDICAID, SELFPAY ==
[2024-10-27 15:59] VITALS: BP 148/58; PULSE 88; RESP 17; TEMP 36.8; O2SAT 97
[2024-10-27 16:00] VITALS: BMI 41.5
--- NOTE | 2024-10-27 16:14 | EKG_ITS ---
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
--- NOTE | 2024-10-27 16:14 | PD.EDARRY ---
ED Arrhythmia Palp. RME/HPI General Chief Complaint: Arrhythmia/Palpitations Stated Complaint: PALPITATIONS Time Seen by Provider: 10/27/24 16:11 Arrival date/time: 10/27/24 15:52 RME / HPI RME / HPI narrative: 24-year-old male patient with significant history of anxiety, currently taking hydroxyzine, came in for evaluation regarding palpitation and anxiety getting worse for the last few days. Patient been taking his hydroxyzine with no relief. Patient denies any chest pain. Denies any shortness of breath denies any suicidal or homicidal ideation. Denies any drug abuse. In the triage patient's blood pressure was noted to be 148/58. Related Data Home Medications ?Medication ?Instructions ?Recorded ?Confirmed clonidine HCl 0.1 mg tablet 0.1 mg PO BID 10/24/24 10/24/24 Previous Rx's ?Medication ?Instructions ?Recorded albuterol sulfate 90 mcg/actuation 2 puff inhalation Q6H PRN 10/10/23 aerosol inhaler (Ventolin HFA) shortness of breath or wheezing #8.5 grams budesonide 180 mcg/actuation 1 inh inhalation QDAY Asthma #1 ea 10/24/24 breath activated powder inhaler (Pulmicort Flexhaler) hydroxyzine HCl 25 mg tablet 25 mg PO BID PRN anxiety #14 tabs 10/24/24 prednisone 50 mg tablet 50 mg PO QDAY Asthma Exacerbation 10/24/24 #5 tabs hydroxyzine HCl 50 mg tablet 50 mg PO QID PRN anxiety #30 tabs 10/27/24 Allergies Allergy/AdvReac Type Severity Reaction Status Date / Time dog dander Allergy Severe Difficulty Verified 10/27/24 16:20 Breathing CATS Allergy Severe SNEEZE Uncoded 10/27/24 16:20 Review of Systems Review of Systems Narrative Review of Systems: Review of system reviewed and within normal limits except mentioned in HPI ED Exam Narrative Physical exam: VITAL SIGNS: Reviewed. GENERAL APPEARANCE: Alert and interactive, follows commands, no acute distress, anxious HEAD AND FACE: Non-traumatic. ENT: PERRL, pink conjunctivitis, eyelid no trauma, Mucous membrane moist. NECK: Supple, nontender, no nuchal rigidity. CHEST: No tenderness, no crepitus, no paradoxical movement, no retractions. LUNGS: Clear, well ventilated, symmetric, no rales, no wheezing, no ronchi, no stridor, good breath sounds bilaterally. HEART: Regular rate, regular rhythm, no murmur, no gallops. ABDOMEN: Soft, positive bowel sounds, nondistended, no guarding, nontender, no rebound, no masses, RECTAL: Deferred. GENITAL: Deferred. NEUROLOGICAL: Gross motor function intact sensory function intact, Appropriate for age. MUSCULOSKELETAL: low back nontender, full range of motion. EXTREMITIES: Nontender, full range of motion. SKIN: Color pink, dry, no rash, no lacerations, no abrasions, no contusions. LYMPHATICS: Deferred. Course Quality Measures none Orders Category Date Time Status EKG (ED ONLY) *Do not use* NOW Care 10/27/24 16:14 Active EKG (ED Only) Stat Exams 10/27/24 16:14 Ordered CBC [CBC] Stat Lab 10/27/24 16:13 Ordered CMP [Comprehensive Metabolic Panel] Stat Lab 10/27/24 16:13 Ordered Drug Screen,Urine Stat Lab 10/27/24 16:14 Ordered UA, C/S IF [Urinalysis, C/S if Indicated] Stat Lab 10/27/24 16:13 Ordered LORazepam [Ativan] Med 10/27/24 16:12 Once 1 mg PO X1 ONE Vital Signs Vital signs: Vital Signs Temperature 98.3 F 10/27/24 15:59 Pulse Rate 88 10/27/24 15:59 Respiratory Rate 17 10/27/24 15:59 Blood Pressure 148/58 H 10/27/24 15:59 Pulse Oximetry (%) 97 10/27/24 15:59 Oxygen Delivery Method Room Air 10/27/24 15:59 Arrhythmia/Palpitations MDM Narrative MDM Narrative:: 24-year-old male patient with significant history of anxiety, currently taking hydroxyzine, came in for evaluation regarding palpitation and anxiety getting worse for the last few days. Patient been taking his hydroxyzine with no relief. Patient denies any chest pain. Denies any shortness of breath denies any suicidal or homicidal ideation. Denies any drug abuse. In the triage patient's blood pressure was noted to be 148/58. EKG showed sinus rhythm, ventricular rate of 71 bpm, no ST segment elevation or depression noted. Laboratory work came back unremarkable. Patient was given Ativan with complete resolution of symptoms. Patient was noted to be having a blood pressure 144/74, heart rate of 76 no complaints prior to discharge. I increased patient's hydroxyzine to 50 mg every 6 hours as needed for anxiety Patient data External records reviewed:: None Clinical information provided by:: patient Social determinants that could affect healthcare access:: none Patient has the following chronic illnesses:: anxiety How is presenting disease/condition affected by chronic disease/condition?: exacerbated by Evaluation data The following diagnostics were reviewed and interpreted by me:: lab results and EKG tracing(s) Lab and/or radiology exams considered but not ordered:: none Interpretation Summary: See results MDM Medications / Prescriptions Medications or Prescriptions considered but not ordered:: None Medication administrations:: Medication Administration History Lorazepam (Lorazepam 0.5 Mg Tablet) 1 mg PO X1 ONE Stop: 10/27/24 16:13 Consultations Consultation(s) initiated? (list below): No Diagnosis Differential diagnosis arrhythmia/palpitations: palpitations, anxiety and sinus tachycardia Most likely diagnosis given after review of the tests above:: Palpitation, anxiety Admission Indicated Admission indicated?: not indicated Admission Request Was there a request for admission?: No Disposition Plan Disposition Plan: Discharge Discharge Attestation Discharge Attestation: The patient was given an opportunity to ask questions and understood the discharge instructions. Discharge instructions specifically effects, indications for sooner follow up or return to the emergency department, and the expected course of current diagnosis. Patient condition: Stable Discharge Plan Plan Patient Disposition: HOME (Self Care) Discharge Disposition comment: Stable Prescriptions/Referrals Prescriptions/Med Rec: New hydroxyzine HCl 50 mg tablet 50 mg PO QID PRN (Reason: anxiety) Qty: 30 0RF No Action clonidine HCl 0.1 mg tablet 0.1 mg PO BID Patient Comments: TAKE 1 TABLET BY MOUTH TWICE DAILY Pulmicort Flexhaler 180 mcg/actuation aerosol powdr breath activated 1 inh inhalation QDAY Qty: 1 3RF hydroxyzine HCl 25 mg tablet 25 mg PO BID PRN (Reason: anxiety) Qty: 14 0RF prednisone 50 mg tablet 50 mg PO QDAY Qty: 5 0RF albuterol sulfate [Ventolin HFA] 90 mcg/actuation HFA aerosol inhaler 2 puff inhalation Q6H PRN (Reason: shortness of breath or wheezing) Qty: 8.5 0RF Referrals: Susan Boss, [employer] [Primary Care Provider] - In 1 week Problem List Clinical Impression: Palpitations, Anxiety Patient/Caregiver Discharge Instructions Discharge Activity: activity as tolerated Education Materials: ED Anxiety Reaction Additional Instructions: Thank you for the opportunity for serving you today. You are stable for discharged . You are advised to: Follow-up with your PCP in 1 to 2 days Return to ED for worsening of symptoms Increase oral fluids Take medication as prescribed Print Language: Dominican Stand Alone Forms: Rubina Award Info., Patient Portal Info Letter MELISSA/RALPH Supervising Physician MELISSA/RALPH Supervising Physician: MD Cira
[2024-10-27 16:17] VITALS: PULSE 98; RESP 22; O2SAT 99
[2024-10-27 16:44] VITALS: BP 144/74; PULSE 76; RESP 16; TEMP 37.1; O2SAT 96
[2024-10-27 16:58] LABS: Basophils # (Auto) 0.1 Thou/mm3 (0.0-0.2); Basophils % (Auto) 1 % (0-2.5); Eosinophils # (Auto) 0.2 Thou/mm3 (0.0-0.5); Eosinophils % (Auto) 2 % (0-10); Hematocrit 42.0 % (41.0-53.0); Hemoglobin 14.6 g/dL (13.5-16.0); Immature Granulocytes Auto 0.12 Thou/mm3 (0.00-0.00); Lymphocytes # (Auto) 3.4 Thou/mm3 (1.0-4.8); Lymphocytes % (Auto) 29 % (10-50); Mean Corpuscular HGB Conc 34.8 g/dl (31.0-37.0); Mean Corpuscular Hemoglobin 32.0 pg (25.0-35.0); Mean Corpuscular Volume 92 fL (80-100); Monocytes # (Auto) 1.0 Thou/mm3 (0.0-0.8); Monocytes % (Auto) 9 % (0-12); Neutrophils # (Auto) 6.8 Thou/mm3 (1.8-7.7); Neutrophils % (Auto) 59 % (37-80); Nucleated Red Blood Cell # 0.00 Thou/mm3 (0.00-0.00); Nucleated Red Blood Cell % 0 /100 WBC (0); Platelet Count 242 Thou/mm3 (140-440); RDW Standard Deviation 44.9 fL (35.1-43.9); Red Blood Count 4.56 Miln/mm3 (4.50-5.90); White Blood Count 11.7 Thou/mm3 (3.8-10.6)
[2024-10-27 17:17] LABS: Alanine Aminotransferase 64 U/L (10-49); Albumin, Serum 4.2 gm/dL (3.5-5.0); Albumin/Globulin Ratio 2.0 (1.2-2.2); Alkaline Phosphatase 72 U/L (46-116); Anion Gap 10 (7-16); Aspartate Amino Transferase 33 U/L (0-34); BUN/Creatinine Ratio 11 Ratio (12-20); Bilirubin,Total 0.5 mg/dL (0.3-1.2); Blood Urea Nitrogen 11 mg/dL (9-23); Calcium 9.2 mg/dL (8.3-10.6); Calcium (Corrected) 9.2 mg/dL (8.5-10.1); Carbon Dioxide 27.3 mMol/L (20.0-31.0); Chloride 107 mMol/L (98-107); Creatinine (Component) 1.0 mg/dL (0.6-1.3); Estimated Creatinine Clearance 158.0 mL/min (>60); Globulin 2.1 gm/dL (2.3-3.5); Glucose 96 mg/dL (74-106); Osmolality,Calculated 286 (275-295); Potassium 3.6 mMol/L (3.4-5.1); Sodium 144 mMol/L (136-145); Total Protein 6.3 gm/dL (5.7-8.2); eGFR > 60 See Note
[2024-10-27 18:01] LABS: Collection Type, Urine Clean Catch; Squamous Epithelial Cell,Urine 0 /hpf (0-5)
[2024-10-27 18:14] LABS: Amphetamine/Methamp Scrn,U Negative (Negative); Barbiturate Screen,Urine Negative (Negative); Benzodiazepines Screen,Urine Negative (Negative); Benzoylecgonine Screen, Ur Negative (Negative); Fentanyl Screen,Urine Negative (Negative); Opiate Screen,Urine Negative (Negative); THC Screen,Urine Negative (Negative)
[2024-10-27 18:17] LABS: Bacteria,Urine Rare; Bilirubin,Urine Negative (Negative); Blood,Urine Negative (Negative); Clarity,Urine Clear (Clear/Hazy); Color,Urine Lt-Yellow (Lt Yel-Yel); Culture Indicated,Urine Not Indicated; Glucose, Urine Negative (Negative); Ketones,Urine Negative (Negative); Leukocyte Esterase,Urine Negative (Negative); Nitrite,Urine Negative (Negative); PH,Urine 6.5 (5.0-7.0); Protein,Urine Trace (Neg - Trace); RBC,Urine 2 /hpf (0-3); Specific Gravity,Urine 1.028 (1.001-1.035); Urobilinogen,Urine Negative mg/dL (0.0-1.0); WBC,Urine 1 /hpf (0-5)
[2024-10-27 18:34] VITALS: BP 158/89; PULSE 76; PULSE 78; RESP 18; TEMP 37.3; O2SAT 97
== END 2024-10-27 18:40 | disposition home or self-care (01) ==
PROVIDERS: Nurse Practitioner Family; Emergency Provider Emergency Medicine
DX: F41.9 Anxiety disorder, unspecified (principal); R00.2 Palpitations
CPT/HCPCS: 36415; 80053; 80307; 81001; 85025; 93005; 99283; A9270

== ENCOUNTER 2024-11-06 09:27 | Emergency (ER) | payer MEDICAID, SELFPAY ==
[2024-11-06 09:28] VITALS: PULSE 82; O2SAT 98; BMI 41.5
[2024-11-06 09:37] VITALS: BP 118/81; PULSE 79; RESP 19; TEMP 36.9; O2SAT 96
--- NOTE | 2024-11-06 09:43 | XR_ITS ---
Examination: PA chest single view Technique: Upright PA chest single view Date and time: November 06, 2024, 1024 hrs. Indications: Chest pain shortness of breath beginning 2 days ago. Findings: Normal heart size. Lungs are clear. The osseous structures are intact. Impression: No active disease.
--- NOTE | 2024-11-06 09:43 | EKG_ITS ---
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
--- NOTE | 2024-11-06 11:47 | EDNOTE_ITS ---
ED Chest Pain RME/HPI General Chief Complaint: Shortness of Breath/Dyspnea Stated Complaint: DIFF BREATHING/CHEST TIGHT SINCE YESTERDAY Time Seen by Provider: 11/06/24 09:36 Arrival date/time: 11/06/24 09:27 24-year-old male with no significant medical problems presents to the emergency department today with plaints of right-sided lung pain ongoing since yesterday. Patient worse no fever nausea vomiting no headache dizziness or weakness Patient does have history of anxiety Limitations: no limitations Related Data Home Medications ?Medication ?Instructions ?Recorded ?Confirmed clonidine HCl 0.1 mg tablet 0.1 mg PO BID 10/24/2409/10 Previous Rx's ?Medication ?Instructions ?Recorded albuterol sulfate 90 mcg/actuation 2 puff inhalation Q 6H PRN 10/10/23 aerosol inhaler (Ventolin HFA) shortness of breath or wheezing #8.5 grams budesonide 180 mcg/actuation 1 inh inhalation QDAY Ast hma #1 ea 10/24/24 breath activated powder inhaler (Pulmicort Flexhaler) hydroxyzine HCl 25 mg tablet 25 mg PO BID PRN anxiety #14 tabs 10/24/24 prednisone 50 mg tablet 50 mg PO QDAY Asthma Exacerb ation 10/24/24 #5 tabs hydroxyzine HCl 50 mg tablet 50 mg PO QID PRN anxiety #30 tabs 10/27/24 Allergies Allergy/AdvReac Type Severity Reaction Status Date / Time cat dander Allergy Severe Difficulty Verified 11/06/24 09:31 Breathing dog dander Allergy Severe Difficulty Verified 11/06/24 09:31 Breathing Review of Systems Review of Systems Systems Reviewed: All systems reviewed, normal except as documented Constitutional Constitutional: Reports system reviewed and no additional complaints, except as documented, Denies fever(s) and Denies headache(s) Eyes Eyes: Reports system reviewed and no additional complaints, except as documented and Denies blurry vision ENT Ears, Nose, Mouth, and Throat: Reports system reviewed and no additional complaints, except as documented, Denies headache(s), Denies nasal congestion and Denies nasal discharge Cardiovascular Cardiovascular: Reports system reviewed and no additional complaints, except as documented, Reports chest pain and Denies dyspnea Respiratory Respiratory: Reports system reviewed and no additional complaints, except as documented, Denies chest congestion, Denies cough and Denies dyspnea Gastrointestinal Gastrointestinal: Reports system reviewed and no additional complaints, except as documented and Denies abdominal pain Musculoskeletal Musculoskeletal: Reports system reviewed and no additional complaints, except as documented, Reports arthralgias, Denies deformity, Denies numbness, Denies stiffness and Denies tingling Integumentary/Breasts Skin/Breast: Reports system reviewed and no additional complaints, except as documented and Denies rash Neurologic Neurologic: Reports system reviewed and no additional complaints, except as documented, Reports as per HPI, Denies headache(s), Denies numbness and Denies tingling Past Medical History Past Medical History NEUROLOGIC: Negative Neurological Disorders CARDIAC: Negative Cardiac Disorders, Congestive Heart Failure, Hypertension or Hypotension RESPIRATORY: Positive Asthma; Negative Chronic Obstructive Pulmonary Disease (COPD) GASTROINTESTINAL: Negative Gastrointestinal Disorders GENITOURINARY: Negative Genitourinary Disorders or Renal Disease MUSCULOSKELETAL: Negative Musculoskeletal Disorders ENDOCRINE: Negative Diabetes Mellitus Type 1 or Diabetes Mellitus Type 2 HEMATOLOGIC: Negative Blood Disorders PSYCHO/SOCIAL: Positive Anxiety OTHER HISTORY: Negative Chicken Pox or Cancer Family History FAMILY HISTORY: Positive Family Psychiatric Problems (mom bipolar , uncle pschitzophrenic); Negative Family Respiratory Disorders, Family Cardiac Disorders or Family Gastrointestinal Problems Surgical History SURGICAL: Negative Cardiac Surgery, Abdominal Surgery or Nephrectomy Social History SMOKING STATUS: Never smoker SUBSTANCE USE: does not use ED Exam General Limitations: Present no limitations General appearance: Present alert and in no apparent distress Head Head exam: Present atraumatic Eye Eye exam: Present normal appearance, PERRL and EOMI ENT ENT exam: Present normal exam, normal oropharynx and mucous membranes moist Neck Neck exam: Present normal inspection, full ROM and trachea midline Chest Chest inspection: Present normal inspection and symmetric chest wall rise Respiratory Respiratory exam: Present normal lung sounds bilaterally Cardiovascular Cardiovascular exam: Present regular rate, normal rhythm and normal heart sounds; Absent bradycardia, tachycardia or irregular rhythm Abdominal Exam Abdominal exam: Present soft and normal bowel sounds; Absent distention, tenderness, guarding, rebound or rigidity Extremities Exam Extremities exam: Present normal inspection and full ROM Back Exam Back exam: Present normal inspection and full ROM Neurological Exam Neurological exam: Present alert, oriented X3 and CN II-XII intact Psychiatric Psychiatric exam: Present normal affect and normal mood Skin Skin exam: Present warm, dry, intact and normal color Course Quality Measures none Orders Category Date Time Status EKG (ED ONLY) *Do not use* NOW Care 11/06/24 09:43 Completed EKG (ED Only) Stat Exams 11/06/24 09:43 Draft XR chest 1V Stat Exams 11/06/24 09:43 Completed Vital Signs Vital signs: Vital Signs Temperature 98.5 F 11/06/24 09:37 Pulse Rate 79 11/06/24 09:37 Respiratory Rate 19 11/06/24 09:37 Blood Pressure 118/81 11/06/24 09:37 Pulse Oximetry (%) 96 11/06/24 09:37 Oxygen Delivery Method Room Air 11/06/24 09:37 O2 saturation 96% on room air within normal limits PROCEDURES: EKG Interpretation #1: Date of EK11/06/24 Time of EK:47 Rate: 83 Interpretation: Interpreted by me EKG Impression: Normal sinus rhythm, No acute ST-T changes, No ectopy, No ischemic changes, Normal QRS and Normal intervals Chest Pain MDM Narrative MDM Narrative:: 24-year-old male with no significant medical problems presents to the emergency department today with plaints of right-sided lung pain ongoing since yesterday. Patient worse no fever nausea vomiting no headache dizziness or weakness Patient does have history of anxiety On exam patient well-appearing patient does not appear ill or toxic no acute distress Imaging obtained no acute emergent findings noted EKG obtained and no acute emergent findings noted Symptoms highly consistent with anxiety Patient discharged home in no distress to follow-up with primary care doctor in the next 24 to 48 hours and for any worsening symptoms to return to the ER immediately Patient data External records reviewed:: [facility] previous records Clinical information provided by:: patient Social determinants that could affect healthcare access:: mental health Patient has the following chronic illnesses:: See history How is presenting disease/condition affected by chronic disease/condition?: caused by Evaluation data The following diagnostics were reviewed and interpreted by me:: radiology exam(s) and EKG tracing(s) Lab and/or radiology exams considered but not ordered:: Radiology EKG obtained Interpretation Summary: Reviewed by me Medications / Prescriptions Medications or Prescriptions considered but not ordered:: Given Medication administrations:: Given Consultations Consultation(s) initiated? (list below): No Diagnosis Chest Pain Differential Diagnosis: fracture of rib, costochondritis and chest pain Most likely diagnosis given after review of the tests above:: Chest pain Admission Indicated Admission indicated?: not indicated Admission Request Was there a request for admission?: No Disposition Plan Disposition Plan: Discharge Discharge Attestation Discharge Attestation: The patient and all family members were given an opportunity to ask questions and understood the discharge instructions. Discharge instructions specifically effects, indications for sooner follow up or return to the emergency department, and the expected course of current diagnosis. Patient condition: Stable Discharge Plan Plan Patient Disposition: HOME (Self Care) Discharge Disposition comment: Stable Prescriptions/Referrals Prescriptions/Med Rec: No Action clonidine HCl 0.1 mg tablet 0.1 mg PO BID Patient Comments: TAKE 1 TABLET BY MOUTH TWICE DAILY Pulmicort Flexhaler 180 mcg/actuation aerosol powdr breath activated 1 inh inhalation QDAY Qty: 1 3RF hydroxyzine HCl 25 mg tablet 25 mg PO BID PRN (Reason: anxiety) Qty: 14 0RF prednisone 50 mg tablet 50 mg PO QDAY Qty: 5 0RF hydroxyzine HCl 50 mg tablet 50 mg PO QID PRN (Reason: anxiety) Qty: 30 0RF albuterol sulfate [Ventolin HFA] 90 mcg/actuation HFA aerosol inhaler 2 puff inhalation Q6H PRN (Reason: shortness of breath or wheezing) Qty: 8.5 0RF Referrals: Susan Boss FNP-C [Primary Care Provider] - In 1 week Problem List Clinical Impression: Chest pain, non-cardiac Patient/Caregiver Discharge Instructions Education Materials: ED Chest Pain, Noncardiac Additional Instructions: Please follow up with your primary care doctor in the next 24-48hrs for any worsening symptoms return here immediately Print Language: Thai Stand Alone Forms: Rubina Award Info., Patient Portal Info Letter MELISSA/RALPH Supervising Physician MELISSA/RALPH Supervising Physician: Dr. armenta
== END 2024-11-06 12:16 | disposition home or self-care (01) ==
PROVIDERS: Emergency Provider Family Medicine
DX: R07.89 Other chest pain (principal)
CPT/HCPCS: 71045; 93005; 99283

== ENCOUNTER 2024-11-27 05:34 | Emergency (ER) | payer MEDICAID, SELFPAY ==
[2024-11-27 05:36] VITALS: BMI 41.5
[2024-11-27 05:38] VITALS: BP 137/80; PULSE 78; RESP 19; TEMP 37; O2SAT 96
--- NOTE | 2024-11-27 05:38 | EKG_ITS ---
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
--- NOTE | 2024-11-27 06:04 | XR_ITS ---
EXAMINATION: PA chest single view TECHNIQUE: Upright PA chest single view Date and time: November 27, 2024, 0612 hours, comparison 11/06/2024 INDICATIONS: Shortness of breath 1 week FINDINGS: Normal heart size Minimal parenchymal disease in the right upper lobe No pulmonary edema IMPRESSION: Suspicious for minimal infiltrate in the right upper lobe, recommend short-term follow-up chest imaging.
--- NOTE | 2024-11-27 06:34 | PD.EDCHEST ---
ED Chest Pain RME/HPI General Chief Complaint: Chest Pain Stated Complaint: HURTS WHEN I BREATH, CHEST AND BACK PAIN Time Seen by Provider: 11/27/24 05:58 Arrival date/time: 11/27/24 05:34 RME / HPI RME / HPI narrative: 24-year-old male with past medical history of asthma presents to the ER complaining of right sided pleuritic chest pain which started yesterday just before he went to the gym and got worse after the gym however during his workout the pain improved. Patient states this does not feel like his typical asthma exacerbation and he attempted to use his albuterol without improvement. Denies shortness of breath, nausea vomiting, fever, cough. Denies recent travel, surgeries, immobilizations, history of leg swelling or blood clots, family history of early cardiac disease. Related Data Home Medications ?Medication ?Instructions ?Recorded ?Confirmed clonidine HCl 0.1 mg tablet 0.1 mg PO BID 10/24/24 10/24/24 Previous Rx's ?Medication ?Instructions ?Recorded albuterol sulfate 90 mcg/actuation 2 puff inhalation Q6H PRN 10/10/23 aerosol inhaler (Ventolin HFA) shortness of breath or wheezing #8.5 grams budesonide 180 mcg/actuation 1 inh inhalation QDAY Asthma #1 ea 10/24/24 breath activated powder inhaler (Pulmicort Flexhaler) hydroxyzine HCl 25 mg tablet 25 mg PO BID PRN anxiety #14 tabs 10/24/24 prednisone 50 mg tablet 50 mg PO QDAY Asthma Exacerbation 10/24/24 #5 tabs hydroxyzine HCl 50 mg tablet 50 mg PO QID PRN anxiety #30 tabs 10/27/24 amoxicillin 875 mg-potassium 1 tab PO Q12H #10 tabs 11/27/24 clavulanate 125 mg tablet azithromycin 250 mg tablet 250 mg PO QDAY 4 days #4 tabs 11/27/24 Allergies Allergy/AdvReac Type Severity Reaction Status Date / Time cat dander Allergy Severe Difficulty Verified 11/27/24 05:35 Breathing dog dander Allergy Severe Difficulty Verified 11/27/24 05:35 Breathing ED Exam Narrative Physical exam: Constitutional: Patient alert and oriented. Well appearing. No acute distress. Not toxic appearing. Head: Normocephalic, atraumatic. Eyes: Periorbital regions bilaterally normal to inspection. Conjunctiva clear bilaterally. Sclera anicteric bilaterally. Pupils equal, round, reactive to light bilaterally. Extraocular movements intact bilaterally. Mouth/Throat: Mucous membranes moist. No stridor or muffled voice. No trismus. Handling secretions without difficulty. Airway widely patent. Neck: Supple. Trachea midline. No JVD. No nuchal rigidity. Normal range of motion. Respiratory: Normal effort. No accessory muscle use or respiratory distress. Lungs clear to auscultation bilaterally without wheezes, or crackles however scant Rhonchi to Right upper lobe. Cardiovascular: RRR. Normal S1/S2. No murmurs or rubs. Radial pulses intact bilaterally. Abdomen: Soft. Non-distended. Non-tender throughout. No pulsatile mass. No guarding or rebound. Back: No midline tenderness or step-offs. No CVA tenderness to palpation bilaterally. Upper Extremities: No gross deformities. Lower Extremities: No gross deformities. No edema or calf tenderness. Neuro: Speech normal. No gross motor or sensory deficits to upper or lower extremities bilaterally. GCS 15. CN II?XII grossly intact. Skin: Warm, dry, normal color. Psych: Normal affect. Cooperative. Normal insight. Course Course Course Narrative: MDM The patient presents with chest pain. Differential diagnosis includes musculoskeletal chest pain, GERD, bronchial pleurisy, costochondritis, and thoracic radiculopathy. CXR concerning for Right upper lobe PNA which is uncomplicated EKG sinus rhythm [address] elevation or T wave versions QTc 403 Labs without severe metabolic or electrolyte abn including trop and d-dimer are undetectable ALT minimally elevated 91, glucose minimally elevated 113, Cl 108 safe for close OP f/u CURB 65 score 0 for d/c Less likely etiologies include: PE: [place] low risk, PERC negative. ACS: HEART Score low risk, suggesting low probability of major adverse cardiac event in the next 6 weeks. Aortic Dissection: Unlikely given palpable pulses, warm extremities bilaterally, and no radiation of pain. Tamponade: Unlikely given absence of hypotension, muffled heart sounds, JVD, friction rub, narrow pulse pressure ?30, low-voltage EKG, or enlarged cardiac silhouette. Endocarditis: Unlikely as no Schwab criteria present ([place] spots, splinter hemorrhages, Osler nodes). CHF: Unlikely given no JVD, peripheral edema, or orthopnea. The patient is clinically well-appearing and stable. Evaluation today does not suggest cardiac ischemia, pulmonary embolism, aortic dissection, or other life-threatening etiology. These diagnoses were considered and excluded clinically and with appropriate studies. Nonetheless, it is understood by both patient and provider that no evaluation can entirely exclude such conditions. Plan to tx pt empirically for CAP with augmentin, azithromycin, supportive tx Admission was considered but is not indicated based on today?s evaluation and low-risk stratification. The patient is strongly encouraged to follow up with their PMD within the next 1-2 days. Strict ER return precautions advised for any continued, worsening, or new symptoms or any concerns at all. Quality Measures none Orders Category Date Time Status Consumer Loan Underwriter STAT Care 11/27/24 06:04 Active EKG (ED ONLY) *Do not use* NOW Care 11/27/24 05:38 Completed EKG (ED Only) Stat Exams 11/27/24 05:38 Draft XR chest 1V portable Stat Exams 11/27/24 06:04 Completed CBC Stat Lab 11/27/24 06:35 Completed Comprehensive Metabolic Panel Stat Lab 11/27/24 06:35 Results D-Dimer Stat Lab 11/27/24 06:35 Completed Lipase Stat Lab 11/27/24 06:35 Results Troponin I Stat Lab 11/27/24 06:35 Results Amoxicillin/Pot Clav 875 [Augmentin 875] Med 11/27/24 08:58 Discontinued 1 tab PO X1 ONE Azithromycin Po [Zithromax PO] Med 11/27/24 08:58 Discontinued 500 mg PO X1 ONE Ibuprofen Tab [Motrin Tab] Med 11/27/24 06:28 Discontinued 600 mg PO X1 ONE Reevaluation(s) Reevaluation #1: At the time of reassessment, the patient remains alert and oriented ?3 with GCS 15. Vitals are normal, pain is controlled, and the patient is tolerating oral intake without nausea or vomiting. The patient is agreeable to discharge and verbalizes understanding of the diagnosis, studies, treatment plan, medications (including side effects/precautions), and strict ER return precautions as discussed in the ED. All concerns were addressed, and the patient is comfortable with the plan. Vital Signs Vital signs: Vital Signs Temperature 98.6 F 11/27/24 05:38 Pulse Rate 78 11/27/24 05:38 Respiratory Rate 19 11/27/24 05:38 Blood Pressure 137/80 H 11/27/24 05:38 Pulse Oximetry (%) 96 11/27/24 05:38 Oxygen Delivery Method Room Air 11/27/24 05:38 Chest Pain Patient data External records reviewed:: None Clinical information provided by:: patient Social determinants that could affect healthcare access:: none Patient has the following chronic illnesses:: asthma How is presenting disease/condition affected by chronic disease/condition?: uneffected by Evaluation data The following diagnostics were reviewed and interpreted by me:: lab results, radiology exam(s) and EKG tracing(s) Lab and/or radiology exams considered but not ordered:: Labs and radiology considered, but not ordered as they were not clinically indicated at this time. Interpretation Summary: Has noted Medications / Prescriptions Medications or Prescriptions considered but not ordered:: I considered bronchodilators and steroids however did not order them because patient was not wheezing and not indicated Medication administrations:: Medication Administration History Discontinued Medications Amoxicillin/Clavulanate Potassium (Amoxicillin/Pot Clav 875 Tablet) 1 tab PO X1 ONE Stop: 11/27/24 08:59 Azithromycin (Azithromycin 250 Mg Tablet) 500 mg PO X1 ONE Stop: 11/27/24 08:59 Ibuprofen (Ibuprofen Tab 600 Mg Tablet) 600 mg PO X1 ONE Stop: 11/27/24 06:29 Last Admin: 11/27/24 07:29 Dose: 600 mg Documented By: ED as noted Consultations Consultation(s) initiated? (list below): No Diagnosis Chest Pain Differential Diagnosis: atypical chest pain, costochondritis and chest pain Most likely diagnosis given after review of the tests above:: Pneumonia Admission Indicated Admission indicated?: not indicated Admission Request Was there a request for admission?: No Disposition Plan Disposition Plan: Discharge Discharge Attestation Discharge Attestation: The patient and all family members were given an opportunity to ask questions and understood the discharge instructions. Discharge instructions specifically effects, indications for sooner follow up or return to the emergency department, and the expected course of current diagnosis. Patient condition: Stable Discharge Plan Plan Patient Disposition: HOME (Self Care) Patient condition on transfer: Stable Prescriptions/Referrals Prescriptions/Med Rec: New azithromycin 250 mg tablet 250 mg PO QDAY 4 Days Qty: 4 0RF Rx Instructions: start on day 2 of therapy amoxicillin-pot clavulanate 875-125 mg tablet 1 tab PO Q12H Qty: 10 0RF No Action clonidine HCl 0.1 mg tablet 0.1 mg PO BID Patient Comments: TAKE 1 TABLET BY MOUTH TWICE DAILY Pulmicort Flexhaler 180 mcg/actuation aerosol powdr breath activated 1 inh inhalation QDAY Qty: 1 3RF hydroxyzine HCl 25 mg tablet 25 mg PO BID PRN (Reason: anxiety) Qty: 14 0RF prednisone 50 mg tablet 50 mg PO QDAY Qty: 5 0RF hydroxyzine HCl 50 mg tablet 50 mg PO QID PRN (Reason: anxiety) Qty: 30 0RF albuterol sulfate [Ventolin HFA] 90 mcg/actuation HFA aerosol inhaler 2 puff inhalation Q6H PRN (Reason: shortness of breath or wheezing) Qty: 8.5 0RF Referrals: Angel Calixto MD [Primary Care Provider, Family Practice] - In 1 week Problem List Clinical Impression: Chest pain Patient/Caregiver Discharge Instructions Education Materials: ED Chest Pain, Uncertain Cause, ED Pneumonia (Adult) Additional Instructions: Follow up with your primary medical doctor within 24 hours. Return to the Emergency Room immediately for any new, worsening, continuing symptoms or any concerns at all. Return to the Emergency Room within 24 hours if you are unable to follow up with your primary medical doctor within 24 hours. Print Language: Divehi Stand Alone Forms: Rubina Award Info., Patient Portal Info Letter MELISSA/RALPH Supervising Physician MELISSA/RALPH Supervising Physician: Dr. Potter
[2024-11-27 07:10] LABS: Basophils # (Auto) 0.1 Thou/mm3 (0.0-0.2); Basophils % (Auto) 1 % (0-2.5); Eosinophils # (Auto) 0.6 Thou/mm3 (0.0-0.5); Eosinophils % (Auto) 6 % (0-10); Hematocrit 43.6 % (41.0-53.0); Hemoglobin 14.8 g/dL (13.5-16.0); Immature Granulocytes Auto 0.07 Thou/mm3 (0.00-0.00); Lymphocytes # (Auto) 3.3 Thou/mm3 (1.0-4.8); Lymphocytes % (Auto) 36 % (10-50); Mean Corpuscular HGB Conc 33.9 g/dl (31.0-37.0); Mean Corpuscular Hemoglobin 31.0 pg (25.0-35.0); Mean Corpuscular Volume 91 fL (80-100); Monocytes # (Auto) 0.7 Thou/mm3 (0.0-0.8); Monocytes % (Auto) 8 % (0-12); Neutrophils # (Auto) 4.6 Thou/mm3 (1.8-7.7); Neutrophils % (Auto) 49 % (37-80); Nucleated Red Blood Cell # 0.00 Thou/mm3 (0.00-0.00); Nucleated Red Blood Cell % 0 /100 WBC (0); Platelet Count 238 Thou/mm3 (140-440); RDW Standard Deviation 41.6 fL (35.1-43.9); Red Blood Count 4.77 Miln/mm3 (4.50-5.90); White Blood Count 9.4 Thou/mm3 (3.8-10.6)
[2024-11-27 07:21] LABS: Alanine Aminotransferase 91 U/L (10-49); Albumin, Serum 4.7 gm/dL (3.5-5.0); Alkaline Phosphatase 93 U/L (46-116); Anion Gap 11 (7-16); BUN/Creatinine Ratio 14 Ratio (12-20); Blood Urea Nitrogen 13 mg/dL (9-23); Calcium 9.9 mg/dL (8.3-10.6); Calcium (Corrected) 9.9 mg/dL (8.5-10.1); Carbon Dioxide 24.8 mMol/L (20.0-31.0); Chloride 108 mMol/L (98-107); Creatinine (Component) 0.9 mg/dL (0.6-1.3); Estimated Creatinine Clearance 175.6 mL/min (>60); Glucose 113 mg/dL (74-106); Osmolality,Calculated 287 (275-295); Potassium 3.9 mMol/L (3.4-5.1); Sodium 144 mMol/L (136-145); Troponin I < 0.020 ng/mL (0.0-0.045); eGFR > 60 See Note
[2024-11-27] MEDS: IBUPROFEN TAB 600 MG TABLET PO (07:29)
[2024-11-27 07:36] LABS: D-Dimer < 250 ng/mL (<600)
[2024-11-27 08:11] LABS: Lipase 45 U/L (12-53)
[2024-11-27] MEDS: AZITHROMYCIN 250 MG TABLET 500 MG PO (09:24)
[2024-11-27] MEDS: AMOXICILLIN/POT CLAV 875 TABLET 1 TAB PO (09:24)
[2024-11-27 09:59] LABS: Albumin/Globulin Ratio 1.6 (1.2-2.2); Aspartate Amino Transferase 40 U/L (0-34); Bilirubin,Total 0.3 mg/dL (0.3-1.2); Globulin 2.9 gm/dL (2.3-3.5); Total Protein 7.6 gm/dL (5.7-8.2)
== END 2024-11-27 09:44 | disposition home or self-care (01) ==
PROVIDERS: Physician Assistant; Emergency Provider Emergency Medicine; PCP Family Medicine
DX: R07.9 Chest pain, unspecified (principal)
CPT/HCPCS: 36415; 71045; 80053; 83690; 84484; 85025; 85379; 93005; 99283; A9270

== ENCOUNTER 2024-12-03 09:34 | Emergency (ER) | payer MEDICAID, SELFPAY ==
[2024-12-03 09:43] VITALS: BP 142/85; PULSE 74; RESP 18; TEMP 37.2; O2SAT 96; BMI 47.4
--- NOTE | 2024-12-03 09:45 | XR_ITS ---
EXAMINATION: PA lateral chest 2 views Technique when upright PA lateral chest 2 views Date and time: December 03, 2024, 0952 hours INDICATIONS: Pneumonia diagnosis 6 days ago. FINDINGS: Normal heart size Lungs are currently clear The osseous structures are intact IMPRESSION: No current pneumonia
--- NOTE | 2024-12-03 10:12 | PD.EDSOB ---
ED SOB =RME/HPI General Chief Complaint: Shortness of Breath/Dyspnea Stated Complaint: wants his lungs checked, on antibiotics for PNA Time Seen by Provider: 12/03/24 09:37 Arrival date/time: 12/03/24 09:34 24-year-old male presents to the emergency department today stating he was recently treated for pneumonia reports he would like his lungs checked/repeat x-ray Limitations: no limitations Related Data Home Medications ?Medication ?Instructions ?Recorded ?Confirmed clonidine HCl 0.1 mg tablet 0.1 mg PO BID 10/24/24 10/24/24 Previous Rx's ?Medication ?Instructions ?Recorded albuterol sulfate 90 mcg/actuation 2 puff inhalation Q6H PRN 10/10/23 aerosol inhaler (Ventolin HFA) shortness of breath or wheezing #8.5 grams budesonide 180 mcg/actuation 1 inh inhalation QDAY Asthma #1 ea 10/24/24 breath activated powder inhaler (Pulmicort Flexhaler) hydroxyzine HCl 25 mg tablet 25 mg PO BID PRN anxiety #14 tabs 10/24/24 prednisone 50 mg tablet 50 mg PO QDAY Asthma Exacerbation 10/24/24 #5 tabs hydroxyzine HCl 50 mg tablet 50 mg PO QID PRN anxiety #30 tabs 10/27/24 amoxicillin 875 mg-potassium 1 tab PO Q12H #10 tabs 11/27/24 clavulanate 125 mg tablet Allergies Allergy/AdvReac Type Severity Reaction Status Date / Time cat dander Allergy Severe Difficulty Verified 12/03/24 09:38 Breathing dog dander Allergy Severe Difficulty Verified 12/03/24 09:38 Breathing Review of Systems Review of Systems Systems Reviewed: All systems reviewed, normal except as documented Constitutional Constitutional: Reports system reviewed and no additional complaints, except as documented, Denies fever(s) and Denies headache(s) Eyes Eyes: Reports system reviewed and no additional complaints, except as documented and Denies blurry vision ENT Ears, Nose, Mouth, and Throat: Reports system reviewed and no additional complaints, except as documented, Denies headache(s), Denies nasal congestion and Denies nasal discharge Cardiovascular Cardiovascular: Reports system reviewed and no additional complaints, except as documented, Denies chest pain and Denies dyspnea Respiratory Respiratory: Reports system reviewed and no additional complaints, except as documented, Reports chest congestion, Reports cough, Denies dyspnea and Reports wheezing Gastrointestinal Gastrointestinal: Reports system reviewed and no additional complaints, except as documented and Denies abdominal pain Integumentary/Breasts Skin/Breast: Reports system reviewed and no additional complaints, except as documented and Denies rash Neurologic Neurologic: Reports system reviewed and no additional complaints, except as documented, Reports as per HPI and Denies headache(s) Allergic/Immunologic Allergic/Immunologic: Reports wheezing Past Medical History Past Medical History NEUROLOGIC: Negative Neurological Disorders CARDIAC: Negative Cardiac Disorders, Congestive Heart Failure, Hypertension or Hypotension RESPIRATORY: Positive Asthma; Negative Chronic Obstructive Pulmonary Disease (COPD) GASTROINTESTINAL: Negative Gastrointestinal Disorders GENITOURINARY: Negative Genitourinary Disorders or Renal Disease MUSCULOSKELETAL: Negative Musculoskeletal Disorders ENDOCRINE: Negative Diabetes Mellitus Type 1 or Diabetes Mellitus Type 2 HEMATOLOGIC: Negative Blood Disorders PSYCHO/SOCIAL: Positive Anxiety OTHER HISTORY: Negative Chicken Pox or Cancer Family History FAMILY HISTORY: Positive Family Psychiatric Problems (mom bipolar , uncle pschitzophrenic); Negative Family Respiratory Disorders, Family Cardiac Disorders or Family Gastrointestinal Problems Surgical History SURGICAL: Negative Cardiac Surgery, Abdominal Surgery or Nephrectomy Social History SMOKING STATUS: Never smoker SUBSTANCE USE: does not use ED Exam General Limitations: Present no limitations General appearance: Present alert and in no apparent distress Head Head exam: Present atraumatic, normocephalic and normal inspection Eye Eye exam: Present normal appearance, PERRL and EOMI; Absent conjunctival injection ENT ENT exam: Present normal exam, normal oropharynx and mucous membranes moist Neck Neck exam: Present normal inspection, full ROM and trachea midline Chest Chest inspection: Present normal inspection and symmetric chest wall rise Respiratory Respiratory exam: Present wheezes; Absent respiratory distress, stridor, accessory muscle use or prolonged expiratory phase Cardiovascular Cardiovascular exam: Present regular rate, normal rhythm and normal heart sounds Abdominal Exam Abdominal exam: Present soft and normal bowel sounds Extremities Exam Extremities exam: Present normal inspection and full ROM Back Exam Back exam: Present normal inspection and full ROM Neurological Exam Neurological exam: Present alert, oriented X3 and CN II-XII intact Psychiatric Psychiatric exam: Present normal affect and normal mood Skin Skin exam: Present warm, dry, intact and normal color Course Quality Measures none Orders Category Date Time Status XR chest 2V Stat Exams 12/03/24 09:45 Completed Vital Signs Vital signs: Vital Signs Temperature 98.9 F 12/03/24 09:43 Pulse Rate 74 12/03/24 09:43 Respiratory Rate 18 12/03/24 09:43 Blood Pressure 142/85 H 12/03/24 09:43 Pulse Oximetry (%) 96 12/03/24 09:43 Oxygen Delivery Method Room Air 12/03/24 09:43 O2 saturation 96% on room air within normal limits Shortness of Breath / Dyspnea MDM Narrative MDM Narrative:: 24-year-old male presents to the emergency department today stating he was recently treated for pneumonia reports he would like his lungs checked/repeat x-ray Clinically patient well-appearing patient does not appear look toxic no distress Repeat x-ray obtained no acute pneumonic infiltrates noted Lungs are clear to auscultation has no difficulty breathing Patient discharged home in no distress to follow-up with primary care doctor in the next 24 to 48 hours and for any worsening symptoms to return to the ER immediately Patient data External records reviewed:: [facility] previous records Clinical information provided by:: patient Social determinants that could affect healthcare access:: none Patient has the following chronic illnesses:: None How is presenting disease/condition affected by chronic disease/condition?: no chronic disease Evaluation data The following diagnostics were reviewed and interpreted by me:: radiology exam(s) Lab and/or radiology exams considered but not ordered:: Radiology obtained Interpretation Summary: Reviewed by me Medications / Prescriptions Medications or Prescriptions considered but not ordered:: Given Medication administrations:: Given Consultations Consultation(s) initiated? (list below): No Diagnosis Shortness of Breath Differential Diagnosis: acute exacerbation of chronic obstructive airways disease, congestive heart failure, community acquired pneumonia and pulmonary embolism Most likely diagnosis given after review of the tests above:: Asthma Admission Indicated Admission indicated?: not indicated Admission Request Was there a request for admission?: No Disposition Plan Disposition Plan: Discharge Discharge Attestation Discharge Attestation: The patient and all family members were given an opportunity to ask questions and understood the discharge instructions. Discharge instructions specifically effects, indications for sooner follow up or return to the emergency department, and the expected course of current diagnosis. Patient condition: Stable Discharge Plan Plan Patient Disposition: HOME (Self Care) Discharge Disposition comment: Stable Prescriptions/Referrals Prescriptions/Med Rec: No Action clonidine HCl 0.1 mg tablet 0.1 mg PO BID Patient Comments: TAKE 1 TABLET BY MOUTH TWICE DAILY Pulmicort Flexhaler 180 mcg/actuation aerosol powdr breath activated 1 inh inhalation QDAY Qty: 1 3RF hydroxyzine HCl 25 mg tablet 25 mg PO BID PRN (Reason: anxiety) Qty: 14 0RF prednisone 50 mg tablet 50 mg PO QDAY Qty: 5 0RF hydroxyzine HCl 50 mg tablet 50 mg PO QID PRN (Reason: anxiety) Qty: 30 0RF albuterol sulfate [Ventolin HFA] 90 mcg/actuation HFA aerosol inhaler 2 puff inhalation Q6H PRN (Reason: shortness of breath or wheezing) Qty: 8.5 0RF amoxicillin-pot clavulanate 875-125 mg tablet 1 tab PO Q12H Qty: 10 0RF Referrals: Susan Boss FNP-C [Primary Care Provider] - 12/06/24 Problem List Clinical Impression: Cough Patient/Caregiver Discharge Instructions Additional Instructions: Please follow up with your primary care doctor in the next 24-48hrs for any worsening symptoms return here immediately Your x-ray today shows no evidence of pneumonia Print Language: Kyrgyz Stand Alone Forms: Rubina Award Info., Patient Portal Info Letter PA/RALPH Supervising Physician MELISSA/RALPH Supervising Physician: Dr. armenta
== END 2024-12-03 10:47 | disposition home or self-care (01) ==
PROVIDERS: Emergency Provider Nurse Practitioner Primary Care
DX: R05.9 Cough, unspecified (principal)
CPT/HCPCS: 71046; 99283

== ENCOUNTER 2025-01-16 00:22 | Emergency (ER) | payer MEDICAID, SELFPAY ==
[2025-01-16 00:23] VITALS: BMI 43.0
[2025-01-16 00:37] VITALS: BP 162/73; PULSE 83; RESP 20; TEMP 37; O2SAT 98
[2025-01-16 01:07] LABS: COVID-19 Antigen (In-House) Negative (Negative)
[2025-01-16 01:08] LABS: Strep A Rapid Negative (Negative)
[2025-01-16 01:28] LABS: Mono Screen Negative (Negative)
--- NOTE | 2025-01-16 02:13 | PD.EDRME ---
Rapid Medical Screening Exam RME Arrival date/time: 01/16/25 00:22 This is a case of 25-year-old male with with history of anxiety came in in the emergency room due to sore throat and pain upon swallowing associated with sore throat for 3 days worsening of the symptoms this patient decided to sought consult here in the emergency room Chief Complaint: Dental/Oral/Throat Time Seen by Provider: 01/16/25 00:34 Vital signs: Vital Signs Temperature 98.6 F 01/16/25 00:37 Pulse Rate 83 01/16/25 00:37 Respiratory Rate 20 01/16/25 00:37 Blood Pressure 162/73 H 01/16/25 00:37 Pulse Oximetry (%) 98 01/16/25 00:37 Oxygen Delivery Method Room Air 01/16/25 00:37 Exam: Moderate swelling tonsils redness but no peritonsillar abscess no exudate no drooling of the saliva clear breath sound Clinical Impression: Throat pain shortness of breath
--- NOTE | 2025-01-16 02:17 | PD.EDADDENDU ---
Emergency Room Addendum Addendum Narrative: When I looked for the patient to start my evaluation, I was told the patient eloped. Edgar Denis MD
--- NOTE | 2025-01-16 02:26 | PC.NURSE ---
pt called three times 0050, 0130, 0215 no answer.
== END 2025-01-16 02:27 | disposition left against medical advice (07) ==
LOC: SERX 00:54
PROVIDERS: Nurse Practitioner Family; Emergency Provider Emergency Medicine
DX: R07.0 Pain in throat (principal); R06.02 Shortness of breath; Z53.29 Procedure and treatment not carried out because of patient's decision for other reasons
CPT/HCPCS: 36415; 86308; 87651; 87811; 99281

== ENCOUNTER 2025-01-18 12:00 | Emergency (ER) | payer MEDICAID, SELFPAY ==
[2025-01-18 12:02] VITALS: PULSE 86; RESP 24; O2SAT 90; BMI 42.3
--- NOTE | 2025-01-18 12:08 | XR_ITS ---
EXAMINATION: AP chest single view TECHNIQUE: AP portable upright chest single view Date and time: January 18, 2025, 1219 hours, comparison December 03, 2024 INDICATIONS: Coughing congestion 4 days. FINDINGS: Poor inspiratory effort Normal heart size Mild elevation right hemidiaphragm No lobar pneumonia or pulmonary edema IMPRESSION: No lobar pneumonia or pulmonary edema
--- NOTE | 2025-01-18 12:09 | EDNOTE_ITS ---
<Statement entered by Seda Bautista MD - 01/29/25 06:33> As co-signing physician, I was present and available for consult prn. I concur with the plan and care as documented by the midlevel provider. ED General RME/HPI General Chief complaint: Shortness of Breath/Dyspnea Stated complaint: SOB Time Seen by Provider: 01/18/25 12:07 Arrival date/time: 01/18/25 12:00 CC: Shortness of breath HPI patient has been wheezing for the past 3 days he has a history of asthma and takes his inhalers each morning but however states that it got worse when he went to work. At the time of the exam patient reports that EMS did give him a breathing treatment which resolved all of his wheezing. He is awake alert oriented EMS reports stable vital signs and route. Patient speaking in full sentences with no respiratory distress. Patient has no other complaints at this time. Related Data Home Medications ?Medication ?Instructions ?Recorded ?Confirmed clonidine HCl 0.1 mg tablet 0.1 mg PO BID 10/24/2409/10 Previous Rx's ?Medication ?Instructions ?Recorded albuterol sulfate 90 mcg/actuation 2 puff inhalation Q 6H PRN 10/10/23 aerosol inhaler (Ventolin HFA) shortness of breath or wheezing #8.5 grams budesonide 180 mcg/actuation 1 inh inhalation QDAY Ast hma #1 ea 10/24/24 breath activated powder inhaler (Pulmicort Flexhaler) hydroxyzine HCl 25 mg tablet 25 mg PO BID PRN anxiety #14 tabs 10/24/24 prednisone 50 mg tablet 50 mg PO QDAY Asthma Exacerb ation 10/24/24 #5 tabs hydroxyzine HCl 50 mg tablet 50 mg PO QID PRN anxiety #30 tabs 10/27/24 amoxicillin 875 mg-potassium 1 tab PO Q12H #10 tabs clavulanate 125 mg tablet prednisone 20 mg tablet See Taper PO BID 3 days #6 t abs 01/18/25 Allergies Allergy/AdvReac Type Severity Reaction Status Date / Time cat dander Allergy Severe Difficulty Verified 12/03/24 09:38 Breathing dog dander Allergy Severe Difficulty Verified 12/03/24 09:38 Breathing Review of Systems Review of Systems Narrative Review of Systems: GEN: No fever, no chills, no weight loss EYES: No discharge, no visual changes, no pain HEENT: No ear pain, no congestion, no sore throat PULM: No shortness of breath, no cough, no congestion, +wheezing CV: No chest pain, no dyspnea on exertion, no palpitations GI: No nausea, no vomiting, no diarrhea, no pain, no constipation : No frequency, no urgency, no dysuria MUSC/SKEL: No joint pain, no back pain SKIN: No rash PSYCH: No hallucinations, no depression HEME/LYMPH: No easy bleeding or bruising tendencies NEURO: No weakness, no headache Past Medical History Past Medical History NEUROLOGIC: Negative Neurological Disorders CARDIAC: Negative Cardiac Disorders, Congestive Heart Failure, Hypertension or Hypotension RESPIRATORY: Positive Asthma; Negative Chronic Obstructive Pulmonary Disease (COPD) GASTROINTESTINAL: Negative Gastrointestinal Disorders GENITOURINARY: Negative Genitourinary Disorders or Renal Disease MUSCULOSKELETAL: Negative Musculoskeletal Disorders ENDOCRINE: Negative Diabetes Mellitus Type 1 or Diabetes Mellitus Type 2 HEMATOLOGIC: Negative Blood Disorders PSYCHO/SOCIAL: Positive Anxiety OTHER HISTORY: Negative Chicken Pox or Cancer Family History FAMILY HISTORY: Positive Family Psychiatric Problems (mom bipolar , uncle pschitzophrenic); Negative Family Respiratory Disorders, Family Cardiac Disorders or Family Gastrointestinal Problems Surgical History SURGICAL: Negative Cardiac Surgery, Abdominal Surgery or Nephrectomy Social History SMOKING STATUS: Never smoker SUBSTANCE USE: does not use ED Exam Narrative Physical exam: [General: Obese not in any acute distress Head normocephalic HEENT: Within acceptable limits Neck is supple nontender Chest equal chest rise nontender to palpation Respiratory: Clear to auscultation no wheezes crackles or rubs, no pursed lip breathing, no tachypnea. CV: Rate rhythm is regular no murmurs rubs or clicks Abdomen is distended secondary to body habitus soft nontender no masses positive bowel sounds all 4 quadrants Back: No CVA tenderness no spinous process tenderness from cervical spine thoracic and lumbar spine Skin: Intact no petechiae rash induration ulceration or crepitus Extremities: Moving all extremity against resistance cap refill less than 2 seconds neurosensory intact Neuro: Awake alert oriented x3 Glascow coma 15 no focal deficits] Course Quality Measures none Orders Category Date Time Status XR chest 1V Stat Exams 01/18/25 12:08 Completed Vital Signs Vital signs: Vital Signs Temperature 98.2 F 01/18/25 12:10 Pulse Rate 76 01/18/25 12:10 Respiratory Rate 18 01/18/25 12:10 Blood Pressure 128/60 01/18/25 12:10 Pulse Oximetry (%) 96 01/18/25 12:10 Oxygen Delivery Method Room Air 01/18/25 12:10 Discharge Plan Plan Patient Disposition: HOME (Self Care) Patient condition on transfer: Stable Prescriptions/Referrals Prescriptions/Med Rec: New prednisone 20 mg tablet See Taper PO BID 3 Days Qty: 6 0RF Taper: Prednisone Taper 20 mg DAILY for 2 Days and 0 Hour 10 mg DAILY for 2 Days and 0 Hour 5 mg DAILY for 7 Days and 0 Hour No Action clonidine HCl 0.1 mg tablet 0.1 mg PO BID Patient Comments: TAKE 1 TABLET BY MOUTH TWICE DAILY Pulmicort Flexhaler 180 mcg/actuation aerosol powdr breath activated 1 inh inhalation QDAY Qty: 1 3RF hydroxyzine HCl 25 mg tablet 25 mg PO BID PRN (Reason: anxiety) Qty: 14 0RF prednisone 50 mg tablet 50 mg PO QDAY Qty: 5 0RF hydroxyzine HCl 50 mg tablet 50 mg PO QID PRN (Reason: anxiety) Qty: 30 0RF albuterol sulfate [Ventolin HFA] 90 mcg/actuation HFA aerosol inhaler 2 puff inhalation Q6H PRN (Reason: shortness of breath or wheezing) Qty: 8.5 0RF amoxicillin-pot clavulanate 875-125 mg tablet 1 tab PO Q12H Qty: 10 0RF Problem List Clinical Impression: Asthma Patient/Caregiver Discharge Instructions Other Activity Instructions:: Continue to use your inhalers on a daily basis add the prednisone for the next 3 days if there is a worsening of symptoms follow-up with your primary care doctor. Education Materials: Asthma Print Language: Uzbek Stand Alone Forms: Rubina Award Info., Work/School Release, Patient Portal Info Letter PA/VETERINARY INSPECTOR Supervising Physician PA/VETERINARY INSPECTOR Supervising Physician: Sunday Bhagat ENP [facility] Clinical Information Provided by: patient Medical Records reviewed [facility] Meds/Rx considered, not ordered None Labs/Rad/Tests considered, not ordered None Chronic Illness/Social Conditions Explain: Asthma EKG EKG not done Labs Labs: none Imaging Imaging interpretation: interpreted by me Imaging Interpretation(s): Chest x-ray is negative for any acute finding.
[2025-01-18 12:10] VITALS: BP 128/60; PULSE 76; RESP 18; TEMP 36.8; O2SAT 96
== END 2025-01-18 12:55 | disposition home or self-care (01) ==
LOC: SERX 12:41
PROVIDERS: Emergency Provider Emergency Medicine
DX: J45.909 Unspecified asthma, uncomplicated (principal)
CPT/HCPCS: 71045; 99282